=== PATIENT | female | born 1935 | race Caucasian/White ===

== ENCOUNTER 2017-05-03 14:30 | Inpatient (IN) | payer MEDICARE, OTHER, SELFPAY ==
[2017-05-03] VITALS (10 sets, daily range): BP systolic 122–160; BP diastolic 54–113; PULSE 70–99; RESP 16–22; TEMP 36.6–36.8; O2SAT 94–97; BMI 31.1; BMI 25.1
--- NOTE | 2017-05-03 14:38 | EKG12_ITS ---
Test Reason : CP Blood Pressure : / mmHG Vent. Rate : 081 BPM Atrial Rate : 068 BPM P-R Int : 000 ms QRS Dur : 080 ms QT Int : 360 ms P-R-T Axes : 000 048 033 degrees QTc Int : 418 ms Atrial fibrillation Nonspecific T wave abnormality Abnormal ECG Confirmed by LORENA TERESA ([id number]), makeup editor RUTH RHODES ([id number]) on 05/06/2017 1:19:22 PM Referred By: FRANCISCO Confirmed By:LORENA TERESA
--- NOTE | 2017-05-03 14:40 | RAD_ITS ---
STUDY: X-RAY CHEST REASON FOR EXAM: Female, 82 years old. Chest pain. TECHNIQUE: Single AP portable view of the chest. COMPARISON: 08/10/2013. FINDINGS: The lungs are clear and expanded. There is no demonstrated pleural abnormality. Normal size heart. Normal mediastinum and gertrudis. Normal visualized pulmonary arteries. Normal visualized aortic arch and descending thoracic aorta. The bony structures are unchanged. There again is a large hiatal hernia. RAD/Chest 1 View (Portable) IMPRESSION: No active pulmonary disease. Hiatal hernia. Electronically Signed: Jerry Kemp MD at 15:30 EST Tel , Service support ,
--- NOTE | 2017-05-03 14:45 | ED.VISSUMM ---
- ER Visit Summary Date of Service: 05/03/17 Chief Complaint: Irregular heartbeat, diaphoresis History of Present Illness: The patient is a 82 F presenting with palpitations. She states that she has had intermittent episodes of feeling sweaty. She denies any chest pain or shortness of breath. She went to urgent care today when this occurred again. They noted irregular heartbeat and sent her to the emergency department. She has no known history of A. fib. She states she has never had an EKG in the past. She is not on anticoagulants. Physical Examination: Vitals are stable. Patient is afebrile. Alert no acute distress. HEENT exam is unremarkable. Neck is supple. Lungs are clear and equal bilaterally. Heart is irregularly irregular Abdomen is soft nontender nondistended. Extremities are unremarkable. Skin is warm and dry. No focal neurologic deficit. Remainder of exam is unremarkable. Emergency Department Course and Treatment: EKG is A. fib rate of 81. She was given aspirin. CBC, chemistries unremarkable other than BUN 29, creatinine 1.14. Troponin is negative. Patient is resting comfortably in the emergency department. Discussed with Dr. Garcia for admission. Disposition: Admission Impression: New onset A. fib This note was generated with [employer] dictation software. It may contain incorrect words, spelling, and punctuation that were not noted in review of the chart prior to signing ED Disposition - Plan for ED Patient: Chief Complaint: Chest Pain Referrals: Arslan Toscano DO [Primary Care Provider] -
[2017-05-03 14:51] LABS: Absolute Lymphocyte Count 3.65 X10^3/ul (0.83-4.51); Absolute Neutrophil Count 5.1 X10^3/uL (2.0-7.7); Basophil# 0.05 X10^3/uL; Basophil% 0.5 % (0-1); Eosinophil# 0.05 X10^3/uL; Eosinophils% 0.5 % (0-5); Hematocrit 47.4 % (37-47); Hemoglobin 16.1 g/dl (12.0-15.0); Lymphocyte # 3.65 X10^3/ul (4.0); Lymphocyte % 37.3 % (19-41); Mean Corpuscular Hgb 29.9 pg (27.0-32.0); Mean Corpuscular Volume 88.1 fL (81-99); Monocyte% 9.2 % (0-10); Neutrophil # 5.12 X10^3/uL (2.7-7.7); Neutrophil % 52.3 % (47-70); Platelet Count 315 K/mm3 (150-450); RBC Distribution Width SD 45.1 fl (35.1-43.9); Red Blood Count 5.38 M/mm3 (4.2-5.4); White Blood Count 9.8 K/mm3 (4.4-11.0)
[2017-05-03 14:53] LABS: POSITIVE COUNT NO; POSITIVE DIFFERENTIAL NO; POSITIVE MORPHOLOGY NO
[2017-05-03 15:02] LABS: Anion Gap 9 (5-15); BUN 29 mg/dL (7-18); BUN/Creat Ratio 25.4 RATIO (10-20); Calcium,Total 9.4 mg/dL (8.5-10.1); Chloride 102 mmol/L (98-107); Creatinine, Serum 1.14 mg/dL (0.55-1.02); EST Glomerular Filtration Rate 49 mL/min (>60); Est Glom Filt Rate - Afr Amer 59 mL/min (>60); Estimated Creatinine Clearance 41.92 ml/min; Glucose 98 mg/dL (74-106); Potassium 3.4 mmol/L (3.5-5.1); Sodium Level 140 mmol/L (136-145)
[2017-05-03] MEDS: Aspirin 81 MG TAB.CHEW 324 MG PO (15:06)
--- NOTE | 2017-05-03 16:09 | PCM.HP.STD ---
Problem List (1) Afib Status: Acute (2) HTN (hypertension) Status: Chronic (3) Depression Status: Chronic (4) Anxiety Status: Chronic History of Present Illness Date of Admission: 05/03/17 Chief Complaint: diaphoresis The patient is a 82 year old F who presents with 2 episodes of diaphoresis and weakness. First episode happened about a week ago and then resolved but during the episode patient just felt very weak. She was also noted to be clammy but denied any chest pain. Again patient was not doing anything too strenuous but then had another episode. Patient was alarmed and presented to the emergency room. In the emergency room patient was noted to have atrial fibrillation but without rapid ventricular response. Patient has never had atrial fibrillation before. Patient states that otherwise patient is able to go up stairs without any chest pain or any difficulties. Patient is being admitted for H fibrillation and further workup in regards to the diaphoretic episode. [] Past Medical History Past Medical History (Chronic Problems): Chronic Problems (Last Updated 05/03/17 @ 14:13 by Juliette Box) HTN (hypertension) (Chronic) Depression (Chronic) Anxiety (Chronic) Allergies Sulfa (Sulfonamide Antibiotics) Allergy (Severe, Verified 05/03/17 14:13) unknown Home Medications: Ambulatory Orders Medication Instructions Recorded ascorbic acid (vitamin C) 500 mg 500 mg PO QDAY 05/03/17 tablet aspirin 81 mg tablet,delayed 81 mg PO DAILY 05/03/17 release calcium citrate 250 mg tablet 250 mg PO ONCE tab 05/03/17 escitalopram 5 mg tablet 5 mg PO QDAY 05/03/17 lisinopril 2.5 mg tablet 2.5 mg PO QDAY 05/03/17 omega 8-niy-ljw-fish oil 1,000 mg 1 cap PO DAILY 05/03/17 (120 mg-180 mg) capsule omeprazole 10 mg capsule,delayed 10 mg PO ONCE 05/03/17 release potassium chloride 20 mEq oral 20 meq PO QDAY 05/03/17 packet pravastatin 20 mg tablet 20 mg PO QHS 05/03/17 triamterene 37.5 1 cap PO QAM 05/03/17 mg-hydrochlorothiazide 25 mg capsule Psychiatric History: Anxiety, Depression Lives: Spouse/ Significant Other Smoking Status: Never smoker Tobacco Use: Non-smoker Alcohol: None Drugs: None - *Family History Maternal History Items: Heart Disease - from heart attack in her sleep Review of Systems Constitutional: Reports: Weakness. Denies: Chills, Fever Eyes: Denies: Blurred vision, Double vision HEENT: Denies: Head Aches, Sinus Congestion, Sinus Drainage Cardiovascular: Denies: Chest Pain, Palpitations Respiratory: Denies: Cough, Shortness of breath at rest, Sputum production Gastrointestinal: Denies: Abdominal Pain, Hematochezia, Nausea, Melena, Vomiting Genitourinary: Denies: Dysuria, Hematuria Musculoskeletal: Denies: Joint Pain, Joint Tenderness Skin: Denies: Rash, Wounds Neurological: Denies: Numbness, Tingling, Focal weakness Psychiatric: Reports: Anxiety, Depression Endocrine: Denies: Change in Body Habitus, Heat/ Cold Intolerance Hematologic/ Lymphatic: Denies: Easy Bruising, Easy Bleeding, Hx of blood clot VTE Information - Inpt Only VTE Present on Admission: No Patient Problems: Active and Suspected Problems (Last Updated 05/03/17 @ 14:13 by Juliette Box) Afib (Acute) - Physical Exam General: Alert, Cooperative, No apparent distress HEENT: Atraumatic, Normocephalic Oral: Moist Mucosa, No Gingival or Mucosal Lesions/ Ulcerations Neck: No Nodes, Thyroid Normal Size and Texture Lungs: Clear to auscultation, Normal air movement, No rhonchi, No wheeze Cardiovascular: Normal S1, Normal S2, - - irregular rhythm. Abdomen: Bowel Sounds Present, Soft, Non Tender, Non-Distended, No Hepato-splenomegaly Extremities: No clubbing, No cyanosis, No edema Skin: No rashes, No breakdown Neurological: Deep Tendon Reflexes 2+/4 and Symmetrical, Neuro grossly intact, - - No clonus Psych/Mental Status: Normal Affect, Appropriate Vital Signs Temp Pulse Resp BP Pulse Ox 36.6 C 97 20 H 159/91 H 97 05/03/17 14:31 05/03/17 15:55 05/03/17 15:55 05/03/17 15:55 05/03/17 15:55 Oxygen Flow Rate 2 Oxygen Delivery Method Nasal Cannula Weight: 69.8 kg Body Mass Index (BMI) 31.1 Laboratory Tests Past 24 Hrs 05/03/17 05/03/17 14:35 14:35 WBC 9.8 RBC 5.38 Hgb 16.1 H Hct 47.4 H MCV 88.1 MCH 29.9 MCHC 34.0 RDW 14.0 RDW Differential 45.1 H Plt Count 315 MPV 10.0 Immature Gran % (Auto) 0.200 Neut % (Auto) 52.3 Lymph % (Auto) 37.3 [place] % (Auto) 9.2 Eos % (Auto) 0.5 Baso % (Auto) 0.5 Absolute Neuts (auto) 5.1 Absolute Lymphs (auto) 3.65 Total Counted Not Reportable Sodium 140 Potassium 3.4 L Chloride 102 Carbon Dioxide 29.0 Anion Gap 9 BUN 29 H Creatinine 1.14 H Estim Creat Clear Calc 41.92 Est GFR (MDRD) Af Amer 59 L Est GFR (MDRD) Non-Af 49 L BUN/Creatinine Ratio 25.4 H Glucose 98 Calcium 9.4 Troponin I < 0.02 Assessment/Plan Active and Suspected Problems (Last Updated 05/03/17 @ 14:13 by Juliette Box) Afib (Acute) 1. Atrial fibrillation Unclear time of onset [id number] score is 4 Metoprolol 50 mg twice daily Start Lovenox for anticoagulation purposes until we get further echocardiogram to see the patient's valvular status. I have recommended to the patient and her for the novel anticoagulants over Coumadin for anticoagulation, presuming she has no significant valvular abnormality. They are in agreement to that. Given the patient's diaphoretic episode may have been related with rapid ventricular response but is unclear. Given that that is unclear him in order a stress test. Cycle troponins Patient will need to follow-up with cardiology as outpatient if she continues to still have symptoms and reevaluate to see if a cardioversion may be indicated at a later point. Not currently indicated as patient is otherwise asymptomatic other than these diaphoretic episodes. Not a candidate for cardioversion at this time given the thrombus risk without a defined time of onset. 2. DVT prophylaxis: Patient is currently being anticoagulated. 3. CODE STATUS: I dressed this with her patient and her . Discussed CPR, endotracheal intubation and feeding tubes. Patient is full CODE STATUS at this time and is okay to proceed with intubation if deemed to be short-term. Would likely she or her requests extubation if it look like she was a long-term vegetative state. Code Visit Inpatient E&M: 43076 Init Hosp L3
--- NOTE | 2017-05-03 16:16 | NURSING ---
104 PCU AFTAMANNA MATHEW
--- NOTE | 2017-05-03 16:18 | HP.PCM_ITS ---
Problem List (1) Afib Status: Acute (2) HTN (hypertension) Status: Chronic (3) Depression Status: Chronic (4) Anxiety Status: Chronic History of Present Illness Date of Admission: 05/03/17 Chief Complaint: diaphoresis The patient is a 82 year old F who presents with 2 episodes of diaphoresis and weakness. First episode happened about a week ago and then resolved but during the episode patient just felt very weak. She was also noted to be clammy but denied any chest pain. Again patient was not doing anything too strenuous but then had another episode. Patient was alarmed and presented to the emergency room. In the emergency room patient was noted to have atrial fibrillation but without rapid ventricular response. Patient has never had atrial fibrillation before. Patient states that otherwise patient is able to go up stairs without any chest pain or any difficulties. Patient is being admitted for H fibrillation and further workup in regards to the diaphoretic episode. [] Past Medical History Past Medical History (Chronic Problems): Chronic Problems (Last Updated 05/03/17 @ 14:13 by Juliette Box) HTN (hypertension) (Chronic) Depression (Chronic) Anxiety (Chronic) Allergies Sulfa (Sulfonamide Antibiotics) Allergy (Severe, Verified 05/03/17 14:13) unknown Home Medications: Ambulatory Orders Medication Instructions Recorded ascorbic acid (vitamin C) 500 mg 500 mg PO QDAY 05/03/17 tablet aspirin 81 mg tablet,delayed 81 mg PO DAILY 05/03/17 release calcium citrate 250 mg tablet 250 mg PO ONCE tab 05/03/17 escitalopram 5 mg tablet 5 mg PO QDAY 05/03/17 lisinopril 2.5 mg tablet 2.5 mg PO QDAY 05/03/17 omega 9-fog-sdl-fish oil 1,000 mg 1 cap PO DAILY 05/03/17 (120 mg-180 mg) capsule omeprazole 10 mg capsule,delayed 10 mg PO ONCE 05/03/17 release potassium chloride 20 mEq oral 20 meq PO QDAY 05/03/17 packet pravastatin 20 mg tablet 20 mg PO QHS 05/03/17 triamterene 37.5 1 cap PO QAM 05/03/17 mg-hydrochlorothiazide 25 mg capsule Psychiatric History: Anxiety, Depression Lives: Spouse/ Significant Other Smoking Status: Never smoker Tobacco Use: Non-smoker Alcohol: None Drugs: None - *Family History Maternal History Items: Heart Disease - from heart attack in her sleep Review of Systems Constitutional: Reports: Weakness. Denies: Chills, Fever Eyes: Denies: Blurred vision, Double vision HEENT: Denies: Head Aches, Sinus Congestion, Sinus Drainage Cardiovascular: Denies: Chest Pain, Palpitations Respiratory: Denies: Cough, Shortness of breath at rest, Sputum production Gastrointestinal: Denies: Abdominal Pain, Hematochezia, Nausea, Melena, Vomiting Genitourinary: Denies: Dysuria, Hematuria Musculoskeletal: Denies: Joint Pain, Joint Tenderness Skin: Denies: Rash, Wounds Neurological: Denies: Numbness, Tingling, Focal weakness Psychiatric: Reports: Anxiety, Depression Endocrine: Denies: Change in Body Habitus, Heat/ Cold Intolerance Hematologic/ Lymphatic: Denies: Easy Bruising, Easy Bleeding, Hx of blood clot VTE Information - Inpt Only VTE Present on Admission: No Patient Problems: Active and Suspected Problems (Last Updated 05/03/17 @ 14:13 by Juliette Box) Afib (Acute) - Physical Exam General: Alert, Cooperative, No apparent distress HEENT: Atraumatic, Normocephalic Oral: Moist Mucosa, No Gingival or Mucosal Lesions/ Ulcerations Neck: No Nodes, Thyroid Normal Size and Texture Lungs: Clear to auscultation, Normal air movement, No rhonchi, No wheeze Cardiovascular: Normal S1, Normal S2, - - irregular rhythm. Abdomen: Bowel Sounds Present, Soft, Non Tender, Non-Distended, No Hepato- splenomegaly Extremities: No clubbing, No cyanosis, No edema Skin: No rashes, No breakdown Neurological: Deep Tendon Reflexes 2+/4 and Symmetrical, Neuro grossly intact, - - No clonus Psych/Mental Status: Normal Affect, Appropriate Vital Signs Temp Pulse Resp BP Pulse Ox 36.6 C 97 20 H 159/91 H 97 05/03/17 14:31 05/03/17 15:55 05/03/17 15:55 05/03/17 15:55 05/03/17 15:55 Oxygen Flow Rate 2 Oxygen Delivery Method Nasal Cannula Weight: 69.8 kg Body Mass Index (BMI) 31.1 Laboratory Tests Past 24 Hrs 05/03/17 05/03/17 14:35 14:35 WBC 9.8 RBC 5.38 Hgb 16.1 H Hct 47.4 H MCV 88.1 MCH 29.9 MCHC 34.0 RDW 14.0 RDW Differential 45.1 H Plt Count 315 MPV 10.0 Immature Gran % (Auto) 0.200 Neut % (Auto) 52.3 Lymph % (Auto) 37.3 [place] % (Auto) 9.2 Eos % (Auto) 0.5 Baso % (Auto) 0.5 Absolute Neuts (auto) 5.1 Absolute Lymphs (auto) 3.65 Total Counted Not Reportable Sodium 140 Potassium 3.4 L Chloride 102 Carbon Dioxide 29.0 Anion Gap 9 BUN 29 H Creatinine 1.14 H Estim Creat Clear Calc 41.92 Est GFR (MDRD) Af Amer 59 L Est GFR (MDRD) Non-Af 49 L BUN/Creatinine Ratio 25.4 H Glucose 98 Calcium 9.4 Troponin I < 0.02 Assessment/Plan Active and Suspected Problems (Last Updated 05/03/17 @ 14:13 by Juliette Box) Afib (Acute) 1. Atrial fibrillation * Unclear time of onset * [id number] score is 4 * Metoprolol 50 mg twice daily * Start Lovenox for anticoagulation purposes until we get further echocardiogram to see the patient's valvular status. I have recommended to the patient and her for the novel anticoagulants over Coumadin for anticoagulation, presuming she has no significant valvular abnormality. They are in agreement to that. * Given the patient's diaphoretic episode may have been related with rapid ventricular response but is unclear. Given that that is unclear him in order a stress test. * Cycle troponins * Patient will need to follow-up with cardiology as outpatient if she continues to still have symptoms and reevaluate to see if a cardioversion may be indicated at a later point. Not currently indicated as patient is otherwise asymptomatic other than these diaphoretic episodes. Not a candidate for cardioversion at this time given the thrombus risk without a defined time of onset. 2. DVT prophylaxis: Patient is currently being anticoagulated. 3. CODE STATUS: I dressed this with her patient and her . Discussed CPR , endotracheal intubation and feeding tubes. Patient is full CODE STATUS at this time and is okay to proceed with intubation if deemed to be short-term. Would likely she or her requests extubation if it look like she was a long-term vegetative state. Code Visit Inpatient E&M: 40602 Init Hosp L3
--- NOTE | 2017-05-03 17:47 | ECHOD_ITS ---
Reason For Study: A. fib/flutter Procedure This was a 2D Doppler, Color Flow transthoracic echocardiogram. Exam performed in department. Left Ventricle Normal LV size. Left ventricular systolic function is normal. The estimated ejection fraction is 65 %. No evidence for diastolic dysfunction. No regional wall motion abnormalities noted. Right Ventricle Normal RV size. Normal systolic function. Atria The left atrium is mildly enlarged. Normal right atrium. Mitral Valve Normal mitral valve. Tricuspid Valve Normal tricuspid valve. Mild tricuspid valve insufficiency. Aortic Valve Normal aortic valve. Trisinus/trileaflet aortic valve. Pulmonic Valve Normal pulmonic valve. Great Vessels Normal aortic root. The pulmonary artery is normal size. Normal inferior vena cava. Pericardium/Pleural No pericardial effusion. MMode/2D Measurements & Calculations LVIDd: 3.3 cm IVSd: 1.3 cm Ao root diam: 2.4 cm LVIDs: 1.7 cm LVPWd: 1.3 cm LA dimension: 3.6 cm FS: 47.7 % LAV(MOD-bp): 55.0 ml LA A4 area: 23.7 cm2 RA A4 area: 11.2 cm2 LAV(MOD-bp) Indexed: 31.7 ml/m2 LAV(MOD-sp2): 29.9 ml LAV(MOD-sp4): 81.1 ml Doppler Measurements & Calculations MV E max isaiah: 70.0 cm/sec Ao V2 max: 116.5 cm/sec LV V1 max: 64.5 cm/sec Ao max P.4 mmHg LV V1 max P.7 mmHg PA V2 max: 75.7 cm/sec TR max isaiah: 202.1 cm/sec TR max P.4 mmHg Interpretation Summary Normal LV size. Left ventricular systolic function is normal. The estimated ejection fraction is 65 %. No evidence for diastolic dysfunction. Ordering Physician: Wayne Garcia Referring Physician: Arslan Toscano Performed By: Kaitlin Gallego RDCS
[2017-05-03] MEDS: Enoxaparin 80 MG/0.8 ML Syringe 70 MG SC (19:04)
[2017-05-03] MEDS: Metoprolol Tartrate 50 MG Tablet PO (21:29)
[2017-05-03] MEDS: Escitalopram Oxalate 10 MG Tablet 5 MG PO (21:29)
[2017-05-03] MEDS: Pravastatin 20 MG Tablet PO (21:30)
[2017-05-04] VITALS (12 sets, daily range): BP systolic 94–112; BP diastolic 56–62; PULSE 62–86; RESP 14–16; TEMP 36.1–36.8; O2SAT 94–97
[2017-05-04] MEDS: Enoxaparin 80 MG/0.8 ML Syringe 70 MG SC ×2 (05:44→17:48)
[2017-05-04 06:36] LABS: AST(SGOT) 30 U/L (15-37); Alanine Aminotransfer ALT/SGPT 25 U/L (13-56); Albumin, Serum 2.9 g/dL (3.2-5.0); Alkaline Phosphatase 56 U/L (45-117); Globulin 3.7 g/dL (2.2-4.2); Protein, Total 6.6 g/dL (6.4-8.2); Thyroid Stim Hormone (TSH) 3.65 uIU/mL (0.358-3.74)
[2017-05-04 07:07] LABS: Anion Gap 12 (5-15); BUN 24 mg/dL (7-18); BUN/Creat Ratio 24.4 RATIO (10-20); Calcium,Total 8.8 mg/dL (8.5-10.1); Chloride 107 mmol/L (98-107); Creatinine, Serum 0.98 mg/dL (0.55-1.02); EST Glomerular Filtration Rate 58 mL/min (>60); Est Glom Filt Rate - Afr Amer 70 mL/min (>60); Estimated Creatinine Clearance 38.22 ml/min; Glucose 90 mg/dL (74-106); Sodium Level 139 mmol/L (136-145)
[2017-05-04] MEDS: Ascorbic Acid 500 MG Tablet PO (10:12)
[2017-05-04] MEDS: Metoprolol Tartrate 50 MG Tablet PO ×2 (10:12→21:30)
[2017-05-04] MEDS: Aspirin E.C. 81 MG Tablet PO (10:12)
[2017-05-04] MEDS: Lisinopril 2.5 MG Tablet PO (10:12)
[2017-05-04] MEDS: Triamterene 37.5MG/Hctz 25MG Capsule 1 CAP PO (10:12)
--- NOTE | 2017-05-04 11:31 | PCM.PN.HOSP ---
Patient Problems: Active and Suspected Problems (Last Updated 05/03/17 @ 14:13 by Juliette Box) Afib (Acute) Subjective: feeling good. no chest pain, palpitations, diaphoresis. Vitals/I&O's: Vital Signs Temp Pulse Resp BP Pulse Ox 36.7 C 70 14 100/56 L 97 05/04/17 09:15 05/04/17 11:10 05/04/17 09:15 05/04/17 09:15 05/04/17 09:15 Oxygen Delivery Method Room Air Weight: 68.2 kg Body Mass Index (BMI) 25.1 Intake and Output for Last 24 Hours 05/02/17 05/03/17 05/04/17 23:59 23:59 23:59 Intake Total 500 / 500 200 / 200 Balance 500 / 500 200 / 200 General: Alert, Cooperative, No apparent distress, - - appears younger than stated age. HEENT: Atraumatic, Normocephalic Neck: No Nodes, Thyroid Normal Size and Texture Lungs: Clear to auscultation, Normal air movement, No rhonchi, No wheeze Cardiovascular: Normal S1, Normal S2, No murmurs, - - irregular rhythm Abdomen: Bowel Sounds Present, Soft, Non Tender, Non-Distended, No Hepato-splenomegaly Extremities: No clubbing, No cyanosis, No edema, No Calf Tenderness Skin: No rashes, No breakdown Musculoskeletal: No Tenderness to Palpation of Joints or Extremities, No Muscle Wasting Lymphatic: No Cervical, Supraclavicular, or Inguinal Adenopathy, Cervical Adenopathy Psych/Mental Status: Normal Affect, Appropriate Laboratory Results 05/03/17 19:00: Troponin I < 0.02 05/03/17 20:30: Troponin I < 0.02 05/04/17 05:28: Total Bilirubin 0.70, Direct Bilirubin 0.10, AST 30, ALT 25, Alkaline Phosphatase 56, Total Protein 6.6, Albumin 2.9 L, Globulin 3.7, TSH 3.65 05/04/17 05:28: Sodium 139, Potassium 4.0, Chloride 107, Carbon Dioxide 20.0 L, Anion Gap 12, BUN 24 H, Creatinine 0.98, Estim Creat Clear Calc 38.22, Est GFR (MDRD) Af Amer 70, Est GFR (MDRD) Non-Af 58 L, BUN/Creatinine Ratio 24.4 H, Glucose 90, Calcium 8.8 Current Medications Acetaminophen (Tylenol) 650 mg PO Q6H PRN PRN PRN Reason: Mild Pain (1-3)/Temp > 100.7 F Ascorbic Acid (Vitamin C) 500 mg PO DAILY REPLACED BY [facility] Last Admin: 05/04/17 10:12 Dose: 500 mg Aspirin (Ecotrin) 81 mg PO DAILYCM REPLACED BY [facility] Last Admin: 05/04/17 10:12 Dose: 81 mg Enoxaparin Sodium (Lovenox) 70 mg SC Q12@0600,1800 REPLACED BY [facility] Last Admin: 05/04/17 05:44 Dose: 70 mg Escitalopram Oxalate (Lexapro) 5 mg PO DAILY@2200 REPLACED BY [facility] Last Admin: 05/03/17 21:29 Dose: 5 mg Lisinopril (Zestril) 2.5 mg PO DAILY REPLACED BY [facility] Last Admin: 05/04/17 10:12 Dose: 2.5 mg Magnesium Hydroxide (Milk Of Magnesia) 30 ml PO DAILY PRN PRN Reason: Constipation Metoprolol Tartrate (Lopressor (Beta Gena)) 50 mg PO BID REPLACED BY [facility] Last Admin: 05/04/17 10:12 Dose: 50 mg Non-Formulary Medication (Omeprazole [Omeprazole]) 10 mg PO ONCE REPLACED BY [facility] Ondansetron HCl (Zofran) 4 mg IV Q8H PRN PRN PRN Reason: NAUSEA Potassium Chloride (K-Dur) 20 meq PO DAILY REPLACED BY [facility] Last Admin: 05/04/17 10:17 Dose: 20 meq Pravastatin Sodium (Pravachol) 20 mg PO QHS REPLACED BY [facility] Last Admin: 05/03/17 21:30 Dose: 20 mg Triamterene/HCTZ (Dyazide (G)) 1 cap PO QAM REPLACED BY [facility] Last Admin: 05/04/17 10:12 Dose: 1 cap Assessment/Plan Active and Suspected Problems (Last Updated 05/03/17 @ 14:13 by Juliette Box) Afib (Acute) 1. Atrial fibrillation Unclear time of onset [id number] score is 4 Metoprolol 50 mg twice daily Start Lovenox for anticoagulation purposes until we get further echocardiogram to see the patient's valvular status. I have recommended to the patient and her for the novel anticoagulants over Coumadin for anticoagulation, presuming she has no significant valvular abnormality. They are in agreement to that. Given the patient's diaphoretic episode may have been related with rapid ventricular response but is unclear. Given that that is unclear him in order a stress test. Cycle troponins Patient will need to follow-up with cardiology as outpatient if she continues to still have symptoms and reevaluate to see if a cardioversion may be indicated at a later point. Not currently indicated as patient is otherwise asymptomatic other than these diaphoretic episodes. Not a candidate for cardioversion at this time given the thrombus risk without a defined time of onset. 2. DVT prophylaxis: Patient is currently being anticoagulated. Greater than 35 minutes, of which greater than 50% was discussing the work up for her atrial fibrillation, testing and follow ups. Code Visit Inpatient E&M: 27748 Subs Hosp L3
--- NOTE | 2017-05-04 11:34 | PN_ITS ---
Patient Problems: Active and Suspected Problems (Last Updated 05/03/17 @ 14:13 by Juliette Box) Afib (Acute) Subjective: feeling good. no chest pain, palpitations, diaphoresis. Vitals/I&O's: Vital Signs Temp Pulse Resp BP Pulse Ox 36.7 C 70 14 100/56 L 97 05/04/17 09:15 05/04/17 11:10 05/04/17 09:15 05/04/17 09:15 05/04/17 09:15 Oxygen Delivery Method Room Air Weight: 68.2 kg Body Mass Index (BMI) 25.1 Intake and Output for Last 24 Hours 05/02/17 05/03/17 05/04/17 23:59 23:59 23:59 Intake Total 500 / 500 200 / 200 Balance 500 / 500 200 / 200 General: Alert, Cooperative, No apparent distress, - - appears younger than stated age. HEENT: Atraumatic, Normocephalic Neck: No Nodes, Thyroid Normal Size and Texture Lungs: Clear to auscultation, Normal air movement, No rhonchi, No wheeze Cardiovascular: Normal S1, Normal S2, No murmurs, - - irregular rhythm Abdomen: Bowel Sounds Present, Soft, Non Tender, Non-Distended, No Hepato- splenomegaly Extremities: No clubbing, No cyanosis, No edema, No Calf Tenderness Skin: No rashes, No breakdown Musculoskeletal: No Tenderness to Palpation of Joints or Extremities, No Muscle Wasting Lymphatic: No Cervical, Supraclavicular, or Inguinal Adenopathy, Cervical Adenopathy Psych/Mental Status: Normal Affect, Appropriate Laboratory Results 05/03/17 19:00: Troponin I < 0.02 05/03/17 20:30: Troponin I < 0.02 05/04/17 05:28: Total Bilirubin 0.70, Direct Bilirubin 0.10, AST 30, ALT 25, Alkaline Phosphatase 56, Total Protein 6.6, Albumin 2.9 L, Globulin 3.7, TSH 3.65 05/04/17 05:28: Sodium 139, Potassium 4.0, Chloride 107, Carbon Dioxide 20.0 L, Anion Gap 12, BUN 24 H, Creatinine 0.98, Estim Creat Clear Calc 38.22, Est GFR ( MDRD) Af Amer 70, Est GFR (MDRD) Non-Af 58 L, BUN/Creatinine Ratio 24.4 H, Glucose 90, Calcium 8.8 Current Medications Acetaminophen (Tylenol) 650 mg PO Q6H PRN PRN PRN Reason: Mild Pain (1-3)/Temp > 100.7 F Ascorbic Acid (Vitamin C) 500 mg PO DAILY [facility] Last Admin: 05/04/17 10:12 Dose: 500 mg Aspirin (Ecotrin) 81 mg PO DAILYCM [facility] Last Admin: 05/04/17 10:12 Dose: 81 mg Enoxaparin Sodium (Lovenox) 70 mg SC Q12@0600,1800 [facility] Last Admin: 05/04/17 05:44 Dose: 70 mg Escitalopram Oxalate (Lexapro) 5 mg PO DAILY@2200 [facility] Last Admin: 05/03/17 21:29 Dose: 5 mg Lisinopril (Zestril) 2.5 mg PO DAILY [facility] Last Admin: 05/04/17 10:12 Dose: 2.5 mg Magnesium Hydroxide (Milk Of Magnesia) 30 ml PO DAILY PRN PRN Reason: Constipation Metoprolol Tartrate (Lopressor (Beta Gena)) 50 mg PO BID [facility] Last Admin: 05/04/17 10:12 Dose: 50 mg Non-Formulary Medication (Omeprazole [Omeprazole]) 10 mg PO ONCE [facility] Ondansetron HCl (Zofran) 4 mg IV Q8H PRN PRN PRN Reason: NAUSEA Potassium Chloride (K-Dur) 20 meq PO DAILY [facility] Last Admin: 05/04/17 10:17 Dose: 20 meq Pravastatin Sodium (Pravachol) 20 mg PO QHS [facility] Last Admin: 05/03/17 21:30 Dose: 20 mg Triamterene/HCTZ (Dyazide (G)) 1 cap PO QAM [facility] Last Admin: 05/04/17 10:12 Dose: 1 cap Assessment/Plan Active and Suspected Problems (Last Updated 05/03/17 @ 14:13 by Juliette Box) Afib (Acute) 1. Atrial fibrillation * Unclear time of onset * [id number] score is 4 * Metoprolol 50 mg twice daily * Start Lovenox for anticoagulation purposes until we get further echocardiogram to see the patient's valvular status. I have recommended to the patient and her for the novel anticoagulants over Coumadin for anticoagulation, presuming she has no significant valvular abnormality. They are in agreement to that. * Given the patient's diaphoretic episode may have been related with rapid ventricular response but is unclear. Given that that is unclear him in order a stress test. * Cycle troponins * Patient will need to follow-up with cardiology as outpatient if she continues to still have symptoms and reevaluate to see if a cardioversion may be indicated at a later point. Not currently indicated as patient is otherwise asymptomatic other than these diaphoretic episodes. Not a candidate for cardioversion at this time given the thrombus risk without a defined time of onset. 2. DVT prophylaxis: Patient is currently being anticoagulated. Greater than 35 minutes, of which greater than 50% was discussing the work up for her atrial fibrillation, testing and follow ups. Code Visit Inpatient E&M: 96309 [facility] L3
[2017-05-04] MEDS: Escitalopram Oxalate 10 MG Tablet 5 MG PO (21:29)
[2017-05-04] MEDS: Pravastatin 20 MG Tablet PO (21:30)
[2017-05-05] VITALS (15 sets, daily range): BP systolic 91–112; BP diastolic 43–66; PULSE 35–92; RESP 16–20; TEMP 36.4–36.8; O2SAT 94–97
--- NOTE | 2017-05-05 05:30 | EKG12_ITS ---
Test Reason : AM EKG Blood Pressure : / mmHG Vent. Rate : 054 BPM Atrial Rate : 416 BPM P-R Int : 000 ms QRS Dur : 074 ms QT Int : 418 ms P-R-T Axes : 000 068 078 degrees QTc Int : 396 ms Atrial fibrillation Nonspecific T wave abnormality Abnormal ECG When compared with ECG of 03-MAY-2017 14:35, MANUAL COMPARISON REQUIRED, DATA IS UNCONFIRMED Confirmed by BK RODGERS, CHAPIS ([id number]), photography editor RUTH RHODES ([id number]) on 05/07/2017 2:43:51 PM Referred By: PRIYANKA Confirmed By:CHAPIS BOURGEOIS MD
[2017-05-05] MEDS: Aspirin E.C. 81 MG Tablet PO (05:48)
[2017-05-05] MEDS: Lisinopril 2.5 MG Tablet PO (05:49)
[2017-05-05 06:12] LABS: Anion Gap 8 (5-15); BUN 28 mg/dL (7-18); BUN/Creat Ratio 26.9 RATIO (10-20); Calcium,Total 8.9 mg/dL (8.5-10.1); Chloride 105 mmol/L (98-107); Creatinine, Serum 1.04 mg/dL (0.55-1.02); EST Glomerular Filtration Rate 54 mL/min (>60); Est Glom Filt Rate - Afr Amer 65 mL/min (>60); Estimated Creatinine Clearance 36.01 ml/min; Glucose 92 mg/dL (74-106); Potassium 3.9 mmol/L (3.5-5.1); Sodium Level 140 mmol/L (136-145)
[2017-05-05 06:14] LABS: International Normalized Ratio 1.1; Prothrombin Time (Protime)PT. 13.7 SECONDS (11.7-14.9)
[2017-05-05 06:18] LABS: Hematocrit 44.3 % (37-47); Hemoglobin 14.7 g/dl (12.0-15.0); Mean Corp Hgb Conc 33.2 g/gl (32-36); Mean Corpuscular Hgb 29.3 pg (27.0-32.0); Mean Corpuscular Volume 88.4 fL (81-99); Mean Platelet Vol. 10.4 fl (6.2-12.0); Platelet Count 269 K/mm3 (150-450); RBC Distribution Width CV 14.1 % (11.6-14.6); RBC Distribution Width SD 45.4 fl (35.1-43.9); Red Blood Count 5.01 M/mm3 (4.2-5.4); White Blood Count 6.4 K/mm3 (4.4-11.0)
[2017-05-05 06:28] LABS: Scan Indicated on CBC? Y/N NO
[2017-05-05] MEDS: Ascorbic Acid 500 MG Tablet PO (10:25)
[2017-05-05] MEDS: Metoprolol Tartrate 50 MG Tablet PO (10:25)
[2017-05-05] MEDS: Triamterene 37.5MG/Hctz 25MG Capsule 1 CAP PO (10:25)
[2017-05-05] MEDS: Pantoprazole Sodium 20 MG Tablet PO (10:31)
--- NOTE | 2017-05-05 12:15 | PCM.PROGNOTE ---
Patient Problems: Active and Suspected Problems (Last Updated 05/03/17 @ 14:13 by Juliette Box) Afib (Acute) Subjective: Patient is an 82-year-old female with a past medical history of hypertension, depression and anxiety who presented to the emergency room at [facility] on 05/03/2017 complaining of sudden onset sweating and weakness. He had a similar episode 1 week prior to presenting to the emergency room. Denied chest pain. EKG in the emergency room showed atrial fibrillation with no RVR. She was not on a rate limiting agent as an outpatient. She denied any prior history of atrial fibrillation. Significant lab at admission included a potassium of 3.4 with BUN of 29 and creatinine of 1.14 ( she has been on dyazide as an OP). Hemoglobin was increased at 16.1, likely secondary to hemoconcentration. Troponin was less than 0.02. Chest x-ray showed evidence of a hiatal hernia but was otherwise unremarkable. She was admitted to a monitored bed in the hospital with a diagnosis of new onset AF. she was started on Metoprolol 50 mg BID. Serial cardiac enzymes were negative. Echo showed normal left ventricular systolic function with an estimated ejection fraction of 65% a mildly enlarged left atrium. BP's have ranged from 98/59 to 112/59 the past 24 hours. Currently on Lovenox 1 mg/kg subcu every 12 hours for anticoagulation. He denies chest pain, shortness of breath, palpitations, lightheadedness. - Physical Exam General: Alert, Oriented x3, Cooperative, No apparent distress HEENT: Atraumatic, Normocephalic Oral: Dry Mucosa Neck: Supple, No JVD, Negative Carotid Bruits Lungs: Clear to auscultation, Normal air movement Cardiovascular: Normal S1, Normal S2, No murmurs, Bradycardic, Irregular Rate, No Gallop Abdomen: Bowel Sounds Present, Soft, Non Tender, Non-Distended, Obese Extremities: No clubbing, No cyanosis, No edema, No Calf Tenderness Skin: No rashes, No breakdown Neurological: Cranial nerves II-XII grossly intact, Neuro grossly intact Psych/Mental Status: Normal Affect, Appropriate Vital Signs Temp Pulse Resp BP Pulse Ox 97.8 F 92 16 98/59 L 96 05/05/17 05:58 05/05/17 10:59 05/05/17 05:58 05/05/17 05:58 05/05/17 05:58 Oxygen Delivery Method Room Air Weight: 150 lb 5.684 oz Body Mass Index (BMI) 25.1 Intake and Output for Last 24 Hours 05/03/17 05/04/17 05/05/17 23:59 23:59 23:59 Intake Total 500 / 500 950 / 950 50 / 50 Balance 500 / 500 950 / 950 50 / 50 Laboratory Tests Past 24 Hrs 05/05/17 05/05/17 05/05/17 05:20 05:20 05:20 WBC 6.4 RBC 5.01 Hgb 14.7 Hct 44.3 MCV 88.4 MCH 29.3 MCHC 33.2 RDW 14.1 RDW Differential 45.4 H Plt Count 269 MPV 10.4 PT 13.7 INR 1.1 APTT 36.0 Sodium 140 Potassium 3.9 Chloride 105 Carbon Dioxide 27.0 Anion Gap 8 BUN 28 H Creatinine 1.04 H Estim Creat Clear Calc 36.01 Est GFR (MDRD) Af Amer 65 Est GFR (MDRD) Non-Af 54 L BUN/Creatinine Ratio 26.9 H Glucose 92 Calcium 8.9 Assessment/Plan Active and Suspected Problems (Last Updated 05/03/17 @ 14:13 by Juliette Box) Afib (Acute) Impressions 1. New onset atrial fibrillation with no rapid ventricular response, on no rate limiting agents-suspect possible coexisting sick sinus syndrome. Now with bradycardia on metoprolol 50 mg p.o. twice daily with the longest pause being 2.64 seconds. Will decrease metoprolol to 25 mg twice daily. 2. Hypertension 3. History of depression/anxiety Check Mag and lipid panel Stress test is negative so will consult cardiology for possible ARNEL with cardioversion Discontinue Dyazide Await the stress report to see what the rate does with exercise.......may need to consider decreasing the Metoprolol dose....she is bradycardic....the longest pause is 2.64 sec. she may have SSS because she was not tachycardic at presentation to the ER and she was not on a rate limiting agent Supplement the potassium as needed to maintain the K at 4 and the magnesium at 2.0 prevent further episodes of atrial fibrillation. Likely does not need a diuretic for blood pressure control and her ejection fraction is within normal limits so will discontinue Dyazide. Decrease metoprolol to 25 mg twice daily in light of bradycardia low blood pressure Gentle hydration ?2 L Consult cardiology to consider ARNEL and DC cardioversion prior to discharge Code Visit Inpatient E&M: 95166 Subs Hosp L2
--- NOTE | 2017-05-05 12:29 | PN_ITS ---
Patient Problems: Active and Suspected Problems (Last Updated 05/03/17 @ 14:13 by Juliette Box) Afib (Acute) Subjective: Patient is an 82-year-old female with a past medical history of hypertension, depression and anxiety who presented to the emergency room at [facility] on 05/03/2017 complaining of sudden onset sweating and weakness. He had a similar episode 1 week prior to presenting to the emergency room. Denied chest pain. EKG in the emergency room showed atrial fibrillation with no RVR. She was not on a rate limiting agent as an outpatient. She denied any prior history of atrial fibrillation. Significant lab at admission included a potassium of 3.4 with BUN of 29 and creatinine of 1.14 ( she has been on dyazide as an OP). Hemoglobin was increased at 16.1, likely secondary to hemoconcentration. Troponin was less than 0.02. Chest x-ray showed evidence of a hiatal hernia but was otherwise unremarkable. She was admitted to a monitored bed in the hospital with a diagnosis of new onset AF. she was started on Metoprolol 50 mg BID. Serial cardiac enzymes were negative. Echo showed normal left ventricular systolic function with an estimated ejection fraction of 65% a mildly enlarged left atrium. BP's have ranged from 98/59 to 112/59 the past 24 hours. Currently on Lovenox 1 mg/kg subcu every 12 hours for anticoagulation. He denies chest pain, shortness of breath, palpitations, lightheadedness. - Physical Exam General: Alert, Oriented x3, Cooperative, No apparent distress HEENT: Atraumatic, Normocephalic Oral: Dry Mucosa Neck: Supple, No JVD, Negative Carotid Bruits Lungs: Clear to auscultation, Normal air movement Cardiovascular: Normal S1, Normal S2, No murmurs, Bradycardic, Irregular Rate, No Gallop Abdomen: Bowel Sounds Present, Soft, Non Tender, Non-Distended, Obese Extremities: No clubbing, No cyanosis, No edema, No Calf Tenderness Skin: No rashes, No breakdown Neurological: Cranial nerves II-XII grossly intact, Neuro grossly intact Psych/Mental Status: Normal Affect, Appropriate Vital Signs Temp Pulse Resp BP Pulse Ox 97.8 F 92 16 98/59 L 96 05/05/17 05:58 05/05/17 10:59 05/05/17 05:58 05/05/17 05:58 05/05/17 05:58 Oxygen Delivery Method Room Air Weight: 150 lb 5.684 oz Body Mass Index (BMI) 25.1 Intake and Output for Last 24 Hours 05/03/17 05/04/17 05/05/17 23:59 23:59 23:59 Intake Total 500 / 500 950 / 950 50 / 50 Balance 500 / 500 950 / 950 50 / 50 Laboratory Tests Past 24 Hrs 05/05/17 05/05/17 05/05/17 05:20 05:20 05:20 WBC 6.4 RBC 5.01 Hgb 14.7 Hct 44.3 MCV 88.4 MCH 29.3 MCHC 33.2 RDW 14.1 RDW Differential 45.4 H Plt Count 269 MPV 10.4 PT 13.7 INR 1.1 APTT 36.0 Sodium 140 Potassium 3.9 Chloride 105 Carbon Dioxide 27.0 Anion Gap 8 BUN 28 H Creatinine 1.04 H Estim Creat Clear Calc 36.01 Est GFR (MDRD) Af Amer 65 Est GFR (MDRD) Non-Af 54 L BUN/Creatinine Ratio 26.9 H Glucose 92 Calcium 8.9 Assessment/Plan Active and Suspected Problems (Last Updated 05/03/17 @ 14:13 by Juliette Box) Afib (Acute) Impressions 1. New onset atrial fibrillation with no rapid ventricular response, on no rate limiting agents-suspect possible coexisting sick sinus syndrome. Now with bradycardia on metoprolol 50 mg p.o. twice daily with the longest pause being 2.64 seconds. Will decrease metoprolol to 25 mg twice daily. 2. Hypertension 3. History of depression/anxiety * Check Mag and lipid panel * Stress test is negative so will consult cardiology for possible ARNEL with cardioversion * Discontinue Dyazide * Await the stress report to see what the rate does with exercise.......may need to consider decreasing the Metoprolol dose....she is bradycardic....the longest pause is 2.64 sec. she may have SSS because she was not tachycardic at presentation to the ER and she was not on a rate limiting agent * Supplement the potassium as needed to maintain the K at 4 and the magnesium at 2.0 prevent further episodes of atrial fibrillation. Likely does not need a diuretic for blood pressure control and her ejection fraction is within normal limits so will discontinue Dyazide. * Decrease metoprolol to 25 mg twice daily in light of bradycardia low blood pressure * Gentle hydration ?2 L * Consult cardiology to consider ARNEL and DC cardioversion prior to discharge Code Visit Inpatient E&M: 18151 Subs Hosp L2
[2017-05-05 13:10] LABS: Cholesterol 127 mg/dL (200); High Density Lipoprotein 40 mg/dL; Triglycerides 193 mg/dL; Very Low Density Lipoprotein 39 mg/dL (5-40)
--- NOTE | 2017-05-05 13:55 | STRESSREP_ITS ---
Stress Test Report Exercise myocardial perfusion stress test 82-year-old lady with a history of atrial fibrillation. Stress protocol EKG demonstrates atrial fibrillation with a rate of 77 bpm. Resting blood pressure is 140/68 mmHg. She did exercised according to the regular Cristhian protocol for total duration of 4 minutes and 15 seconds completing 1 minute and 15 seconds into stage II of the Cristhian protocol. The maximum heart rate attained was 157 bpm which was 113% of the maximum predicted heart rate. The maximum workload was 6.1 metabolic equivalents. At rest there were no ST or T- wave changes noted to suggest ischemia the patient maintained atrial fibrillation throughout the recording. The resting blood pressure is 140/68 with a maximum blood pressure 152/58. Myocardial perfusion protocol. 11.8 mCi of technetium 99m sestamibi was injected at rest. The patient then exercised according to regular Cristhian protocol for 4 minutes and 15 seconds attaining 113% of the maximum predicted heart rate. The maximum workload was 6.1 metabolic equivalents at peak exercise 33.1 mCi of technetium 99m sestamibi was injected. Stress and resting images were reconstructed and compared in the short axis vertical long and horizontal long axis. Gated images were also obtained. Perfusion SPECT analysis: Review of the stress images demonstrate normal uptake of tracer noted in all areas of the myocardium. The resting images similarly demonstrated normal uptake of tracer noted in all areas of the myocardium. No areas of reversibility are noted suggest ischemia no previous infarct is noted. Gated SPECT analysis: The gated ejection fraction is noted to be 83%. Conclusion: Normal exercise myocardial perfusion stress test at a moderate workload. Persistent atrial fibrillation. Preserved ejection fraction.
--- NOTE | 2017-05-05 14:26 | CASEMGMT ---
Face to Face with patient for initial transition planning/care coordination assessment. RN SITA introduced self and role at [facility], pt voices understanding and consents to assessment at this time. Pt is sitting up in bed in no distress at this time. Pt A/O x4 at this time and answers all questions appropriately at this time. Care providers, pharmacy, and demographics verified. See attached link. Pt voices no further concerns/needs at this time. Advised pt/family to ask for CM if any further questions/concerns/needs arise, voices understanding. PLAN: [facility] [employer]
--- NOTE | 2017-05-05 15:04 | CON.PCM_ITS ---
Reason for Consult Date of Consultation: 05/05/17 Reason for Consultation: Irregular heart rate History of Present Illness: The patient is a 82 year old F no previous medical history who presented yesterday after having an episode of diaphoresis. She denied any chest pain or shortness breath or paroxysmal nocturnal dyspnea or pedal edema she tells me that she had 2 of these episodes the same day. Due to her not feeling well her suggested that she go to the emergency room and she proceeded to go to the [facility] and her blood pressure checked and an EKG and was noted to be in atrial fibrillation with rapid ventricular response rate. She was therefore sent to the emergency room and subsequently admitted. She was started on Lovenox and a beta-beverly and developed some pauses of 2.6 seconds. She underwent an echocardiographic evaluation today which demonstrated preserved ejection fraction and also an exercise myocardial perfusion stress test which did not demonstrate any evidence of ischemia. She is currently asymptomatic and says that she does not feel the palpitations. Cardiology was called to render an opinion on the current condition. Particular time she does not feel her irregular heartbeat. She has not had any dizziness or near syncope. Past Medical History Allergies/Adverse Reactions: Allergies Sulfa (Sulfonamide Antibiotics) Allergy (Severe, Verified 05/03/17 14:13) unknown Home Medications: Ambulatory Orders Medication Instructions Recorded ascorbic acid (vitamin C) 500 mg 500 mg PO QDAY 05/03/17 tablet aspirin 81 mg tablet,delayed 81 mg PO DAILY 05/03/17 release calcium citrate 250 mg tablet 250 mg PO ONCE tab 05/03/17 escitalopram 5 mg tablet 5 mg PO QDAY 05/03/17 lisinopril 2.5 mg tablet 2.5 mg PO QDAY 05/03/17 omega 0-wqz-del-fish oil 1,000 mg 1 cap PO DAILY 05/03/17 (120 mg-180 mg) capsule omeprazole 10 mg capsule,delayed 10 mg PO DAILY 05/03/17 release potassium chloride 20 mEq oral 20 meq PO QDAY 05/03/17 packet pravastatin 20 mg tablet 20 mg PO QHS 05/03/17 triamterene 37.5 1 cap PO QAM 05/03/17 mg-hydrochlorothiazide 25 mg capsule Past Medical History (Chronic Problems): Chronic Problems (Last Updated 05/03/17 @ 14:13 by Juliette Box) HTN (hypertension) (Chronic) Depression (Chronic) Anxiety (Chronic) Surgical History: no surgical history Psychiatric History: Anxiety, Depression - *Family History Maternal History Items: Heart Disease - from heart attack in her sleep Lives: Spouse/ Significant Other Smoking Status: Never smoker Tobacco Use: Non-smoker Alcohol: None Drugs: None Review of Systems - Review of Systems General: Denies: Fever, Night Sweats, Fatigue Cardiovascular: Denies: Chest Discomfort, Shortness of Breath, Orthopnea, PND, Peripheral Edema, Palpitations, Lightheadedness, Dizziness, Near Syncope, Syncope Respiratory: Denies: Cough, Sputum Production, Hemoptysis Gastrointestinal: Denies: Hematemesis, Hematochezia, Melena Genitourinary: Denies: Dysuria, Hematuria Skin: Denies: Rash Subjectve: Pleasant lady in no distress Objective: Vital Signs Temp Pulse Resp BP Pulse Ox 98.3 F 58 L 16 91/43 L 97 05/05/17 11:55 05/05/17 11:55 05/05/17 11:55 05/05/17 11:55 05/05/17 11:55 Oxygen Delivery Method Room Air Weight: 150 lb 5.684 oz Body Mass Index (BMI) 25.1 Intake and Output for Last 24 Hours 05/03/17 05/04/17 05/05/17 23:59 23:59 23:59 Intake Total 500 / 500 950 / 950 490 / 490 Balance 500 / 500 950 / 950 490 / 490 General: Awake, Alert, Oriented x 3 HEENT: PERRL, EOMI, Sclera Non Icteric Neck: Supple, Good ROM, No Lymph Node Enlargement Lungs: Clear to auscultation Cardiovascular: Irregular Rhythm, Normal S1, Normal S2, No Murmurs, No Rubs, No Gallops Vascular: No Carotid Bruits, Normal Femoral Pulses, Normal Radial Pulses, Normal Dorsalis Pedal Pulse, Normal Posterior Tibial Pulses Abdomen: Bowel Sounds Present, Soft, Non Tender, No HSM, No Organomegaly Extremities: No Cyanosis, No Clubbing, No edema Neurological: No Focal Motor or Sensory Deficit 05/05/17 05:20: WBC 6.4, RBC 5.01, Hgb 14.7, Hct 44.3, MCV 88.4, MCH 29.3, MCHC 33.2, RDW 14.1, RDW Differential 45.4 H, Plt Count 269, MPV 10.4 05/05/17 05:20: PT 13.7, INR 1.1, APTT 36.0 05/05/17 05:20: Sodium 140, Potassium 3.9, Chloride 105, Carbon Dioxide 27.0, Anion Gap 8, BUN 28 H, Creatinine 1.04 H, Est GFR (MDRD) Af Amer 65, Est GFR ( MDRD) Non-Af 54 L, BUN/Creatinine Ratio 26.9 H, Glucose 92, Calcium 8.9 05/05/17 05:20: Magnesium 2.0, Triglycerides 193, Cholesterol 127, LDL Cholesterol 48, VLDL Cholesterol 39, HDL Cholesterol 40 Rhythm: EKG: ECHO: Normal ejection fraction with no wall motion abnormalities an estimated ejection fraction over 55% Stress Test: No evidence of ischemia at a moderate workload 6 mets Assessment/Plan 1. Atrial fibrillation The duration of her atrial fibrillation is unclear. It appears that her only symptoms was the diaphoresis which may have been due to rapid ventricular response rate. At this time I would recommend that we anticoagulate her with Eliquis 2.5 mg twice a day and I agree with reducing the dose of her beta- beverly to 25 mg twice a day. I am hesitant to perform a DC cardioversion on her at this particular time even with ARNEL because of her tendency to bradycardia. She still has some bradycardia on board it may predispose her to more significant pauses. My recommendation would be to continue her on the 25 mg twice a day of the metoprolol anticoagulation and then I will see her as an outpatient in the office and then consider a cardioversion at that time. I have explained the above to the patient and her and they understand and agree to proceed.
[2017-05-05] MEDS: Pravastatin 20 MG Tablet PO (21:22)
[2017-05-05] MEDS: Escitalopram Oxalate 10 MG Tablet 5 MG PO (21:22)
[2017-05-05] MEDS: APIXABAN 2.5 MG TABLET PO (21:27)
[2017-05-05] MEDS: Metoprolol Tartrate 25 MG Tablet PO (22:21)
[2017-05-06] VITALS (7 sets, daily range): BP systolic 99–142; BP diastolic 57–76; PULSE 39–77; RESP 14–16; TEMP 36.7; O2SAT 92–96
--- NOTE | 2017-05-06 07:27 | PN.CARD_ITS ---
Subjectve: The patient was seen and evaluated. Objective: Vital Signs Temp Pulse Resp BP Pulse Ox 98.1 F 62 14 99/57 L 92 05/06/17 03:19 05/06/17 03:31 05/06/17 03:19 05/06/17 03:19 05/06/17 03:19 Oxygen Delivery Method Room Air Weight: 150 lb 5.684 oz Body Mass Index (BMI) 25.1 Intake and Output for Last 24 Hours 05/04/17 05/05/17 05/06/17 23:59 23:59 23:59 Intake Total 950 / 950 1481 / 1481 420 / 420 Balance 950 / 950 1481 / 1481 420 / 420 General: Awake, Alert, Oriented x 3 HEENT: PERRL, EOMI, Sclera Non Icteric Neck: Supple, Good ROM, No Lymph Node Enlargement Lungs: Clear to auscultation Cardiovascular: Irregular Rhythm, Normal S1, Normal S2, No Murmurs, No Rubs, No Gallops Vascular: No Carotid Bruits, Normal Femoral Pulses, Normal Radial Pulses, Normal Dorsalis Pedal Pulse, Normal Posterior Tibial Pulses Abdomen: Bowel Sounds Present, Soft, Non Tender, No HSM, No Organomegaly Extremities: No Cyanosis, No Clubbing, No edema Neurological: No Focal Motor or Sensory Deficit Psych/Mental Status: Appropriate 05/05/17 05:20: Magnesium 2.0, Triglycerides 193, Cholesterol 127, LDL Cholesterol 48, VLDL Cholesterol 39, HDL Cholesterol 40 Rhythm: Fibrillation with a controlled ventricular response rate. Some bradycardic spells during sleep but no significant pauses noted. EKG: ECHO: Normal ejection fraction Stress Test: No Evidence of ischemia Assessment/Plan 1. Atrial fibrillation The duration of her atrial fibrillation is unclear. It appears that her only symptoms was the diaphoresis which may have been due to rapid ventricular response rate. At this time I would recommend that we anticoagulate her with Eliquis 2.5 mg twice a day and I agree with reducing the dose of her beta- beverly to 25 mg twice a day. I am hesitant to perform a DC cardioversion on her at this particular time even with ARNEL because of her tendency to bradycardia. She still has some bradycardia on board it may predispose her to more significant pauses. My recommendation would be to continue her on the 25 mg twice a day of the metoprolol anticoagulation and then I will see her as an outpatient in the office and then consider a cardioversion at that time. Appears to be stable at this time for outpatient discharge and follow-up. Appointment has been made for me to see her in my office. I have explained the above to the patient and her and they understand and agree to proceed.
[2017-05-06] MEDS: Lisinopril 2.5 MG Tablet PO (10:29)
[2017-05-06] MEDS: Metoprolol Tartrate 25 MG Tablet PO (10:30)
[2017-05-06] MEDS: APIXABAN 2.5 MG TABLET PO (10:30)
[2017-05-06] MEDS: Pantoprazole Sodium 20 MG Tablet PO (10:31)
[2017-05-06] MEDS: Ascorbic Acid 500 MG Tablet PO (10:31)
--- NOTE | 2017-05-06 12:36 | PCM.DC ---
- Discharge Diagnoses Current Active Problems: Current Active and Chronic Problems (Last Updated 05/03/17 @ 14:13 by Juliette Box) Afib (Acute) HTN (hypertension) (Chronic) Depression (Chronic) Anxiety (Chronic) You will use the following diet at home:: Other - low salt Your food should be the consistency of: Regular Your liquids should be the consistency of: Regular/Thin Discharge Activity: Return to Normal Activity Call your doctor if you observe: Fever of 101 or Higher, Inability to urinate, Shortness of breath, Dizziness, Fainting spells, Chest pain Instructions: What Is Atrial Flutter/Atrial Fibrillation?, Cardioversion Additional Instructions: You are going home on a blood thinner called apixaban (see also called Eliquis).If you get a cut it will bleed longer than normal so make sure to hold pressure for 10 minutes with no peaking. If you start having black tarry stool, large bruises, bleeding from the rectume, gums or nose call your PCP for advice. You have atrial fibrillation. This increases the risk of a stroke and that is why you need to be on a blood thinner. You will need to follow up with Dr. Soto in the office in a few weeks. His office will call you with an appt. If you are still in atrial fibrillation at the time of the office visit he may want to schedule you to come in and have a cardioversion....which is electrical shock that helps to get the heart back into a regular rhythm. Pending Tests on Discharge: none Allergies/Adverse Reactions: Allergies Sulfa (Sulfonamide Antibiotics) Allergy (Severe, Verified 05/03/17 14:13) unknown Medications to take at Discharge ascorbic acid (vitamin C) 500 mg tablet 500 mg PO QDAY 05/03/17 aspirin 81 mg tablet,delayed release 81 mg PO DAILY 05/03/17 calcium citrate 250 mg tablet 250 mg PO ONCE tab 05/03/17 escitalopram 5 mg tablet 5 mg PO QDAY 05/03/17 lisinopril 2.5 mg tablet 2.5 mg PO QDAY 05/03/17 omega 1-hdr-xrl-fish oil 1,000 mg (120 mg-180 mg) capsule 1 cap PO DAILY 05/03/17 omeprazole 10 mg capsule,delayed release 10 mg PO DAILY 05/03/17 potassium chloride 20 mEq oral packet 20 meq PO QDAY 05/03/17 pravastatin 20 mg tablet 20 mg PO QHS 05/03/17 Apixaban [Eliquis] 2.5 mg PO BID #60 tab 05/06/17 Metoprolol Tartrate [Lopressor (beta beverly)] 25 mg PO BID #60 tab 05/06/17 The following prescriptions were given: Apixaban [Eliquis] 2.5 mg PO BID #60 tab Metoprolol Tartrate [Lopressor (beta beverly)] 25 mg PO BID #60 tab Primary Care Physician: Arslan Toscano DO [Primary Care Provider] - Please follow up with your Primary Care Physician in: 5-7 days Please Follow Up With: Valdez Soto MD When: the office will call with an appt
--- NOTE | 2017-05-06 12:45 | DCINST_ITS ---
- Discharge Diagnoses Current Active Problems: Current Active and Chronic Problems (Last Updated 05/03/17 @ 14:13 by Juliette Box) Afib (Acute) HTN (hypertension) (Chronic) Depression (Chronic) Anxiety (Chronic) You will use the following diet at home:: Other - low salt Your food should be the consistency of: Regular Your liquids should be the consistency of: Regular/Thin Discharge Activity: Return to Normal Activity Call your doctor if you observe: Fever of 101 or Higher, Inability to urinate, Shortness of breath, Dizziness, Fainting spells, Chest pain Instructions: What Is Atrial Flutter/Atrial Fibrillation?, Cardioversion Additional Instructions: You are going home on a blood thinner called apixaban ( see also called Eliquis).If you get a cut it will bleed longer than normal so make sure to hold pressure for 10 minutes with no peaking. If you start having black tarry stool, large bruises, bleeding from the rectume, gums or nose call your PCP for advice. You have atrial fibrillation. This increases the risk of a stroke and that is why you need to be on a blood thinner. You will need to follow up with Dr. Soto in the office in a few weeks. His office will call you with an appt. If you are still in atrial fibrillation at the time of the office visit he may want to schedule you to come in and have a cardioversion....which is electrical shock that helps to get the heart back into a regular rhythm. Pending Tests on Discharge: none Allergies/Adverse Reactions: Allergies Sulfa (Sulfonamide Antibiotics) Allergy (Severe, Verified 05/03/17 14:13) unknown Medications to take at Discharge ascorbic acid (vitamin C) 500 mg tablet 500 mg PO QDAY 05/03/17 aspirin 81 mg tablet,delayed release 81 mg PO DAILY 05/03/17 calcium citrate 250 mg tablet 250 mg PO ONCE tab 05/03/17 escitalopram 5 mg tablet 5 mg PO QDAY 05/03/17 lisinopril 2.5 mg tablet 2.5 mg PO QDAY 05/03/17 omega 6-deh-yno-fish oil 1,000 mg (120 mg-180 mg) capsule 1 cap PO DAILY omeprazole 10 mg capsule,delayed release 10 mg PO DAILY 05/03/17 potassium chloride 20 mEq oral packet 20 meq PO QDAY 05/03/17 pravastatin 20 mg tablet 20 mg PO QHS 05/03/17 Apixaban [Eliquis] 2.5 mg PO BID #60 tab 05/06/17 Metoprolol Tartrate [Lopressor (beta beverly)] 25 mg PO BID #60 tab 05/06/17 The following prescriptions were given: Apixaban [Eliquis] 2.5 mg PO BID #60 tab Metoprolol Tartrate [Lopressor (beta beverly)] 25 mg PO BID #60 tab Primary Care Physician: Arslan Toscano DO [Primary Care Provider] - Please follow up with your Primary Care Physician in: 5-7 days Please Follow Up With: Valdez Soto MD When: the office will call with an appt
--- NOTE | 2017-05-06 12:45 | PCM.DC.SUM ---
Discharge Date and Diagnosis Date of Admission: 05/03/17 Date of Discharge: 05/06/17 - Primary Discharge Diagnosis Active and Suspected Problems (Last Updated 05/03/17 @ 14:13 by Juliette Box) Hypokalemia (Acute) Afib - new onset - Secondary Discharge Diagnosis Chronic Problems (Last Updated 05/03/17 @ 14:13 by Juliette Box) Mild atrial enlargement, left (Chronic) HTN (hypertension) (Chronic) Depression (Chronic) Anxiety (Chronic) Hospital Course and Treatment Imaging Results: Clinical Impression(s) from Imaging Studies Chest X-Ray 05/03/17 14:40 IMPRESSION: No active pulmonary disease. Hiatal hernia. Electronically Signed: Jerry Kemp MD at 15:30 EST Tel , Service support , Laboratory Tests 05/03/17 05/03/17 05/03/17 14:35 14:35 19:00 WBC 9.8 RBC 5.38 Hgb 16.1 H Hct 47.4 H MCV 88.1 MCH 29.9 MCHC 34.0 RDW 14.0 RDW Differential 45.1 H Plt Count 315 MPV 10.0 Immature Gran % (Auto) 0.200 Neut % (Auto) 52.3 Lymph % (Auto) 37.3 Towns % (Auto) 9.2 Eos % (Auto) 0.5 Baso % (Auto) 0.5 Absolute Neuts (auto) 5.1 Absolute Lymphs (auto) 3.65 Total Counted Not Reportable PT INR APTT Sodium 140 Potassium 3.4 L Chloride 102 Carbon Dioxide 29.0 Anion Gap 9 BUN 29 H Creatinine 1.14 H Estim Creat Clear Calc 41.92 Est GFR (MDRD) Af Amer 59 L Est GFR (MDRD) Non-Af 49 L BUN/Creatinine Ratio 25.4 H Glucose 98 Calcium 9.4 Magnesium Total Bilirubin Direct Bilirubin AST ALT Alkaline Phosphatase Troponin I < 0.02 < 0.02 Total Protein Albumin Globulin Triglycerides Cholesterol LDL Cholesterol VLDL Cholesterol HDL Cholesterol TSH 05/03/17 05/04/17 05/04/17 20:30 05:28 05:28 WBC RBC Hgb Hct MCV MCH MCHC RDW RDW Differential Plt Count MPV Immature Gran % (Auto) Neut % (Auto) Lymph % (Auto) [place] % (Auto) Eos % (Auto) Baso % (Auto) Absolute Neuts (auto) Absolute Lymphs (auto) Total Counted PT INR APTT Sodium 139 Potassium 4.0 Chloride 107 Carbon Dioxide 20.0 L Anion Gap 12 BUN 24 H Creatinine 0.98 Estim Creat Clear Calc 38.22 Est GFR (MDRD) Af Amer 70 Est GFR (MDRD) Non-Af 58 L BUN/Creatinine Ratio 24.4 H Glucose 90 Calcium 8.8 Magnesium Total Bilirubin 0.70 Direct Bilirubin 0.10 AST 30 ALT 25 Alkaline Phosphatase 56 Troponin I < 0.02 Total Protein 6.6 Albumin 2.9 L Globulin 3.7 Triglycerides Cholesterol LDL Cholesterol VLDL Cholesterol HDL Cholesterol TSH 3.65 05/05/17 05/05/17 05/05/17 05:20 05:20 05:20 WBC 6.4 RBC 5.01 Hgb 14.7 Hct 44.3 MCV 88.4 MCH 29.3 MCHC 33.2 RDW 14.1 RDW Differential 45.4 H Plt Count 269 MPV 10.4 Immature Gran % (Auto) Neut % (Auto) Lymph % (Auto) [place] % (Auto) Eos % (Auto) Baso % (Auto) Absolute Neuts (auto) Absolute Lymphs (auto) Total Counted PT 13.7 INR 1.1 APTT 36.0 Sodium 140 Potassium 3.9 Chloride 105 Carbon Dioxide 27.0 Anion Gap 8 BUN 28 H Creatinine 1.04 H Estim Creat Clear Calc 36.01 Est GFR (MDRD) Af Amer 65 Est GFR (MDRD) Non-Af 54 L BUN/Creatinine Ratio 26.9 H Glucose 92 Calcium 8.9 Magnesium Total Bilirubin Direct Bilirubin AST ALT Alkaline Phosphatase Troponin I Total Protein Albumin Globulin Triglycerides Cholesterol LDL Cholesterol VLDL Cholesterol HDL Cholesterol TSH 05/05/17 05:20 WBC RBC Hgb Hct MCV MCH MCHC RDW RDW Differential Plt Count MPV Immature Gran % (Auto) Neut % (Auto) Lymph % (Auto) [place] % (Auto) Eos % (Auto) Baso % (Auto) Absolute Neuts (auto) Absolute Lymphs (auto) Total Counted PT INR APTT Sodium Potassium Chloride Carbon Dioxide Anion Gap BUN Creatinine Estim Creat Clear Calc Est GFR (MDRD) Af Amer Est GFR (MDRD) Non-Af BUN/Creatinine Ratio Glucose Calcium Magnesium 2.0 Total Bilirubin Direct Bilirubin AST ALT Alkaline Phosphatase Troponin I Total Protein Albumin Globulin Triglycerides 193 Cholesterol 127 LDL Cholesterol 48 VLDL Cholesterol 39 HDL Cholesterol [address] Valdez Soto - [facility] Operations: None Procedures: 2-D Echocardiogram Summary of Care Provided: Patient is an 82-year-old female with a past medical history of hypertension, depression and anxiety who presented to the emergency room at [facility] on 05/03/2017 complaining of sudden onset sweating and weakness. He had a similar episode 1 week prior to presenting to the emergency room. Denied chest pain. EKG in the emergency room showed atrial fibrillation with no RVR. She was not on a rate limiting agent as an outpatient. She denied any prior history of atrial fibrillation. Significant lab at admission included a potassium of 3.4 with BUN of 29 and creatinine of 1.14 ( she had been on dyazide as an OP). Hemoglobin was increased at 16.1, likely secondary to hemoconcentration. Troponin was less than 0.02. TSH was within normal limits. Chest x-ray showed evidence of a hiatal hernia but was otherwise unremarkable. She was admitted to a monitored bed in the hospital with a diagnosis of new onset AF. She was started on Metoprolol 50 mg BID. Potassium was replaced. Serial cardiac enzymes were negative. Echo showed normal left ventricular systolic function with an estimated ejection fraction of 65% a mildly enlarged left atrium. A nuclear stress test was negative for evidence of significant ischemia. Dr. Soto was consulted for possible ARNEL/cardioversion but since the duration of the atrial fibrillation was unknown he thought it prudent to discharge her on Eliquis and have her follow-up in the office in 1 month. She remains in atrial fibrillation at that time she will most likely have cardioversion. Metoprolol was decreased to 25 mg twice a day due to significant bradycardia. On the date of discharge her blood pressure ranged from 99/57-140 2/76 with activity. Heart rate ranged from 53-77. He denied shortness of breath and her lungs had excellent air exchange and were clear to auscultation. She had no peripheral edema. Dyazide was discontinued and the patient was given a prescription for metoprolol 25 mg p.o. twice daily and Eliquis 2.5 mg twice daily. She will follow-up with Dr. Arslan Toscano in 5-[address] Soto in 1 month. This note was generated with [employer] dictation software. It may contain incorrect words, spelling, and punctuation that were not noted in checking the note before signing. Discharge Activity: Return to Normal Activity Call your doctor if you observe: Fever of 101 or Higher, Inability to urinate, Shortness of breath, Dizziness, Fainting spells, Chest pain Home Medications: Medications to take at Discharge ascorbic acid (vitamin C) 500 mg tablet 500 mg PO QDAY 05/03/17 aspirin 81 mg tablet,delayed release 81 mg PO DAILY 05/03/17 calcium citrate 250 mg tablet 250 mg PO ONCE tab 05/03/17 escitalopram 5 mg tablet 5 mg PO QDAY 05/03/17 lisinopril 2.5 mg tablet 2.5 mg PO QDAY 05/03/17 omega 6-gsa-rsk-fish oil 1,000 mg (120 mg-180 mg) capsule 1 cap PO DAILY 05/03/17 omeprazole 10 mg capsule,delayed release 10 mg PO DAILY 05/03/17 potassium chloride 20 mEq oral packet 20 meq PO QDAY 05/03/17 pravastatin 20 mg tablet 20 mg PO QHS 05/03/17 Apixaban [Eliquis] 2.5 mg PO BID #60 tab 05/06/17 Metoprolol Tartrate [Lopressor (beta beverly)] 25 mg PO BID #60 tab 05/06/17 Following Prescrptions Were Given to Patient: Apixaban [Eliquis] 2.5 mg PO BID #60 tab Metoprolol Tartrate [Lopressor (beta beverly)] 25 mg PO BID #60 tab Primary Care Physician: Arslan Toscano DO [Primary Care Provider] - Please follow up with your Primary Care Physician in: 5-7 days Please Follow Up With: Valdez Soto MD When: the office will call with an appt Patient Instructions: What Is Atrial Flutter/Atrial Fibrillation?, Cardioversion Disposition: Home Minutes spent on discharge:: 30 Patient Condition:: Stable Meaningful Use Info Meaningful Use Diagnoses (Choose all that apply): None applicable Code Visit Inpatient E&M: [address] [facility]
--- NOTE | 2017-05-06 13:31 | CASEMGMT ---
Physician asked SW to check on the cost of Eliquis for patient. SW called [facility] and patient's co-pay is $365. SW spoke with patient and gave her the free 30 day card. SW also gave her the application and information on [employer] [facility]. DOTTIE told her the income limit is $50,000 for 2 people. She did not think they make that much. DOTTIE told her to take the application with her to her next doctor's appt. Chelsey [employer]ANI[employer]S [employer]
== END 2017-05-06 14:06 | disposition home or self-care (01) | DRG 310 ==
LOC: ED 15:17 → PCU 16:18
PROVIDERS: Internal Medicine; Emergency Provider Emergency Medicine; Family Provider Family Medicine; PCP Family Medicine; Visit Provider Internal Medicine
DX: I48.91 Unspecified atrial fibrillation (principal); E87.6 Hypokalemia; R00.1 Bradycardia, unspecified; F41.9 Anxiety disorder, unspecified; F32.9 Major depressive disorder, single episode, unspecified; I10 Essential (primary) hypertension; I51.7 Cardiomegaly
CPT/HCPCS: 36415; 71045; 78452; 80048; 80061; 80076; 83735; 84443; 84484; 85025; 85027; 85610; 85730; 93005; 93017; 93306; 99285; A9500; J7030; A4216

== ENCOUNTER 2017-05-10 09:10 | Inpatient (IN) | payer MEDICARE, OTHER, SELFPAY ==
[2017-05-10] VITALS (14 sets, daily range): BP systolic 119–171; BP diastolic 62–93; PULSE 68–99; RESP 14–20; TEMP 36.1–36.8; O2SAT 92–97; BMI 30.3; BMI 30.2
--- NOTE | 2017-05-10 09:25 | RAD_ITS ---
STUDY: X-RAY CHEST REASON FOR EXAM: Female, 82 years old. Chest pain. Shortness of breath TECHNIQUE: PA and lateral views of the chest. COMPARISON: May 03, 2017 FINDINGS: There are monitoring devices. There is hyperinflation of the lungs consistent with chronic obstructive lung disease (COPD). There is no demonstrated pleural abnormality. Normal size heart. There is retrocardiac hiatal hernia. Normal visualized pulmonary arteries. Normal visualized aortic arch and descending thoracic aorta. There is demineralization of the osseous structures. Normal visualized ribs, clavicles, and shoulders. There is no demonstrated abnormality of the visualized soft tissue structures of the upper abdomen. RAD/Chest PA and Lateral IMPRESSION: Degenerative changes, as described above. No demonstrated acute cardiopulmonary process. Hiatal hernia. Electronically Signed: Jacob Jain MD at 10:28 EST , Service support ,
--- NOTE | 2017-05-10 09:25 | EKG12_ITS ---
Test Reason : SOB Blood Pressure : / mmHG Vent. Rate : 078 BPM Atrial Rate : 117 BPM P-R Int : 000 ms QRS Dur : 070 ms QT Int : 370 ms P-R-T Axes : 000 051 058 degrees QTc Int : 421 ms Atrial fibrillation Abnormal ECG Confirmed by CHAPIS BOURGEOIS MD ([id number]), editor dictionary RUTH RHODES ([id number]) on 05/13/2017 3:55:07 PM Referred By: AMRITA Confirmed By:CHAPIS BOURGEOIS MD
--- NOTE | 2017-05-10 09:28 | ED.DCSUM_ITS ---
- ER Visit Summary Date of Service: 05/10/17 Chief Complaint: Shortness of breath History of Present Illness: The patient is a 82 F with recent diagnosis of atrial fibrillation, discharged 4 days ago on Eliquis, presents for shortness of breath since discharge. Patient states since she went home, she has had dyspnea on mild exertion, such as going up and down her stairs which normally cause no issues. Last night she and her both state they could hear her breathe all night. She also was very sweaty during the night. This morning patient was in the bathtub and got short of breath just getting up from the tub. She denies chest pain, palpitations, or the symptoms that brought her in to the emergency department leading to her recent admission. She denies fever, cough. Denies history of COPD or CHF. She has an appointment for follow-up with Dr. Soto on June 04. Physical Examination: Vital signs: afebrile, hemodynamically stable, no hypoxia on room air General: well nourished, well developed, in no distress Skin: warm, dry, no rash, no pallor HEENT: normocephalic and atraumatic; PERRL, EOMI, moist mucous membranes Cardiovascular: irregular rate and rhythm, with elevation of heart rate with mild movement, without murmurs, no peripheral edema, 2+ pulses all distal extremities Respiratory: No increased work of breathing, lungs are clear to auscultation bilaterally, no rales, rhonchi or wheezing Abdominal: Abdomen is soft, nontender with normoactive bowel sounds, no guarding or rebound, no masses MSK: Moves all extremities, no deformities, normal strength Neuro: Awake and alert, oriented ?4. No facial droop, sensation and motor function intact and symmetric Test Results: Abnormal Lab Results 05/10/17 05/10/17 05/10/17 09:20 09:20 09:20 WBC 9.2 RBC 4.36 Hgb 13.1 Hct 38.8 MCV 89.0 MCH 30.0 MCHC 33.8 RDW 14.3 RDW Differential 46.0 H Plt Count 245 MPV 10.6 Immature Gran % (Auto) 0.200 Neut % (Auto) 64.1 Lymph % (Auto) 24.8 [place] % (Auto) 9.7 Eos % (Auto) 0.9 Baso % (Auto) 0.3 Absolute Neuts (auto) 5.9 Absolute Lymphs (auto) 2.28 Total Counted Not Reportable PT 14.6 INR 1.1 APTT 32.8 Sodium 145 Potassium 3.7 Chloride 110 H Carbon Dioxide 28.0 Anion Gap 7 BUN 17 Creatinine 0.88 Estim Creat Clear Calc 35.40 Est GFR (MDRD) Af Amer 79 Est GFR (MDRD) Non-Af 65 BUN/Creatinine Ratio 19.3 Glucose 88 Calcium 8.6 Magnesium Troponin I < 0.02 B-Natriuretic Peptide 05/10/17 05/10/17 05/10/17 09:20 09:20 13:20 WBC RBC Hgb Hct MCV MCH MCHC RDW RDW Differential Plt Count MPV Immature Gran % (Auto) Neut % (Auto) Lymph % (Auto) [place] % (Auto) Eos % (Auto) Baso % (Auto) Absolute Neuts (auto) Absolute Lymphs (auto) Total Counted PT INR APTT Sodium Potassium Chloride Carbon Dioxide Anion Gap BUN Creatinine Estim Creat Clear Calc Est GFR (MDRD) Af Amer Est GFR (MDRD) Non-Af BUN/Creatinine Ratio Glucose Calcium Magnesium 1.9 Troponin I < 0.02 B-Natriuretic Peptide 776.8 H Emergency Department Course and Treatment: EKG showed atrial flutter at a rate of 78. No ST changes. Chest x-ray was consistent with COPD. No overt pulmonary edema or other signs of congestive heart failure. Labs showed no leukocytosis and chemistry panel was unremarkable. Troponin negative. Given patient's dyspnea on exertion, a BNP was checked and was elevated at 778. Chart review shows the patient had an normal echo and stress test that showed no signs of low ejection fraction or heart failure at her last admission. Because patient is having the worsening shortness of breath, she was discussed with Dr. Anders, who reviewed patient's prior cardiac workup and recommended that patient be admitted overnight for treatment with Cardizem 30 mg every 6 hours and observation to make sure this did not cause bradycardia. If she does not have bradycardia of her shortness of breath improves, she can be discharged tomorrow. This plan was discussed with Dr. Vargas, will admit the patient for further observation and treatment. He requested patient be given Lasix in the emergency department given the shortness of breath, dyspnea on exertion, and the elevated BNP. Patient was given the Lasix. Cardizem deferred until patient admitted. Patient agreed with this plan. Treatment Plan: [] Disposition: [] Impression: Shortness of breath, dyspnea on exertion, atrial fibrillation/ flutter This note was generated with [employer]i dictation software. It may contain incorrect words, spelling, and punctuation that were not noted in review of the chart prior to signing ED Disposition - Plan for ED Patient: Disposition: Acute Care Hospital [facility] Chief Complaint: Shortness of Breath
[2017-05-10] MEDS: Aspirin 81 MG TAB.CHEW 324 MG PO (09:31)
[2017-05-10 09:37] LABS: Absolute Lymphocyte Count 2.28 X10^3/ul (0.83-4.51); Absolute Neutrophil Count 5.9 X10^3/uL (2.0-7.7); Basophil# 0.03 X10^3/uL; Basophil% 0.3 % (0-1); Eosinophil# 0.08 X10^3/uL; Eosinophils% 0.9 % (0-5); Hematocrit 38.8 % (37-47); Hemoglobin 13.1 g/dl (12.0-15.0); Lymphocyte # 2.28 X10^3/ul (4.0); Lymphocyte % 24.8 % (19-41); Mean Corp Hgb Conc 33.8 g/gl (32-36); Mean Platelet Vol. 10.6 fl (6.2-12.0); Monocyte# 0.89 X10^3/uL; Monocyte% 9.7 % (0-10); Neutrophil # 5.89 X10^3/uL (2.7-7.7); Neutrophil % 64.1 % (47-70); POSITIVE COUNT NO; POSITIVE DIFFERENTIAL NO; POSITIVE MORPHOLOGY NO; Platelet Count 245 K/mm3 (150-450); RBC Distribution Width CV 14.3 % (11.6-14.6); Red Blood Count 4.36 M/mm3 (4.2-5.4); White Blood Count 9.2 K/mm3 (4.4-11.0)
[2017-05-10 09:42] LABS: International Normalized Ratio 1.1; Prothrombin Time (Protime)PT. 14.6 SECONDS (11.7-14.9)
[2017-05-10 09:43] LABS: Partial Thromboplast Time 32.8 Seconds (24.1-36.2)
[2017-05-10 09:57] LABS: Anion Gap 7 (5-15); BUN 17 mg/dL (7-18); BUN/Creat Ratio 19.3 RATIO (10-20); Calcium,Total 8.6 mg/dL (8.5-10.1); Chloride 110 mmol/L (98-107); Creatinine, Serum 0.88 mg/dL (0.55-1.02); EST Glomerular Filtration Rate 65 mL/min (>60); Est Glom Filt Rate - Afr Amer 79 mL/min (>60); Glucose 88 mg/dL (74-106); Potassium 3.7 mmol/L (3.5-5.1); Sodium Level 145 mmol/L (136-145)
[2017-05-10 10:49] LABS: BNP,B-Type NATRIURETIC PEPTIDE 776.8 pg/mL (0-100)
--- NOTE | 2017-05-10 11:51 | PCM.HP.STD ---
Problem List (1) Bronchitis Status: Acute (2) Cough variant asthma Status: Acute (3) Afib Status: Chronic Qualifiers: Atrial fibrillation type: persistent Qualified Code(s): I48.1 - Persistent atrial fibrillation (4) Hypokalemia Status: Chronic (5) Anxiety Status: Chronic (6) Depression Status: Chronic (7) HTN (hypertension) Status: Chronic (8) Mild atrial enlargement, left Status: Chronic History of Present Illness Date of Admission: 05/10/17 Chief Complaint: Shortness of breath The patient is a 82 year old F past medical history cigar for hypertension, recently diagnosed A. fib with for which patient was discharged home on beta-blockers as well as systemic anticoagulation with Eliquis presented with shortness of breath. Patient had apparently done well since going home however on the morning of her presentation woke up with sudden onset of shortness of breath she also had herself wheezing. She subsequently developed a persistent cough. Patient apparently to a cold sweat during the time she experienced the shortness of breath. Denied any subjective fever no chills. Patient presented to the emergency department workup in the ED only demonstrated elevated BNP otherwise unremarkable she was still found to be in A. fib. Decision was made to admit patient to a monitored bed after case was discussed with her power lineman technician commissioner of conciliation Dr. Anders. Of note patient was previously on diuretics which was discontinued during her previous admission. Her BNP on admission was 776. Past Medical History Past Medical History (Chronic Problems): Chronic Problems (Last Updated 05/03/17 @ 14:13 by Juliette Box) Mild atrial enlargement, left (Chronic) Hypokalemia (Chronic) Afib (Chronic) HTN (hypertension) (Chronic) Depression (Chronic) Anxiety (Chronic) Allergies Sulfa (Sulfonamide Antibiotics) Allergy (Severe, Verified 05/10/17 09:13) unknown Home Medications: Ambulatory Orders Medication Instructions Recorded ascorbic acid (vitamin C) 500 mg 500 mg PO QDAY 05/03/17 tablet aspirin 81 mg tablet,delayed 81 mg PO DAILY 05/03/17 release calcium citrate 250 mg tablet 250 mg PO ONCE tab 05/03/17 escitalopram 5 mg tablet 5 mg PO QDAY 05/03/17 lisinopril 2.5 mg tablet 2.5 mg PO QDAY 05/03/17 omega 8-qla-wke-fish oil 1,000 mg 1 cap PO DAILY 05/03/17 (120 mg-180 mg) capsule omeprazole 10 mg capsule,delayed 10 mg PO DAILY 05/03/17 release potassium chloride 20 mEq oral 20 meq PO QDAY 05/03/17 packet pravastatin 20 mg tablet 20 mg PO QHS 05/03/17 Apixaban [Eliquis] 2.5 mg PO BID #60 tab 05/06/17 Metoprolol Tartrate [Lopressor 25 mg PO BID #60 tab 05/06/17 (beta beverly)] Surgical History: no surgical history Psychiatric History: Anxiety, Depression Smoking Status: Never smoker - *Family History Maternal History Items: Heart Disease - from heart attack in her sleep Review of Systems Constitutional: Reports: Night Sweats Cardiovascular: Reports: Palpitations. Denies: Edema, Orthopnea, Paroxysmal Noc. Dyspnea Respiratory: Reports: Cough, Shortness of Breath, Shortness of breath at rest, Wheezing VTE Information - Inpt Only VTE Present on Admission: No VTE Mechan Device Prophylaxis: None VTE Pharm Prophylaxis ordered?: Yes Patient Problems: Active and Suspected Problems (Last Updated 05/03/17 @ 14:13 by Juliette Box) Bronchitis (Acute) Cough variant asthma (Acute) Objective: GENERAL: cooperative HEENT: Clear conjunctiva, NECK; supple, normal thyroid, CHEST: Diminished to auscultation bilaterally, HEART: Irregular S1 S2, no audible murmurs ABDOMEN: soft, non-tender, normoactive bowel sounds, RECTAL: deferred EXTREMITIES: No edema, no clubbing, no cyanosis. 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 SKIN: No lesions no erythema, - Physical Exam Vital Signs Temp Pulse Resp BP Pulse Ox 96.9 F L 77 18 119/77 96 05/10/17 09:11 05/10/17 11:05 05/10/17 11:05 05/10/17 11:05 05/10/17 11:05 Oxygen Delivery Method Room Air Weight: 70.5 kg Body Mass Index (BMI) 30.3 Laboratory Tests Past 24 Hrs 05/10/17 05/10/17 05/10/17 09:20 09:20 09:20 WBC 9.2 RBC 4.36 Hgb 13.1 Hct 38.8 MCV 89.0 MCH 30.0 MCHC 33.8 RDW 14.3 RDW Differential 46.0 H Plt Count 245 MPV 10.6 Immature Gran % (Auto) 0.200 Neut % (Auto) 64.1 Lymph % (Auto) 24.8 [place] % (Auto) 9.7 Eos % (Auto) 0.9 Baso % (Auto) 0.3 Absolute Neuts (auto) 5.9 Absolute Lymphs (auto) 2.28 Total Counted Not Reportable PT 14.6 INR 1.1 APTT 32.8 Sodium 145 Potassium 3.7 Chloride 110 H Carbon Dioxide 28.0 Anion Gap 7 BUN 17 Creatinine 0.88 Estim Creat Clear Calc 35.40 Est GFR (MDRD) Af Amer 79 Est GFR (MDRD) Non-Af 65 BUN/Creatinine Ratio 19.3 Glucose 88 Calcium 8.6 Troponin I < 0.02 B-Natriuretic Peptide 05/10/17 09:20 WBC RBC Hgb Hct MCV MCH MCHC RDW RDW Differential Plt Count MPV Immature Gran % (Auto) Neut % (Auto) Lymph % (Auto) [place] % (Auto) Eos % (Auto) Baso % (Auto) Absolute Neuts (auto) Absolute Lymphs (auto) Total Counted PT INR APTT Sodium Potassium Chloride Carbon Dioxide Anion Gap BUN Creatinine Estim Creat Clear Calc Est GFR (MDRD) Af Amer Est GFR (MDRD) Non-Af BUN/Creatinine Ratio Glucose Calcium Troponin I B-Natriuretic Peptide 776.8 H Assessment/Plan Active and Suspected Problems (Last Updated 05/03/17 @ 14:13 by Juliette Box) Bronchitis (Acute) Cough variant asthma (Acute) Patient is an 82-year-old lady recently diagnosed with paroxysmal A. fib presented with sudden onset of shortness of breath 1. Acute dyspnea do suspect combination of CHF and possibly bronchitis admitted to a monitored bed for further management 2. Acute diastolic congestive heart failure possibly preceded by patient underlying CHF patient placed on low-dose Lasix, fluid restriction daily with strict input and output. Total obtained on 05/03/2017 demonstrated EF of 65% 2. Acute bronchitis/suspected cough variant asthma patient is on aerosol treatment in addition to low-dose prednisone 4. Hypertension-blood pressure controlled, home medications continued with dose adjustment as needed 5. Recently diagnosed persistent A. fib patient rate controlled on beta blockers also on systemic anticoagulation with Xarelto 6. GERD without esophagitis patient is on PPI did continue 7. Dyslipidemia-patient is on statin therapy, continued at home dose 8. DVT prophylaxis on Lovenox Code Visit Inpatient E&M: 99195 Subs Hosp L3
--- NOTE | 2017-05-10 12:06 | HP.PCM_ITS ---
Problem List (1) Bronchitis Status: Acute (2) Cough variant asthma Status: Acute (3) Afib Status: Chronic Qualifiers: Atrial fibrillation type: persistent Qualified Code(s): I48.1 - Persistent atrial fibrillation (4) Hypokalemia Status: Chronic (5) Anxiety Status: Chronic (6) Depression Status: Chronic (7) HTN (hypertension) Status: Chronic (8) Mild atrial enlargement, left Status: Chronic History of Present Illness Date of Admission: 05/10/17 Chief Complaint: Shortness of breath The patient is a 82 year old F past medical history cigar for hypertension, recently diagnosed A. fib with for which patient was discharged home on beta- blockers as well as systemic anticoagulation with Eliquis presented with shortness of breath. Patient had apparently done well since going home however on the morning of her presentation woke up with sudden onset of shortness of breath she also had herself wheezing. She subsequently developed a persistent cough. Patient apparently to a cold sweat during the time she experienced the shortness of breath. Denied any subjective fever no chills. Patient presented to the emergency department workup in the ED only demonstrated elevated BNP otherwise unremarkable she was still found to be in A. fib. Decision was made to admit patient to a monitored bed after case was discussed with her autoglazier numerical control drill press operator Dr. Anders. Of note patient was previously on diuretics which was discontinued during her previous admission. Her BNP on admission was 776. Past Medical History Past Medical History (Chronic Problems): Chronic Problems (Last Updated 05/03/17 @ 14:13 by Juliette Box) Mild atrial enlargement, left (Chronic) Hypokalemia (Chronic) Afib (Chronic) HTN (hypertension) (Chronic) Depression (Chronic) Anxiety (Chronic) Allergies Sulfa (Sulfonamide Antibiotics) Allergy (Severe, Verified 05/10/17 09:13) unknown Home Medications: Ambulatory Orders Medication Instructions Recorded ascorbic acid (vitamin C) 500 mg 500 mg PO QDAY 05/03/17 tablet aspirin 81 mg tablet,delayed 81 mg PO DAILY 05/03/17 release calcium citrate 250 mg tablet 250 mg PO ONCE tab 05/03/17 escitalopram 5 mg tablet 5 mg PO QDAY 05/03/17 lisinopril 2.5 mg tablet 2.5 mg PO QDAY 05/03/17 omega 8-dsq-dac-fish oil 1,000 mg 1 cap PO DAILY 05/03/17 (120 mg-180 mg) capsule omeprazole 10 mg capsule,delayed 10 mg PO DAILY 05/03/17 release potassium chloride 20 mEq oral 20 meq PO QDAY 05/03/17 packet pravastatin 20 mg tablet 20 mg PO QHS 05/03/17 Apixaban [Eliquis] 2.5 mg PO BID #60 tab 05/06/17 Metoprolol Tartrate [Lopressor 25 mg PO BID #60 tab 05/06/17 (beta beverly)] Surgical History: no surgical history Psychiatric History: Anxiety, Depression Smoking Status: Never smoker - *Family History Maternal History Items: Heart Disease - from heart attack in her sleep Review of Systems Constitutional: Reports: Night Sweats Cardiovascular: Reports: Palpitations. Denies: Edema, Orthopnea, Paroxysmal Noc. Dyspnea Respiratory: Reports: Cough, Shortness of Breath, Shortness of breath at rest, Wheezing VTE Information - Inpt Only VTE Present on Admission: No VTE Mechan Device Prophylaxis: None VTE Pharm Prophylaxis ordered?: Yes Patient Problems: Active and Suspected Problems (Last Updated 05/03/17 @ 14:13 by Juliette Box) Bronchitis (Acute) Cough variant asthma (Acute) Objective: GENERAL: cooperative HEENT: Clear conjunctiva, NECK; supple, normal thyroid, CHEST: Diminished to auscultation bilaterally, HEART: Irregular S1 S2, no audible murmurs ABDOMEN: soft, non-tender, normoactive bowel sounds, RECTAL: deferred EXTREMITIES: No edema, no clubbing, no cyanosis. 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 SKIN: No lesions no erythema, - Physical Exam Vital Signs Temp Pulse Resp BP Pulse Ox 96.9 F L 77 18 119/77 96 05/10/17 09:11 05/10/17 11:05 05/10/17 11:05 05/10/17 11:05 05/10/17 11:05 Oxygen Delivery Method Room Air Weight: 70.5 kg Body Mass Index (BMI) 30.3 Laboratory Tests Past 24 Hrs 05/10/17 05/10/17 05/10/17 09:20 09:20 09:20 WBC 9.2 RBC 4.36 Hgb 13.1 Hct 38.8 MCV 89.0 MCH 30.0 MCHC 33.8 RDW 14.3 RDW Differential 46.0 H Plt Count 245 MPV 10.6 Immature Gran % (Auto) 0.200 Neut % (Auto) 64.1 Lymph % (Auto) 24.8 [place] % (Auto) 9.7 Eos % (Auto) 0.9 Baso % (Auto) 0.3 Absolute Neuts (auto) 5.9 Absolute Lymphs (auto) 2.28 Total Counted Not Reportable PT 14.6 INR 1.1 APTT 32.8 Sodium 145 Potassium 3.7 Chloride 110 H Carbon Dioxide 28.0 Anion Gap 7 BUN 17 Creatinine 0.88 Estim Creat Clear Calc 35.40 Est GFR (MDRD) Af Amer 79 Est GFR (MDRD) Non-Af 65 BUN/Creatinine Ratio 19.3 Glucose 88 Calcium 8.6 Troponin I < 0.02 B-Natriuretic Peptide 05/10/17 09:20 WBC RBC Hgb Hct MCV MCH MCHC RDW RDW Differential Plt Count MPV Immature Gran % (Auto) Neut % (Auto) Lymph % (Auto) [place] % (Auto) Eos % (Auto) Baso % (Auto) Absolute Neuts (auto) Absolute Lymphs (auto) Total Counted PT INR APTT Sodium Potassium Chloride Carbon Dioxide Anion Gap BUN Creatinine Estim Creat Clear Calc Est GFR (MDRD) Af Amer Est GFR (MDRD) Non-Af BUN/Creatinine Ratio Glucose Calcium Troponin I B-Natriuretic Peptide 776.8 H Assessment/Plan Active and Suspected Problems (Last Updated 05/03/17 @ 14:13 by Juliette Box) Bronchitis (Acute) Cough variant asthma (Acute) Patient is an 82-year-old lady recently diagnosed with paroxysmal A. fib presented with sudden onset of shortness of breath 1. Acute dyspnea do suspect combination of CHF and possibly bronchitis admitted to a monitored bed for further management 2. Acute diastolic congestive heart failure possibly preceded by patient underlying CHF patient placed on low-dose Lasix, fluid restriction daily with strict input and output. Total obtained on 05/03/2017 demonstrated EF of 65% 2. Acute bronchitis/suspected cough variant asthma patient is on aerosol treatment in addition to low-dose prednisone 4. Hypertension-blood pressure controlled, home medications continued with dose adjustment as needed 5. Recently diagnosed persistent A. fib patient rate controlled on beta blockers also on systemic anticoagulation with Xarelto 6. GERD without esophagitis patient is on PPI did continue 7. Dyslipidemia-patient is on statin therapy, continued at home dose 8. DVT prophylaxis on Lovenox Code Visit Inpatient E&M: [id number] Subs Hosp L3
[2017-05-10] MEDS: Furosemide 40 MG Tablet PO (12:09)
[2017-05-10 13:40] LABS: Magnesium 1.9 mg/dL (1.6-2.6)
[2017-05-10] MEDS: Furosemide 40 MG/4 ML Vial IV ×2 (15:28→22:12)
[2017-05-10] MEDS: Ascorbic Acid 500 MG Tablet PO (15:29)
[2017-05-10] MEDS: Lisinopril 2.5 MG Tablet PO (15:29)
[2017-05-10] MEDS: APIXABAN 2.5 MG TABLET PO (22:12)
[2017-05-10] MEDS: Pravastatin 20 MG Tablet PO (22:12)
[2017-05-10] MEDS: Metoprolol Tartrate 25 MG Tablet PO (22:12)
[2017-05-10] MEDS: 0.9% NaCl Peripheral Flush Adult/Peds IV (22:12)
--- NOTE | 2017-05-10 23:26 | EKG12_ITS ---
Test Reason : RYTHYM CHANGE Blood Pressure : / mmHG Vent. Rate : 049 BPM Atrial Rate : 049 BPM P-R Int : 150 ms QRS Dur : 076 ms QT Int : 484 ms P-R-T Axes : 029 056 085 degrees QTc Int : 437 ms Sinus bradycardia Nonspecific T wave abnormality Abnormal ECG When compared with ECG of 10-MAY-2017 09:33, MANUAL COMPARISON REQUIRED, DATA IS UNCONFIRMED Confirmed by BK RODGERS, CHAPIS ([id number]), society editor RUTH RHODES ([id number]) on 05/14/2017 1:46:36 PM Referred By: ISELA Confirmed By:CHAPIS BOURGEOIS MD
[2017-05-11] VITALS (13 sets, daily range): BP systolic 113–125; BP diastolic 54–78; PULSE 49–98; RESP 16–18; TEMP 36.4–36.7; O2SAT 94–97
[2017-05-11 07:05] LABS: Hematocrit 38.5 % (37-47); Mean Corp Hgb Conc 33.8 g/gl (32-36); Mean Corpuscular Hgb 29.9 pg (27.0-32.0); Mean Corpuscular Volume 88.5 fL (81-99); Mean Platelet Vol. 10.5 fl (6.2-12.0); Platelet Count 250 K/mm3 (150-450); RBC Distribution Width SD 45.6 fl (35.1-43.9); Red Blood Count 4.35 M/mm3 (4.2-5.4); White Blood Count 9.5 K/mm3 (4.4-11.0)
[2017-05-11 07:27] LABS: Scan Indicated on CBC? Y/N NO
[2017-05-11 08:22] LABS: Anion Gap 10 (5-15); BUN 25 mg/dL (7-18); BUN/Creat Ratio 26.8 RATIO (10-20); Calcium,Total 8.6 mg/dL (8.5-10.1); Chloride 104 mmol/L (98-107); Creatinine, Serum 0.93 mg/dL (0.55-1.02); EST Glomerular Filtration Rate 61 mL/min (>60); Est Glom Filt Rate - Afr Amer 74 mL/min (>60); Glucose 112 mg/dL (74-106); Potassium 3.7 mmol/L (3.5-5.1); Sodium Level 143 mmol/L (136-145)
[2017-05-11] MEDS: Metoprolol Tartrate 25 MG Tablet PO (09:37)
[2017-05-11] MEDS: Lisinopril 2.5 MG Tablet PO (09:38)
[2017-05-11] MEDS: Escitalopram Oxalate 10 MG Tablet 5 MG PO (09:38)
[2017-05-11] MEDS: Aspirin E.C. 81 MG Tablet PO (09:39)
[2017-05-11] MEDS: Ascorbic Acid 500 MG Tablet PO (09:39)
[2017-05-11] MEDS: Magnesium Citrate 300 ML 150 ML PO (09:40)
[2017-05-11] MEDS: APIXABAN 2.5 MG TABLET PO ×2 (09:40→22:02)
[2017-05-11] MEDS: Pantoprazole Sodium 20 MG Tablet PO (09:40)
[2017-05-11] MEDS: Senna/Docusate Sodium 1 Tablet PO (09:49)
[2017-05-11] MEDS: Furosemide 40 MG Tablet PO ×2 (09:49→17:13)
--- NOTE | 2017-05-11 11:13 | PCM.PN.HOSP ---
Patient Problems: Active and Suspected Problems (Last Updated 05/03/17 @ 14:13 by Juliette Box) Bronchitis (Acute) Cough variant asthma (Acute) Subjective: Seen admit to significant urine output with Lasix breathing status improving did adjust dose of Lasix. Patient also did complain of constipation subsequently started on senna and a dose of 150 mL of mag citrate given Objective: GENERAL: cooperative HEENT: Clear conjunctiva, NECK; supple, normal thyroid, CHEST: Diminished to auscultation bilaterally, HEART: Irregular S1 S2, no audible murmurs ABDOMEN: soft, non-tender, normoactive bowel sounds, RECTAL: deferred EXTREMITIES: No edema, no clubbing, no cyanosis. 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 SKIN: No lesions no erythema, Vitals/I&O's: Vital Signs Temp Pulse Resp BP Pulse Ox 97.8 F 69 18 119/63 97 05/11/17 09:25 05/11/17 09:37 05/11/17 09:25 05/11/17 09:37 05/11/17 09:25 Oxygen Delivery Method Room Air Weight: 68 kg Body Mass Index (BMI) 30.2 Intake and Output for Last 24 Hours 05/09/17 05/10/17 05/11/17 23:59 23:59 23:59 Intake Total 620 / 620 240 / 240 Output Total 1000 / 1000 Balance 620 / 620 -760 / -760 Laboratory Results 05/10/17 13:20: Troponin I < 0.02 05/10/17 17:43: Troponin I < 0.02 05/10/17 23:50: Troponin I < 0.02 05/11/17 06:35: WBC 9.5, RBC 4.35, Hgb 13.0, Hct 38.5, MCV 88.5, MCH 29.9, MCHC 33.8, RDW 14.0, RDW Differential 45.6 H, Plt Count 250, MPV 10.5 05/11/17 06:35: Sodium 143, Potassium 3.7, Chloride 104, Carbon Dioxide 29.0, Anion Gap 10, BUN 25 H, Creatinine 0.93, Estim Creat Clear Calc 33.50, Est GFR (MDRD) Af Amer 74, Est GFR (MDRD) Non-Af 61, BUN/Creatinine Ratio 26.8 H, Glucose 112 H, Calcium 8.6 Current Medications Acetaminophen (Tylenol) 650 mg PO Q6H PRN PRN PRN Reason: Mild Pain (scale 0-3)/T>100.7 Al Hydroxide/Mg Hydroxide (Mylanta Ii) 30 ml PO Q6H PRN PRN PRN Reason: Gastric burning Apixaban (Eliquis) 2.5 mg PO BID [facility] Last Admin: 05/11/17 09:40 Dose: 2.5 mg [facility] ([facility] Admin: 05/11/17 09:39 Dose: 500 mg Aspirin (Ecotrin) 81 mg PO DAILY@0800 [facility] Last Admin: 05/11/17 09:39 Dose: 81 mg Escitalopram Oxalate (Lexapro) 5 mg PO DAILY [facility] Last Admin: 05/11/17 09:38 Dose: 5 mg Furosemide (Lasix) 40 mg PO BID@1000,1800 [facility] Last Admin: 05/11/17 09:49 Dose: 40 mg Lisinopril (Zestril) 2.5 mg PO DAILY [facility] Last Admin: 05/11/17 09:38 Dose: 2.5 mg Magnesium Hydroxide (Milk Of Magnesia) 30 ml PO DAILY PRN PRN Reason: Constipation Metoprolol Tartrate (Lopressor (Beta Gena)) 25 mg PO BID [facility] Last Admin: 05/11/17 09:37 Dose: 25 mg Oxycodone HCl (Oxyir) 5 mg PO Q4H PRN PRN PRN Reason: Moderate Pain (pain scale 4-5) Pantoprazole Sodium (Protonix) 20 mg PO DAILY [facility] Last Admin: 05/11/17 09:40 Dose: 20 mg Potassium [facility] ([facility] Admin: 05/11/17 09:39 Dose: 20 meq Pravastatin Sodium (Pravachol) 20 mg PO QHS [facility] Last Admin: 05/10/17 22:12 Dose: 20 mg Prednisone (Prednisone) 40 mg PO DAILY@0800 [facility] Last Admin: 05/11/17 09:49 Dose: 40 mg Promethazine HCl (Phenergan (Ll)) 12.5 mg IV Q6H PRN PRN PRN Reason: NAUSEA/VOMITING Senna/Docusate Sodium (Senokot-S, Jimena-Colace) 1 tablet PO DAILY [facility] Last Admin: 05/11/17 09:49 Dose: 1 tablet Sodium Chloride () 5 - 30 ml IV UD PRN PRN Reason: SALINE FLUSH Last Admin: 05/10/17 22:12 Dose: 10 ml Zolpidem Tartrate (Ambien (Generic)) 5 mg PO QHS PRN PRN PRN Reason: INSOMNIA Assessment/Plan Active and Suspected Problems (Last Updated 05/03/17 @ 14:13 by Juliette Box) Bronchitis (Acute) Cough variant asthma (Acute) Patient is an 82-year-old lady recently diagnosed with paroxysmal A. fib presented with sudden onset of shortness of breath 1. Acute dyspnea do suspect combination of CHF and possibly bronchitis admitted to a monitored bed for further management 2. Acute diastolic congestive heart failure possibly preceded by patient underlying CHF patient placed on low-dose Lasix, fluid restriction daily with strict input and output. 2D echo l obtained on 05/03/2017 demonstrated EF of 65% 2. Acute bronchitis/suspected cough variant asthma patient is on aerosol treatment in addition to low-dose prednisone 4. Hypertension-blood pressure controlled, home medications continued with dose adjustment as needed 5. Recently diagnosed persistent A. fib patient rate controlled on beta blockers also on systemic anticoagulation with Xarelto 6. GERD without esophagitis patient is on PPI did continue 7. Dyslipidemia-patient is on statin therapy, continued at home dose 8. DVT prophylaxis on Lovenox 9. Constipation treated symptomatically Code Visit Inpatient E&M: [id number] [facility] Hosp L3
--- NOTE | 2017-05-11 11:16 | PN_ITS ---
Patient Problems: Active and Suspected Problems (Last Updated 05/03/17 @ 14:13 by Juliette Box) Bronchitis (Acute) Cough variant asthma (Acute) Subjective: Seen admit to significant urine output with Lasix breathing status improving did adjust dose of Lasix. Patient also did complain of constipation subsequently started on senna and a dose of 150 mL of mag citrate given Objective: GENERAL: cooperative HEENT: Clear conjunctiva, NECK; supple, normal thyroid, CHEST: Diminished to auscultation bilaterally, HEART: Irregular S1 S2, no audible murmurs ABDOMEN: soft, non-tender, normoactive bowel sounds, RECTAL: deferred EXTREMITIES: No edema, no clubbing, no cyanosis. 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 SKIN: No lesions no erythema, Vitals/I&O's: Vital Signs Temp Pulse Resp BP Pulse Ox 97.8 F 69 18 119/63 97 05/11/17 09:25 05/11/17 09:37 05/11/17 09:25 05/11/17 09:37 05/11/17 09:25 Oxygen Delivery Method Room Air Weight: 68 kg Body Mass Index (BMI) 30.2 Intake and Output for Last 24 Hours 05/09/17 05/10/17 05/11/17 23:59 23:59 23:59 Intake Total 620 / 620 240 / 240 Output Total 1000 / 1000 Balance 620 / 620 -760 / -760 Laboratory Results 05/10/17 13:20: Troponin I < 0.02 05/10/17 17:43: Troponin I < 0.02 05/10/17 23:50: Troponin I < 0.02 05/11/17 06:35: WBC 9.5, RBC 4.35, Hgb 13.0, Hct 38.5, MCV 88.5, MCH 29.9, MCHC 33.8, RDW 14.0, RDW Differential 45.6 H, Plt Count 250, MPV 10.5 05/11/17 06:35: Sodium 143, Potassium 3.7, Chloride 104, Carbon Dioxide 29.0, Anion Gap 10, BUN 25 H, Creatinine 0.93, Estim Creat Clear Calc 33.50, Est GFR ( MDRD) Af Amer 74, Est GFR (MDRD) Non-Af 61, BUN/Creatinine Ratio 26.8 H, Glucose 112 H, Calcium 8.6 Current Medications Acetaminophen (Tylenol) 650 mg PO Q6H PRN PRN PRN Reason: Mild Pain (scale 0-3)/T>100.7 Al Hydroxide/Mg Hydroxide (Mylanta Ii) 30 ml PO Q6H PRN PRN PRN Reason: Gastric burning Apixaban (Eliquis) 2.5 mg PO BID [facility] Last Admin: 05/11/17 09:40 Dose: 2.5 mg [facility]orbic Acid (Vitamin C) [facility] Last Admin: 05/11/17 09:39 Dose: 500 mg Aspirin (Ecotrin) 81 mg PO DAILY@0800 [facility] Last Admin: 05/11/17 09:39 Dose: 81 mg Escitalopram Oxalate (Lexapro) 5 mg PO DAILY [facility] Last Admin: 05/11/17 09:38 Dose: 5 mg Furosemide (Lasix) 40 mg PO BID@1000,1800 [facility] Last Admin: 05/11/17 09:49 Dose: 40 mg Lisinopril (Zestril) 2.5 mg PO DAILY [facility] Last Admin: 05/11/17 09:38 Dose: 2.5 mg Magnesium Hydroxide (Milk Of Magnesia) 30 ml PO DAILY PRN PRN Reason: Constipation Metoprolol Tartrate (Lopressor (Beta Gena)) 25 mg PO BID [facility] Last Admin: 05/11/17 09:37 Dose: 25 mg Oxycodone HCl (Oxyir) 5 mg PO Q4H PRN PRN PRN Reason: Moderate Pain (pain scale 4-5) Pantoprazole Sodium (Protonix) 20 mg PO DAILY [facility] Last Admin: 05/11/17 09:40 Dose: 20 mg Potassium Chloride (K-Dur) 20 meq [facility] Last Admin: 05/11/17 09:39 Dose: 20 meq Pravastatin Sodium (Pravachol) 20 mg PO QHS [facility] Last Admin: 05/10/17 22:12 Dose: 20 mg Prednisone (Prednisone) 40 mg PO DAILY@0800 [facility] Last Admin: 05/11/17 09:49 Dose: 40 mg Promethazine HCl (Phenergan (Ll)) 12.5 mg IV Q6H PRN PRN PRN Reason: NAUSEA/VOMITING Senna/Docusate Sodium (Senokot-S, Jimena-Colace) 1 tablet PO DAILY [facility] Last Admin: 05/11/17 09:49 Dose: 1 tablet Sodium Chloride () 5 - 30 ml IV UD PRN PRN Reason: SALINE FLUSH Last Admin: 05/10/17 22:12 Dose: 10 ml Zolpidem Tartrate (Ambien (Generic)) 5 mg PO QHS PRN PRN PRN Reason: INSOMNIA Assessment/Plan Active and Suspected Problems (Last Updated 05/03/17 @ 14:13 by Juliette Box) Bronchitis (Acute) Cough variant asthma (Acute) Patient is an 82-year-old lady recently diagnosed with paroxysmal A. fib presented with sudden onset of shortness of breath 1. Acute dyspnea do suspect combination of CHF and possibly bronchitis admitted to a monitored bed for further management 2. Acute diastolic congestive heart failure possibly preceded by patient underlying CHF patient placed on low-dose Lasix, fluid restriction daily with strict input and output. 2D echo l obtained on 05/03/2017 demonstrated EF of 65% 2. Acute bronchitis/suspected cough variant asthma patient is on aerosol treatment in addition to low-dose prednisone 4. Hypertension-blood pressure controlled, home medications continued with dose adjustment as needed 5. Recently diagnosed persistent A. fib patient rate controlled on beta blockers also on systemic anticoagulation with Xarelto 6. GERD without esophagitis patient is on PPI did continue 7. Dyslipidemia-patient is on statin therapy, continued at home dose 8. DVT prophylaxis on Lovenox 9. Constipation treated symptomatically Code Visit Inpatient E&M: [id number] [facility] Hosp L3
--- NOTE | 2017-05-11 11:39 | CON.PCM_ITS ---
Problem List (1) Afib Status: Chronic Qualifiers: Atrial fibrillation type: persistent Qualified Code(s): I48.1 - Persistent atrial fibrillation Reason for Consult Date of Consultation: 05/11/17 History of Present Illness: The patient is a 82 year old F with recently diagnosed atrial fibrillation. She presented to the hospital with complaints of episodes of sweating. No chest pain. She did have some shortness of breath associated with that. Positive palpitations. She was noted to be in atrial fibrillation with rapid ventricular response in the emergency room. She converted spontaneously to normal sinus rhythm last night and has been asymptomatic since. [] Past Medical History Allergies/Adverse Reactions: Allergies Sulfa (Sulfonamide Antibiotics) Allergy (Severe, Verified 05/10/17 09:13) unknown Home Medications: Ambulatory Orders Medication Instructions Recorded ascorbic acid (vitamin C) 500 mg 500 mg PO QDAY 05/03/17 tablet aspirin 81 mg tablet,delayed 81 mg PO DAILY 05/03/17 release calcium citrate 250 mg tablet 250 mg PO ONCE tab 05/03/17 escitalopram 5 mg tablet 5 mg PO QDAY 05/03/17 lisinopril 2.5 mg tablet 2.5 mg PO QDAY 05/03/17 omega 5-lol-yno-fish oil 1,000 mg 1 cap PO DAILY 05/03/17 (120 mg-180 mg) capsule omeprazole 10 mg capsule,delayed 10 mg PO DAILY 05/03/17 release potassium chloride 20 mEq oral 20 meq PO QDAY 05/03/17 packet pravastatin 20 mg tablet 20 mg PO QHS 05/03/17 Apixaban [Eliquis] 2.5 mg PO BID #60 tab 05/06/17 Metoprolol Tartrate [Lopressor 25 mg PO BID #60 tab 05/06/17 (beta beverly)] Past Medical History (Chronic Problems): Chronic Problems (Last Updated 05/03/17 @ 14:13 by Juliette Box) Mild atrial enlargement, left (Chronic) Hypokalemia (Chronic) Afib (Chronic) HTN (hypertension) (Chronic) Depression (Chronic) Anxiety (Chronic) Surgical History: no surgical history Psychiatric History: Anxiety, Depression - *Family History Maternal History Items: Heart Disease - from heart attack in her sleep Smoking Status: Never smoker Review of Systems - Review of Systems General: Denies: Fever, Chills, Anorexia Cardiovascular: Reports: Shortness of Breath at Rest. Denies: Chest Discomfort , Chest Discomfort at Rest, Chest Discomfort with Exertion Respiratory: Denies: Cough, Hemoptysis Gastrointestinal: Denies: Abdominal Discomfort, Jaundice, Hematemesis, Melena Neurological: Denies: History of TIA, History of CVA Endocrine: Reports: Excessive Sweating. Denies: Heat Intolerance, Cold Intolerance Hematologic/ Lymphatic: Denies: Easy Brusing, Easy Bleeding Subjectve: Comfortable. No apparent distress Objective: Vital Signs Temp Pulse Resp BP Pulse Ox 97.8 F 69 18 119/63 97 05/11/17 09:25 05/11/17 09:37 05/11/17 09:25 05/11/17 09:37 05/11/17 09:25 Oxygen Delivery Method Room Air Weight: 68 kg Body Mass Index (BMI) 30.2 Intake and Output for Last 24 Hours 05/09/17 05/10/17 05/11/17 23:59 23:59 23:59 Intake Total 620 / 620 240 / 240 Output Total 1000 / 1000 Balance 620 / 620 -760 / -760 General: Healthy Appearing, Awake, Alert, Oriented x 3 HEENT: Atraumatic Oral: Moist Mucosa Neck: No JVD Lungs: Clear to auscultation Cardiovascular: Normal S1, Normal S2 Abdomen: Bowel Sounds Present, Soft Neurological: No Focal Motor or Sensory Deficit, CN II-XII Intact Psych/Mental Status: Appropriate 05/10/17 13:20: Troponin I < 0.02 05/10/17 17:43: Troponin I < 0.02 05/10/17 23:50: Troponin I < 0.02 05/11/17 06:35: WBC 9.5, RBC 4.35, Hgb 13.0, Hct 38.5, MCV 88.5, MCH 29.9, MCHC 33.8, RDW 14.0, RDW Differential 45.6 H, Plt Count 250, MPV 10.5 05/11/17 06:35: Sodium 143, Potassium 3.7, Chloride 104, Carbon Dioxide 29.0, Anion Gap 10, BUN 25 H, Creatinine 0.93, Est GFR (MDRD) Af Amer 74, Est GFR ( MDRD) Non-Af 61, BUN/Creatinine Ratio 26.8 H, Glucose 112 H, Calcium 8.6 Rhythm: Presently normal sinus rhythm EKG: Normal sinus rhythm ECHO: Echocardiogram last month showed ejection fraction 65%. Normal LV size and thickness Stress Test: Stress test done last month was negative for ischemia. Normal ejection fraction Cardiac Cath: PCI: CT Surgery: Holter monitor: EPS: PPM: CXR: Chest CT Scan: Assessment/Plan 1. Paroxysmal atrial fibrillation. Patient spontaneously converted to normal sinus rhythm. Presently she is sinus bradycardia. I will stop her metoprolol and start her on propafenone. Looking at the previous notes, she has diaphoresis and shortness of breath whenever she goes into atrial fibrillation with rapid ventricular response 2. Hypertension 3. History of anxiety
[2017-05-11] MEDS: Propafenone 150 MG Tablet PO (14:10)
[2017-05-11] MEDS: Pravastatin 20 MG Tablet PO (22:02)
[2017-05-12] VITALS (7 sets, daily range): BP systolic 117–145; BP diastolic 63–75; PULSE 53–76; RESP 16–18; TEMP 36.4–36.6; O2SAT 91–96
[2017-05-12 07:19] LABS: Anion Gap 9 (5-15); BUN 33 mg/dL (7-18); BUN/Creat Ratio 33.5 RATIO (10-20); Calcium,Total 8.1 mg/dL (8.5-10.1); Chloride 102 mmol/L (98-107); Creatinine, Serum 0.98 mg/dL (0.55-1.02); EST Glomerular Filtration Rate 58 mL/min (>60); Est Glom Filt Rate - Afr Amer 70 mL/min (>60); Estimated Creatinine Clearance 31.79 ml/min; Glucose 80 mg/dL (74-106); Potassium 3.6 mmol/L (3.5-5.1); Sodium Level 143 mmol/L (136-145)
--- NOTE | 2017-05-12 07:20 | PN.CARD_ITS ---
Subjectve: Patient seen and evaluated and well known to me from previous admission. Objective: Vital Signs Temp Pulse Resp BP Pulse Ox 97.6 F L 55 L 16 117/63 96 05/12/17 02:40 05/12/17 03:38 05/12/17 02:40 05/12/17 02:40 05/12/17 02:40 Oxygen Delivery Method Room Air Weight: 152 lb 5.431 oz Body Mass Index (BMI) 30.2 Intake and Output for Last 24 Hours 05/10/17 05/11/17 05/12/17 23:59 23:59 23:59 Intake Total 620 / 620 1955 / 1955 240 / 240 Output Total 1000 / 1000 Balance 620 / 620 955 / 955 240 / 240 General: Awake, Alert, Oriented x 3 HEENT: PERRL, EOMI, Sclera Non Icteric Neck: Supple, Good ROM, No Lymph Node Enlargement Lungs: Clear to auscultation Cardiovascular: Regular Rhythm, Normal S1, Normal S2, No Murmurs, No Rubs, No Gallops Vascular: No Carotid Bruits, Normal Femoral Pulses, Normal Radial Pulses, Normal Dorsalis Pedal Pulse, Normal Posterior Tibial Pulses Abdomen: Bowel Sounds Present, Soft, Non Tender, No HSM, No Organomegaly Extremities: No Cyanosis, No Clubbing, No edema Neurological: No Focal Motor or Sensory Deficit 05/11/17 06:35: WBC 9.5, RBC 4.35, Hgb 13.0, Hct 38.5, MCV 88.5, MCH 29.9, MCHC 33.8, RDW 14.0, RDW Differential 45.6 H, Plt Count 250, MPV 10.5 05/11/17 06:35: Sodium 143, Potassium 3.7, Chloride 104, Carbon Dioxide 29.0, Anion Gap 10, BUN 25 H, Creatinine 0.93, Est GFR (MDRD) Af Amer 74, Est GFR ( MDRD) Non-Af 61, BUN/Creatinine Ratio 26.8 H, Glucose 112 H, Calcium 8.6 Rhythm: Normal sinus rhythm Assessment/Plan 1. Paroxysmal atrial fibrillation The patient presents with paroxysmal atrial fibrillation and has spontaneously converted back to sinus rhythm. The plan is to keep her on the amiodarone as well as the anticoagulation and see how she does. Does have preserved left ventricular systolic function as well as a normal stress test. At this time I would hold off on a beta-beverly. If she is maintaining sinus rhythm by this afternoon she can be discharged for outpatient follow-up. 2. Diastolic heart failure She likely has mild diastolic heart failure. And the plan at this time would be to keep her on the TURNER inhibitor as well as the diuretic. The etiology of this is likely secondary to hypertensive heart disease as well as the paroxysmal atrial fibrillation with a rapid ventricular response rate. Thank you for allowing me to participate in the care of your patient. Please don't hesitate to call if any issues arise
[2017-05-12] MEDS: Ascorbic Acid 500 MG Tablet PO (08:19)
[2017-05-12] MEDS: Lisinopril 2.5 MG Tablet PO (09:07)
[2017-05-12] MEDS: APIXABAN 2.5 MG TABLET PO (09:07)
[2017-05-12] MEDS: Escitalopram Oxalate 10 MG Tablet 5 MG PO (09:07)
[2017-05-12] MEDS: Pantoprazole Sodium 20 MG Tablet PO (09:08)
[2017-05-12] MEDS: Furosemide 40 MG Tablet PO (09:08)
[2017-05-12] MEDS: Amiodarone 200 MG Tablet PO (09:09)
--- NOTE | 2017-05-12 12:53 | PCM.DC ---
- Discharge Diagnoses Current Active Problems: Current Active and Chronic Problems (Last Updated 05/03/17 @ 14:13 by Juliette Box) Bronchitis (Acute) Cough variant asthma (Acute) Reason(s) for Visit for Discharge Instructions: Shortness of breath You will use the following diet at home:: Cardiac Your food should be the consistency of: Regular Your liquids should be the consistency of: Regular/Thin Discharge Activity: Return to Normal Activity Additional Instructions: Continue on a low salt diet, daily weights. Call your PCP or manager icu if you weigh more than 4 pounds at a time. Allergies/Adverse Reactions: Allergies Sulfa (Sulfonamide Antibiotics) Allergy (Severe, Verified 05/10/17 09:13) unknown Medications to take at Discharge ascorbic acid (vitamin C) 500 mg tablet 500 mg PO QDAY 05/03/17 aspirin 81 mg tablet,delayed release 81 mg PO DAILY 05/03/17 calcium citrate 250 mg tablet 250 mg PO ONCE tab 05/03/17 escitalopram 5 mg tablet 5 mg PO QDAY 05/03/17 lisinopril 2.5 mg tablet 2.5 mg PO QDAY 05/03/17 omega 6-ssn-wub-fish oil 1,000 mg (120 mg-180 mg) capsule 1 cap PO DAILY 05/03/17 omeprazole 10 mg capsule,delayed release 10 mg PO DAILY 05/03/17 potassium chloride 20 mEq oral packet 20 meq PO QDAY 05/03/17 pravastatin 20 mg tablet 20 mg PO QHS 05/03/17 Apixaban [Eliquis] 2.5 mg PO BID #60 tab 05/06/17 Amiodarone HCl [Cordarone] 200 mg PO DAILY #30 tab 05/12/17 Furosemide [Lasix] 40 mg PO BID@1000,1800 #60 tab 05/12/17 The following prescriptions were given: Amiodarone HCl [Cordarone] 200 mg PO DAILY #30 tab Furosemide [Lasix] 40 mg PO BID@1000,1800 #60 tab Primary Care Physician: Arslan Toscano DO [Primary Care Provider] - Please follow up with your Primary Care Physician in: within 2 weeks of discharge Please Follow Up With: Valdez Soto MD When: as scheduled or in 2 weeks Proposed Discharge Date: 05/12/17
--- NOTE | 2017-05-12 12:58 | DCINST_ITS ---
- Discharge Diagnoses Current Active Problems: Current Active and Chronic Problems (Last Updated 05/03/17 @ 14:13 by Juliette Box) Bronchitis (Acute) Cough variant asthma (Acute) Reason(s) for Visit for Discharge Instructions: Shortness of breath You will use the following diet at home:: Cardiac Your food should be the consistency of: Regular Your liquids should be the consistency of: Regular/Thin Discharge Activity: Return to Normal Activity Additional Instructions: Continue on a low salt diet, daily weights. Call your PCP or outgoing inspector if you weigh more than 4 pounds at a time. Allergies/Adverse Reactions: Allergies Sulfa (Sulfonamide Antibiotics) Allergy (Severe, Verified 05/10/17 09:13) unknown Medications to take at Discharge ascorbic acid (vitamin C) 500 mg tablet 500 mg PO QDAY 05/03/17 aspirin 81 mg tablet,delayed release 81 mg PO DAILY 05/03/17 calcium citrate 250 mg tablet 250 mg PO ONCE tab 05/03/17 escitalopram 5 mg tablet 5 mg PO QDAY 05/03/17 lisinopril 2.5 mg tablet 2.5 mg PO QDAY 05/03/17 omega 1-rvh-sjl-fish oil 1,000 mg (120 mg-180 mg) capsule 1 cap PO DAILY omeprazole 10 mg capsule,delayed release 10 mg PO DAILY 05/03/17 potassium chloride 20 mEq oral packet 20 meq PO QDAY 05/03/17 pravastatin 20 mg tablet 20 mg PO QHS 05/03/17 Apixaban [Eliquis] 2.5 mg PO BID #60 tab 05/06/17 Amiodarone HCl [Cordarone] 200 mg PO DAILY #30 tab 05/12/17 Furosemide [Lasix] 40 mg PO BID@1000,1800 #60 tab 05/12/17 The following prescriptions were given: Amiodarone HCl [Cordarone] 200 mg PO DAILY #30 tab Furosemide [Lasix] 40 mg PO BID@1000,1800 #60 tab Primary Care Physician: Arslan Toscano DO [Primary Care Provider] - Please follow up with your Primary Care Physician in: within 2 weeks of discharge Please Follow Up With: Valdez Soto MD When: as scheduled or in 2 weeks Proposed Discharge Date: 05/12/17
--- NOTE | 2017-05-12 12:58 | PCM.DC.SUM ---
Discharge Date and Diagnosis Date of Admission: 05/10/17 Date of Discharge: 05/12/17 - Primary Discharge Diagnosis Active and Suspected Problems (Last Updated 05/03/17 @ 14:13 by Juliette Box) Bronchitis (Acute) Cough variant asthma (Acute) Paroxysmal atrial fibrillation Diastolic heart failure, mild - Secondary Discharge Diagnosis Chronic Problems (Last Updated 05/03/17 @ 14:13 by Juliette Box) Mild atrial enlargement, left (Chronic) Hypokalemia (Chronic) Afib (Chronic) HTN (hypertension) (Chronic) Depression (Chronic) Anxiety (Chronic) Hospital Course and Treatment Imaging Results: Clinical Impression(s) from Imaging Studies Chest X-Ray 05/10/17 09:25 IMPRESSION: Degenerative changes, as described above. No demonstrated acute cardiopulmonary process. Hiatal hernia. Electronically Signed: Jacob Jain MD at 10:28 EST , Service support , Cardiology Operations: None Procedures: 2-D Echocardiogram Summary of Care Provided: The patient is a 82 year old F with past medical history of paroxysmal atrial fibrillation admitted to the hospital with complaints of shortness of breath with palpitations. She was found to have A. fib with RVR. Patient was managed as acute dyspnea secondary to acute diastolic CHF exacerbation and acute bronchitis. She was started on low-dose prednisone for 3 days with improvement in her cough. This was subsequently stopped. Patient's blood pressure remained stable. Cardiology was consulted and placed patient on amiodarone with a beta-beverly was stopped. Patient continued to improve. Cardioverted to normal sinus rhythm, remained in sinus rhythm and was subsequently discharged. Discharge Diet: Low fat/ Low Cholesterol, 2000 mg Sodium Diet Discharge Activity: Return to Normal Activity Home Medications: Medications to take at Discharge ascorbic acid (vitamin C) 500 mg tablet 500 mg PO QDAY 05/03/17 aspirin 81 mg tablet,delayed release 81 mg PO DAILY 05/03/17 calcium citrate 250 mg tablet 250 mg PO ONCE tab 05/03/17 escitalopram 5 mg tablet 5 mg PO QDAY 05/03/17 lisinopril 2.5 mg tablet 2.5 mg PO QDAY 05/03/17 omega 1-jcw-xps-fish oil 1,000 mg (120 mg-180 mg) capsule 1 cap PO DAILY 05/03/17 omeprazole 10 mg capsule,delayed release 10 mg PO DAILY 05/03/17 potassium chloride 20 mEq oral packet 20 meq PO QDAY 05/03/17 pravastatin 20 mg tablet 20 mg PO QHS 05/03/17 Apixaban [Eliquis] 2.5 mg PO BID #60 tab 05/06/17 Amiodarone HCl [Cordarone] 200 mg PO DAILY #30 tab 05/12/17 Furosemide [Lasix] 40 mg PO BID@1000,1800 #60 tab 05/12/17 Following Prescrptions Were Given to Patient: Amiodarone HCl [Cordarone] 200 mg PO DAILY #30 tab Furosemide [Lasix] 40 mg PO BID@1000,1800 #60 tab Primary Care Physician: Arslan Toscano DO [Primary Care Provider] - Please follow up with your Primary Care Physician in: within 2 weeks of discharge Please Follow Up With: Valdez Soto MD When: as scheduled or in 2 weeks Patient Instructions: Amiodarone Hydrochloride Oral tablet, Furosemide Oral tablet Disposition: Home Minutes spent on discharge:: 25 Patient Condition:: Stable Meaningful Use Info Meaningful Use Diagnoses (Choose all that apply): CHF - CHF TURNER/ARB ordered at discharge?: Yes Documented LVEF (%): 65 Code Visit Inpatient E&M: 20746 Disch Hosp
--- NOTE | 2017-05-12 14:01 | CASEMGMT ---
Chart review completed at this time. Pt is a readmission, see CM assessment completed by this RN CM on 05/05/17. Pt states no changes at this time and no concerns with going home at this time. Pt/ voices no further questions/concerns/needs at this time. SStaten RN CM
== END 2017-05-12 14:03 | disposition home or self-care (01) | DRG 308 ==
LOC: ED 12:13 → PCU 12:32
PROVIDERS: Admitting Provider Internal Medicine; Emergency Provider Emergency Medicine; Family Provider Family Medicine; PCP Family Medicine; Visit Provider Internal Medicine
DX: I48.0 Paroxysmal atrial fibrillation (principal); I11.0 Hypertensive heart disease with heart failure; I50.31 Acute diastolic (congestive) heart failure; J20.9 Acute bronchitis, unspecified; E87.6 Hypokalemia; J45.991 Cough variant asthma; E78.5 Hyperlipidemia, unspecified; K59.00 Constipation, unspecified; K21.9 Gastro-esophageal reflux disease without esophagitis; F32.9 Major depressive disorder, single episode, unspecified; F41.9 Anxiety disorder, unspecified; Z79.82 Long term (current) use of aspirin; Z79.01 Long term (current) use of anticoagulants; Z79.899 Other long term (current) drug therapy
CPT/HCPCS: 36415; 71046; 80048; 83735; 83880; 84484; 85025; 85027; 85610; 85730; 93005; 99251; 99285; A4216; G0463; J1940

== ENCOUNTER 2017-05-19 17:17 | Emergency (ER) | payer MEDICARE, OTHER, SELFPAY ==
[2017-05-19 17:19] VITALS: BP 156/82; PULSE 87; RESP 18; TEMP 36.1; O2SAT 100; BMI 31.8
--- NOTE | 2017-05-19 17:20 | ED.RN ---
PT STATES MEDS HAVE NOT CHANGED SINCE D/C FROM [facility] LAST WEEK.
--- NOTE | 2017-05-19 18:53 | EKG12_ITS ---
Test Reason : WEAKNESS Blood Pressure : / mmHG Vent. Rate : 082 BPM Atrial Rate : 100 BPM P-R Int : 000 ms QRS Dur : 074 ms QT Int : 390 ms P-R-T Axes : 000 043 025 degrees QTc Int : 455 ms Atrial fibrillation Nonspecific ST and T wave abnormality Abnormal ECG Confirmed by BK RODGERS, CHAPIS ([id number]), news copy editor RUTH RHODES ([id number]) on 05/21/2017 3:46:20 PM Referred By: DONAL Confirmed By:CHAPIS BOURGEOIS MD
--- NOTE | 2017-05-19 18:53 | RAD_ITS ---
STUDY: X-RAY CHEST REASON FOR EXAM: Female, 82 years old. Weakness, chest pain TECHNIQUE: Single AP portable view of the chest. COMPARISON: 05/10/2017. FINDINGS: The lungs are clear and expanded. There is no demonstrated pleural abnormality. Normal size heart. Normal mediastinum and gertrudis. Normal visualized pulmonary arteries. Normal visualized aortic arch and descending thoracic aorta. Normal visualized thoracic spine. Normal visualized ribs, clavicles, and shoulders. Moderate to large hiatal hernia. RAD/Chest 1 View (Portable) IMPRESSION: No acute cardiopulmonary disease.. Moderate to large hiatal hernia. Electronically Signed: Ismael Patel DO at 19:44 EDT , Service support ,
--- NOTE | 2017-05-19 18:54 | CT_ITS ---
STUDY: CT ABDOMEN AND PELVIS WITH CONTRAST REASON FOR EXAM: Female, 82 years old. Left lower quadrant pain. RADIATION DOSAGE (If Supplied By Facility): CTDIvol = ( 14.93 ) mGy, DLP = ( 779.98 ) mGycm TECHNIQUE: Transaxial images were obtained from the dome of the diaphragm to the symphysis pubis without oral contrast. 100ML ml of Isovue 300 contrast was administered. Sagittal and coronal images were reconstructed. Individualized dose optimization techniques were used for this CT. COMPARISON: None. FINDINGS: The visualized lung bases are unremarkable. The visualized portions of the heart are within normal limits. Punctate calcification within the left hepatic lobe is present consistent with granulomatous change. 11 mm hypodensity within the right hepatic lobe consistent with simple cyst is present. There is non-visualization of the gallbladder, which may be secondary to either contraction or a prior cholecystectomy. Normal spleen. Normal pancreas. Normal bilateral adrenal glands. Small exophytic cyst of the right renal cortex measuring 12 mm is present. Cortical cysts of the left inferior kidney is present measuring 10 mm. There is a large hiatal hernia composed mostly of the fundus of the stomach. Normal small intestine. There are multiple colonic diverticula consistent with diverticulosis. The appendix is visualized and appears normal. Normal abdominal aorta. Normal inferior vena cava. Normal retroperitoneum. Normal urinary bladder. There is a small umbilical hernia containing fat. Degenerative changes at L5/S1 are present. CT/Abdomen/Pelvis W IV Cont ONLY IMPRESSION: 1. Large demonstrated hiatal hernia no evidence of obstruction. 2. Chronic diverticulosis with no evidence of focal diverticulitis. No evidence of acute intra-abdominal process or focal inflammation, dilatation or air-fluid levels. Normal appendix. Electronically Signed: Jose Ambrose DO at 20:26 EDT , Service support ,
--- NOTE | 2017-05-19 18:55 | ED.VISSUMM ---
- ER Visit Summary Date of Service: 05/19/17 Chief Complaint: Abdominal pain History of Present Illness: The patient is a 82 F presenting with left lower quadrant abdominal pain. She states this started last night. She was unsure if she is constipated. She had a normal bowel movement today. Denies nausea or vomiting. Denies chest pain or shortness of breath. Denies fever. She was recently in the hospital for CHF exacerbation. She states she was started on Eliquis and furosemide during that visit. She has been feeling better from that standpoint. She states today she felt generally weak. She denies dizziness or near syncope. Her family states that her blood pressure was elevated. It was 115/95 at home. Physical Examination: Vitals are stable. Patient is afebrile. Alert no acute distress. HEENT exam is unremarkable. Neck is supple. Lungs are clear and equal bilaterally. Heart is irregularly irregular Abdomen is soft mild left lower quadrant tenderness with no rebound or guarding. Extremities are unremarkable. Skin is warm and dry. No focal neurologic deficit. Remainder of exam is unremarkable. Emergency Department Course and Treatment: EKG shows A. fib rate of 82, unchanged from previous. CBC is normal. Chemistries show potassium 3.3, BUN 25. Urinalysis shows 5-10 white cells. Patient has no urinary complaints. Urine culture was sent. Troponin is negative. Chest x-ray shows no acute process. CT abdomen pelvis shows hiatal hernia, no acute process. In the emergency department patient now states that she feels much improved. She is requesting to go home. Discussed with Dr. Soto. During her previous hospitalization she had converted from A. fib to sinus rhythm. She is now back in A. fib. She is rate controlled, takes amiodarone and Eliquis. She has a scheduled appointment for follow-up. She is advised to return to ED if she has any worsening complaints. Disposition: Discharge home Impression: Abdominal pain, paroxysmal A. fib This note was generated with [employer] dictation software. It may contain incorrect words, spelling, and punctuation that were not noted in review of the chart prior to signing ED Disposition - Plan for ED Patient: Chief Complaint: Weakness Referrals: Arslan Toscano DO [Primary Care Provider] -
[2017-05-19 19:13] VITALS: O2SAT 97
[2017-05-19 19:17] LABS: Bacteria 0 SEEN /hpf (None Seen); Mucous, Urine 0 SEEN /hpf (<or=2+); Red Blood Cells-Urine 0 SEEN /hpf (0-5); Squamous Epithelial Cells - UA 0 SEEN /hpf (5-10)
[2017-05-19 19:19] LABS: Color, Urine Yellow (Yellow); Glucose, Dipstick Normal (Normal); Ketone-Dipstick Negative (Negative); Leukocyte Esterase-Dipstick 100 /ul (Negative); Nitrite-Dipstick Negative (Negative); Occult Blood-Urine Negative /ul (Negative); Protein-Dipstick 15 mg/dl (Negative); Specific Gravity, Urine 1.015 (1.002-1.030); Urine Bilirubin Dipstick Negative (Negative); Urine Clarity Clear (Clear); Urine Urobilinogen Normal (Normal)
[2017-05-19 19:20] LABS: Absolute Lymphocyte Count 1.85 X10^3/ul (0.83-4.51); Absolute Neutrophil Count 4.9 X10^3/uL (2.0-7.7); Basophil# 0.04 X10^3/uL; Basophil% 0.5 % (0-1); Eosinophils% 1.3 % (0-5); Hematocrit 43.6 % (37-47); Hemoglobin 14.6 g/dl (12.0-15.0); Lymphocyte # 1.85 X10^3/ul (4.0); Lymphocyte % 23.8 % (19-41); Mean Corp Hgb Conc 33.5 g/gl (32-36); Mean Corpuscular Hgb 29.4 pg (27.0-32.0); Mean Corpuscular Volume 87.9 fL (81-99); Mean Platelet Vol. 9.9 fl (6.2-12.0); Monocyte% 10.3 % (0-10); Neutrophil # 4.94 X10^3/uL (2.7-7.7); Neutrophil % 63.7 % (47-70); POSITIVE COUNT NO; POSITIVE DIFFERENTIAL NO; POSITIVE MORPHOLOGY NO; Platelet Count 291 K/mm3 (150-450); RBC Distribution Width CV 14.1 % (11.6-14.6); RBC Distribution Width SD 45.1 fl (35.1-43.9); Red Blood Count 4.96 M/mm3 (4.2-5.4); White Blood Count 7.8 K/mm3 (4.4-11.0)
[2017-05-19 19:37] LABS: White Blood Cells 5-10 SEEN /hpf (0-5)
[2017-05-19 19:52] LABS: Anion Gap 10 (5-15); BUN 25 mg/dL (7-18); BUN/Creat Ratio 24.5 RATIO (10-20); Calcium,Total 8.7 mg/dL (8.5-10.1); Chloride 106 mmol/L (98-107); Creatinine, Serum 1.02 mg/dL (0.55-1.02); EST Glomerular Filtration Rate 55 mL/min (>60); Est Glom Filt Rate - Afr Amer 67 mL/min (>60); Estimated Creatinine Clearance 48.11 ml/min; Glucose 112 mg/dL (74-106); Potassium 3.3 mmol/L (3.5-5.1); Sodium Level 144 mmol/L (136-145)
[2017-05-19 20:39] VITALS: BP 154/72; PULSE 91; RESP 15; O2SAT 96
--- NOTE | 2017-05-19 21:50 | ED.DEP ---
ED Disposition - Plan for ED Patient: Chief Complaint: Weakness Instructions: ED Afib Referrals: Arslan Toscano DO [Primary Care Provider] - Valdez Soto MD [STAFF PHYSICIAN] -
[2017-05-19 22:10] VITALS: BP 139/74; PULSE 108; RESP 16; O2SAT 97
== END 2017-05-19 22:10 | disposition home or self-care (01) ==
LOC: ED 20:22
PROVIDERS: Emergency Provider Emergency Medicine; Family Provider Family Medicine; PCP Family Medicine
DX: R10.32 Left lower quadrant pain (principal); I48.0 Paroxysmal atrial fibrillation; K44.9 Diaphragmatic hernia without obstruction or gangrene; I50.9 Heart failure, unspecified; R03.0 Elevated blood-pressure reading, without diagnosis of hypertension; Z79.01 Long term (current) use of anticoagulants; Z79.82 Long term (current) use of aspirin; Z79.899 Other long term (current) drug therapy; Z90.49 Acquired absence of other specified parts of digestive tract
CPT/HCPCS: 71045; 74177; 80048; 81001; 84484; 85025; 87086; 87088; 93005; 99284; Q9967; A4216

== ENCOUNTER → 2017-05-21 13:58 | Outpatient (CLI) | payer MEDICARE, OTHER, SELFPAY ==
[2017-05-21 16:13] LABS: Anion Gap 10 (5-15); BUN 24 mg/dL (7-18); BUN/Creat Ratio 21.8 RATIO (10-20); Calcium,Total 8.9 mg/dL (8.5-10.1); Chloride 102 mmol/L (98-107); EST Glomerular Filtration Rate 51 mL/min (>60); Est Glom Filt Rate - Afr Amer 61 mL/min (>60); Glucose 72 mg/dL (74-106); Potassium 3.2 mmol/L (3.5-5.1); Sodium Level 141 mmol/L (136-145)
== END ==
PROVIDERS: Family Provider Family Medicine; PCP Family Medicine; Visit Provider Internal Medicine Cardiovascular Disease
DX: E87.6 Hypokalemia (principal); R53.1 Weakness
CPT/HCPCS: 36415; 80048

== ENCOUNTER → 2017-06-23 08:50 | Outpatient (CLI) | payer MEDICARE, OTHER, SELFPAY ==
[2017-06-23 10:11] LABS: BUN 16 mg/dL (7-18); BUN/Creat Ratio 18.5 RATIO (10-20); Calcium,Total 8.5 mg/dL (8.5-10.1); Chloride 108 mmol/L (98-107); Creatinine, Serum 0.86 mg/dL (0.55-1.02); EST Glomerular Filtration Rate 67 mL/min (>60); Est Glom Filt Rate - Afr Amer 81 mL/min (>60); Glucose 73 mg/dL (74-106); Potassium 3.6 mmol/L (3.5-5.1); Sodium Level 144 mmol/L (136-145)
[2017-06-23 10:12] LABS: Anion Gap 7 (5-15)
== END ==
PROVIDERS: Nurse Practitioner Family; Family Provider Family Medicine; PCP Family Medicine; Visit Provider Internal Medicine Cardiovascular Disease
DX: E87.6 Hypokalemia (principal); I48.1 Persistent atrial fibrillation; I11.0 Hypertensive heart disease with heart failure; I50.33 Acute on chronic diastolic (congestive) heart failure
CPT/HCPCS: 36415; 80048

== ENCOUNTER 2018-01-21 07:21 | Emergency (ER) | payer MEDICARE, OTHER, SELFPAY ==
[2018-01-21] VITALS (11 sets, daily range): BP systolic 147–228; BP diastolic 66–118; PULSE 55–68; RESP 11–19; TEMP 36.6; O2SAT 94–98; BMI 27.5
--- NOTE | 2018-01-21 07:29 | ED.RN ---
ekg called for from triage
--- NOTE | 2018-01-21 07:36 | EKG12_ITS ---
Test Reason : RT ARM PAIN Blood Pressure : / mmHG Vent. Rate : 061 BPM Atrial Rate : 061 BPM P-R Int : 158 ms QRS Dur : 080 ms QT Int : 456 ms P-R-T Axes : 042 053 061 degrees QTc Int : 459 ms Normal sinus rhythm Nonspecific T wave abnormality Abnormal ECG Confirmed by BK RODGERS, CHAPIS ([id number]), editor map RUTH RHODES ([id number]) on 01/23/2018 4:04:05 PM Referred By: GUME Confirmed By:CHAPIS BOURGEOIS MD
--- NOTE | 2018-01-21 07:38 | RAD_ITS ---
STUDY: X-RAY CHEST REASON FOR EXAM: Female, 82 years old. Chest pain. Shortness of breath. TECHNIQUE: Single AP portable view of the chest. COMPARISON: Comparison is made with prior study dated May 19, 2017. FINDINGS: EKG electrodes are seen. Hyperinflation. The lungs are clear. There is no demonstrated pleural abnormality. There is borderline cardiomegaly. Normal mediastinum and gertrudis. Normal visualized pulmonary arteries. Normal visualized aortic arch and descending thoracic aorta. Normal visualized thoracic spine. Normal visualized ribs, clavicles, and shoulders. Moderate sized hiatal hernia. RAD/Chest 1 View (Portable) IMPRESSION: The lungs are clear. Moderate-sized hiatal hernia. Electronically Signed: Omreo Pool MD at 8:43 EST Tel [phone], Service support ,
[2018-01-21 08:13] LABS: Absolute Lymphocyte Count 1.35 X10^3/ul (0.83-4.51); Absolute Neutrophil Count 4.3 X10^3/uL (2.0-7.7); Basophil# 0.02 X10^3/uL; Basophil% 0.3 % (0-1); Eosinophil# 0.06 X10^3/uL; Hematocrit 44.8 % (37-47); Hemoglobin 14.5 g/dl (12.0-15.0); Lymphocyte # 1.35 X10^3/ul (4.0); Lymphocyte % 22.3 % (19-41); Mean Corp Hgb Conc 32.4 g/gl (32-36); Mean Corpuscular Hgb 28.8 pg (27.0-32.0); Mean Corpuscular Volume 88.9 fL (81-99); Mean Platelet Vol. 10.2 fl (6.2-12.0); Monocyte# 0.35 X10^3/uL; Monocyte% 5.8 % (0-10); Neutrophil # 4.26 X10^3/uL (2.7-7.7); Neutrophil % 70.4 % (47-70); POSITIVE COUNT NO; POSITIVE DIFFERENTIAL NO; POSITIVE MORPHOLOGY NO; Platelet Count 238 K/mm3 (150-450); RBC Distribution Width CV 14.8 % (11.6-14.6); RBC Distribution Width SD 48.3 fl (35.1-43.9); Red Blood Count 5.04 M/mm3 (4.2-5.4); White Blood Count 6.1 K/mm3 (4.4-11.0)
--- NOTE | 2018-01-21 08:14 | ED.VISSUMM ---
- ER Visit Summary Date of Service: 01/21/18 Chief Complaint: High blood pressure, left arm pain History of Present Illness: The patient is a 82 F with history of atrial fibrillation and hypertension who presents for high blood pressure and left arm pain. Patient began having left arm pain yesterday that worsened this morning. Patient was laying in bed and could feel my heart pumping in her back while laying in bed. Her took her blood pressure, which was elevated in the systolic 216-220. Patient's arm pain waxes and wanes in intensity and is diffuse, mainly in the antecubital fossa region. No weakness or numbness. No history of injury. Patient states she does walk 3 large dogs and uses her left arm to hold the leash. Patient denies any chest pain, shortness of breath, abdominal pain, nausea or vomiting, neck pain. No fever. No acute URI symptoms. Chronic cough with postnasal drainage. Patient is on Eliquis. Physical Examination: Vital signs: afebrile, hypertensive at 228/85, no hypoxia on room air General: well nourished, well developed, in no distress Skin: warm, dry, no rash, no pallor HEENT: normocephalic and atraumatic; PERRL, EOMI, moist mucous membranes, no tenderness in the neck Cardiovascular: regular rate and rhythm without murmurs, no peripheral edema, 2+ pulses all distal extremities Respiratory: No increased work of breathing, lungs are clear to auscultation bilaterally, no rales, rhonchi or wheezing Abdominal: Abdomen is soft, nontender with normoactive bowel sounds, no guarding or rebound, no masses MSK: Moves all extremities, no deformities, normal strength, no tenderness to palpation of the left arm musculature, no tenderness in the trapezius musculature or the shoulder, full active range of motion Neuro: Awake and alert, oriented ?4. No facial droop, sensation and motor function intact and symmetric Test Results: Abnormal Lab Results 01/21/18 01/21/18 08:04 08:04 WBC 6.1 RBC 5.04 Hgb 14.5 Hct 44.8 MCV 88.9 MCH 28.8 MCHC 32.4 RDW 14.8 H RDW Differential 48.3 H Plt Count 238 MPV 10.2 Immature Gran % (Auto) 0.200 Neut % (Auto) 70.4 H Lymph % (Auto) 22.3 Toombs % (Auto) 5.8 Eos % (Auto) 1.0 Baso % (Auto) 0.3 Absolute Neuts (auto) 4.3 Absolute Lymphs (auto) 1.35 Total Counted Not Reportable Sodium 143 Potassium 3.4 L Chloride 107 Carbon Dioxide 29.0 Anion Gap 7 BUN 15 Creatinine 0.99 Estim Creat Clear Calc 31.47 Est GFR (MDRD) Af Amer 69 Est GFR (MDRD) Non-Af 57 L BUN/Creatinine Ratio 15.1 Glucose 98 Calcium 8.6 Troponin I < 0.015 Clinical Impression(s) from Imaging Studies Chest X-Ray 01/21/18 07:38 IMPRESSION: The lungs are clear. Moderate-sized hiatal hernia. Electronically Signed: Omero Pool MD at 8:43 EST Tel [phone], Service support , Medications Given Discontinued Medications Acetaminophen (Tylenol) 650 mg PO X1 ONE Stop: 01/21/18 08:45 Last Admin: 01/21/18 08:47 Dose: 650 mg Aspirin (Aspirin, Baby) 324 mg PO X1 ONE Stop: 01/21/18 08:13 Last Admin: 01/21/18 08:29 Dose: 324 mg Nitroglycerin (Nitrostat) 0.4 mg SUBLINGUAL X1 ONE Stop: 01/21/18 08:21 Last Admin: 01/21/18 08:29 Dose: 0.4 mg Nitroglycerin (Nitrostat) 0.4 mg SUBLINGUAL X1 ONE Stop: 01/21/18 08:45 Last Admin: 01/21/18 08:47 Dose: 0.4 mg Emergency Department Course and Treatment: Patient presents with hypertension and left arm pain that began yesterday. Patient's examination does not reveal any obvious musculoskeletal reason for the arm pain. It is concerning for possible anginal equivalent. Patient was given sublingual nitro x1. Patient also given aspirin. After the nitroglycerin, patient blood pressure improved, and her pain decreased modestly. Patient began complaining of a headache and was given Tylenol. She was given a second nitro with almost complete resolution of her left arm pain, stating she can still feel it but it was barely there. Of note, this improvement was very shortly after administration of Tylenol, without any time for Tylenol to contribute to any pain. At 09:08, patient BP 196/87 with left arm pain less than 1 out of 10. EKG shows a sinus rhythm, rate 61, no QTC prolongation, normal IL and QRS durations. No ischemic changes noted. Troponin negative. No leukocytosis, significant anemia, electrolyte derangements or renal dysfunction. Patient's blood pressure log was reviewed, and her readings today are atypical for her. She is normally 160/80-donovan. Because patient is having significant hypertension and left arm pain responsive to nitro, patient was discussed with Dr. Ornelas. He recommended giving the patient 30 mg of Imdur orally and performing a delta troponin and EKG. Patient has no change in her troponin or EKG, patient can be discharged home. Patient tolerated the Imdur well. After 3 hours the second troponin was negative and the EKG remained unchanged. Patient was prescribed Imdur 30 mg daily and is to follow-up with Dr. Soto. Patient was discharged home with hypertension improved and left arm discomfort resolved. Treatment Plan: [] Disposition: [] Impression: 1. Hypertensive urgency 2. Arm discomfort This note was generated with [employer] dictation software. It may contain incorrect words, spelling, and punctuation that were not noted in review of the chart prior to signing ED Disposition - Plan for ED Patient: Disposition: Home or Assisted Living Chief Complaint: Hypertension Instructions: ED Hypertension Conf Out Of Control Prescriptions: Isosorbide Mononitrate [Imdur] 30 mg PO DAILY #30 tab Referrals: Valdez Soto MD [STAFF PHYSICIAN] - 5-7 Days Arslan Toscano DO [Primary Care Provider] - 3-5 Days Additional Instructions: Please continue all your medications as prescribed, including blood pressure medicines. Take the new medication Imdur once daily. Follow-up with your doctors within 1 week for another evaluation and for blood pressure recheck. If you have any worsening of your condition or any new concerning symptoms, please return immediately to the emergency department for another evaluation.
[2018-01-21 08:28] LABS: Anion Gap 7 (5-15); BUN 15 mg/dL (7-18); BUN/Creat Ratio 15.1 RATIO (10-20); Calcium,Total 8.6 mg/dL (8.5-10.1); Chloride 107 mmol/L (98-107); Creatinine, Serum 0.99 mg/dL (0.55-1.02); EST Glomerular Filtration Rate 57 mL/min (>60); Est Glom Filt Rate - Afr Amer 69 mL/min (>60); Estimated Creatinine Clearance 31.47 ml/min; Glucose 98 mg/dL (74-106); Potassium 3.4 mmol/L (3.5-5.1); Sodium Level 143 mmol/L (136-145)
[2018-01-21] MEDS: Aspirin 81 MG TAB.CHEW 324 MG PO (08:29)
[2018-01-21] MEDS: Acetaminophen 325 MG Tablet 650 MG PO (08:47)
[2018-01-21] MEDS: Isosorbide Mononitrate 30 MG Tablet PO (10:45)
--- NOTE | 2018-01-21 11:00 | EKG12_ITS ---
Test Reason : REPEAT Blood Pressure : / mmHG Vent. Rate : 060 BPM Atrial Rate : 170 BPM P-R Int : 000 ms QRS Dur : 076 ms QT Int : 482 ms P-R-T Axes : 000 037 058 degrees QTc Int : 482 ms Normal sinus rhythm Nonspecific T wave abnormality Abnormal ECG Confirmed by BK RODGERS, CHAPIS ([id number]), editor school photograph RUTH RHODES ([id number]) on 01/23/2018 4:04:28 PM Referred By: HORTENCIA Confirmed By:CHAPIS BOURGEOIS MD
--- NOTE | 2018-01-21 12:15 | ED.DEP ---
ED Disposition - Plan for ED Patient: Disposition: Home or Assisted Living Chief Complaint: Hypertension Instructions: ED Hypertension Conf Out Of Control Prescriptions: Isosorbide Mononitrate [Imdur] 30 mg PO DAILY #30 tab Referrals: Arslan Toscano DO [Primary Care Provider] - 3-5 Days Valdez Soto MD [STAFF PHYSICIAN] - 5-7 Days Additional Instructions: Please continue all your medications as prescribed, including blood pressure medicines. Take the new medication Imdur once daily. Follow-up with your doctors within 1 week for another evaluation and for blood pressure recheck. If you have any worsening of your condition or any new concerning symptoms, please return immediately to the emergency department for another evaluation.
== END 2018-01-21 12:35 | disposition home or self-care (01) ==
PROVIDERS: Emergency Medicine; Emergency Provider Emergency Medicine; Family Provider Family Medicine; PCP Family Medicine
DX: I16.0 Hypertensive urgency (principal); M79.602 Pain in left arm; I48.91 Unspecified atrial fibrillation; Z79.01 Long term (current) use of anticoagulants; Z79.899 Other long term (current) drug therapy
CPT/HCPCS: 36415; 71045; 80048; 84484; 85025; 93005; 99285; A4216

== ENCOUNTER → 2018-04-13 12:49 | Outpatient (CLI) | payer MEDICARE, OTHER, SELFPAY ==
[2018-02-02 08:26] VITALS: BMI 27.7
== END ==
PROVIDERS: Family Provider Family Medicine; PCP Family Medicine; Referring Provider Nurse Practitioner Family; Visit Provider Nurse Practitioner Family
DX: I48.0 Paroxysmal atrial fibrillation (principal)
CPT/HCPCS: 93225; 93226

== ENCOUNTER → 2018-05-20 11:44 | Outpatient (CLI) | payer MEDICARE, OTHER, SELFPAY ==
[2018-05-20 11:44] VITALS: BMI 27.7
--- NOTE | 2018-05-20 11:47 | RAD_ITS ---
STUDY: X-RAY CHEST REASON FOR EXAM: Female, 83 years old. Acute chest pain TECHNIQUE: PA and lateral views of the chest. COMPARISON: 01/21/2018 FINDINGS: Lungs are expanded with diffuse interstitial edema not seen on the previous study. No organized infiltrate or effusion. There is no demonstrated pleural abnormality. Normal size heart. Normal mediastinum and gertrudis. Normal visualized pulmonary arteries. Normal visualized aortic arch and descending thoracic aorta. There are diffuse degenerative changes of the visualized thoracic spine. There is degenerative osteoarthritis of the bilateral shoulders. There is no demonstrated abnormality of the visualized soft tissue structures of the upper abdomen. RAD/Chest PA and Lateral IMPRESSION: Diffuse interstitial edema, follow-up recommended to assure resolution Electronically Signed: Yves Babcock MD at 11:57 EDT , Service support ,
== END ==
PROVIDERS: Family Provider Family Medicine; PCP Family Medicine; Referring Provider Physician Assistant; Visit Provider Physician Assistant
DX: R05 Cough (principal)
CPT/HCPCS: 71046

== ENCOUNTER 2018-07-21 21:59 | Emergency (ER) | payer MEDICARE, OTHER, SELFPAY ==
[2018-07-15 09:23] VITALS: BMI 27.1
[2018-07-21 22:00] VITALS: BP 231/113; PULSE 87; RESP 16; TEMP 37.1; O2SAT 97; BMI 28.5
--- NOTE | 2018-07-21 22:31 | EKG12_ITS ---
Test Reason : PAIN/OTHER Blood Pressure : / mmHG Vent. Rate : 074 BPM Atrial Rate : 074 BPM P-R Int : 154 ms QRS Dur : 076 ms QT Int : 432 ms P-R-T Axes : 099 036 040 degrees QTc Int : 479 ms Normal sinus rhythm Nonspecific T wave abnormality Prolonged QT Abnormal ECG Confirmed by LORENA TERESA ([id number]), film editor RUTH RHODES ([id number]) on 07/27/2018 3:28:41 PM Referred By: GUME Confirmed By:LORENA TERESA
--- NOTE | 2018-07-21 22:31 | RAD_ITS ---
STUDY: X-RAY CHEST REASON FOR EXAM: Female, 83 years old. Pain neck and shoulder pain TECHNIQUE: PA and lateral views of the chest. COMPARISON: May 20, 2018 FINDINGS: There is focal patchy opacity in the lingula. There is focal patchy opacity in the right middle lobe. There is borderline cardiomegaly. There is a large hiatal hernia measuring 7.1 x 10.8 cm. Normal visualized pulmonary arteries. Normal visualized aortic arch and descending thoracic aorta. There are diffuse degenerative changes of the visualized thoracic spine. Normal visualized ribs, clavicles, and shoulders. There is no demonstrated abnormality of the visualized soft tissue structures of the upper abdomen. RAD/Chest PA and Lateral IMPRESSION: There is a focal opacity within the right middle lobe. There is patchy density within the left lingula. Findings suspicious for middle lobe and lingular pneumonia. Large hiatal hernia. Electronically Signed: Hetal Deras MD at 23:17 EDT Tel , Service support ,
--- NOTE | 2018-07-21 22:41 | ED.DCSUM_ITS ---
- ER Visit Summary Date of Service: 07/21/18 Chief Complaint: Neck pain History of Present Illness: The patient is a 83 F who presents with back pain. This is been present for about 3 days. She complains of pain on both sides of the back of her neck from the base of her skull down to the tops of her shoul ders. This is worse with palpation and turning her head certain movements. However she also states that on arrival here she had some vague discomfort at the front of her neck to the base of her jaw on both sides. No chest pain. No shortness of breath. She denies recent illness. No fevers nausea or vomiting. Physical Examination: Blood pressure 231/113 vitals otherwise normal No distress Skin warm and dry Heart regular rate and rhythm Lungs are clear Abdomen soft Extremities nontender without edema, 2+ symmetric radial pulses Patient has easily reproducible paraspinal tenderness of the neck to the tops of the shoulders in the distribution of the trapezius Test Results: EKG shows sinus rhythm at a rate of 74 with nonspecific T wave changes, inferior and lateral T wave flattening, unchanged from prior. Labs notable for potassium 3.1. Troponin negative. BNP 155. Chest x-ray read as focal opacity right middle lobe and patchy density left lingula. CT of the chest shows findings consistent with pneumonia and right middle lobe and left lingula. There is a hiatal hernia which could contains most of the stomach and either fold of the stomach or potentially a mass. Emergency Department Course and Treatment: Patient's paraspinal neck pain seems to clearly be musculoskeletal. However she also has some vague discomfort in the front of her neck. This together with her severely elevated blood pressure prompted further work-up including EKG and laboratory studies. Laboratory studies are unremarkable however chest x-ray showed possible pneumonia. Patient does not have fever tachycardia leukocytosis. She has a chronic cough which is unchanged from baseline therefore did obtain a CT of the chest to further evaluate this as her history is not suggestive of pneumonia. CT of the chest does help to support diagnosis of pneumonia. Patient's curb 65 score is only 1. We we will treat as an outpatient. She was advised on supportive care for neck pain. Her blood pressure has significantly improved just with a period of observation here without any other specific intervention. Patient advised to follow-up with her primary care physician and was discharged. Treatment Plan: [] Disposition: Discharge Impression: Community-acquired pneumonia Neck pain This note was generated with [employer] dictation software. It may contain incorrect words, spelling, and punctuation that were not noted in review of the chart prior to signing ED Disposition - Plan for ED Patient: Referrals: Arslan Toscano DO [Primary Care Provider] -
[2018-07-21] MEDS: Aspirin 81 MG TAB.CHEW 324 MG PO (22:53)
[2018-07-21 22:54] VITALS: O2SAT 93
[2018-07-21 22:56] VITALS: BP 214/96; PULSE 77; RESP 14; O2SAT 95
[2018-07-21 23:08] LABS: Absolute Lymphocyte Count 1.56 X10^3/ul (0.83-4.51); Absolute Neutrophil Count 7.5 X10^3/uL (2.0-7.7); Basophil# 0.02 X10^3/uL; Basophil% 0.2 % (0-1); Eosinophil# 0.03 X10^3/uL; Eosinophils% 0.3 % (0-5); Hematocrit 37.4 % (37-47); Hemoglobin 12.5 g/dl (12.0-15.0); Lymphocyte # 1.56 X10^3/ul (4.0); Lymphocyte % 15.5 % (19-41); Mean Corp Hgb Conc 33.4 g/gl (32-36); Mean Corpuscular Hgb 28.7 pg (27.0-32.0); Mean Corpuscular Volume 85.8 fL (81-99); Mean Platelet Vol. 10.1 fl (6.2-12.0); Monocyte# 0.97 X10^3/uL; Monocyte% 9.6 % (0-10); Neutrophil # 7.45 X10^3/uL (2.7-7.7); Neutrophil % 74.1 % (47-70); POSITIVE COUNT NO; POSITIVE DIFFERENTIAL NO; POSITIVE MORPHOLOGY NO; Platelet Count 243 K/mm3 (150-450); RBC Distribution Width CV 15.2 % (11.6-14.6); RBC Distribution Width SD 46.8 fl (35.1-43.9); Red Blood Count 4.36 M/mm3 (4.2-5.4); White Blood Count 10.1 K/mm3 (4.4-11.0)
[2018-07-21 23:28] LABS: Anion Gap 6 (5-15); BUN 13 mg/dL (7-18); BUN/Creat Ratio 13.8 RATIO (10-20); Calcium,Total 8.4 mg/dL (8.5-10.1); Chloride 107 mmol/L (98-107); Creatinine, Serum 0.94 mg/dL (0.55-1.02); EST Glomerular Filtration Rate 60 mL/min (>60); Est Glom Filt Rate - Afr Amer 73 mL/min (>60); Estimated Creatinine Clearance 45.78 ml/min; Glucose 103 mg/dL (74-106); Potassium 3.1 mmol/L (3.5-5.1); Sodium Level 141 mmol/L (136-145)
[2018-07-21 23:47] VITALS: BP 184/86; PULSE 70; RESP 21; O2SAT 95
[2018-07-22 00:14] LABS: BNP,B-Type NATRIURETIC PEPTIDE 155.1 pg/mL (0-100)
--- NOTE | 2018-07-22 00:20 | CT_ITS ---
STUDY: CT CHEST WITHOUT CONTRAST REASON FOR EXAM: Female, 83 years old. Abnormal chest x-ray RADIATION DOSAGE (If Supplied By Facility): CTDIvol = ( 8.10 ) mGy, DLP = ( 309.01 ) mGycm TECHNIQUE: Transaxial imaging was performed without the administration of intravenous contrast material. Multiplanar coronal and sagittal images were reformatted. Individualized dose optimization techniques were used for this CT. COMPARISON: Chest x-ray July 21, 2018 FINDINGS: There are patchy smudgy densities within the right middle lobe lingula and in the left lung base. There is no demonstrated pleural abnormality. There is mild to moderate cardiac enlargement. There are a few nonspecific subcentimeter mediastinal lymph nodes. Normal hilar regions. Normal unenhanced pulmonary arteries. There tortuosity of the aortic arch and descending thoracic aorta. The bones are osteopenic. There is spondylosis disc space narrowing. There is a large hiatal hernia. There is a solid appearance of the central aspect of the hydroureter hernia which raises concern for the possibility of a focus of wall thickening or fold versus mass. Most of the stomach is in the chest. There is a cyst in the periphery of the liver measuring 8.9 mm. Is atherosclerotic disease of the aorta. CT/Chest without Contrast IMPRESSION: Findings are consistent with middle lobe lingular left lower lobe pneumonia. There is a large hiatal hernia containing most of the stomach. There is a thick-walled fold or potentially a mass within the fundus of the stomach. Recommend appropriate follow-up suggested endoscopy or esophagram. Electronically Signed: Hetal Deras MD at 1:11 EDT Tel , Service support ,
[2018-07-22 01:10] VITALS: BP 179/79; PULSE 63; RESP 25; O2SAT 93
--- NOTE | 2018-07-22 01:32 | ED.DEP ---
ED Disposition - Plan for ED Patient: Instructions: ED Pneumonia Adult, ED Neck Pain No Trauma Prescriptions: levoFLOXacin tablet [Levaquin] 500 mg PO DAILY #7 tab Referrals: Arslan Toscano DO [Primary Care Provider] -
[2018-07-22 01:48] VITALS: BP 154/78; PULSE 63; RESP 18; O2SAT 93
== END 2018-07-22 01:49 | disposition home or self-care (01) ==
LOC: ED 22:44
PROVIDERS: Emergency Provider Emergency Medicine; Family Provider Family Medicine; PCP Family Medicine
DX: J18.9 Pneumonia, unspecified organism (principal); M54.2 Cervicalgia; M54.9 Dorsalgia, unspecified; I10 Essential (primary) hypertension; I48.91 Unspecified atrial fibrillation; K44.9 Diaphragmatic hernia without obstruction or gangrene; Z79.01 Long term (current) use of anticoagulants; Z79.899 Other long term (current) drug therapy
CPT/HCPCS: 71046; 71250; 80048; 83880; 84484; 85025; 93005; 99285; A4216

== ENCOUNTER → 2018-09-08 12:26 | Outpatient (CLI) | payer MEDICARE, OTHER, SELFPAY ==
[2018-09-08 12:15] VITALS: BMI 28.5
--- NOTE | 2018-09-08 12:31 | RAD_ITS ---
STUDY: X-RAY - RIGHT SHOULDER REASON FOR EXAM: Female, 83 years old. Shoulder pain TECHNIQUE: 4 view(s) of the shoulder. COMPARISON: None. FINDINGS: Mild chronic acromioclavicular joint arthrosis. There are very minimal calcifications in the supraspinatus distribution consistent with calcific tendinosis. Minimal undersurface osteophytic lipping of the glenohumeral articulation, mild DJD. No acute fracture. Osteopenia. Periarticular soft tissues otherwise unremarkable. RAD/Shoulder min 2 Views IMPRESSION: Degenerative features as described above. Electronically Signed: Akira Lai MD at 13:03 EDT Tel , Service support ,
== END ==
PROVIDERS: Family Provider Family Medicine; PCP Family Medicine; Referring Provider Physician Assistant Surgical; Visit Provider Physician Assistant Surgical
DX: S46.911A Strain of unspecified muscle, fascia and tendon at shoulder and upper arm level, right arm, initial encounter (principal)
CPT/HCPCS: 73030

== ENCOUNTER → 2019-12-15 | Outpatient (CLI) | payer MEDICARE, OTHER, SELFPAY ==
[2019-12-15 08:25] VITALS: BMI 29.2
[2019-12-15 10:03] LABS: Hematocrit 43.2 % (37-47); Hemoglobin 13.7 g/dL (12.0-15.0)
[2019-12-15 10:37] LABS: AST(SGOT) 16 U/L (15-37); Alanine Aminotransfer ALT/SGPT 23 U/L (13-56); Albumin, Serum 3.4 g/dL (3.2-5.0); Alkaline Phosphatase 81 U/L (45-117); Bilirubin, Direct 0.14 mg/dL (0.00-0.30); Cholesterol 152 mg/dL (200); High Density Lipoprotein 73 mg/dL; Protein, Total 8.4 g/dL (6.4-8.2); Triglycerides 70 mg/dL; Very Low Density Lipoprotein 14 mg/dL (5-40)
== END | disposition home or self-care (01) ==
PROVIDERS: Referring Provider Physician Assistant Medical; Visit Provider Physician Assistant Medical
DX: I48.0 Paroxysmal atrial fibrillation (principal); E78.5 Hyperlipidemia, unspecified; I11.0 Hypertensive heart disease with heart failure; I50.32 Chronic diastolic (congestive) heart failure
CPT/HCPCS: 36415; 80061; 80076; 84443; 85014; 85018

== ENCOUNTER → 2020-04-05 06:27 | Outpatient (CLI) | payer MEDICARE, OTHER, SELFPAY ==
[2020-03-24 08:38] VITALS: BMI 29.0
--- NOTE | 2020-04-05 17:42 | STRESSREP_ITS ---
Stress Test Report Pharmacologic myocardial perfusion stress test. 85-year-old lady with a history of atrial fibrillation. Medications vitamin C, vitamin D, lisinopril. Stress protocol: Resting EKG demonstrates sinus rhythm with a rate of 55 bpm. Resting blood pressure is 1 and 32/70 4 mmHg. 0.4 mg of regadenoson was infused per usual protocol followed by rapid intravenous and flush injection continuous threat monitoring analyst was performed. The maximum heart rate attained was 76 bpm which was 56% of maximum predicted heart rate the maximum workload was 1 metabolic equivalent. At rest there were no ST or T wave changes noted to suggest abnormal flow reserve at peak infusion nonspecific ST-T wave changes were noted. No meet the criteria for ischemia. The final blood pressure 142/72 mmHg. Myocardial perfusion protocol. 11.5 mCi of technetium 99m sestamibi was injected at rest. 0.4 mg of regadenoson was infused per usual protocol peak infusion 33.7 mCi of technetium 99m sestamibi was injected stress images were obtained stress and rest images were reconstructed and compared in the short axis vertical long horizontal long axis. Gated images were also obtained for Perfusion SPECT analysis: Review of the stress images demonstrate normal uptake of tracer noted in all areas of the myocardium the resting images similar demonstrate normal uptake of tracer noted in all areas of the myocardium. No areas of reversibility are noted suggest ischemia no previous infarct is noted. Gated SPECT analysis The gated ejection fraction is noted to be 83%. Conclusion: Normal pharmacologic myocardial perfusion stress test with no evidence of ischemia. Preserved ejection fraction.
== END ==
PROVIDERS: PCP Family Medicine; Referring Provider Physician Assistant Medical; Visit Provider Physician Assistant Medical
DX: R94.31 Abnormal electrocardiogram [ECG] [EKG] (principal); I48.0 Paroxysmal atrial fibrillation; I10 Essential (primary) hypertension; E78.5 Hyperlipidemia, unspecified
CPT/HCPCS: 78452; 93017; A9500; A4216; J2785

== ENCOUNTER → 2020-06-13 15:36 | Outpatient (CLI) | payer MEDICARE, OTHER, SELFPAY ==
[2020-03-24 08:38] VITALS: BMI 29.0
[2020-06-13 16:38] LABS: T4 Free Direct 1.22 ng/dL (0.76-1.46); Thyroid Stim Hormone (TSH) 3.19 uIU/mL (0.358-3.74)
== END ==
PROVIDERS: PCP Family Medicine; Visit Provider Family Medicine
DX: E03.9 Hypothyroidism, unspecified (principal)
CPT/HCPCS: 36415; 84439; 84443

== ENCOUNTER 2020-10-25 08:59 | Emergency (ER) | payer MEDICARE, OTHER, SELFPAY ==
[2020-03-24 08:38] VITALS: BMI 29.0
[2020-10-25 09:00] VITALS: BP 154/72; PULSE 64; RESP 14; TEMP 36.3; O2SAT 97; BMI 28.5
--- NOTE | 2020-10-25 09:30 | RAD_ITS ---
STUDY: X-RAY - RIGHT KNEE REASON FOR EXAM: Right knee pain, right knee injury. TECHNIQUE: 4 view(s) of the knee. COMPARISON: None. FINDINGS: Normal visualized distal femur. Normal visualized proximal tibia and fibula. Normal proximal tibiofibular articulation. Normal medial femorotibial compartment. Normal lateral femorotibial compartment. Normal patellofemoral articulation. There is a joint effusion. There is an enthesophyte at the superior pole of the patella. RAD/Knee 4 or More Views IMPRESSION: Joint effusion. No demonstrated fracture. Electronically Signed: Giuliano Elias MD at 10:10 EDT Tel , Service support ,
--- NOTE | 2020-10-25 09:36 | ED.VIS.LOWEX ---
HPI History of Present Illness Chief Complaint: Lower Extremity Injury Informant: patient and spouse/S.O. Narrative Narrative: 85-year-old female presenting to the emergency department for the evaluation of right knee pain. The patient states that the end of last week she twisted and felt a pop in the right knee. Since then she has had swelling that goes down but then will return when she is on her feet. She notes a catching sensation when she goes up and down stairs. She went [facility] the [facility] was felt that she may have a meniscal injury. She has not seen orthopedics. Patient is on Eliquis for atrial fibrillation. [facility] Medical History Acute on chronic diastolic (congestive) heart failure Anxiety and depression Chronic diastolic (congestive) heart failure Diarrhea Essential (primary) hypertension GERD (gastroesophageal reflux disease) Hiatal hernia Hyperlipidemia Incontinence Internal derangement of right knee Obesity Paroxysmal atrial fibrillation Home Medications ascorbic acid (vitamin C) 500 mg tablet 500 mg PO BID 02/02/18 [History Last Taken Unknown] calcium citrate 315 mg-vitamin D3 5 mcg (200 unit) tablet 1 tab PO BID tab 02/02/18 [History Last Taken Unknown] escitalopram oxalate 10 mg tablet 10 mg PO DAILY 02/02/18 [History Last Taken Unknown] lisinopril 40 mg tablet 40 mg PO DAILY 02/02/18 [History Last Taken Unknown] omeprazole 20 mg capsule,delayed release 20 mg PO DAILY 02/02/18 [History Last Taken Unknown] potassium chloride 20 mEq tablet,extended release 20 meq PO DAILY 02/02/18 [History Last Taken Unknown] amiodarone 200 mg tablet 200 mg PO DAILY #90 tab 06/10/18 [Rx Last Taken Unknown] apixaban 2.5 mg tablet 2.5 mg PO BID #180 tab 06/10/18 [Rx Last Taken Unknown] vitamin B complex ea PO 12/08/18 [History Last Taken Unknown] furosemide 40 mg tablet 40 mg PO DAILY #90 tab 11/12/19 [Rx Last Taken Unknown] amlodipine 10 mg tablet 10 mg PO DAILY #30 tab 03/01/20 [Rx Last Taken Unknown] levothyroxine 25 mcg capsule 50 mcg PO DAILY cap 03/24/20 [History Last Taken Unknown] pravastatin 20 mg tablet See Rx Instructions .ROUTE .COMPLEX #90 tablet 06/09/20 [Rx Last Taken Unknown] isosorbide mononitrate 60 mg tablet,extended release 24 hr 60 mg PO BID #180 tab 08/04/20 [Rx Last Taken Unknown] Allergy/AdvReac Type Severity Reaction Status Date / Time Sulfa (Sulfonamide Allergy Severe unknown Verified 10/25/20 09:02 Antibiotics) Family History Mother Myocardial infarction from [place] Diabetes Surgical History History of cholecystectomy Social History Smoking Status: Never smoker alcohol intake: never caffeine: No ROS ROS ED Constitutional Constitutional ED: Denies chills or weight loss Eyes Eyes: Denies change in vision or diplopia ENT ENT ED: Denies ear pain, rhinorrhea or sore throat Cardiovascular Cardiovascular: Denies chest pain, orthopnea, palpitations or racing heartbeat Respiratory/Chest Respiratory/Chest: Denies cough, dyspnea or orthopnea Gastrointestinal Gastrointestinal: Denies abdominal pain, diarrhea, nausea or vomiting Genitourinary Genitourinary ED: Denies dysuria, hematuria or urinary frequency Musculoskeletal Musculoskeletal: Reports other Details: Right knee pain and swelling ; Denies arthralgias or myalgias Integumentary Denies abscess or rash Neurologic Neurologic: Denies headache(s) or weakness Psychiatric Psychiatric: Denies anxiety, depression, suicidal ideation or suicidal thoughts Endocrine Endocrinology: Denies polydipsia, polyphagia or polyuria Allergic/Immunologic Allergic/Immunologic ED: Denies mouth swelling, tongue swelling or urticaria EXAM Physical Exam Const Vital Signs: 10/25/20 09:00 Temperature 97.4 F L Temperature Source Temporal Pulse Rate 64 Respiratory Rate 14 Blood Pressure 154/72 H Blood Pressure Mean 99 Pulse Ox 97 Oxygen Delivery Method Room Air Positive well nourished and well developed General Appearance ED: well developed HEENT Reports normocephalic, head/scalp atraumatic and moist mucous membranes Eyes PERRL and EOMs intact bilaterally Neck no lymphadenopathy, supple and no JVD Resp normal respiratory effort and clear to auscultation bilaterally Cardio regular rate, regular rhythm and no murmurs GI normal to inspection, nondistended, normoactive bowel sounds and non-tender Palpation: soft Back/Spine no CVA tenderness and normal ROM Extremity Extremity Narrative: Patient has a patellar tracking disorder. This creates a palpable pop with flexion extension. This resolves with lateral pressure of the patella. With grind test there is a medial pop. There is mild swelling of the knee with patellar contour maintained. General Extremety ED: Negative for edema General Extremity: Negative for edema Neuro oriented x3 and CN's II-XII intact bilaterally Sensorium / Orientation: alert Motor Exam: strength 5/5 throughout Psych mental status grossly normal Mood & Affect: Negative for depressed or tearful Skin no rashes or lesions noted and no wounds MDM MDM MDM Narrative Medical decision making narrative: My interpretation of the plain films of the knee is no acute fracture. Small effusion noted. Patient has a patellar tracking disorder. I recommend that she use a neoprene sleeve with the patellar hole cut out. She was advised she may need physical therapy for stretching or improvement of the medial quadriceps. Given her effusion and grind test and her catching sensation I think there is a good possibility she may have a meniscal injury. Would refer the patient to orthopedics for further evaluation. Radiography Diagnostic Testing: Radiology Impression Knee X-Ray 10/25/20 09:30 IMPRESSION: Joint effusion. No demonstrated fracture. Electronically Signed: Giuliano Elias MD at 10:10 EDT Tel , Service support , Discharge Plan Triage Chief Complaint: Lower Extremity Injury ED Provider: Yevgeniy Burrows Dx/Rx/DC Orders Clinical Impression: Patella-femoral syndrome, Effusion of knee joint right Instructions: Patellofemoral Syndrome, Hip Abduction, Quadruped (Strength), ED Meniscal Injury Knee Poss Prescriptions: No Action vitamin B complex oral elixir elixir PO RF: 0 potassium chloride 20 mEq tablet extended release 20 meq PO DAILY RF: 0 omeprazole 20 mg capsule,delayed release(DR/EC) 20 mg PO DAILY RF: 0 lisinopril 40 mg tablet 40 mg PO DAILY RF: 0 escitalopram oxalate 10 mg tablet 10 mg PO DAILY RF: 0 calcium citrate-vitamin D3 [Calcium Citrate + D] 315-200 mg-unit tablet 1 tab PO BID RF: 0 ascorbic acid (vitamin C) [Ascorbic Acid with Yelena Hips] 500 mg tablet 500 mg PO BID RF: 0 levothyroxine 25 mcg capsule 50 mcg PO DAILY RF: 0 amiodarone 200 mg tablet 200 mg PO DAILY Qty: 90 RF: 3 Eliquis 2.5 mg tablet 2.5 mg PO BID Qty: 180 RF: 3 furosemide 40 mg tablet 40 mg PO DAILY Qty: 90 RF: 3 amlodipine 10 mg tablet 10 mg PO DAILY Qty: 30 RF: 11 pravastatin 20 mg tablet See Rx Instructions .ROUTE .COMPLEX Qty: 90 RF: 3 isosorbide mononitrate 60 mg tablet extended release 24 hr 60 mg PO BID Qty: 180 RF: 3 Primary Care Provider: Arslan Toscano Referrals: Gama Benjamin DO [STAFF PHYSICIAN] - William Man DO [STAFF PHYSICIAN] - As soon as possible ([facility]) Arslan Toscano DO [Primary Care Provider] - Activity Restrictions/Additional Instructions: I would suggest purchasing a neoprene knee sleeve. Disposition Disposition: Home, Self Care
[2020-10-25 10:49] VITALS: BP 170/74; PULSE 55; RESP 18; O2SAT 97
== END 2020-10-25 10:50 | disposition home or self-care (01) ==
PROVIDERS: Emergency Provider Emergency Medicine; PCP Family Medicine
DX: M22.2X1 Patellofemoral disorders, right knee (principal); M25.461 Effusion, right knee; I11.0 Hypertensive heart disease with heart failure; I50.33 Acute on chronic diastolic (congestive) heart failure; I48.0 Paroxysmal atrial fibrillation; K21.9 Gastro-esophageal reflux disease without esophagitis; E78.5 Hyperlipidemia, unspecified; E66.9 Obesity, unspecified; Z68.28 Body mass index [BMI] 28.0-28.9, adult; Z79.01 Long term (current) use of anticoagulants; Z79.899 Other long term (current) drug therapy
CPT/HCPCS: 73564; 99282

== ENCOUNTER → 2020-11-21 06:31 | Outpatient (CLI) | payer MEDICARE, OTHER, SELFPAY ==
--- NOTE | 2020-11-21 06:33 | MRI_ITS ---
STUDY: MRI RIGHT KNEE REASON FOR EXAM: Right medial knee pain for approximately 2 months. TECHNIQUE: Standardized fat and water weighted pulse sequences were obtained in all 3 orthogonal planes. COMPARISON: Radiographs 10/25/2020. FINDINGS: There is a horizontal tear of the inferior articular surface of the posterior horn of the medial meniscus (proton-density sagittal images 30-32). Normal hyaline cartilage of the medial femorotibial compartment. There are small foci of subchondral bone edema of the medial femoral condyle and tibial plateau (T2 coronal images 15-21), a stress phenomenon. There is mild subchondral cystic change with adjacent bone edema in the posterior nonweightbearing medial femoral condyle. Normal medial collateral ligamentous complex (MCL). Normal distal semimembranosus, gracilis and semitendinosus tendons. Normal lateral meniscus. Normal hyaline cartilage of the lateral femorotibial compartment. Normal lateral femoral condyle and tibial plateau. Normal proximal tibiofibular articulation. Normal lateral collateral (fibular) ligament. Normal popliteus tendon. Normal biceps femoris tendon. Normal anterior cruciate ligament (ACL). Normal posterior cruciate ligament (PCL). Normal congruent patellofemoral articulation. Normal hyaline cartilage of the patellofemoral compartment. Normal medial and lateral patellar retinaculum. Normal quadriceps tendon. Normal patellar tendon. Normal Hoffa''s fat pad. There is a small joint effusion. There is a thin medial patellar plica. There is a popliteal cyst measuring approximately 4.5 cm in length with mild extravasation of fluid (T2 sagittal images 13-15). There is edema in the anterior subcutis adipose space. The otherwise visualized osseous structures are unremarkable. MRI/Lower Ext Joint Only (Routine) IMPRESSION: Medial meniscal tear. Small foci of subchondral bone edema of the medial femoral condyle and medial tibial plateau, a stress phenomenon. Small joint effusion. Popliteal cyst with mild extravasation of fluid. Electronically Signed: Giuliano Elias MD at 10:33 EDT Tel , Service support ,
== END ==
PROVIDERS: PCP Family Medicine; Referring Provider Orthopaedic Surgery; Visit Provider Orthopaedic Surgery
DX: S83.241A Other tear of medial meniscus, current injury, right knee, initial encounter (principal); X58.XXXA Exposure to other specified factors, initial encounter; M23.91 Unspecified internal derangement of right knee; M71.21 Synovial cyst of popliteal space [Baker], right knee
CPT/HCPCS: 73721

== ENCOUNTER 2020-12-26 09:30 | Day surgery (SDC) | payer MEDICARE, OTHER, SELFPAY ==
[2020-12-26 10:00] VITALS: BP 115/69; PULSE 56; RESP 16; TEMP 36.9; O2SAT 98; BMI 28.9
[2020-12-26] MEDS: Lactated Ringers 1,000 ML 100 ML IV (10:11)
--- NOTE | 2020-12-26 12:22 | PCM.HP.BLA ---
History and Physical Date of Admission: 12/26/20 Date of Service: 11/23/20 MR#:[id number]: BETHANY BURRELL [facility] #:[id number]:[id number] Provider:Dr. Gama Benjamin, DOAge/Sex: 85/F [facility] [place]Signed Intake Intake Visit Reasons: RIGHT KNEE Is patient in pain?: Yes Allergies Sulfa (Sulfonamide Antibiotics) Allergy (Severe, Verified 11/23/20 10:35) unknown Medications ascorbic acid (vitamin C) 500 mg tablet 500 mg PO BID 02/02/18 [History Confirmed 11/23/20] calcium citrate 315 mg-vitamin D3 5 mcg (200 unit) tablet 1 tab PO BID tab 02/02/18 [History Confirmed 11/23/20] escitalopram oxalate 10 mg tablet 10 mg PO DAILY 02/02/18 [History Confirmed 11/23/20] lisinopril 40 mg tablet 40 mg PO DAILY 02/02/18 [History Confirmed 11/23/20] omeprazole 20 mg capsule,delayed release 20 mg PO DAILY 02/02/18 [History Confirmed 11/23/20] potassium chloride 20 mEq tablet,extended release 20 meq PO DAILY 02/02/18 [History Confirmed 11/23/20] amiodarone 200 mg tablet 200 mg PO DAILY #90 tab 06/10/18 [Rx Confirmed 11/23/20] apixaban 2.5 mg tablet 2.5 mg PO BID #180 tab 06/10/18 [Rx Confirmed 11/23/20] vitamin B complex ea PO 12/08/18 [History Confirmed 11/23/20] amlodipine 10 mg tablet 10 mg PO DAILY #30 tab 03/01/20 [Rx Confirmed 11/23/20] levothyroxine 25 mcg capsule 50 mcg PO DAILY cap 03/24/20 [History Confirmed 11/23/20] pravastatin 20 mg tablet See Rx Instructions .ROUTE .COMPLEX #90 tablet 06/09/20 [Rx Confirmed 11/23/20] isosorbide mononitrate 60 mg tablet,extended release 24 hr 60 mg PO BID #180 tab 08/04/20 [Rx Confirmed 11/23/20] furosemide 40 mg tablet 40 mg PO DAILY #90 tab 10/27/20 [Rx Confirmed 11/23/20] [facility] Medical History Acute on chronic diastolic (congestive) heart failure Anxiety and depression Chronic diastolic (congestive) heart failure Diarrhea Essential (primary) hypertension GERD (gastroesophageal reflux disease) Hiatal hernia Hyperlipidemia Incontinence Internal derangement of right knee Obesity Paroxysmal atrial fibrillation Surgical History History of cholecystectomy Family History Mother Myocardial infarction from [place] Diabetes Social History (Updated 11/06/20 @ 08:10 by Courtney Harden) household members: spouse and other details: nephew housing: house Smoking Status: Never smoker alcohol intake: never caffeine: No what type of physical activity do you participate in: none do you feel safe at home: Yes HPI RIGHT KNEE Details: Parts of this documentation were recorded by a scribe, this documentation accurately reflects the service provided and the decisions made by me, Dr. Gama Benjamin, DO 11/23/20 0738. BETHANY BURRELL is a 85 year old F here today for follow-up right knee injury 10/25/2020 twisting injury with ensuing mechanical symptoms medially. She is here to review her right knee MRI. Patient states that she doesnt have constant pain but it has improved slightly. She has increased pain with knee flexion or changing directions. Patient notes that her pain is over her anterior or medial knee. She has instability every once in awhile. She has popping and shifting which is painful. Patient denies any pain medications. She twisted while kneeling. She had an MRI which is here for review. [facility] Reports arthralgias Ortho Exam General General: Yes no acute distress Neurologic: Yes alert Psychologic: Yes reasonable and appropriate Right Knee Skin/Wound: Yes CDI, No erythema, No ecchymosis and No swelling Knee ROM: Yes ROM-Extension -20 to 0 and Yes ROM-Flexion 0-140 Examination: Yes Med jt line tenderness and Yes Zoe's Test Stability: NML: Anterior Drawer, NML: Posterior Drawer, NML: Valgus 0, NML: Valgus 30, NML: Varus 0 and NML: Varus 30 Apprehension with Lateral Translation: No Patella Grind: Yes Supplemental Info 11/21/2020 MRI right knee horizontal tear posterior horn medial meniscus with bone marrow edema small amount of the medial femoral condyle medial tibial plateau, small medial plica Coding Level of Care Code Off vis,est,level 3 Diagnoses Tear of medial meniscus of right knee S83.241A Osteoarthritis of right knee M17.11 Assessment and Plan Assessment and Plan (1) Tear of medial meniscus of right knee: Status: Acute (2) Osteoarthritis of right knee: Plan - Dr. Gama Benjamin DO: Spoke with the patient about the anatomy of the knee. Explained the results of her MRI and her options- arthroscopy for a meniscectomy, steroid injection vs viscosupplementation for her osteoarthritis pain. Patient will need to stop her eliquis 3 days prior to any surgery procedure. She will be able to return to her blood thinners following her surgery. Recommended she wear a thigh high compression stocking. Spoke with them about the arthroscopy procedure and recovery. She will be able to return to her activities as she feels comfortable. If she has pain at 6 weeks, she may have a steroid injection. cardiac clearance needed. Follow up in 2 weeks post op or sooner if pain, swelling, numbness or associated symptoms, or concerns develop. All questions answered. Patient in agreement of plan. 11/23/20 1110<Electronically signed by Gama Benjamin DO>Date Gama Benjamin DO Cosigner Signature:Date (if applicable) CC: Dr. Arslan Toscano DO ~I have re-examined the patient. There are no clinical changes since date of exam
[2020-12-26] MEDS: Cefazolin 2 GM in 0.9% Normal Saline 100 ML IV (12:23)
[2020-12-26] MEDS: Epinephrine (1 mg/ml) 1 MG/ML VIAL (12:47)
[2020-12-26] MEDS: Lidocaine 1% /Epi 1:100 (20ml) 20 ML Vial (12:47)
--- NOTE | 2020-12-26 13:06 | OP.PCM_ITS ---
Report of Operation Date of Procedure: 12/26/20 Surgery/Procedure Performed:: Preoperative diagnosis right knee horizontal tear medial meniscus Postoperative diagnosis: Complex tear posterior horn and body medial meniscus Procedure: Right knee arthroscopic partial medial meniscectomy Anesthesia: General Estimated blood loss: 5 mL Tourniquet time: 25 minutes 300 mmHg Complications: none Indication for procedure: 85-year-old female patient with ongoing mechanical knee symptoms and MRI of medial meniscus tear the patient did wish to proceed with an elective arthroscopic surgery to attempt to alleviate the symptoms. Risk benefits and alternatives of the procedure were reviewed including risk of blee ding infection nerve artery tissue damage need for further surgery continued pain and expected postoperative course. Procedure: The patient was met in the preoperative holding area. The operative extremity was identified by both patient and physician and family and marked. Patient was brought back to the operating room on a wheeled cart and transferred to the operating table in the supine position. Anesthesia was started. A well- padded tourniquet was placed on the operative extremity. A lower extremity leg owens was secured to the operative extremity. The contralateral extremity was well-padded and the end of the bed was flexed to 90 degrees. The patient was prepped and draped in the usual sterile fashion. A timeout was called to ensure the proper patient, procedure, and extremity were being contemplated. 0.5% Marcaine with epinephrine was injected into the planned incisional areas under the skin only. An Esmarch was used to exsanguinate the extremity and the tourniquet was inflated. An 11 blade scalpel was used to make a stab incision in the anterior lateral portal. The arthroscope was inserted into the intercondylar notch and inflow and outflow tubes were attached. Arthroscopic visualization began. The medial compartment was entered. An 18-gauge spinal needle was used to establish the placement for anterior medial portal. An 11 blade scalpel was used to make a stab incision. Blunt probe was inserted followed by a meniscal probe. There was noted be complex tearing of the posterior horn of the medial meniscus there was grade I-II chondromalacia noted in the medial lateral compartments. With the use of arthroscopic biting instruments and shaver and a werewolf wand partial medial meniscectomy was performed, the ACL was found to be intact. The lateral compartment was entered with was free of meniscal pathology The arthroscope was switched to the medial portal to complete the procedure. The medial and lateral gutters were inspected and were free of loose bodies. The patellofemoral joint was inspected and was free of cartilage pathology. There was good patellar tracking. The knee was thoroughly irrigated and drained. An intra-articular injection with 5 cc 0.5% Marcaine plain and 40 mg of Depo-Medrol was injected intra-articularly. The arthroscope was removed the portals were closed with 3-0 nylon arthroscopic stitches. Followed by Xeroform 4 x 4's ABDs web roll and an Everardo wrap. The tourniquet was let down and the drapes were removed. All counts were correct. The patient was brought back to the PACU in stable condition.
[2020-12-26] MEDS: MethylPREDNISolone Acetate 40 MG/ML Vial IM (13:07)
[2020-12-26] MEDS: Bupivacaine 0.5% PF 10 ML VIAL (13:07)
--- NOTE | 2020-12-26 13:10 | PCM.DC ---
Discharge Instructions Activity Weight Bearing Status: Weight bearing as tolerated Keep extremity elevated above heart level: Operative Extremity Dressing / Incision Call your doctor if you observe: Shortness of breath and Chest pain Remove Dressing in: 2 days Additional Dressing/Incision Instructions:: Ice and elevate next 72 hours .keep dressing on clean and dry for 48 hours then may remove begin showering daily but do not submerge in tub or pool. After shower may apply Band-Aids . Encourage knee range of motion weightbearing as tolerated, use crutches until confident in knee then may discontinue. No strenuous activity. When not ambulating keep iced and elevated next 72 hours. Do not mix pain medication with recreational drugs or alcohol only take as prescribed can be addictive and abusive, call with any questions or concerns. Follow Up Care Please Follow Up With: Gama Benjamin DO When: 2 weeks Test Results: Test results from this visit will be discussed in further detail at your follow-up appointment, if applicable. Discharge Plan Admission Attending Provider: Gama Benjamin Primary Care Provider: Arslan Toscano Discharge Orders/Prescriptions Prescriptions: New oxycodone 5 mg tablet 2.5 - 10 mg PO Q4H PRN (Reason: pain) 5 Days Qty: 20 RF: 0 Continued potassium chloride 20 mEq tablet extended release 20 meq PO DAILY RF: 0 omeprazole 20 mg capsule,delayed release(DR/EC) 20 mg PO DAILY RF: 0 lisinopril 40 mg tablet 40 mg PO DAILY RF: 0 escitalopram oxalate 10 mg tablet 10 mg PO DAILY RF: 0 calcium citrate-vitamin D3 [Calcium Citrate + D] 315-200 mg-unit tablet 1 tab PO BID RF: 0 ascorbic acid (vitamin C) [Ascorbic Acid with Yelena Hips] 500 mg tablet 500 mg PO BID RF: 0 lorazepam 0.5 mg tablet 0.5 mg PO DAILY PRN (Reason: Anxiety) RF: 0 levothyroxine 75 mcg tablet 75 mcg PO DAILY RF: 0 vitamin B complex Elixir 1 ea PO QODAY RF: 0 pravastatin 20 mg tablet 20 mg PO QHS RF: 0 acetaminophen [Tylenol] 325 mg Tablet 325 mg PO Q6H PRN (Reason: Pain) RF: 0 amiodarone 200 mg tablet 200 mg PO DAILY Qty: 90 RF: 3 Eliquis 2.5 mg tablet 2.5 mg PO BID Qty: 180 RF: 3 amlodipine 10 mg tablet 10 mg PO DAILY Qty: 30 RF: 11 isosorbide mononitrate 60 mg tablet extended release 24 hr 60 mg PO BID Qty: 180 RF: 3 furosemide 40 mg tablet 40 mg PO DAILY Qty: 90 RF: 3 Referrals / Follow Up: Arslan Toscano DO [Primary Care Provider] - Disposition Disposition (needs filled in before D/C Order can be placed): Home, Self Care
[2020-12-26 13:20] VITALS: BP 111/62; BP 115/69; PULSE 56; RESP 14; TEMP 35.9; O2SAT 94
[2020-12-26 13:30] VITALS: BP 115/69; BP 124/63; PULSE 56; RESP 16; O2SAT 97
[2020-12-26 13:45] VITALS: BP 115/69; BP 123/65; PULSE 54; RESP 16; O2SAT 97
[2020-12-26 14:03] VITALS: BP 103/47; BP 115/69; PULSE 54; RESP 16; O2SAT 95
[2020-12-26 14:07] VITALS: BP 115/69; BP 118/61; PULSE 54; RESP 16; TEMP 37; O2SAT 92
== END 2020-12-26 16:14 | disposition home or self-care (01) ==
LOC: SDC 09:31 → AC 09:33
PROVIDERS: PCP Family Medicine; Referring Provider Orthopaedic Surgery; Visit Provider Orthopaedic Surgery
PROC: (CPT 29870; principal; 2020-12-26 12:20)
DX: S83.231A Complex tear of medial meniscus, current injury, right knee, initial encounter (principal); X50.1XXA Overexertion from prolonged static or awkward postures, initial encounter; M17.11 Unilateral primary osteoarthritis, right knee; I11.0 Hypertensive heart disease with heart failure; I50.33 Acute on chronic diastolic (congestive) heart failure; I48.0 Paroxysmal atrial fibrillation; E78.5 Hyperlipidemia, unspecified; K21.9 Gastro-esophageal reflux disease without esophagitis; F41.9 Anxiety disorder, unspecified; E66.9 Obesity, unspecified; Z68.28 Body mass index [BMI] 28.0-28.9, adult; Z79.01 Long term (current) use of anticoagulants; Z79.899 Other long term (current) drug therapy
CPT/HCPCS: 01400; 29881; 97162; J7120; J2405

== ENCOUNTER → 2021-10-15 | Outpatient (CLI) | payer MEDICARE, OTHER, SELFPAY ==
[2021-10-15 12:46] LABS: AST(SGOT) 17 U/L (15-37); Alanine Aminotransfer ALT/SGPT 35 U/L (13-56); Albumin, Serum 3.4 g/dL (3.2-5.0); Alkaline Phosphatase 74 U/L (45-117); Bilirubin, Direct 0.11 mg/dL (0.00-0.30); Free T3 1.7 pg/mL (2.18-3.98); Globulin 4.6 g/dL (2.2-4.2); T4 Free Direct 1.43 ng/dL (0.76-1.46); Thyroid Stim Hormone (TSH) 1.68 uIU/mL (0.358-3.74)
== END | disposition home or self-care (01) ==
LOC: LAB 11:50
PROVIDERS: PCP Family Medicine; Referring Provider Physician Assistant Medical; Visit Provider Physician Assistant Medical
DX: I48.0 Paroxysmal atrial fibrillation (principal); I10 Essential (primary) hypertension; E78.5 Hyperlipidemia, unspecified
CPT/HCPCS: 36415; 80076; 84439; 84443; 84481

== ENCOUNTER → 2021-10-19 | Outpatient (CLI) | payer MEDICARE, OTHER, SELFPAY ==
--- NOTE | 2021-10-21 08:58 | PFT ---
INTRODUCTION: The patient is an 86-year-old female that presents for pulmonary function studies secondary to a diagnosis of atrial fibrillation. Respiratory therapy reported good patient effort. Bronchodilators were used during testing. INTERPRETATION: Forced expiration spirometry demonstrates no evidence of a large airways obstructive ventilatory defect. There was no significant response to aerosolized bronchodilators. Spirograms are of good quality and plateau normally. Body plethysmography was performed and reveals lung volumes to be within normal limits. Diffusing capacity by single breath CO is also within normal limits. IMPRESSION: Grossly normal pulmonary function studies.
== END | disposition home or self-care (01) ==
LOC: PSN 07:55
PROVIDERS: PCP Family Medicine; Referring Provider Physician Assistant Medical; Visit Provider Physician Assistant Medical
DX: I48.0 Paroxysmal atrial fibrillation (principal); I10 Essential (primary) hypertension; E78.5 Hyperlipidemia, unspecified
CPT/HCPCS: 94060; 94726; 94729

== ENCOUNTER → 2022-09-04 | Outpatient (CLI) | payer MEDICARE, OTHER, SELFPAY ==
--- NOTE | 2022-09-05 10:04 | PFT ---
INTRODUCTION: The patient is an 87-year-old female who presents for pulmonary function studies secondary to a diagnosis of drug level monitoring. Respiratory therapy reported good patient effort. Bronchodilators were used during testing. INTERPRETATION: Forced expiration spirometry demonstrates no evidence of a large airways obstructive ventilatory defect. There was no significant response to aerosolized bronchodilators. Spirograms are of good quality and plateau normally. Body plethysmography was performed and reveals lung volumes to be within normal limits. Diffusing capacity by single breath CO was also within normal limits. IMPRESSION: Grossly normal pulmonary function studies.
== END | disposition home or self-care (01) ==
LOC: PSN 10:35
PROVIDERS: PCP Family Medicine; Referring Provider Internal Medicine Cardiovascular Disease; Visit Provider Internal Medicine Cardiovascular Disease
DX: Z51.81 Encounter for therapeutic drug level monitoring (principal); I50.32 Chronic diastolic (congestive) heart failure; Z79.899 Other long term (current) drug therapy; R09.89 Other specified symptoms and signs involving the circulatory and respiratory systems
CPT/HCPCS: 94060; 94726; 94729

== ENCOUNTER 2022-09-14 01:28 | Emergency (ER) | payer MEDICARE, OTHER, SELFPAY ==
[2022-09-14 01:29] VITALS: BP 134/72; PULSE 57; RESP 15; TEMP 36.4; O2SAT 97; BMI 28.6
[2022-09-14] MEDS: Amox/Clavulanate 875 MG Tablet PO (01:42)
[2022-09-14] MEDS: Diphth,Pertuss(Acell),Tet Vac 0.5 ML Vial IM (01:43)
--- NOTE | 2022-09-14 01:43 | EX.ED.UPPERE ---
HPI History of Present Illness Chief Complaint: Bite Informant: patient and spouse/S.O. Narrative Narrative: [id number] female presents here sick other right hand half hour prior to arrival. She had multiple cats breaking up a fight when she got bit on her right hand. She is on Eliquis there was bleeding initially that is controlled. Tetanus unknown. She reports her cats at home cats and do not go outside, they do not receive the yearly vaccinations. Denies history of similar. Tetanus Immunization: Unknown Prior similar symptoms: No PFSH PFSH Medical History Acute on chronic diastolic (congestive) heart failure Anxiety and depression Arthritis Bladder disease Cardiology follow-up encounter Chronic diastolic (congestive) heart failure Diarrhea Dietary restriction Essential (primary) hypertension Gastric reflux GERD (gastroesophageal reflux disease) Hepatitis Hiatal hernia High cholesterol History of atrial fibrillation History of CHF (congestive heart failure) History of echocardiogram History of edema History of hiatal hernia History of Holter monitoring History of pain when walking History of stress test Hyperlipidemia Incontinence Internal derangement of right knee Loss of hearing Non-smoker Obesity Paroxysmal atrial fibrillation Thyroid disease Wears glasses Home Medications ascorbic acid (vitamin C) 500 mg tablet (Ascorbic Acid with Yelena Hips) 500 mg PO BID 02/02/18 [History Last Taken Unknown] escitalopram oxalate 10 mg tablet 10 mg PO DAILY 02/02/18 [History Last Taken Unknown] lisinopril 40 mg tablet 40 mg PO DAILY 02/02/18 [History Last Taken 12/26/20] omeprazole 20 mg capsule,delayed release 20 mg PO DAILY 02/02/18 [History Last Taken 12/26/20] potassium chloride 20 mEq tablet,extended release 20 meq PO DAILY 02/02/18 [History Last Taken Unknown] amiodarone 200 mg tablet 200 mg PO DAILY #90 tabs 06/10/18 [Rx Last Taken 12/26/20] apixaban 2.5 mg tablet (Eliquis) 2.5 mg PO BID #180 tabs 06/10/18 [Rx Last Taken 12/23/20] levothyroxine 75 mcg tablet 75 mcg PO DAILY 11/29/20 [History Last Taken 12/26/20] lorazepam 0.5 mg tablet 0.5 mg PO DAILY PRN Anxiety 11/29/20 [History Last Taken Unknown] acetaminophen 325 mg tablet (Tylenol) 325 mg PO Q6H PRN Pain 12/19/20 [History Last Taken Unknown] calcium citrate 315 mg-vitamin D3 5 mcg (200 unit) tablet (Calcium Citrate + D) 1 tab PO DAILY 10/15/21 [History Last Taken Unknown] vitamin B complex 1 ea PO DAILY 10/15/21 [History Last Taken Unknown] furosemide 40 mg tablet 40 mg PO DAILY #90 tabs 11/26/21 [Rx Last Taken Unknown] amlodipine 10 mg tablet 10 mg PO DAILY #90 tabs 03/18/22 [Rx Last Taken Unknown] isosorbide mononitrate 60 mg tablet,extended release 24 hr 60 mg PO BID #180 tabs 07/31/22 [Rx Last Taken Unknown] pravastatin 20 mg tablet 20 mg PO QHS #90 tabs 09/02/22 [Rx Last Taken Unknown] amoxicillin 875 mg-potassium clavulanate 125 mg tablet 875 mg (0.875 x 875-125 mg) PO Q12H #14 TABLETS 09/14/22 [Rx Last Taken Unknown] Allergy/AdvReac Type Severity Reaction Status Date / Time Sulfa (Sulfonamide Allergy Severe BRAIN Verified 08/27/22 09:32 Antibiotics) SWELLING Family History Mother Myocardial infarction from [place] Diabetes Surgical History History of cholecystectomy S/P arthroscopic partial medial meniscectomy (12/2020) Social History household members: spouse and other details: nephew housing: house Smoking Status: Never smoker alcohol intake: never caffeine: No what type of physical activity do you participate in: none do you feel safe at home: Yes ROS ROS ED Constitutional Constitutional ED: Denies chills, fever(s) or sweats Eyes Eyes: Denies change in vision ENT ENT ED: Denies dysphagia or sore throat Cardiovascular Cardiovascular: Denies chest pain, leg edema, palpitations or racing heartbeat Respiratory/Chest Respiratory/Chest: Denies cough, dyspnea or dyspnea on exertion Gastrointestinal Gastrointestinal: Denies abdominal pain, diarrhea, nausea or vomiting Genitourinary Genitourinary ED: Denies dysuria, hematuria or urinary frequency Musculoskeletal Musculoskeletal: Denies back pain, extremity pain or neck pain Integumentary Reports wounds; Denies rash Neurologic Neurologic: Denies headache(s), paresthesias or weakness EXAM Physical Exam Const Vital Signs: 09/14/22 01:29 Temperature 97.5 F L Temperature Source Oral Pulse Rate 57 L Respiratory Rate 15 Blood Pressure 134/72 H Blood Pressure Mean 92 Pulse Ox 97 Oxygen Delivery Method Room Air Positive well nourished and well developed General Appearance ED: well developed and NAD HEENT Reports moist mucous membranes normocephalic and atraumatic Eyes PERRL, EOMs intact bilaterally and conjunctivae normal General Eye ED: Yes normal appearance of both eyes Neck no lymphadenopathy and supple General: Negative for tenderness Chest Wall Chest: Negative for tenderness Resp normal respiratory effort and normal air movement Effort and Inspection: symmetric chest movement; Negative for respiratory distress Cardio regular rate, regular rhythm and no murmurs Peripheral Pulses: pulses 2+ throughout GI normal to inspection, nondistended, normoactive bowel sounds and non-tender Palpation: Negative for guarding or rebound tenderness present Back/Spine no CVA tenderness and no thoracic nor lumbar tenderness Extremity Extremity Narrative: Right upper extremity: Hand examination 2 punctures noted at the thenar eminence since, dorsally less than 0.5 cm superficial laceration along with a puncture distal to that. slight bleeding controlled with pressure. No significant swelling, no streaking. General Extremety ED: Negative for edema or tenderness General Extremity: Negative for edema Neuro oriented x3 and no sensory deficits noted Sensorium / Orientation: awake and alert Skin no rashes or lesions noted and no wounds MDM MDM MDM Narrative Medical decision making narrative: Interventions / MDM: Differential diagnosis: Cat bite right hand Diagnosis considered but do not suspect: No current cellulitis My EKG interpretation: N/A Imaging independently reviewed and interpreted by myself: N/A External documents reviewed: N/A Test considered but not ordered:N/A ED course: Patient to bite with home cats. Bleeding controlled. Tetanus updated. Hand was soaked in mixture Betadine water to help with bacteriocidal treatment. Augmentin started. Dressing placed by nursing. Strict signs of infection discussed reevaluation and immediate return for treatment. Patient understands. All questions were answered. Re-evaluation: stable Disposition discussed with patient/family/significant other: Patient and significant other. Case discussed with consulting clinician: N/A This note was generated with [employer] Mario dictation software. It may contain incorrect words, spelling, and punctuation that were not noted in checking the note before signing. Discharge Plan Triage Chief Complaint: Bite ED Provider: Jareth Purvis Dx/Rx/DC Orders Clinical Impression: Chronic anticoagulation, Cat bite of right hand, Tetanus toxoid vaccination administered at current visit Instructions: ED Cat Bite Prescriptions: New amoxicillin-pot clavulanate [amoxicillin-pot clavulanate] 875-125 mg tablet 875 mg PO Q12H Qty: 14 0RF No Action potassium chloride 20 mEq tablet extended release 20 meq PO DAILY omeprazole 20 mg capsule,delayed release(DR/EC) 20 mg PO DAILY lisinopril 40 mg tablet 40 mg PO DAILY escitalopram oxalate 10 mg tablet 10 mg PO DAILY ascorbic acid (vitamin C) [Ascorbic Acid with Yelena Hips] 500 mg tablet 500 mg PO BID calcium citrate-vitamin D3 [Calcium Citrate + D] 315 mg-5 mcg (200 unit) tablet 1 tab PO DAILY lorazepam 0.5 mg tablet 0.5 mg PO DAILY PRN (Reason: Anxiety) levothyroxine 75 mcg tablet 75 mcg PO DAILY acetaminophen [Tylenol] 325 mg Tablet 325 mg PO Q6H PRN (Reason: Pain) vitamin B complex Elixir 1 ea PO DAILY amiodarone 200 mg tablet 200 mg PO DAILY Qty: 90 3RF Eliquis 2.5 mg tablet 2.5 mg PO BID Qty: 180 3RF furosemide 40 mg tablet 40 mg PO DAILY Qty: 90 3RF amlodipine 10 mg tablet 10 mg PO DAILY Qty: 90 3RF isosorbide mononitrate 60 mg tablet extended release 24 hr 60 mg PO BID Qty: 180 3RF pravastatin 20 mg tablet 20 mg PO QHS Qty: 90 3RF Primary Care Provider: Arslan Toscano Referrals: Arslan Toscano DO [Primary Care Provider] - 3-5 Days Activity Restrictions/Additional Instructions: Status post tetanus. Augmentin started. Take and finish antibiotic. May use Tylenol as needed as you are on Eliquis. Monitor for infection discussed for immediate return, otherwise follow-up with your doctor for wound check. Disposition Disposition: Home, Self Care Discharge Date/Time: 09/14/22 02:27
[2022-09-14 01:52] VITALS: BP 134/72; PULSE 57; RESP 15; O2SAT 97
== END 2022-09-14 02:27 | disposition home or self-care (01) ==
LOC: ED 01:57
PROVIDERS: Emergency Provider Emergency Medicine; PCP Family Medicine; Visit Provider Emergency Medicine
DX: S60.571A Other superficial bite of hand of right hand, initial encounter (principal); I11.0 Hypertensive heart disease with heart failure; I50.32 Chronic diastolic (congestive) heart failure; I48.0 Paroxysmal atrial fibrillation; W55.01XA Bitten by cat, initial encounter; Y92.009 Unspecified place in unspecified non-institutional (private) residence as the place of occurrence of the external cause; Y93.89 Activity, other specified; E78.00 Pure hypercholesterolemia, unspecified; Z79.01 Long term (current) use of anticoagulants; Z79.899 Other long term (current) drug therapy; Z23 Encounter for immunization
CPT/HCPCS: 90471; 90715; 99283

== ENCOUNTER 2023-03-23 07:53 | Emergency (ER) | payer MEDICARE, OTHER, SELFPAY ==
[2023-03-23 07:56] VITALS: BP 172/68; PULSE 63; RESP 18; TEMP 36.6; O2SAT 96; BMI 27.0
--- NOTE | 2023-03-23 09:01 | RAD_ITS ---
INDICATION: pain EXAMINATION/TECHNIQUE: X-RAY - LEFT XR Humerus Min 2 Views 2 VIEWS COMPARISON: No relevant prior comparison study available FINDINGS: SOFT TISSUES: No soft tissue swelling or gas. No radiopaque foreign body. BONES/JOINTS: No acute fracture or subluxation.. Normal alignment. Preservation of the joint space.. No sclerotic or destructive changes observed. RAD/Humerus min 2 Views IMPRESSION: No evidence of acute fracture. Electronically Signed: Jerry Kemp MD at 10:04 [facility] ,
--- NOTE | 2023-03-23 09:01 | EKG12_ITS ---
Test Reason : CP Blood Pressure : / mmHG Vent. Rate : 054 BPM Atrial Rate : 054 BPM P-R Int : 190 ms QRS Dur : 082 ms QT Int : 650 ms P-R-T Axes : 029 056 008 degrees QTc Int : 616 ms Critical Test Result: Long QTc Sinus bradycardia Nonspecific T wave abnormality Abnormal ECG When compared with ECG of 21-JUL-2018 22:38, QT has lengthened Confirmed by BK RODGERS, CHAPIS ([id number]), material expeditor FINESSE PEREZ ([id number]) on 03/25/2023 7:50:56 AM Referred By: Confirmed By:CHAPIS BOURGEOIS MD
--- NOTE | 2023-03-23 09:01 | RAD_ITS ---
INDICATION: chest pain EXAMINATION/TECHNIQUE: X-RAY - XR Chest 2 Views COMPARISON: Prior study dated: 07/21/2018. FINDINGS: LINES/DEVICES: None. LUNGS: Right lower lung opacity likely due to scarring. No new infiltrate seen. No evidence of pleural effusions. MEDIASTINUM AND CARDIOVASCULAR STRUCTURES: Borderline enlargement of the cardiac silhouette. Large hiatal hernia. BONES AND SOFT TISSUES: No demonstrated acute osseous changes. RAD/Chest PA and Lateral IMPRESSION: 1. No radiographic evidence of acute cardiopulmonary disease. 2. Large hiatal hernia. Electronically Signed: Jerry Kemp MD at 10:06 EST ,
[2023-03-23] MEDS: Aspirin E.C. 325 MG Tablet PO (09:23)
--- NOTE | 2023-03-23 09:23 | EX.ED.UPPERE ---
HPI History of Present Illness Chief Complaint: Upper Extremity Injury Informant: patient Narrative Narrative: Patient is an 88-year-old female with history of hypertension, proximal atrial fibrillation (on Eliquis), chronic diastolic heart failure, hypertension and hyperlipidemia presenting with intermittent left arm pain. She states she noticed it yesterday when she woke up but did not really notice it throughout the day. states it was there but not as severe. Seems to be intermittent. It was again present when she woke up this morning. She describes it as like a throbbing pain intermittently and feels almost like a sore muscle. She denies any difficulty breathing or chest pain but notes that she maybe had a sensation of chest tightness where her shirt felt tighter than normal. She did have an intermittent episode of ear pain and neck pain associated with this but that is also resolved. Denies any nausea, vomiting or sweating. Denies any trauma or injury. Denies any associated numbness or tingling. Does not take anything for her symptoms prior to arrival. No other complaints at this time. [facility] Medical History Acute on chronic diastolic (congestive) heart failure Anxiety and depression Arthritis Bladder disease Cardiology follow-up encounter Chronic diastolic (congestive) heart failure Diarrhea Dietary restriction Essential (primary) hypertension Gastric reflux GERD (gastroesophageal reflux disease) Hepatitis Hiatal hernia High cholesterol History of atrial fibrillation History of CHF (congestive heart failure) History of echocardiogram History of edema History of hiatal hernia History of Holter monitoring History of pain when walking History of stress test Hyperlipidemia Incontinence Internal derangement of right knee Loss of hearing Non-smoker Obesity Paroxysmal atrial fibrillation Thyroid disease Wears glasses Home Medications ascorbic acid (vitamin C) 500 mg tablet (Ascorbic Acid with Yelena Hips) 500 mg PO BID 02/02/18 [History Last Taken Unknown] escitalopram oxalate 10 mg tablet 10 mg PO DAILY 02/02/18 [History Last Taken Unknown] lisinopril 40 mg tablet 40 mg PO DAILY 02/02/18 [History Last Taken 12/26/20] omeprazole 20 mg capsule,delayed release 20 mg PO DAILY 02/02/18 [History Last Taken 12/26/20] potassium chloride 20 mEq tablet,extended release 20 meq PO DAILY 02/02/18 [History Last Taken Unknown] amiodarone 200 mg tablet 200 mg PO DAILY #90 tabs 06/10/18 [Rx Last Taken 12/26/20] apixaban 2.5 mg tablet (Eliquis) 2.5 mg PO BID #180 tabs 06/10/18 [Rx Last Taken 12/23/20] levothyroxine 75 mcg tablet 75 mcg PO DAILY 11/29/20 [History Last Taken 12/26/20] lorazepam 0.5 mg tablet 0.5 mg PO DAILY PRN Anxiety 11/29/20 [History Last Taken Unknown] acetaminophen 325 mg tablet (Tylenol) 325 mg PO Q6H PRN Pain 12/19/20 [History Last Taken Unknown] calcium citrate 315 mg-vitamin D3 5 mcg (200 unit) tablet (Calcium Citrate + D) 1 tab PO DAILY 10/15/21 [History Last Taken Unknown] vitamin B complex 1 ea PO DAILY 10/15/21 [History Last Taken Unknown] isosorbide mononitrate 60 mg tablet,extended release 24 hr 60 mg PO BID #180 tabs 07/31/22 [Rx Last Taken Unknown] pravastatin 20 mg tablet 20 mg PO QHS #90 tabs 09/02/22 [Rx Last Taken Unknown] amoxicillin 875 mg-potassium clavulanate 125 mg tablet 875 mg (0.875 x 875-125 mg) PO Q12H #14 TABLETS 09/14/22 [Rx Last Taken Unknown] furosemide 40 mg tablet 40 mg PO DAILY #90 tabs 11/18/22 [Rx Last Taken Unknown] amlodipine 10 mg tablet 10 mg PO DAILY #90 tabs 03/21/23 [Rx Last Taken Unknown] Allergy/AdvReac Type Severity Reaction Status Date / Time Sulfa (Sulfonamide Allergy Severe BRAIN Verified 03/23/23 07:56 Antibiotics) SWELLING Family History Mother Myocardial infarction from [place] Diabetes Surgical History History of cholecystectomy S/P arthroscopic partial medial meniscectomy (12/2020) Social History household members: spouse and other details: nephew housing: house Smoking Status: Never smoker alcohol intake: never caffeine: No what type of physical activity do you participate in: none do you feel safe at home: Yes ROS ROS ED Constitutional Constitutional ED: Denies chills, fever(s) or sweats ENT ENT ED: Reports ear pain Cardiovascular Cardiovascular: Reports chest pain; Denies palpitations Respiratory/Chest Respiratory/Chest: Denies cough or dyspnea Gastrointestinal Gastrointestinal: Denies abdominal pain, diarrhea, nausea or vomiting Musculoskeletal Musculoskeletal: Reports other Details: left arm pain ; Denies back pain Integumentary Denies rash Neurologic Neurologic: Denies headache(s), paresthesias or weakness Psychiatric Psychiatric: Denies anxiety Hematologic/Lymphatic Hematologic/Lymphatic: Reports easy bleeding EXAM Physical Exam Const Vital Signs: 03/23/23 07:56 Temperature 97.8 F Temperature Source Temporal Pulse Rate 63 Respiratory Rate 18 Blood Pressure 172/68 H Blood Pressure Mean 102 Pulse Ox 96 Oxygen Delivery Method Room Air Positive well nourished and well developed General Appearance ED: well developed and NAD HEENT Reports moist mucous membranes Eyes PERRL Neck full ROM Neck Narrative: No JVD Chest Wall inspection of chest normal and palpation of chest normal Resp normal respiratory effort and clear to auscultation bilaterally Auscultation: Negative for rhonchi or wheezes Cardio regular rate, regular rhythm and no murmurs Cardio Narrative: 2+ Radial pulses GI non-tender and non-distended Palpation: soft Extremity normal to inspection and full ROM Extremity Narrative: No deformity or pinpoint area of tenderness of the arm. Points to her mid humerus is where it hurts on the left but not reproducible with palpation. General Extremety ED: Negative for edema General Extremity: Negative for edema Neuro oriented x3 and moves all extremities Sensorium / Orientation: alert Motor Exam: muscle tone normal throughout; Negative for general weakness Psych mental status grossly normal Skin Lesions: no lesions Rashes: no rashes MDM MDM MDM Narrative Medical decision making narrative: Is evaluated for 2 days of intermittent throbbing left arm pain. Some reproduction with range of motion of her she has significant cardiac risk factors so we will also perform a cardiac workup to rule out referred cardiac pain as the pain is vague and there is no trauma. She is neurovascular intact distally. Differential includes muscle skeletal pain, ACS, pneumonia and pneumothorax. Overall patient is quite well-appearing. EKG shows sinus bradycardia with low amplitude which is not significantly compared to prior EKG. Patient given aspirin in the emergency room. Chest x-ray as well as x-ray of the left humerus does not show any acute process. This is reviewed by myself as well as radiology. Cardiac workup including delta high-sensitivity troponin is normal. I do not think she requires further cardiac monitoring. She is mildly hypertensive in the ER. Patient is anticoagulant Eliquis so low suspicion for pulmonary emboli. Will be discharged home with outpatient follow-up. She is agreeable with outpatient follow-up with her primary care doctor. Given return precautions. Patient and significant other with plan of care. Patient sent home in stable condition. History & Record Review Discussion w/independent historian: Patient Lab Data Attestation: I reviewed the patient's lab results. Labs: Laboratory Results - last 24 hr 03/23/23 03/23/23 09:14 11:25 WBC 6.9 RBC 4.16 L Hgb 12.5 Hct 37.2 MCV 89.4 MCH 30.0 MCHC 33.6 RDW Std Deviation 49.5 H RDW Coeff of Yeison 15.0 H Plt Count 254 MPV 10.2 Immature Gran % (Auto) 0.300 Neut % (Auto) 63.0 Lymph % (Auto) 27.0 [place] % (Auto) 8.3 Eos % (Auto) 0.7 Baso % (Auto) 0.7 Absolute Neuts (auto) 4.3 Absolute Lymphs (auto) 1.86 Nucleated RBC % 0 Sodium 143 Potassium 3.3 L Chloride 109 H Carbon Dioxide 27.0 Anion Gap 7 BUN 18 Creatinine 1.23 H Estim Creat Clear Calc 25.74 Est GFR (MDRD) Af Amer 53 L Est GFR (MDRD) Non-Af 44 L BUN/Creatinine Ratio 14.6 Glucose 98 Calcium 8.6 Magnesium 2.3 Troponin I High Sens 11 12 Radiography Diagnostic Testing: Diagnostic Data Chest X-Ray 03/23/23 09:01 IMPRESSION: 1. No radiographic evidence of acute cardiopulmonary disease. 2. Large hiatal hernia. Electronically Signed: Jerry Kemp MD at 10:06 EST , Humerus X-Ray 03/23/23 09:01 IMPRESSION: No evidence of acute fracture. Electronically Signed: Jerry Kemp MD at 10:04 EST , Rhythm Strip Rhythm Strip: Sinus Rhythm Rate: 54 Ectopy: None EKG Initial EKG: Attestation: I personally reviewed and interpreted this EKG as follows: Interpretation: Sinus Bradycardia Comments: ? Bradycardia rate of 54 bpm Normal axis Normal DC and QRS Questionable prolonged QTc of 616 versus decreased amplitude Normal ST segments with nonsoap T wave changes Compared to prior EKG on 03/14/2024, no significant changes Discharge Plan Triage Chief Complaint: Upper Extremity Injury ED Provider: Germaine Conrad Dx/Rx/DC Orders Clinical Impression: Arm pain, left Instructions: ED Pain, Acute, Uncertain Cause Prescriptions: No Action potassium chloride 20 mEq tablet extended release 20 meq PO DAILY omeprazole 20 mg capsule,delayed release(DR/EC) 20 mg PO DAILY lisinopril 40 mg tablet 40 mg PO DAILY escitalopram oxalate 10 mg tablet 10 mg PO DAILY ascorbic acid (vitamin C) [Ascorbic Acid with Yelena Hips] 500 mg tablet 500 mg PO BID calcium citrate-vitamin D3 [Calcium Citrate + D] 315 mg-5 mcg (200 unit) tablet 1 tab PO DAILY lorazepam 0.5 mg tablet 0.5 mg PO DAILY PRN (Reason: Anxiety) levothyroxine 75 mcg tablet 75 mcg PO DAILY acetaminophen [Tylenol] 325 mg Tablet 325 mg PO Q6H PRN (Reason: Pain) vitamin B complex Elixir 1 ea PO DAILY amoxicillin-pot clavulanate [amoxicillin-pot clavulanate] 875-125 mg tablet 875 mg PO Q12H Qty: 14 0RF amiodarone 200 mg tablet 200 mg PO DAILY Qty: 90 3RF Eliquis 2.5 mg tablet 2.5 mg PO BID Qty: 180 3RF isosorbide mononitrate 60 mg tablet extended release 24 hr 60 mg PO BID Qty: 180 3RF pravastatin 20 mg tablet 20 mg PO QHS Qty: 90 3RF furosemide 40 mg tablet 40 mg PO DAILY Qty: 90 3RF amlodipine 10 mg tablet 10 mg PO DAILY Qty: 90 3RF Primary Care Provider: Arslan Toscano Referrals: Arslan Toscano DO [Primary Care Provider] - Activity Restrictions/Additional Instructions: Your arm pain is not clear however your workup is largely normal from a heart and lung standpoint. Suspect is some type of muscle skeletal pain. Please follow-up with your primary care doctor. You may take Tylenol as needed for pain at home. Disposition Disposition: Home, Self Care Discharge Date/Time: 03/23/23 12:35
[2023-03-23 09:24] LABS: Absolute Lymphocyte Count 1.86 X10^3/uL (0.83-4.51); Absolute Neutrophil Count 4.3 X10^3/uL (2.0-7.7); Basophil# 0.05 X10^3/uL; Basophil% 0.7 % (0-1); Eosinophil# 0.05 X10^3/uL; Eosinophils% 0.7 % (0-5); Hematocrit 37.2 % (37-47); Hemoglobin 12.5 g/dL (12.0-15.0); Lymphocyte # 1.86 X10^3/ul (0.83-4.51); Mean Corp Hgb Conc 33.6 g/dL (32-36); Mean Corpuscular Volume 89.4 fL (81-99); Mean Platelet Vol. 10.2 fl (6.2-12.0); Monocyte# 0.57 X10^3/uL; Monocyte% 8.3 % (0-10); NRBC Flagged by Analyzer 0 % (0-5); Neutrophil # 4.33 X10^3/uL (2.7-7.7); Platelet Count 254 K/mm3 (150-450); RBC Distribution Width SD 49.5 fl (35.1-43.9); Red Blood Count 4.16 M/mm3 (4.2-5.4); White Blood Count 6.9 K/mm3 (4.4-11.0)
--- OUTSIDE RECORDS SUMMARY | 2023-03-23 09:59 | XMS RPT_ITS | CCD ---
Author Name Unknown Address [address] [place] [address] [address] [place] [address] Organization [facility] Care Team Providers Care Auto Adjudication Specialist Name Role Phone Giovanny Pitt Primary Care Provider [phone] Lamar Rivero Primary Care Provider UnavailTEDDY Montenegro Referring Unavailable GIOVANNY PITT Primary Care Unavailable TEDDY HERCULES Attending Unavailable GIOVANNY PITT Primary Care Unavailable LAMAR RIVERO DO Primary Care Unavailable LAMAR RIVERO DO Attending Unavailable LAMAR RIVERO DO Attending Unavailable LAMAR RIVERO DO Primary Care Unavailable Allergies Allergy Classification Reported Allergen(s) Allergy Type Date of Onset Reaction(s) Facility (2 sources) Sulfonamides (Antibiotic) Drug Allergy Other: See Comments [facility] Work Phone: Medications Completed/Discontinued Medications Medication Drug Class(es) Dates Sig (Normalized) Sig (Original) apixaban 2.5 mg oral tablet (1 source) Factor Xa Inhibitor Start: 03-14-2022 take 1 tablet by mouth twice daily ELIQUIS 2.5 mg tab(s) Take 2.5 mg by mouth twice daily. 0 03/14/2022 Active Problems Active Problems Problem Classification Problem Date Documented Da te Episodic/Chronic Acquired foot deformities (1 source) Hallux valgus; Translations: [Hallux valgus (acquired), left foot] Chronic Essential hypertension (2 sources) Essential (primary) hypertension; Translations: [Essential (primary) hypertension] Onset: 08-26-2022 Chronic Osteoarthritis (1 source) Inflammation of joint of foot; Translations: [Primary osteoarthritis, unspecified ankle and foot] Chronic Other and unspecified benign neoplasm (1 source) Neuroma; Translations: [Benign neoplasm of peripheral nerves and autonomic nervous system, unspecified] Episodic Other connective tissue disease (2 sources) Pain in left foot; Translations: [Pain in left foot] Episodic Other connective tissue disease (1 source) Pain in left foot; Translations: [Pain in left foot] Onset: 05-15-2022 Episodic Thyroid disorders (2 sources) Hypothyroidism, unspecified; Translations: [Hypothyroidism, unspecified] Onset: 08-26-2022 Chronic Past or Other Problems Problem Classification Problem Date Documented Da te Episodic/Chronic Other screening for suspected conditions (not mental disorders or infectious disease) (2 sources) Encounter for screening for lipoid disorders; Translations: [Encounter for screening for lipoid disorders] Onset: 08-26-2022 Episodic Results Test Name Value Interpretation Reference Range Facil ity Encounters Encounter Date Encounter Type Care Provider Facility Start: 02-25-2023 End: 03-02-2023 ambulatory LAMAR RIVERO DO Facility:A Start: 08-26-2022 End: 08-31-2022 ambulatory ALMAR RIVERO DO Facility:A Start: 05-15-2022 End: 05-15-2022 ambulatory TEDDY HERCULES Facility:[facility] Start: 05-15-2022 End: 05-15-2022 Subsequent hospital visit by physician Xr [facility] Jesus Bhat Work Phone: Radiology Procedures Date Procedure Procedure Detail Performing Clinician Start: 05-15-2022 Radex foot complete minimum 3 views Teddy Hercules Work Phone: Plan of Treatment Date Care Activity Detail Author Start: 11-08-2022 Influenza vaccination Influenza Vaccine (#1) [facility] Start: 03-10-2022 ADVANCE DIRECTIVE DISCUSSION ADVANCE DIRECTIVE DISCUSSION [facility] Start: 03-10-2022 DEPRESSION ASSESSMENT DEPRESSION ASSESSMENT [facility] Start: 11-08-2021 Influenza vaccination INFLUENZA (#1) [facility] Start: 2000 BONE DENSITY BONE DENSITY [facility] Start: 2000 Bone Density Screening Bone Density Screening [facility] Start: 2000 Pneumococcal Vaccine: 65+ (1 - PCV) Pneumococcal Vaccine: 65+ (1 - PCV) [facility] Start: 2000 PNEUMOCOCCAL: 65+ (1 - PCV) PNEUMOCOCCAL: 65+ (1 - PCV) [facility] Start: 1995 RSV Vaccine (1 - 1-dose 60+ series) RSV Vaccine (1 - 1-dose 60+ series) [facility] Start: 1985 SHINGRIX VACCINE (1 of 2) SHINGRIX VACCINE (1 of 2) [facility] Start: 1980 DIABETES SCREEN DIABETES SCREEN [facility] Start: 1980 Diabetes Screening Diabetes Screening [facility] Start: 1954 Urine microalbumin profile [facility] Start: 1935 COVID-19 VACCINE (#1) COVID-19 VACCINE (#1) [facility] End: 06-13-2023 XR FOOT GENERAL 3V AP/LAT/OBL LEFT XR FOOT GENERAL 3V AP/LAT/OBL LEFT Radiology Routine Pain in left foot 1 Occurrences starting 05/14/2022 until 06/13/[address] [facility] Work Phone: Payers Date Payer Category Payer Medicare [id number] 2015 Medicare [id number] 2015 Private Health Insurance HU[employer]NA HU[employer]NA MEDICARE SUPPLEMENT [id number] 2015-Present [phone] [address] [address] [place] [address] Indemnity [id number] 1935 Unknown [id number] 1935 Unknown [id number] Social History Date Type Detail Facility [facility] History of tobacco use Current smoker [facility] Start: 04-01-2007 End: 05-15-2022 Alcohol intake Current drinker of alcohol (finding) [facility] Start: 1935 Sex Assigned At Not on file [facility] Start: 05-15-2022 History of Social function [facility] Start: 05-15-2022 Tobacco use panel [facility] National Score (1-10 0), lower number is lower risk 49 [facility] Clinical Notes 05-14-2022 to 05-15-2022 Lianne Alcantara LPN - 05/15/2022 3:57 PM ESTMattmarco Hercules - 05/15/2022 3:39 PM ESTPeñablas Alcantara LPN - 05/15/2022 3:25 PM ESTPatient InstructionsDaIsha dey, RT(R) - 05/15/2022 3:20 PM EST Note Date & Type Note Facility 05-15-2022 Note HNO ID: [id number] Author: Lianne Alcantara LPN Service: ? Author Type: LICENSED NURSE Type: Progress Notes Filed: 05/15/2022 10:21 PM Note Text: Per Dr. Hercules, Bethany was provided with powerstep original inserts, size 6, and instructed/educated in its application, wear, and care. All questions were answered, and patient was able to demonstrate competence with the necessary skills to utilize the above equipment. Lianne Alcantara LPN [facility] 05-15-2022 Note HNO ID: [id number] Author: Teddy Hercules Service: ? Author Type: Physician Type: Progress Notes Filed: 05/15/2022 10:21 PM Note Text: Initial Podiatric Office Visit: Chief Complaint: This 87 year old female who presents with chief complaint:left foot pain HPI Patient presents to clinic for evaluation of left foot. She complains of pain across the top and bottom of left midfoot and radiates to her toes. She states this pain has been going on for the past several years but it was intermittent. She states since January, the pain has been more constant. She states the pain is a dull ache and has affected her ability to walk long distance. She states that the longer she is on her foot, the more pain she has. She also finds that movement of the foot up and down causes her pain. Patient is not currently taking anything for the pain. PAIN EVALUATION 05/15/2022 1531 Pain Level: 5 Pain Location: Foot-Left Description: Aching;Sore Duration Amount of Time: 5 Duration Units: Months Frequency: Intermittent Intervention/Comfort measure: Reposition;Relaxation;Medicati on No results found for: HBA1C PCP: Giovanny Pitt MD PAST MEDICAL HISTORY Diagnosis Date ACUTE PANCREATITIS CHOLELITH W CHOLECYS NEC Current Outpatient Medications Medication Sig lisinopril(ZESTRIL 20 MG TAB) Take 40 mg by mouth. CALCIUM 500 MG TAB 2 caplets daily TRIAMTERENE-HYDROCHLOROTHIAZID E 37.5 MG-25 MG CAP Take one(1) capsule daily. esomeprazole mag trihydrate(NEXIUM 40 MG CAP) Take one(1) capsule daily. COMPOUNDED PRESCRIPTION digestive advantage -IBS one daily No current facility-administered medications for this visit. ALLERGIES Allergen Reactions Sulfa (Sulfonamide * Other: See Comments BRAIN SWELLING No past surgical history on file. No family history on file. Social History Tobacco Use Smoking status: Former Substance Use Topics Alcohol use: Yes Comment: rarely Drug use: No REVIEW OF SYSTEMS GENERAL: Negative for Malaise, significant weight loss, fever RESPIRATORY: Negative for cough, wheezing and shortness of breath CARDIOVASCULAR: Negative for chest pain, leg swelling and palpitations GI: Negative for abdominal discomfort, blood in stools or black stools and change in bowel habits : Negative for dysuria, frequency and incontinence MUSCULOSKELETAL: Negative for joint pain or swelling, back pain, and muscle pain. SKIN: Negative for lesions, rash, and itching. HEMATOLOGY/LYMPHOLOGY Negative for prolonged bleeding, bruising easily, and swollen nodes. ENDOCRINE: Negative for cold or heat intolerance, polyuria, polydipsia and goiter. NEURO: negative Physical Exam: Constitutional: Pt is a well developed 87 year old female who is alert, oriented and cooperative Eyes: Following during examination. No redness or drainage. Respiratory: RR normal and nonlabored. Even breathing. No evidence of distress or shortness of breath. Psychology: Patient is engaged during conversation. Normal affect and mood. Does not appear depressed or anxious during encounter. Vascular: Dorsalis pedis and posterior tibial pulses palpable as b/l Capillary Fill time < 5 seconds to digits 1-5 b/l Skin temperature warm to warm proximal to distal b/l Hair growth present to digits Neurological: intact light touch/epicritic sensation b/l intact protective sensation no significant neurological deficits Dermatological: Nails 1-5 b/l appear normal. Webspaces clean and dry 1-4 b/l. Skin appears well hydrated and supple. good color, texture, turgor. No open lesions present. No callosities present. Musculoskeletal/Orthopaedic: Patient has pain to palpation of left 2nd interspace and left midfoot AJ ROM is full with knee extended and flexed 1st MPJ is decreased when loaded and no pain or crepitus are noted with ROM. Large bunion deformity is noted b/l MTJ, STJ are full and free of pain and crepitus. +5/5 muscle strength dorsiflexion, plantarflexion, inversion, eversion b/l Radiographs: 3 views left oot ordered May 15, 2022: I have personally reviewed and interpreted these XR myself: large bunion is noted to left foot. 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 History and physical examination performed. 2. XR reviewed with patient and interpreted today 3. Discussed pain in left midfoot. She has arthritis of left midfoot. Will try powerstep gel inserts. If pain persist, could consider steroid injection under xray guide 4. Discussed pain in left forefoot. Suspect possible neuroma. Recommend gel inserts. If pain persists, could consider steroid injection 5. Discussed bunion of left foot. Recommend wider shoes and padding. 6. F/u prn Teddy Hercules DPM Podiatry [address] [facility] [address] Dept: [phone] (more content not included)... [facility] 05-15-2022 Note HNO ID: [id number] Author: Lianne Alcantara LPN Service: ? Author Type: LICENSED NURSE Type: Progress Notes Filed: 05/15/2022 10:21 PM Note Text: AMB ROOMING INTAKE FLOWSHEET DATA Risk Screening Do you have concerns about personal safety or safety in the home?: No Pain Pain Level: 5 Pain Location: Foot-Left Description: Aching, Sore Duration Amount of Time: 5 Duration Units: Months Frequency: Intermittent Intervention/Comfort measure: Reposition, Relaxation, Medication Patient presents with: Left Foot - New, Pain Lianne Alcantara LPN [facility] 05-15-2022 Note HNO ID: [id number] Author: Isha Burr RT(R) Service: Nuclear Medicine Author Type: Technologist Type: Progress Notes Filed: 05/15/2022 3:23 PM Note Text: Radiology Service Progress Note PATIENT NAME: Bethany Webster DATE OF SERVICE: May 15, 2022 TIME: 3:11 PM PATIENT IDENTITY VERIFICATION COMPLETED USING TWO (2) IDENTIFIERS: Name and Date of confirmed by patient verbally. FALL SCREENING: Has the patient had 2 falls in the last year or 1 fall with injury or currently using an Ambulatory Assistive Device (Walker, Cane, Wheelchair, Crutches, etc.)? No PATIENT GENDER DATA: Female. status: : No status: NO. PATIENT RELEVANT IMPLANT DATA REVIEWED: Not Applicable RADIOLOGY DEPARTMENT: General X-ray: Exam(s) Completed: Lower Extremity X-Ray(s): Foot, Left and Wt. Bearing PERIPHERAL IV DATA: Not applicable SIGNED BY: RT Boogie(R) May 15, 2022 3:11 PM [facility] 05-15-2022 History of Presen t illness Narrative Per Dr. Hercules, Bethany was provided with powerstep original inserts, size 6, and instructed/educated in its application, wear, and care. All questions were answered, and patient was able to demonstrate competence with the necessary skills to utilize the above equipment. Lianne Alcantara LPN Initial Podiatric Office Visit: Chief Complaint: This 87 year old female who presents with chief complaint:left foot pain HPI Patient presents to clinic for evaluation of left foot. She complains of pain across the top and bottom of left midfoot and radiates to her toes. She states this pain has been going on for the past several years but it was intermittent. She states since January, the pain has been more constant. She states the pain is a dull ache and has affected her ability to walk long distance. She states that the longer she is on her foot, the more pain she has. She also finds that movement of the foot up and down causes her pain. Patient is not currently taking anything for the pain. PAIN EVALUATION 05/15/2022 1531 Pain Level: 5 Pain Location: Foot-Left Description: Aching;Sore Duration Amount of Time: 5 Duration Units: Months Frequency: Intermittent Intervention/Comfort measure: Reposition;Relaxation;Medicati on No results found for: HBA1C PCP: Giovanny Pitt MD PAST MEDICAL HISTORY Diagnosis Date ACUTE PANCREATITIS CHOLELITH W CHOLECYS NEC Current Outpatient Medications Medication Sig lisinopril(ZESTRIL 20 MG TAB) Take 40 mg by mouth. CALCIUM 500 MG TAB 2 caplets daily TRIAMTERENE-HYDROCHLOROTHIAZID E 37.5 MG-25 MG CAP Take one(1) capsule daily. esomeprazole mag trihydrate(NEXIUM 40 MG CAP) Take one(1) capsule daily. COMPOUNDED PRESCRIPTION digestive advantage -IBS one daily No current facility-administered medications for this visit. ALLERGIES Allergen Reactions Sulfa (Sulfonamide * Other: See Comments BRAIN SWELLING No past surgical history on file. No family history on file. Social History Tobacco Use Smoking status: Former Substance Use Topics Alcohol use: Yes Comment: rarely Drug use: No REVIEW OF SYSTEMS GENERAL: Negative for Malaise, significant weight loss, fever RESPIRATORY: Negative for cough, wheezing and shortness of breath CARDIOVASCULAR: Negative for chest pain, leg swelling and palpitations GI: Negative for abdominal discomfort, blood in stools or black stools and change in bowel habits : Negative for dysuria, frequency and incontinence MUSCULOSKELETAL: Negative for joint pain or swelling, back pain, and muscle pain. SKIN: Negative for lesions, rash, and itching. HEMATOLOGY/LYMPHOLOGY Negative for prolonged bleeding, bruising easily, and swollen nodes. ENDOCRINE: Negative for cold or heat intolerance, polyuria, polydipsia and goiter. NEURO: negative Physical Exam: Constitutional: Pt is a well developed 87 year old female who is alert, oriented and cooperative Eyes: Following during examination. No redness or drainage. Respiratory: RR normal and nonlabored. Even breathing. No evidence of distress or shortness of breath. Psychology: Patient is engaged during conversation. Normal affect and mood. Does not appear depressed or anxious during encounter. Vascular: Dorsalis pedis and posterior tibial pulses palpable as b/l Capillary Fill time < 5 seconds to digits 1-5 b/l Skin temperature warm to warm proximal to distal b/l Hair growth present to digits Neurological: intact light touch/epicritic sensation b/l intact protective sensation no significant neurological deficits Dermatological: Nails 1-5 b/l appear normal. Webspaces clean and dry 1-4 b/l. Skin appears well hydrated and supple. good color, texture, turgor. No open lesions present. No callosities present. Musculoskeletal/Orthopaedic: Patient has pain to palpation of left 2nd interspace and left midfoot AJ ROM is full with knee extended and flexed 1st MPJ is decreased when loaded and no pain or crepitus are noted with ROM. Large bunion deformity is noted b/l MTJ, STJ are full and free of pain and crepitus. +5/5 muscle strength dorsiflexion, plantarflexion, inversion, eversion b/l Radiographs: 3 views left oot ordered May 15, 2022: I have personally reviewed and interpreted these XR myself: large bunion is noted to left foot. 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 History and physical examination performed. 2. XR reviewed with patient and interpreted today 3. Discussed pain in left midfoot. She has arthritis of left midfoot. Will try powerstep gel inserts. If pain persist, could consider steroid injection under xray guide 4. Discussed pain in left forefoot. Suspect possible neuroma. Recommend gel inserts. If pain persists, could consider steroid injection 5. Discussed bunion of left foot. Recommend wider shoes and padding. 6. F/u prn Teddy Hercules DPM Podiatry [address] [facility] [address] Dept: [phone] Dept AMB ROOMING INTAKE FLOWSHEET DATA Risk Screening Do you have concerns about personal safety or safety in the home?: No Pain Pain Level: 5 Pain Location: Foot-Left Description: Aching, Sore Duration Amount of Time: 5 Duration Units: Months Frequency: Intermittent Intervention/Comfort measure: Reposition, Relaxation, Medication Patient presents with: Left Foot - New, Pain Lianne Alcantara LPN documented in this encounter [facility] 05-15-2022 Instructions Teddy Hercules - 05/15/2022 3:48 PM EST Recommend good supportive shoes such as hoka, new balance or pratt Powerstep Original Full length. Can purchase at [employer] here in [place], [employer] in [place] or [place]. Also can find in [place] in [facility]. Powersteps can also be purchased online, starting around $25.00 If you have a metatarsal or dancer pad for your feet apply the pad directly to the insole so you can interchange between your shoes. Find a shoe with a removable insole and take this out and replace with your powerstep insole. Always bring powersteps with you when shopping for shoes so that you can make sure that everything fits well together If pain fails to improve, consider steroid injection documented in this encounter [facility] 05-15-2022 History of Presen t illness Narrative Radiology Service Progress Note PATIENT NAME: Bethany Webster DATE OF SERVICE: May 15, 2022 TIME: 3:11 PM PATIENT IDENTITY VERIFICATION COMPLETED USING TWO (2) IDENTIFIERS: Name and Date of confirmed by patient verbally. FALL SCREENING: Has the patient had 2 falls in the last year or 1 fall with injury or currently using an Ambulatory Assistive Device (Walker, Cane, Wheelchair, Crutches, etc.)? No PATIENT GENDER DATA: Female. status: : No status: NO. PATIENT RELEVANT IMPLANT DATA REVIEWED: Not Applicable RADIOLOGY DEPARTMENT: General X-ray: Exam(s) Completed: Lower Extremity X-Ray(s): Foot, Left and Wt. Bearing PERIPHERAL IV DATA: Not applicable SIGNED BY: RT Boogie(R) May 15, 2022 3:11 PM documented in this encounter [facility] 05-14-2022 Note HNO ID: [id number] Author: Micheline Brunson RN Service: ? Author Type: ? Type: Progress Notes Filed: 05/14/2022 11:52 AM Note Text: R DOMINIQUE [facility] 05-14-2022 History of Presen t illness Narrative Bonifacio FOX documented in this encounter [facility] documented [facility] Diagnosis Arthritis of midfoot- Primary Unspecified arthropathy, ankle and foot Hallux valgus of left foot Neuroma Other benign neoplasm of connective and other soft tissue of unspecified site [facility]* Diagnosis Pain in left foot Pain in limb documented in this encounter [facility] for referral (narrative)* Diagnostic Procedure Only (Routine) - Pending Review Specialty Diagnoses / Procedures Referred By Contac t Referred To Contact XR IMAGING Diagnoses Pain in left foot Procedures XR FOOT GENERAL 3V AP/LAT/OBL LEFT RADEX FOOT COMPLETE MINIMUM 3 VIEWS Teddy Hercules [address] [place] [address] Xr Imaging Referral ID Status Reason Start Date Expiration Date Visits Requested Visits Authorized [id number] Pending Review Auto-Generat ed Referral 05/14/2022 06/13/2023 1 1 [facility] for referral (narrative)* Diagnostic Procedure Only (Routine) - Closed Specialty Diagnoses / Procedures Referred By Contac t Referred To Contact XR IMAGING Diagnoses Pain in left foot Procedures XR FOOT GENERAL 3V AP/LAT/OBL LEFT RADEX FOOT COMPLETE MINIMUM 3 VIEWS Teddy Hercules [address] [place] [address] [place] [address] Referral ID Status Reason Start Date Expiration Date V isits Requested Visits Authorized [id number] Closed Auto-Generate d Referral 05/14/2022 06/13/2023 1 1 [facility] for visit Narrative* Diagnostic Procedure Only (Routine) - Closed Specialty Diagnoses / Procedures Referred By Contac t Referred To Contact XR IMAGING Diagnoses Pain in left foot Procedures XR FOOT GENERAL 3V AP/LAT/OBL LEFT RADEX FOOT COMPLETE MINIMUM 3 VIEWS DaniiTeddy ashby [address] [place] [address] [place] [id number] Referral ID Status Reason Start Date Expiration Date V isits Requested Visits Authorized [id number] Closed Auto-Generate d Referral 05/14/2022 06/13/2023 1 1 [facility] Summary Purpose Family History No Family History Records FoundNo Family History Records Found Advance Directives No Advanced Directives Records FoundNo Advanced Directives Records Found Additional Source Comments Source Comments (unrecognize d section and content) In the event this informatio n is protected by the Federal Confidentiality of Alcohol and Drug Abuse Patient Records regulations: The Federal rules restrict any use of the information to criminally investigate or prosecute any alcohol or drug abuse patient.[facility] the event this information is protected by the Federal Confidentiality of Alcohol and Drug Abuse Patient Records regulations: The Federal rules restrict any use of the information to criminally investigate or prosecute any alcohol or drug abuse patient.[facility] Center[facility] the event this information is protected by the Federal Confidentiality of Alcohol and Drug Abuse Patient Records regulations: The Federal rules restrict any use of the information to criminally investigate or prosecute any alcohol or drug abuse patient.[facility] Care Teams (unrecognized sec tion and content) Auto Adjudication Specialist Relationship Specialty Start Date End Date Lamar Rivero PCP - General 05/15/22 Auto Adjudication Specialist Relationship Specialty Start Date End Date Lamar Rivero PCP - General 05/15/22 Reason for Visit (unrecogniz ed section and content) INFORMATION SOURCE (unrecogn ized section and content) DATE CREATED AUTHOR AUTHOR'S ORGANIZ ATION 03/02/2023 [facility] ([place]) FOR RECORDS PERTAINING TO PATIENTS WHO ARE OR HAVE BEEN ENROLLED IN A CHEMICAL DEPENDENCY/SUBSTANCEABUSE PROGRAM, SOME INFORMATION MAY BE OMITTED. This clinical summary was aggregated from multiple sources. Caution should be exercised in using it in the provision of clinical care. This summary normalizes information from multiple sources, and as a consequence, information in this document may materially change the coding, format and clinical context of patient data. In addition, data may be omitted in some cases. CLINICAL DECISIONS SHOULD BE BASED ON THE PRIMARY CLINICAL RECORDS. [facility] [employer] [facility]. provides no warranty or guarantee of the accuracy or completeness of information in this document.
[2023-03-23 10:05] LABS: Anion Gap 7 (5-15); BUN 18 mg/dL (7-18); BUN/Creat Ratio 14.6 RATIO (10-20); Calcium,Total 8.6 mg/dL (8.5-10.1); Chloride 109 mmol/L (98-107); Creatinine, Serum 1.23 mg/dL (0.55-1.02); EST Glomerular Filtration Rate 44 mL/min (>60); Est Glom Filt Rate - Afr Amer 53 mL/min (>60); Estimated Creatinine Clearance 25.74 ml/min; Glucose 98 mg/dL (74-106); Magnesium 2.3 mg/dL (1.6-2.6); Potassium 3.3 mmol/L (3.5-5.1); Sodium Level 143 mmol/L (136-145); Troponin-I HS (w/2H Reflex) 11 pg/mL (3.0-54.0)
[2023-03-23 11:18] LABS: Reflex Troponin-HS? (from REC) Y
[2023-03-23 11:50] LABS: Troponin-I HS 12 pg/mL (3.0-54.0)
[2023-03-23 12:34] VITALS: PULSE 62; RESP 16
== END 2023-03-23 12:35 | disposition home or self-care (01) ==
PROVIDERS: Emergency Provider Emergency Medicine; PCP Family Medicine; Visit Provider Emergency Medicine
DX: M79.602 Pain in left arm (principal); I50.32 Chronic diastolic (congestive) heart failure; I48.0 Paroxysmal atrial fibrillation; Z79.01 Long term (current) use of anticoagulants
CPT/HCPCS: 71046; 73060; 80048; 83735; 84484; 85025; 93005; 99283; A4216

== ENCOUNTER 2023-04-19 14:13 | Emergency (ER) | payer MEDICARE, OTHER, SELFPAY ==
[2023-04-19 14:13] VITALS: BP 139/64; PULSE 58; RESP 14; TEMP 36.6; O2SAT 96; BMI 28.8
--- NOTE | 2023-04-19 14:33 | EX.ED.VIS.UR ---
HPI HPI - URI History of Present Illness Chief Complaint: Cough Detail of Chief Complaint: Cough for 3 days. Informant: patient and spouse/S.O. Onset/Context/Timing Onset: Days Context: Gradual Onset Timing: Continuous Current Severity: Mild Maximum Severity: Mild Associated Symptoms Associated Symptoms: Positive for Diarrhea (Mild and loose.); Negative for Nausea, Vomiting or Productive Cough Narrative Narrative: 88-year-old female history of A-fib on Eliquis says that she has had a cough for the last 3 days. Intermittent loose stools. No fever. No vomiting. She is able to keep fluids down. had URI symptoms about a week ago but has resolved. She denies any fever. She denies any shortness of breath. States that it is a nonproductive cough. Prior similar symptoms: Yes Recent Illness/Hospitalization: No ROS ROS ED ROS Narrative Cough. Review of Systems ROS Unobtainable: Denies due to encephalopathy Constitutional Constitutional ED: Denies chills or fever(s) Eyes Eyes: Denies blurry vision ENT ENT ED: Denies ear pain Cardiovascular Cardiovascular: Denies chest pain, orthopnea or paroxysmal nocturnal dyspnea Respiratory/Chest Respiratory/Chest: Reports cough; Denies dyspnea, dyspnea on exertion, orthopnea, paroxysmal nocturnal dyspnea or sputum Gastrointestinal Gastrointestinal: Denies abdominal pain, constipation, diarrhea, melena, nausea or vomiting Genitourinary Genitourinary ED: Denies dysuria or hematuria Musculoskeletal Musculoskeletal: Denies arthralgias, back pain, myalgias or neck pain Integumentary Denies abscess or Abrasions Neurologic Neurologic: Denies headache(s), paresthesias or weakness Psychiatric Psychiatric: Denies anxiety, depression, suicidal ideation or suicidal thoughts Endocrine Endocrinology: Denies cold intolerance Hematologic/Lymphatic Hematologic/Lymphatic: Reports easy bleeding; Denies easy bruising Allergic/Immunologic Allergic/Immunologic ED: Denies mouth swelling, tongue swelling or urticaria [facility] Medical History Acute on chronic diastolic (congestive) heart failure Anxiety and depression Arthritis Bladder disease Cardiology follow-up encounter Chronic diastolic (congestive) heart failure Diarrhea Dietary restriction Essential (primary) hypertension Gastric reflux GERD (gastroesophageal reflux disease) Hepatitis Hiatal hernia High cholesterol History of atrial fibrillation History of CHF (congestive heart failure) History of echocardiogram History of edema History of hiatal hernia History of Holter monitoring History of pain when walking History of stress test Hyperlipidemia Incontinence Internal derangement of right knee Loss of hearing Non-smoker Obesity Paroxysmal atrial fibrillation Thyroid disease Wears glasses Home Medications ascorbic acid (vitamin C) 500 mg tablet (Ascorbic Acid with Yelena Hips) 500 mg PO BID 02/02/18 [History Last Taken Unknown] escitalopram oxalate 10 mg tablet 10 mg PO DAILY 02/02/18 [History Last Taken Unknown] lisinopril 40 mg tablet 40 mg PO DAILY 02/02/18 [History Last Taken 12/26/20] omeprazole 20 mg capsule,delayed release 20 mg PO DAILY 02/02/18 [History Last Taken 12/26/20] potassium chloride 20 mEq tablet,extended release 20 meq PO DAILY 02/02/18 [History Last Taken Unknown] amiodarone 200 mg tablet 200 mg PO DAILY #90 tabs 06/10/18 [Rx Last Taken 12/26/20] apixaban 2.5 mg tablet (Eliquis) 2.5 mg PO BID #180 tabs 06/10/18 [Rx Last Taken 12/23/20] levothyroxine 75 mcg tablet 75 mcg PO DAILY 11/29/20 [History Last Taken 12/26/20] lorazepam 0.5 mg tablet 0.5 mg PO DAILY PRN Anxiety 11/29/20 [History Last Taken Unknown] acetaminophen 325 mg tablet (Tylenol) 325 mg PO Q6H PRN Pain 12/19/20 [History Last Taken Unknown] calcium citrate 315 mg-vitamin D3 5 mcg (200 unit) tablet (Calcium Citrate + D) 1 tab PO DAILY 10/15/21 [History Last Taken Unknown] vitamin B complex 1 ea PO DAILY 10/15/21 [History Last Taken Unknown] isosorbide mononitrate 60 mg tablet,extended release 24 hr 60 mg PO BID #180 tabs 07/31/22 [Rx Last Taken Unknown] pravastatin 20 mg tablet 20 mg PO QHS #90 tabs 09/02/22 [Rx Last Taken Unknown] amoxicillin 875 mg-potassium clavulanate 125 mg tablet 875 mg (0.875 x 875-125 mg) PO Q12H #14 TABLETS 09/14/22 [Rx Last Taken Unknown] furosemide 40 mg tablet 40 mg PO DAILY #90 tabs 11/18/22 [Rx Last Taken Unknown] amlodipine 10 mg tablet 10 mg PO DAILY #90 tabs 03/21/23 [Rx Last Taken Unknown] Allergy/AdvReac Type Severity Reaction Status Date / Time Sulfa (Sulfonamide Allergy Severe BRAIN Verified 04/19/23 14:15 Antibiotics) SWELLING Family History Mother Myocardial infarction from [place] Diabetes Surgical History History of cholecystectomy S/P arthroscopic partial medial meniscectomy (12/2020) Social History household members: spouse and other details: nephew housing: house Smoking Status: Never smoker alcohol intake: never caffeine: No what type of physical activity do you participate in: none do you feel safe at home: Yes EXAM Physical Exam Narrative Exam Narrative: 88-year-old female no acute distress. Vital signs stable afebrile. Pulse ox 96% on room air no hypoxia. H EENT exam unremarkable. Moist membranes.Pupils round reactive light. Neck nontender no JVD. No lymphadenopathy. Lungs clear to auscultation bilaterally. No rales, rhonchi or wheezing. Equal symmetrical. No respiratory distress. Heart rate about 60 no murmur. Chest wall nontender. Abdomen soft nontender.Moving all 4 extremities. Calves are nontender without edema or cords. Neurologically she is awake and alert with no focal motor deficits. at bedside. Const Vital Signs: 04/19/23 14:13 04/19/23 15:09 Temperature 97.9 F Temperature Source Temporal Pulse Rate 58 L Respiratory Rate 14 Respiratory Effort Normal Non-Labored Respiratory Depth Normal Respiratory Pattern Normal Blood Pressure 139/64 H Blood Pressure Mean 89 Pulse Ox 96 Oxygen Delivery Method Room Air Positive well nourished and well developed; Negative for obese, cachectic or contractures General Appearance ED: well developed; Negative for cachectic, contractures, cyanotic, diaphoretic or pallor Nutritional Appearance: Negative for cachectic or obese HEENT Reports moist mucous membranes; Denies dry mucous membranes or other normocephalic and atraumatic; Negative for scalp tenderness or other Face and Sinus: Negative for sinus tenderness or maxillary instability Mouth ED: No dry mucous membranes Mouth: No dry mucous membranes Teeth and Gingiva: Negative for caries Throat: posterior oropharynx normal; Negative for tonsils abnormal or posterior oropharynx abnormal Eyes PERRL and EOMs intact bilaterally General Eye ED: Negative for pale conjunctiva or scleral icterus Neck no lymphadenopathy, supple, no meningeal signs and no JVD General: Negative for anterior neck swelling, lymphadenopathy or other Resp normal respiratory effort and clear to auscultation bilaterally Effort and Inspection: Negative for retractions Auscultation: Negative for rales, rhonchi or wheezes Cardio S1 normal heart sound, S2 normal heart sound and no murmurs Rate: regular rate GI non-tender, non-distended and no masses Inspection: Negative for abdominal distention Auscultation: normoactive bowel sounds Palpation: soft; Negative for tender or guarding Back/Spine no CVA tenderness and normal ROM General Back: Negative for CVA tenderness Cervical Spine: Negative for cervical spine tenderness Thoracic Spine / Upper Back: Negative for thoracic spinal tenderness Lumbar Spine / Lower Back: Negative for lumbar spinal tenderness Sacrum: Negative for tenderness Extremity normal to inspection and full ROM General Extremety ED: Negative for cyanosis or tenderness General Extremity: Negative for cyanosis Neuro oriented x3 and CN's II-XII intact bilaterally Sensorium / Orientation: alert, oriented to person, oriented to place and oriented to time; Negative for orientation impaired, lethargic or stuporous Motor Exam: strength 5/5 throughout Psych mental status grossly normal Appearance: Negative for other Attitude: No agitated Mood & Affect: Negative for depressed, anxious or tearful Skin General Skin Exam: Negative for jaundice or pallor Lesions: no lesions Rashes: no rashes Trauma: Negative for abrasion, laceration or puncture MDM MDM MDM Narrative Medical decision making narrative: 88-year-old female with a cough clinically looks well. Clinically I doubt this is pneumonia. Viral studies are being obtained a chest x-ray. Otherwise her exam is benign. had similar symptoms about a week ago. Repeat exam patient doing well at 3:45 PM. I discussed her positive COVID test and negative chest x-ray both her and her . Her vital signs are stable. Her oxygen is good. Clinically she looks well. Both are comfortable with her being discharged home without any antibiotic or antiviral medications. They know to return if worse. History & Record Review Discussion w/independent historian: Patient Additional record(s) reviewed:: Prior inpatient record, Prior outpatient record, Prior ED visit and Prior labs Lab Data Attestation: I reviewed the patient's lab results. Lab results narrative: COVID Positive. RSV and flu negative. Radiography Chest X-Ray - ED: 1 View, Read by ED Physician, Heart, Lungs, Mediastinum, Bony Structures, No Acute Disease and Chronic Changes Diagnostic Testing: Clinical Impression(s) from Imaging Studies Chest X-Ray 04/19/23 14:55 IMPRESSION: Hiatal hernia. No acute cardiopulmonary process. Electronically Signed: Chey Breen MD at 15:27 EST , Chest x-ray, portable, single view, interpreted by myself showsNo acute abnormality. Normal cardiac silhouette. No infiltrate. No effusions.Radiologist read the film also and agrees. Discharge Plan Triage Chief Complaint: Cough ED Provider: Mars Tierney Dx/Rx/DC Orders Clinical Impression: COVID, Chronic anticoagulation, Viral URI, History of atrial fibrillation Instructions: Human Coronaviruses Prescriptions: No Action potassium chloride 20 mEq tablet extended release 20 meq PO DAILY omeprazole 20 mg capsule,delayed release(DR/EC) 20 mg PO DAILY lisinopril 40 mg tablet 40 mg PO DAILY escitalopram oxalate 10 mg tablet 10 mg PO DAILY ascorbic acid (vitamin C) [Ascorbic Acid with Yelena Hips] 500 mg tablet 500 mg PO BID calcium citrate-vitamin D3 [Calcium Citrate + D] 315 mg-5 mcg (200 unit) tablet 1 tab PO DAILY lorazepam 0.5 mg tablet 0.5 mg PO DAILY PRN (Reason: Anxiety) levothyroxine 75 mcg tablet 75 mcg PO DAILY acetaminophen [Tylenol] 325 mg Tablet 325 mg PO Q6H PRN (Reason: Pain) vitamin B complex Elixir 1 ea PO DAILY amoxicillin-pot clavulanate [amoxicillin-pot clavulanate] 875-125 mg tablet 875 mg PO Q12H Qty: 14 0RF amiodarone 200 mg tablet 200 mg PO DAILY Qty: 90 3RF Eliquis 2.5 mg tablet 2.5 mg PO BID Qty: 180 3RF isosorbide mononitrate 60 mg tablet extended release 24 hr 60 mg PO BID Qty: 180 3RF pravastatin 20 mg tablet 20 mg PO QHS Qty: 90 3RF furosemide 40 mg tablet 40 mg PO DAILY Qty: 90 3RF amlodipine 10 mg tablet 10 mg PO DAILY Qty: 90 3RF Primary Care Provider: Arslan Toscano Referrals: Arslan Toscano DO [Primary Care Provider] - 1 Week if not improving Activity Restrictions/Additional Instructions: You have COVID. Plenty of fluids and rest. Tylenol for any fever. Follow-up with your doctor if not improving or feeling worse or return if you are feeling a lot worse. I suspect in the next 3 to 7 days you can be feeling a lot better. Disposition Disposition: Home, Self Care
--- NOTE | 2023-04-19 14:55 | RAD_ITS ---
INDICATION: cough EXAMINATION/TECHNIQUE: X-RAY - XR Chest 1 View COMPARISON: Prior study dated: March 23, 2023 FINDINGS: LINES/DEVICES: None. LUNGS: No new consolidation, edema or effusion. No pneumothorax. MEDIASTINUM AND CARDIOVASCULAR STRUCTURES: Cardiac silhouette not enlarged. There is a hiatal hernia. BONES AND SOFT TISSUES: Unremarkable. RAD/Chest 1 View (Portable) IMPRESSION: Hiatal hernia. No acute cardiopulmonary process. Electronically Signed: Chey Breen MD at 15:27 EST ,
--- OUTSIDE RECORDS SUMMARY | 2023-04-19 15:00 | XMS RPT_ITS | CCD ---
Author Name Unknown Address [address] [place] [address] [address] [place] [address] Organization [facility] Care Team Providers Care Coverage Specialist Rn Name Role Phone Giovanny Pitt Primary Care Provider Lamar Rivero Primary Care Provider UnavailTEDDY Montenegro [...] Sulfonamides (Antibiotic) Drug Allergy Other: See Comments [facility] Work Phone: Medications Completed/Discontinued Medications Medication Drug [...] DO Facility:A Start: 08-26-2022 End: 08-31-2022 ambulatory LAMAR RIVERO DO Facility:A Start: 05-15-2022 End: 05-15-2022 ambulatory TEDDY HERCULES Facility:[facility] Start: 05-15-2022 End: 05-15-2022 Subsequent hospital visit by physician Xr [facility] Jesus Bhat Work Phone: Radiology Procedures Date Procedure Procedure Detail Performing Clinician Start: 05-15-2022 Radex foot complete minimum 3 views Teddy Hercules Work Phone: Plan of Treatment Date Care Activity Detail Author Start: 11-08-2022 Influenza vaccination Influenza Vaccine (#1) [facility] Start: 03-10-2022 ADVANCE DIRECTIVE DISCUSSION ADVANCE DIRECTIVE DISCUSSION [facility] Start: 03-10-2022 DEPRESSION ASSESSMENT DEPRESSION ASSESSMENT [facility] Start: 11-08-2021 Influenza vaccination INFLUENZA (#1) [facility] Start: 2000 BONE DENSITY BONE DENSITY [facility] Start: 2000 Bone Density Screening Bone Density Screening [facility] Start: 2000 Pneumococcal Vaccine: 65+ (1 - PCV) Pneumococcal Vaccine: 65+ (1 - PCV) [facility] Start: 2000 PNEUMOCOCCAL: 65+ (1 - PCV) PNEUMOCOCCAL: 65+ (1 - PCV) [facility] Start: 1995 RSV Vaccine (1 - 1-dose 60+ series) RSV Vaccine (1 - 1-dose 60+ series) [facility] Start: 1985 SHINGRIX VACCINE (1 of 2) SHINGRIX VACCINE (1 of 2) [facility] Start: 1980 DIABETES SCREEN DIABETES SCREEN [facility] Start: 1980 Diabetes Screening Diabetes Screening [facility] Start: 1954 Urine microalbumin profile [facility] Start: 1935 COVID-19 VACCINE (#1) COVID-19 VACCINE (#1) [facility] End: 06-13-2023 XR FOOT GENERAL 3V AP/LAT/OBL LEFT XR FOOT GENERAL 3V AP/LAT/OBL LEFT Radiology Routine Pain in left foot 1 Occurrences starting 05/14/2022 until 06/13/2023 [facility] Work Phone: Payers Date Payer Category Payer Medicare [id number] 2015 Medicare [id number] 2015 Private Health Insurance HU[employer]NA HU[employer]NA MEDICARE SUPPLEMENT [id number] 2015-Present [phone] [address] [address] [place] [address] Indemnity [id number] 1935 Unknown [id number] 1935 Unknown [id number] Social History Date Type Detail [facility] History of tobacco use Current smoker [facility] Start: 04-01-2007 End: 05-15-2022 Alcohol intake Current drinker of alcohol (finding) [facility] Start: 1935 Sex Assigned At Not on file [facility] Start: 05-15-2022 History of Social function [facility] Start: 05-15-2022 Tobacco use panel [facility] National Score (1-10 0), lower number is lower risk 49 [facility] Clinical Notes 05-14-2022 to 05-15-2022 Lianne Alcantara LPN - 05/15/2022 3:57 PM ESTMattmarco Hercules - 05/15/2022 3:39 PM ESTPeñablas Alcantara LPN - 05/15/2022 3:25 PM ESTPatient InstructionsDaIsha dey, RT(R) - 05/15/2022 3:20 PM EST Note Date & Type Note Facility 05-15-2022 Note HNO ID: [id number] Author: Lianne Alcantara LPN Service: ? Author Type: LICENSED NURSE Type: Progress Notes Filed: 05/15/2022 10:21 PM Note Text: Per Dr. Hercules, Bethany was provided with powerstep original inserts, size 6, and instructed/educated in its application, wear, and care. All questions were answered, and patient was able to demonstrate competence with the necessary skills to utilize the above equipment. Lianne Alcantara LPN [facility] 05-15-2022 Note HNO ID: [id number] Author: Teddy Hercules Service: ? Author Type: [...] Hercules DPM Podiatry [address] [facility] [address] Dept: [phone]- (more content not included)... [facility] 05-15-2022 Note HNO ID: [id number] Author: Lianne Alcantara LPN Service: ? Author [...] Foot - New, Pain Lianne Alcantara LPN [facility] 05-15-2022 Note HNO ID: [id number] Author: Isha Burr RT(R) Service: Nuclear Medicine [...] IV DATA: Not applicable SIGNED BY: RT Bogoie(R) May 15, 2022 3:11 PM [facility] 05-15-2022 History of Presen t [...] prn Teddy Hercules DPM Podiatry [address] [facility] [address] Dept: [phone] Dept AMB ROOMING INTAKE FLOWSHEET DATA Risk Screening Do you have concerns about personal safety or safety in the home?: No Pain Pain Level: 5 Pain Location: Foot-Left Description: Aching, Sore Duration Amount of Time: 5 Duration Units: Months Frequency: Intermittent Intervention/Comfort measure: Reposition, Relaxation, Medication Patient presents with: Left Foot - New, Pain Lianne Alcantara LPN documented in this encounter [facility] 05-15-2022 Instructions Teddy Hercules - 05/15/2022 3:48 PM EST Recommend good supportive shoes such as hoka, new balance or pratt Powerstep Original Full length. Can purchase at [employer] here in [place], [employer] in [place] or [place]. Also can find in [place] in [facility]. Powersteps can also be purchased online, [...] consider steroid injection documented in this encounter [facility] 05-15-2022 History of Presen t illness Narrative [...] 2022 3:11 PM documented in this encounter [facility] 05-14-2022 Note HNO ID: [id number] Author: Micheline Brunson RN Service: ? Author Type: ? 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 of unspecified site [facility] Diagnosis Pain in left foot Pain in limb documented in this encounter [facility] for referral (narrative)* Diagnostic Procedure Only (Routine) - Pending Review Specialty Diagnoses / Procedures Referred By Contac t Referred To Contact XR IMAGING Diagnoses Pain in left foot Procedures XR FOOT GENERAL 3V AP/LAT/OBL LEFT RADEX FOOT COMPLETE MINIMUM 3 VIEWS Teddy Hercules [address] [place] [address] Xr Imaging Referral ID Status Reason Start Date Expiration Date Visits Requested Visits Authorized [id number] Pending Review Auto-Generat ed Referral 05/14/2022 06/13/2023 1 1 [facility] for referral (narrative)* Diagnostic Procedure Only (Routine) - Closed Specialty Diagnoses / Procedures Referred By Contac t Referred To Contact XR IMAGING Diagnoses Pain in left foot Procedures XR FOOT GENERAL 3V AP/LAT/OBL LEFT RADEX FOOT COMPLETE MINIMUM 3 VIEWS Teddy Hercules [address] [place] [address] [place] [address] Referral ID Status Reason Start Date Expiration Date V isits Requested Visits Authorized [id number] Closed Auto-Generate d Referral 05/14/2022 06/13/2023 1 1 [facility] for visit Narrative* Diagnostic Procedure Only (Routine) - Closed Specialty Diagnoses / Procedures Referred By Contac t Referred To Contact XR IMAGING Diagnoses Pain in left foot Procedures XR FOOT GENERAL 3V AP/LAT/OBL LEFT RADEX FOOT COMPLETE MINIMUM 3 VIEWS DaniiTeddy ashby [address] [place] [address] [place] [id number] Referral ID Status Reason Start Date Expiration Date V isits Requested Visits Authorized [id number] Closed Auto-Generate d Referral 05/14/2022 06/13/2023 1 1 [facility] Summary Purpose Family History No Family History [...] or prosecute any alcohol or drug abuse patient.[facility] the event this information is protected by the Federal Confidentiality of Alcohol and Drug Abuse Patient Records regulations: The Federal rules restrict any use of the information to criminally investigate or prosecute any alcohol or drug abuse patient.[facility] the event this information is protected by the Federal Confidentiality of Alcohol and Drug Abuse Patient Records regulations: The Federal rules restrict any use of the information to criminally investigate or prosecute any alcohol or drug abuse patient.[facility] Care Teams (unrecognized sec tion and content) Coverage Specialist Rn Relationship Specialty Start Date End Date Lamar Rivero PCP - General 05/15/22 Coverage Specialist Rn Relationship Specialty Start Date End Date Lamar Rivero PCP - General 05/15/22 Reason for Visit (unrecogniz ed section and content) INFORMATION SOURCE (unrecogn ized section and content) DATE CREATED AUTHOR AUTHOR'S ORGANIZ ATION 03/02/2023 [facility] ([place]) FOR RECORDS PERTAINING TO PATIENTS WHO ARE [...] BE BASED ON THE PRIMARY CLINICAL RECORDS. [facility] [employer] [facility]. provides no warranty or guarantee of the accuracy or completeness of information in this document.
== END 2023-04-19 15:55 | disposition home or self-care (01) ==
PROVIDERS: Emergency Provider Emergency Medicine; PCP Family Medicine; Visit Provider Emergency Medicine
DX: U07.1 COVID-19 (principal); I11.0 Hypertensive heart disease with heart failure; I50.33 Acute on chronic diastolic (congestive) heart failure; I48.0 Paroxysmal atrial fibrillation; J98.8 Other specified respiratory disorders; Z20.828 Contact with and (suspected) exposure to other viral communicable diseases; Z79.01 Long term (current) use of anticoagulants; Z79.899 Other long term (current) drug therapy
CPT/HCPCS: 71045; 87631; 99282

== ENCOUNTER → 2023-08-28 | Outpatient (CLI) | payer MEDICARE, OTHER, SELFPAY ==
[2023-08-28 11:48] LABS: ALB/GLOB Ratio 0.7 RATIO (0.9-2.4); AST(SGOT) 18 U/L (15-37); Alanine Aminotransfer ALT/SGPT 25 U/L (13-56); Albumin, Serum 3.5 g/dL (3.2-5.0); Alkaline Phosphatase 88 U/L (45-117); Anion Gap 10 (5-15); BUN 17 mg/dL (7-18); BUN/Creat Ratio 13.1 RATIO (10-20); Calcium,Total 9.2 mg/dL (8.5-10.1); Chloride 108 mmol/L (98-107); EST Glomerular Filtration Rate 41 mL/min (>60); Est Glom Filt Rate - Afr Amer 50 mL/min (>60); Globulin 4.8 g/dL (2.2-4.2); Glucose 98 mg/dL (74-106); Potassium 3.5 mmol/L (3.5-5.1); Protein, Total 8.3 g/dL (6.4-8.2); Sodium Level 144 mmol/L (136-145)
== END | disposition home or self-care (01) ==
LOC: LAB 10:35
PROVIDERS: PCP Family Medicine; Referring Provider Physician Assistant Medical; Visit Provider Physician Assistant Medical
DX: I48.0 Paroxysmal atrial fibrillation (principal); I10 Essential (primary) hypertension; E78.5 Hyperlipidemia, unspecified; Z79.899 Other long term (current) drug therapy
CPT/HCPCS: 36415; 80053; 84443

== ENCOUNTER → 2023-09-08 | Outpatient (CLI) | payer MEDICARE, OTHER, SELFPAY | END | disposition home or self-care (01) | LOC: PSN 08:39 | PROVIDERS: PCP Family Medicine; Referring Provider Physician Assistant Medical; Visit Provider Physician Assistant Medical | DX: I48.0 Paroxysmal atrial fibrillation (principal); I10 Essential (primary) hypertension; E78.5 Hyperlipidemia, unspecified; Z79.899 Other long term (current) drug therapy | CPT/HCPCS: 94060; 94726; 94729 ==

== ENCOUNTER 2023-11-20 13:24 | Emergency (ER) | payer MEDICARE, OTHER, SELFPAY ==
[2023-11-20 13:25] VITALS: BP 153/72; PULSE 71; RESP 16; TEMP 36.3; O2SAT 97; BMI 27.8
--- NOTE | 2023-11-20 13:45 | EKG12_ITS ---
Test Reason : PALP Blood Pressure : / mmHG Vent. Rate : 062 BPM Atrial Rate : 062 BPM P-R Int : 166 ms QRS Dur : 074 ms QT Int : 442 ms P-R-T Axes : 000 032 044 degrees QTc Int : 448 ms Normal sinus rhythm Normal ECG Confirmed by CHAPIS BOURGEOIS MD ([id number]), editorial director BRYAN COTE ([id number]) on 11/22/2023 8:11:20 AM Referred By: TL Confirmed By:CHAPIS BOURGEOIS MD
[2023-11-20] MEDS: Aspirin 81 MG TAB.CHEW 324 MG PO (13:48)
--- NOTE | 2023-11-20 13:49 | EDS_ITS ---
HPI History of Present Illness Chief Complaint: Palpitations Informant: patient and spouse/S.O. Narrative Narrative: Presents here spouse this morning feeling racing heart and slight chest discomfort lasted briefly. Had multiple episodes since then per spouse. H istory of paroxysmal A-fib on amiodarone and Eliquis. Slight recent cough. No fevers. No current symptoms. They had home machine to evaluate rhythms called Brittany. He printed out the rhythm at 910 this was reviewed appears to be 4-1 atrial flutter heart rate of 58. Patient reports she was stressed and thinking about things last night. Currently asymptomatic. She has no cardiac stents or bypass history. 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 Loss of hearing Wears glasses Thyroid disease Arthritis Bladder disease Hepatitis High cholesterol Dietary restriction History of hiatal hernia Gastric reflux Non-smoker History of pain when walking History of edema History of Holter monitoring History of echocardiogram History of stress test Cardiology follow-up encounter History of CHF (congestive heart failure) History of atrial fibrillation Internal derangement of right knee Hiatal hernia Chronic diastolic (congestive) heart failure Essential (primary) hypertension Paroxysmal atrial fibrillation Obesity Hyperlipidemia GERD (gastroesophageal reflux disease) Anxiety and depression Acute on chronic diastolic (congestive) heart failure Incontinence Diarrhea Home Medications ?Medication ?Instructions ?Recorded ?Last Taken ?Type ascorbic acid (vitamin C) 500 mg 500 mg PO BID 02/02/18 Unknown History tablet (Ascorbic Acid with Yelena Hips) escitalopram oxalate 10 mg tablet 10 mg PO DAILY 02/02/18 Unknown History omeprazole 20 mg capsule,delayed 20 mg PO DAILY 02/02/18 12/26/20 History release potassium chloride 20 mEq 20 meq PO DAILY 02/02/18 Unknown History tablet,extended release apixaban 2.5 mg tablet (Eliquis) 2.5 mg PO BID #180 tabs 06/10/18 12/23/20 Rx levothyroxine 75 mcg tablet 75 mcg PO DAILY 11/29/20 12/26/20 History lorazepam 0.5 mg tablet 0.5 mg PO DAILY PRN Anxiety 11/29/20 Unknown History acetaminophen 325 mg tablet 325 mg PO Q6H PRN Pain 12/19/20 Unknown History (Tylenol) calcium citrate 315 mg-vitamin D3 1 tab PO DAILY 10/15/21 Unknown History 5 mcg (200 unit) tablet (Calcium Citrate + D) vitamin B complex 1 ea PO DAILY 10/15/21 Unknown History furosemide 40 mg tablet 40 mg PO DAILY #90 tabs 11/18/22 Unknown Rx amlodipine 10 mg tablet 10 mg PO DAILY #90 tabs 03/21/23 Unknown Rx lisinopril 40 mg tablet 20 mg PO DAILY 08/28/23 Unknown History amiodarone 200 mg tablet 100 mg (1/2 x 200 mg) PO DAILY #90 09/09/23 Unknown Rx tabs isosorbide mononitrate 60 mg 60 mg PO BID #180 TABLETS 11/04/23 Unknown Rx tablet,extended release 24 hr pravastatin 20 mg tablet 20 mg PO QHS #90 tabs 11/17/23 Unknown Rx Allergy/AdvReac Type Severity Reaction Status Date / Time Sulfa (Sulfonamide Allergy Severe BRAIN Verified 11/20/23 13:25 Antibiotics) SWELLING Family History Mother Myocardial infarction from [place] Diabetes Surgical History S/P arthroscopic partial medial meniscectomy (12/2020) History of cholecystectomy Social History household members: spouse and other details: nephew housing: house Smoking Status: Never smoker alcohol intake: never caffeine: No what type of physical activity do you participate in: none do you feel safe at home: Yes ROS ROS ED Constitutional Constitutional ED: Denies chills, fever(s) or sweats Eyes Eyes: Denies change in vision ENT ENT ED: Denies dysphagia or sore throat Cardiovascular Cardiovascular: Reports chest pain, palpitations and racing heartbeat; Denies leg edema Respiratory/Chest Respiratory/Chest: Reports cough; Denies dyspnea or dyspnea on exertion Gastrointestinal Gastrointestinal: Denies abdominal pain, diarrhea, nausea or vomiting Genitourinary Genitourinary ED: Denies dysuria, hematuria or urinary frequency Musculoskeletal Musculoskeletal: Denies back pain, extremity pain or neck pain Integumentary Denies rash or wounds Neurologic Neurologic: Denies headache(s), paresthesias or weakness EXAM Physical Exam Const Vital Signs: 11/20/23 13:25 11/20/23 14:19 11/20/23 14:19 Temperature 97.3 F L Temperature Source Temporal Pulse Rate 71 Respiratory Rate 16 Respiratory Effort Normal Blood Pressure 153/72 H Blood Pressure Mean 99 Pulse Ox 97 Oxygen Delivery Method Room Air Room Air 11/20/23 14:24 11/20/23 15:00 11/20/23 16:00 Temperature Temperature Source Pulse Rate 55 L 54 L 57 L Respiratory Rate 14 18 18 Respiratory Effort Blood Pressure 131/57 H 133/57 H 139/59 H Blood Pressure Mean 81 82 85 Pulse Ox 97 95 98 Oxygen Delivery Method Room Air Room Air Room Air Positive well nourished and well developed General Appearance ED: well developed and NAD HEENT Reports moist mucous membranes normocephalic and atraumatic Eyes EOMs intact bilaterally and conjunctivae normal General Eye ED: Yes normal appearance of both eyes Neck no lymphadenopathy and supple General: Negative for tenderness Chest Wall Chest: Negative for tenderness Resp normal respiratory effort and normal air movement Effort and Inspection: symmetric chest movement; Negative for respiratory distress Cardio regular rate, regular rhythm and no murmurs Peripheral Pulses: pulses 2+ throughout GI normal to inspection, nondistended, normoactive bowel sounds and non-tender Palpation: Negative for guarding or rebound tenderness present Back/Spine no CVA tenderness and no thoracic nor lumbar tenderness Extremity normal to inspection General Extremety ED: Negative for edema or tenderness General Extremity: Negative for edema Neuro oriented x3 and no sensory deficits noted Sensorium / Orientation: awake and alert Skin no rashes or lesions noted and no wounds MDM MDM MDM Narrative Medical decision making narrative: Interventions / MDM: Differential diagnosis: Paroxysmal atrial fibrillation, palpitations, chest pain Diagnosis considered but do not suspect: ACS however EKG cardiac enzymes negative. Pulmonary embolism however chronic anticoagulation with compliance of medications. My EKG interpretation: Sinus rate of 62, no ST or T wave changes QTc 448. Imaging independently reviewed and interpreted by myself: N/A External documents reviewed: N/A Test considered but not ordered:N/A ED course: Currently asymptomatic EKG sinus rhythm. With her noted rhythm from home with a flutter likely paroxysmal atrial flutter versus fibrillation at home which has resolved. She had transient chest pains. Will check cardiac labs chest x-ray. 1610: Multiple reevaluations remains symptom-free sinus rhythm on the monitor. Initial troponin was negative. Awaiting results of second troponin. If negative plan for discharge with outpatient follow-up. Return precaution discussed. All questions were answered. Re-evaluation: stable Disposition discussed with patient/family/significant other: Patient significant other Case discussed with consulting clinician: N/A This note was generated with [employer] dictation software. It may contain incorrect words, spelling, and punctuation that were not noted in checking the note before signing. Lab Data Labs: Laboratory Results - last 24 hr 11/20/23 13:40 WBC 9.1 RBC 4.41 Hgb 12.6 Hct 39.0 MCV 88.4 MCH 28.6 MCHC 32.3 RDW Std Deviation 47.8 H RDW Coeff of Yeison 14.7 H Plt Count TNP MPV 11.1 Immature Gran % (Auto) 0.300 Neut % (Auto) 63.1 Lymph % (Auto) 27.6 [place] % (Auto) 7.9 Eos % (Auto) 0.4 Baso % (Auto) 0.7 Absolute Neuts (auto) 5.8 Absolute Lymphs (auto) 2.52 Nucleated RBC % 0 Platelet Estimate ADEQUATE Sodium 139 Potassium 3.3 L Chloride 109 H Carbon Dioxide 24.0 Anion Gap 6 BUN 14 Creatinine 1.06 H Estim Creat Clear Calc 29.78 Est GFR (MDRD) Af Amer 63 Est GFR (MDRD) Non-Af 52 L BUN/Creatinine Ratio 13.2 Glucose 94 Calcium 8.9 Troponin I High Sens 12 Radiography Diagnostic Testing: Clinical Impression(s) from Imaging Studies Chest X-Ray 11/20/23 14:12 IMPRESSION: No acute abnormality is seen. Electronically Signed: Omero Pool MD at 14:28 EDT , Discharge Plan Triage Chief Complaint: Palpitations ED Provider: Jareth Purvis Dx/Rx/DC Orders Clinical Impression: Paroxysmal atrial fibrillation, Chest pain, Chronic anticoagulation Instructions: ED Chest Pain, Uncertain Cause Prescriptions: No Action potassium chloride 20 mEq tablet extended release 20 meq PO DAILY omeprazole 20 mg capsule,delayed release(DR/EC) 20 mg PO DAILY escitalopram oxalate 10 mg tablet 10 mg PO DAILY ascorbic acid (vitamin C) [Ascorbic Acid with Yelena Hips] 500 mg tablet 500 mg PO BID calcium citrate-vitamin D3 [Calcium Citrate + D] 315 mg-5 mcg (200 unit) tablet 1 tab PO DAILY lisinopril 40 mg tablet 20 mg PO DAILY lorazepam 0.5 mg tablet 0.5 mg PO DAILY PRN (Reason: Anxiety) levothyroxine 75 mcg tablet 75 mcg PO DAILY acetaminophen [Tylenol] 325 mg Tablet 325 mg PO Q6H PRN (Reason: Pain) vitamin B complex Elixir 1 ea PO DAILY Eliquis 2.5 mg tablet 2.5 mg PO BID Qty: 180 3RF furosemide 40 mg tablet 40 mg PO DAILY Qty: 90 3RF amlodipine 10 mg tablet 10 mg PO DAILY Qty: 90 3RF amiodarone 200 mg tablet 100 mg PO DAILY Qty: 90 3RF isosorbide mononitrate 60 mg tablet extended release 24 hr 60 mg PO BID Qty: 180 3RF pravastatin 20 mg tablet 20 mg PO QHS Qty: 90 3RF Primary Care Provider: Arslan Toscano Referrals: Arslan Toscano DO [Primary Care Provider] - Carol Long PA [Med Staff - Adv Practice Prof] - 1 Week Activity Restrictions/Additional Instructions: You are reviewed likely paroxysmal atrial flutter from home. Normal sinus rhythm here. Your cardiac workup negative. Follow-up with your doctors. If you develop recurrent symptoms as worsening, return to ED for reevaluation. Print Language: Maltese Disposition Disposition: Home, Self Care
[2023-11-20 13:56] LABS: Absolute Lymphocyte Count 2.52 X10^3/uL (0.83-4.51); Absolute Neutrophil Count 5.8 X10^3/uL (2.0-7.7); Basophil# 0.06 X10^3/uL; Basophil% 0.7 % (0-1); Eosinophil# 0.04 X10^3/uL; Eosinophils% 0.4 % (0-5); Hemoglobin 12.6 g/dL (12.0-15.0); Lymphocyte # 2.52 X10^3/ul (0.83-4.51); Lymphocyte % 27.6 % (19-41); Mean Corp Hgb Conc 32.3 g/dL (32-36); Mean Corpuscular Hgb 28.6 pg (27.0-32.0); Mean Corpuscular Volume 88.4 fL (81-99); Mean Platelet Vol. 11.1 fl (6.2-12.0); Monocyte# 0.72 X10^3/uL; Monocyte% 7.9 % (0-10); NRBC Flagged by Analyzer 0 % (0-5); Neutrophil # 5.76 X10^3/uL (2.7-7.7); Neutrophil % 63.1 % (47-70); POSITIVE COUNT YES; RBC Distribution Width CV 14.7 % (11.6-14.6); RBC Distribution Width SD 47.8 fl (35.1-43.9); Red Blood Count 4.41 M/mm3 (4.2-5.4); White Blood Count 9.1 K/mm3 (4.4-11.0)
--- NOTE | 2023-11-20 14:12 | RAD_ITS ---
STUDY: X-RAY CHEST REASON FOR EXAM: Female, 88 years old. Chest pain TECHNIQUE: PA and lateral views of the chest. COMPARISON: Comparison is made with prior study dated April 21, 2023. FINDINGS: EKG electrodes are seen. Hyperinflation. Stable mild linear scarring at the lung bases slightly more prominent on the left side. There is no demonstrated pleural abnormality. Normal size heart. Normal mediastinum and gertrudis. Normal visualized pulmonary arteries. There is atherosclerotic calcification of the aortic arch with tortuosity. Normal visualized thoracic spine. Normal visualized ribs, clavicles, and shoulders. Large hiatal hernia. RAD/Chest PA and Lateral IMPRESSION: No acute abnormality is seen. Electronically Signed: Omero Pool MD at 14:28 EDT ,
[2023-11-20 14:17] LABS: Anion Gap 6 (5-15); BUN 14 mg/dL (7-18); BUN/Creat Ratio 13.2 RATIO (10-20); Calcium,Total 8.9 mg/dL (8.5-10.1); Chloride 109 mmol/L (98-107); Creatinine, Serum 1.06 mg/dL (0.55-1.02); EST Glomerular Filtration Rate 52 mL/min (>60); Est Glom Filt Rate - Afr Amer 63 mL/min (>60); Estimated Creatinine Clearance 29.78 ml/min; Glucose 94 mg/dL (74-106); Potassium 3.3 mmol/L (3.5-5.1); Sodium Level 139 mmol/L (136-145); Troponin-I HS (w/2H Reflex) 12 pg/mL (3.0-54.0)
[2023-11-20 14:24] VITALS: BP 131/57; PULSE 55; RESP 14; O2SAT 97
[2023-11-20 14:24] LABS: Differential Indicated SCAN CRITERIA MET; Platelet Estimate ADEQUATE (ADEQ)
[2023-11-20] MEDS: Potassium Chloride Oral Tablet 20 MEQ 40 MEQ PO (14:51)
[2023-11-20 15:00] VITALS: BP 133/57; PULSE 54; RESP 18; O2SAT 95
[2023-11-20 15:46] LABS: Reflex Troponin-HS? (from REC) Y
[2023-11-20 16:00] VITALS: BP 139/59; PULSE 57; RESP 18; O2SAT 98
[2023-11-20 16:32] LABS: Troponin-I HS 11 pg/mL (3.0-54.0)
[2023-11-20 16:49] VITALS: BP 139/59; PULSE 59; RESP 18; TEMP 36.2; O2SAT 97
== END 2023-11-20 16:50 | disposition home or self-care (01) ==
PROVIDERS: Emergency Provider Emergency Medicine; PCP Family Medicine; Referring Provider Emergency Medicine; Visit Provider Emergency Medicine
DX: I48.0 Paroxysmal atrial fibrillation (principal); I11.0 Hypertensive heart disease with heart failure; I50.32 Chronic diastolic (congestive) heart failure; R07.89 Other chest pain; E78.00 Pure hypercholesterolemia, unspecified; Z79.01 Long term (current) use of anticoagulants; Z79.899 Other long term (current) drug therapy
CPT/HCPCS: 71046; 80048; 84484; 85025; 93005; 99283; A4216

== ENCOUNTER → 2023-12-01 | Outpatient (CLI) | payer MEDICARE, OTHER, SELFPAY ==
[2023-12-01 11:47] LABS: Anion Gap 6 (5-15); BUN 18 mg/dL (7-18); BUN/Creat Ratio 14.5 RATIO (10-20); Calcium,Total 9.3 mg/dL (8.5-10.1); Chloride 109 mmol/L (98-107); Creatinine, Serum 1.24 mg/dL (0.55-1.02); EST Glomerular Filtration Rate 43 mL/min (>60); Est Glom Filt Rate - Afr Amer 52 mL/min (>60); Glucose 99 mg/dL (74-106); Potassium 3.9 mmol/L (3.5-5.1); Sodium Level 142 mmol/L (136-145); T4 Free Direct 2.14 ng/dL (0.76-1.46); Thyroid Stim Hormone (TSH) 0.021 uIU/mL (0.358-3.740)
== END | disposition home or self-care (01) ==
LOC: LAB 10:34
PROVIDERS: PCP Family Medicine; Referring Provider Nurse Practitioner Family; Visit Provider Nurse Practitioner Family
DX: E87.6 Hypokalemia (principal); Z79.899 Other long term (current) drug therapy
CPT/HCPCS: 36415; 80048; 84439; 84443

== ENCOUNTER 2024-04-22 14:51 | Emergency (ER) | payer MEDICARE, OTHER, SELFPAY ==
[2024-04-22 14:52] VITALS: BP 143/70; PULSE 95; RESP 20; TEMP 36.6; O2SAT 97
[2024-04-22 15:08] VITALS: BMI 27.3
--- NOTE | 2024-04-22 15:12 | EKG12_ITS ---
Test Reason : Blood Pressure : */* mmHG Vent. Rate : 69 BPM Atrial Rate : * BPM P-R Int : * ms QRS Dur : 78 ms QT Int : 420 ms P-R-T Axes : * 67 99 degrees QTcB Int : 450 ms Atrial fibrillation Nonspecific ST and T wave abnormality Abnormal ECG Confirmed by MARGARITA RODGERS, TYRONE ([id number]), editor news FINESSE PEREZ ([id number]) on 04/26/2024 8:07:50 AM Referred By: Yevgeniy Burrows Confirmed By: TYRONE AVILA MD
--- NOTE | 2024-04-22 15:26 | EX.ED.DYSGE1 ---
HPI History of Present Illness Chief Complaint: Other, Pain/Inj Informant: patient and spouse/S.O. Narrative Narrative: 89-year-old female presenting to the emergency room out of concerns for atrial fibrillation. Patient states that she woke this morning and felt fine. This afternoon she went to get a bowl of chicken noodle soup when she noticed that she was abruptly having a tremor. She states that the tremor has persisted. Her took her vital signs which told her that she was in atrial fibrillation. She does have a history of paroxysmal A-fib and is maintained on amiodarone apixaban and follows locally with Dr. Soto. She denies any chest pain or shortness of breath. No fever. She denies any pain/discomfort. She states that she has had tremors in the past intermittently but this morning was not experiencing any of them. She does not feel anxious. states what tipped him over and coming up. Today is that he took her vital signs and showed a heart rate around 200. She was having tremor at this time. 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 Loss of hearing Wears glasses Thyroid disease Arthritis Bladder disease Hepatitis High cholesterol Dietary restriction History of hiatal hernia Gastric reflux Non-smoker History of pain when walking History of edema History of Holter monitoring History of echocardiogram History of stress test Cardiology follow-up encounter History of CHF (congestive heart failure) History of atrial fibrillation Internal derangement of right knee Hiatal hernia Chronic diastolic (congestive) heart failure Essential (primary) hypertension Paroxysmal atrial fibrillation Obesity Hyperlipidemia GERD (gastroesophageal reflux disease) Anxiety and depression Acute on chronic diastolic (congestive) heart failure Incontinence Diarrhea Home Medications ?Medication ?Instructions ?Recorded ?Last Taken ?Type escitalopram oxalate 10 mg tablet 10 mg PO DAILY 02/02/18 Unknown History omeprazole 20 mg capsule,delayed 20 mg PO DAILY 02/02/18 12/26/20 History release apixaban 2.5 mg tablet (Eliquis) 2.5 mg PO BID #180 tabs 06/10/18 12/23/20 Rx calcium 315 mg (as 1 tab PO DAILY 10/15/21 Unknown History citrate)-vitamin D3 5 mcg (200 unit) tablet (Calcium Citrate + D) vitamin B complex 1 ea PO DAILY 10/15/21 Unknown History amiodarone 200 mg tablet 100 mg (1/2 x 200 mg) PO DAILY #90 09/09/23 Unknown Rx tabs isosorbide mononitrate 60 mg 60 mg PO BID #180 TABLETS 11/04/23 Unknown Rx tablet,extended release 24 hr acetaminophen 500 mg tablet 500 mg PO Q6H PRN fever or pain 12/01/23 Unknown History ascorbic acid (vitamin C) 500 mg 500 mg PO QDAY 12/01/23 Unknown History tablet furosemide 40 mg tablet 40 mg PO DAILY #90 tabs 12/01/23 Unknown Rx levothyroxine 25 mcg tablet 25 mcg PO QDAY 12/01/23 Unknown History lisinopril 40 mg tablet 40 mg PO DAILY 12/01/23 Unknown History lorazepam 0.5 mg tablet 0.5 mg PO DAILY Anxiety 12/01/23 Unknown History pravastatin 20 mg tablet 20 mg PO QHS #90 tabs 02/25/24 Unknown Rx doxycycline monohydrate 100 mg 100 mg PO BID #20 caps 03/22/24 Unknown Rx capsule amlodipine 10 mg tablet 10 mg PO DAILY #90 TABLETS 04/06/24 Unknown Rx triamcinolone acetonide 0.1 % applic topical 04/22/24 Unknown History topical cream Allergy/AdvReac Type Severity Reaction Status Date / Time Sulfa (Sulfonamide Allergy Severe BRAIN Verified 04/22/24 14:52 Antibiotics) SWELLING Family History Mother Myocardial infarction from [place] Diabetes Surgical History S/P arthroscopic partial medial meniscectomy (12/2020) History of cholecystectomy Social History household members: spouse and other details: nephew housing: house Smoking Status: Never smoker alcohol intake: never caffeine: No what type of physical activity do you participate in: none do you feel safe at home: Yes ROS ROS ED Constitutional Constitutional ED: Denies chills or weight loss Eyes Eyes: Denies change in vision or diplopia ENT ENT ED: Denies ear pain, rhinorrhea or sore throat Cardiovascular Cardiovascular: Reports other Details: afib ; Denies chest pain, orthopnea, palpitations or racing heartbeat Respiratory/Chest Respiratory/Chest: Denies cough, dyspnea or orthopnea Gastrointestinal Gastrointestinal: Denies abdominal pain, diarrhea, nausea or vomiting Genitourinary Genitourinary ED: Denies dysuria, hematuria or urinary frequency Musculoskeletal Musculoskeletal: Denies arthralgias or myalgias Integumentary Denies abscess or rash Neurologic Neurologic: Reports other Details: tremors ; Denies headache(s), paresthesias or weakness Psychiatric Psychiatric: Denies anxiety, depression, suicidal ideation or suicidal thoughts Endocrine Endocrinology: Denies polydipsia, polyphagia or polyuria Allergic/Immunologic Allergic/Immunologic ED: Denies mouth swelling, tongue swelling or urticaria EXAM Physical Exam Const Vital Signs: 04/22/24 14:52 04/22/24 15:04 04/22/24 16:52 Temperature 97.8 F Temperature Source Temporal Pulse Rate 95 69 Respiratory Rate 20 H 28 H Respiratory Effort Normal Respiratory Pattern Normal Blood Pressure 143/70 H 131/73 H Blood Pressure Mean 94 92 Pulse Ox 97 91 Oxygen Delivery Method Room Air Room Air Positive well nourished and well developed General Appearance ED: well developed HEENT Reports normocephalic, head/scalp atraumatic and moist mucous membranes Eyes PERRL and EOMs intact bilaterally Neck no lymphadenopathy, supple and no JVD Resp normal respiratory effort and clear to auscultation bilaterally Cardio regular rate, regular rhythm and no murmurs GI normal to inspection, nondistended, normoactive bowel sounds and non-tender Palpation: soft Back/Spine no CVA tenderness and normal ROM Extremity normal to inspection General Extremety ED: Negative for edema General Extremity: Negative for edema Neuro oriented x3 and CN's II-XII intact bilaterally Neuro Narrative: Patient appears to have a variable/tremor of her face as well as extremities. At times when her hand is resting in the bed I do not appreciate the tremor but then it comes back. Sometimes she has a tremor while using her hands and sometimes she does not. Sensorium / Orientation: alert Motor Exam: strength 5/5 throughout Psych mental status grossly normal Mood & Affect: Negative for depressed or tearful Skin no rashes or lesions noted and no wounds MDM MDM MDM Narrative Medical decision making narrative: Differential diagnosis includes cardiac dysrhythmia electrolyte abnormalities dehydration anemia UTI febrile illness undiagnosed neurologic condition anxiety Basic blood work shows a potassium of 3.3. Magnesium is normal sodium 140. She is chronically around this level and takes supplemental potassium. Urinalysis is negative. EKG shows atrial flutter with controlled ventricular response. She ambulates without tachycardia or hypoxia. Patient's tremor has resolved. Clinically I think the patient can be discharged home. I think that the elevated heart rate that she was experiencing at home was probably due to her tremor. We talked about return instructions. Recommendation from cardiology is to follow-up in the office. History & Record Review Discussion w/independent historian: Patient and Significant other Lab Data Attestation: I reviewed the patient's lab results. Labs: Laboratory Results - last 24 hr 04/22/24 04/22/24 15:20 16:41 WBC 7.2 RBC 4.48 Hgb 13.0 Hct 39.5 MCV 88.2 MCH 29.0 MCHC 32.9 RDW Std Deviation 48.5 H RDW Coeff of Yeison 15.1 H Plt Count 272 MPV 10.0 Immature Gran % (Auto) 0.400 Neut % (Auto) 67.2 Lymph % (Auto) 22.4 [place] % (Auto) 8.6 Eos % (Auto) 0.7 Baso % (Auto) 0.7 Absolute Neuts (auto) 4.9 Absolute Lymphs (auto) 1.62 Nucleated RBC % 0 Sodium 140 Potassium 3.3 L Chloride 107 Carbon Dioxide 27.0 Anion Gap 6 BUN 17 Creatinine 1.30 H Estim Creat Clear Calc 24.04 Est GFR (MDRD) Af Amer 50 L Est GFR (MDRD) Non-Af 41 L BUN/Creatinine Ratio 13.1 Glucose 109 H Calcium 8.9 Magnesium 2.0 Urine Color Yellow Urine Clarity Clear Urine pH 6.5 Ur Specific [place] 1.010 Urine Protein 15 H Urine Glucose (UA) Normal Urine Ketones Negative Urine Occult Blood Negative Urine Nitrite Negative Urine Bilirubin Negative Urine Urobilinogen Normal Ur Leukocyte Esterase Negative Urine RBC 0 SEEN Urine WBC 0 SEEN Ur Squamous Epith Cells 0 SEEN Urine Bacteria 0 SEEN Urine Mucus 0 SEEN EKG Initial EKG: Attestation: I personally reviewed and interpreted this EKG as follows: Comments: Atrial flutter ventricular rate of 69 bpm Management Discussion w/another healthcare provider: [employer] Receiver (Dr Patrick) Discharge Plan Triage Chief Complaint: Other, Pain/Inj ED Provider: Yevgeniy Burrows Dx/Rx/DC Orders Clinical Impression: Atrial flutter, Anticoagulated, Hypokalemia, Tremor Instructions: ED Atrial Flutter Prescriptions: No Action omeprazole 20 mg capsule,delayed release(DR/EC) 20 mg PO DAILY escitalopram oxalate 10 mg tablet 10 mg PO DAILY calcium citrate-vitamin D3 [Calcium Citrate + D] 315 mg-5 mcg (200 unit) tablet 1 tab PO DAILY lisinopril 40 mg tablet 40 mg PO DAILY lorazepam 0.5 mg tablet 0.5 mg PO DAILY levothyroxine 25 mcg tablet 25 mcg PO QDAY ascorbic acid (vitamin C) 500 mg tablet 500 mg PO QDAY acetaminophen 500 mg tablet 500 mg PO Q6H PRN (Reason: fever or pain) furosemide 40 mg tablet 40 mg PO DAILY Qty: 90 3RF doxycycline monohydrate 100 mg capsule 100 mg PO BID Qty: 20 0RF vitamin B complex Elixir 1 ea PO DAILY triamcinolone acetonide 0.1 % cream topical Eliquis 2.5 mg tablet 2.5 mg PO BID Qty: 180 3RF amiodarone 200 mg tablet 100 mg PO DAILY Qty: 90 3RF isosorbide mononitrate 60 mg tablet extended release 24 hr 60 mg PO BID Qty: 180 3RF pravastatin 20 mg tablet 20 mg PO QHS Qty: 90 3RF amlodipine 10 mg tablet 10 mg PO DAILY Qty: 90 3RF Primary Care Provider: Arslan Toscano Referrals: Valdez Soto MD [Med Staff - Active Staff] - As soon as possible Arslan Toscano DO [Primary Care Provider] - Print Language: Romanian Disposition Disposition: Home, Self Care
[2024-04-22 15:29] LABS: Absolute Lymphocyte Count 1.62 X10^3/uL (0.83-4.51); Absolute Neutrophil Count 4.9 X10^3/uL (2.0-7.7); Basophil# 0.05 X10^3/uL; Basophil% 0.7 % (0-1); Eosinophil# 0.05 X10^3/uL; Eosinophils% 0.7 % (0-5); Hematocrit 39.5 % (37-47); Lymphocyte # 1.62 X10^3/ul (0.83-4.51); Lymphocyte % 22.4 % (19-41); Mean Corp Hgb Conc 32.9 g/dL (32-36); Mean Corpuscular Volume 88.2 fL (81-99); Monocyte# 0.62 X10^3/uL; Monocyte% 8.6 % (0-10); NRBC Flagged by Analyzer 0 % (0-5); Neutrophil # 4.87 X10^3/uL (2.7-7.7); Neutrophil % 67.2 % (47-70); Platelet Count 272 K/mm3 (150-450); RBC Distribution Width CV 15.1 % (11.6-14.6); RBC Distribution Width SD 48.5 fl (35.1-43.9); Red Blood Count 4.48 M/mm3 (4.2-5.4); White Blood Count 7.2 K/mm3 (4.4-11.0)
[2024-04-22 15:49] LABS: Anion Gap 6 (5-15); BUN 17 mg/dL (7-18); BUN/Creat Ratio 13.1 RATIO (10-20); Calcium,Total 8.9 mg/dL (8.5-10.1); Chloride 107 mmol/L (98-107); EST Glomerular Filtration Rate 41 mL/min (>60); Est Glom Filt Rate - Afr Amer 50 mL/min (>60); Estimated Creatinine Clearance 24.04 ml/min; Glucose 109 mg/dL (74-106); Potassium 3.3 mmol/L (3.5-5.1); Sodium Level 140 mmol/L (136-145)
[2024-04-22 16:44] LABS: Bacteria 0 SEEN /hpf (None Seen); Mucous, Urine 0 SEEN /hpf (<or=2+); Squamous Epithelial Cells - UA 0 SEEN /hpf (5-10); White Blood Cells 0 SEEN /hpf (0-5)
[2024-04-22 16:50] VITALS: O2SAT 92
[2024-04-22 16:52] VITALS: BP 131/73; PULSE 69; RESP 28; O2SAT 91
[2024-04-22 16:55] LABS: Color, Urine Yellow (Yellow); Glucose, Dipstick Normal (Normal); Ketone-Dipstick Negative (Negative); Leukocyte Esterase-Dipstick Negative /ul (Negative); Nitrite-Dipstick Negative (Negative); Occult Blood-Urine Negative /ul (Negative); Protein-Dipstick 15 mg/dl (Negative); Urine Bilirubin Dipstick Negative (Negative); Urine Clarity Clear (Clear); Urine Urobilinogen Normal (Normal); Urine pH 6.5 (5.0 - 8.0)
[2024-04-22 17:14] LABS: Red Blood Cells-Urine 0 SEEN /hpf (0-5)
[2024-04-22 17:41] VITALS: BP 138/69
== END 2024-04-22 17:45 | disposition home or self-care (01) ==
PROVIDERS: Emergency Provider Emergency Medicine; PCP Family Medicine; Referring Provider Emergency Medicine; Visit Provider Emergency Medicine
DX: I48.92 Unspecified atrial flutter (principal); I11.0 Hypertensive heart disease with heart failure; I50.32 Chronic diastolic (congestive) heart failure; E87.6 Hypokalemia; R25.1 Tremor, unspecified; Z79.01 Long term (current) use of anticoagulants; Z79.899 Other long term (current) drug therapy; Z86.16 Personal history of COVID-19
CPT/HCPCS: 80048; 81001; 83735; 85025; 93005; 99284; A4216

== ENCOUNTER 2024-04-30 19:52 | Emergency (ER) | payer MEDICARE, OTHER, SELFPAY ==
[2024-04-30 19:53] VITALS: BP 133/95; PULSE 82; RESP 16; TEMP 35.7; O2SAT 97; BMI 29.5
[2024-04-30 23:53] VITALS: PULSE 80; RESP 19; O2SAT 97
[2024-05-01] MEDS: Amox/Clavulanate 875 MG Tablet PO (02:22)
--- NOTE | 2024-05-01 02:22 | EDS_ITS ---
HPI History of Present Illness Chief Complaint: Laceration Informant: patient and spouse/S.O. Narrative Narrative: Patient is an 89-year-old female with past medical history of hypertension hyperlipidemia paroxysmal atrial fibrillation on Eliquis. Patient states that around 5 PM today she was trying to get her cat into a crate because he has been sick. She states while doing this she was scratched in the dorsal aspect of her right hand and this caused a laceration. 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 Loss of hearing Wears glasses Thyroid disease Arthritis Bladder disease Hepatitis High cholesterol Dietary restriction History of hiatal hernia Gastric reflux Non-smoker History of pain when walking History of edema History of Holter monitoring History of echocardiogram History of stress test Cardiology follow-up encounter History of CHF (congestive heart failure) History of atrial fibrillation Internal derangement of right knee Hiatal hernia Chronic diastolic (congestive) heart failure Essential (primary) hypertension Paroxysmal atrial fibrillation Obesity Hyperlipidemia GERD (gastroesophageal reflux disease) Anxiety and depression Acute on chronic diastolic (congestive) heart failure Incontinence Diarrhea Home Medications ?Medication ?Instructions ?Recorded ?Last Taken ?Type escitalopram oxalate 10 mg tablet 10 mg PO DAILY 02/02 Unknown History omeprazole 20 mg capsule,delayed 20 mg PO DAILY 12/26/20 History release apixaban 2.5 mg tablet (Eliquis) 2.5 mg PO BID #180 ta bs 06/10/18 12/23/20 Rx calcium 315 mg (as 1 tab PO DAILY 10/15/21 Unkn own History citrate)-vitamin D3 5 mcg (200 unit) tablet (Calcium Citrate + D) vitamin B complex 1 ea PO DAILY 10/15/21 Unkno wn History amiodarone 200 mg tablet 100 mg (1/2 x 200 mg) PO MAYRA LY #90 09/09/23 Unknown Rx tabs isosorbide mononitrate 60 mg 60 mg PO BID #180 TABLETS 11/04/23 Unknown Rx tablet,extended release 24 hr acetaminophen 500 mg tablet 500 mg PO Q6H PRN fever or pain 12/01/23 Unknown History ascorbic acid (vitamin C) 500 mg 500 mg PO QDAY Unknown History tablet furosemide 40 mg tablet 40 mg PO DAILY #90 tabs 11/09 05/31 Unknown Rx levothyroxine 25 mcg tablet 25 mcg PO QDAY 12/01/23 Un known History lisinopril 40 mg tablet 40 mg PO DAILY 12/01/23 Unkn own History lorazepam 0.5 mg tablet 0.5 mg PO DAILY Anxiety 11/09 05/31 Unknown History pravastatin 20 mg tablet 20 mg PO QHS #90 tabs Unknown Rx doxycycline monohydrate 100 mg 100 mg PO BID #20 caps 03/22/24 Unknown Rx capsule amlodipine 10 mg tablet 10 mg PO DAILY #90 TABLETS 0 04/06/24 Unknown Rx triamcinolone acetonide 0.1 % applic topical 04/22/24 Unknown History topical cream amoxicillin 875 mg-potassium 1 tab PO BID 10 days #20 tabs 05/01/24 Unknown Rx clavulanate 125 mg tablet Allergy/AdvReac Type Severity Reaction Status Date / Time Sulfa (Sulfonamide Allergy Severe BRAIN Verified 04/30/24 19:57 Antibiotics) SWELLING Family History Mother Myocardial infarction from [place] Diabetes Surgical History S/P arthroscopic partial medial meniscectomy (12/2020) History of cholecystectomy Social History household members: spouse and other details: nephew housing: house Smoking Status: Never smoker alcohol intake: never caffeine: No what type of physical activity do you participate in: none do you feel safe at home: Yes ROS ROS ED Constitutional Constitutional ED: Denies chills or fever(s) ENT ENT ED: Denies sore throat Cardiovascular Cardiovascular: Reports palpitations; Denies chest pain Respiratory/Chest Respiratory/Chest: Denies cough or dyspnea Gastrointestinal Gastrointestinal: Denies abdominal pain, diarrhea, nausea or vomiting Genitourinary Genitourinary ED: Denies dysuria Musculoskeletal Musculoskeletal: Reports other Details: Positive right hand pain Integumentary Reports other Details: Positive cat scratch/laceration right hand ; Denies rash Neurologic Neurologic: Denies headache(s), paresthesias or weakness Hematologic/Lymphatic Hematologic/Lymphatic: Reports easy bleeding and easy bruising EXAM Physical Exam Const Vital Signs: 04/30/24 19:53 04/30/24 23:53 Temperature 96.3 F L Temperature Source Temporal Pulse Rate 82 80 Respiratory Rate 16 19 H Blood Pressure 133/95 H Blood Pressure Mean 107 Pulse Ox 97 97 Oxygen Delivery Method Room Air Room Air Positive well nourished and well developed General Appearance ED: well developed HEENT HEENT Narrative: Normocephalic atraumatic Eyes PERRL and EOMs intact bilaterally General Eye ED: Negative for scleral icterus Neck supple Resp normal respiratory effort and clear to auscultation bilaterally Cardio regular rate Rate: other Other Details: Irregularly irregular rhythm with regular rate consistent with atrial fibrillation Extremity Extremity Narrative: Right upper extremity is neurovascularly intact; AIN/PIN are intact and normal. Patient has full active range of motion. There is a jagged irregular 1.5 cm dermal layer deep laceration to the dorsal aspect of the right hand over top the distal portion of the third and fourth metacarpal with minimal ooze of blood and no foreign body. There is a small punctate laceration that is half centimeter in size also dermal layer deep with minimal ooze of blood and no foreign body over top the distal aspect of the fifth metacarpal There is no surrounding erythema or warmth or discharge no lymphangitic streaking or crepitance noted No ligamentous or tendon injury noted Remainder of the exam is normal Neuro oriented x3, CN's II-XII intact bilaterally and no sensory deficits noted Sensorium / Orientation: alert Psych mental status grossly normal Skin Skin Narrative: Cat scratch/laceration to the right hand as documented above MDM MDM MDM Narrative Medical decision making narrative: Patient arrived to the ER with stable vitals and in no acute distress. The cat which scratched the patient is known and can be watched and therefore does not require rabies immunoglobulin or vaccination. There is no obvious signs of infection at this time but the patient presents shortly after the injury in order to prevent a secondary infection she will be placed on Augmentin. As she is unsure of her tetanus status this was updated too. At this time the patient does not have findings of ligamentous or tendon injury there is no obvious bony deformity or joint effusion going against a potential fracture and she does not have any signs of retained foreign body. As there is gaping of the larger irregular laceration I did feel that it would require closure and therefore a was performed with Steri-Strips as documented below. However at this time as the patient does not have physical exam findings for cellulitis abscess ligamentous or tendon injury or retained foreign body or bony injury I do not feel the need for further workup and she is otherwise safe for discharge The patient is in atrial fibrillation at this time but she is rate controlled and on anticoagulation and has a past medical history of this and therefore as this is not A-fib with RVR and she is already on proper medication I do not feel the need for testing or further intervention Patient had the lacerations cleaned with chlorhexidine. The larger laceration then had a total of 8 Steri-Strips placed across the wound edges to bring the edges together well with good approximation. Patient tolerated procedure well without complication History & Record Review Discussion w/independent historian: Patient and Significant other Discharge Plan Triage Chief Complaint: Laceration ED Provider: Refugio Iyer Dx/Rx/DC Orders Clinical Impression: Cat scratch of right hand, Paroxysmal atrial fibrillation, Essential (primary) hypertension, Current use of shelter anticoagulation Instructions: Animal Bites and Scratches, ED Laceration, Hand: All Closures Prescriptions: New amoxicillin-pot clavulanate 875-125 mg tablet 1 tab PO BID 10 Days Qty: 20 0RF No Action omeprazole 20 mg capsule,delayed release(DR/EC) 20 mg PO DAILY escitalopram oxalate 10 mg tablet 10 mg PO DAILY calcium citrate-vitamin D3 [Calcium Citrate + D] 315 mg-5 mcg (200 unit) tablet 1 tab PO DAILY lisinopril 40 mg tablet 40 mg PO DAILY lorazepam 0.5 mg tablet 0.5 mg PO DAILY levothyroxine 25 mcg tablet 25 mcg PO QDAY ascorbic acid (vitamin C) 500 mg tablet 500 mg PO QDAY acetaminophen 500 mg tablet 500 mg PO Q6H PRN (Reason: fever or pain) furosemide 40 mg tablet 40 mg PO DAILY Qty: 90 3RF doxycycline monohydrate 100 mg capsule 100 mg PO BID Qty: 20 0RF vitamin B complex Elixir 1 ea PO DAILY triamcinolone acetonide 0.1 % cream topical Eliquis 2.5 mg tablet 2.5 mg PO BID Qty: 180 3RF amiodarone 200 mg tablet 100 mg PO DAILY Qty: 90 3RF isosorbide mononitrate 60 mg tablet extended release 24 hr 60 mg PO BID Qty: 180 3RF pravastatin 20 mg tablet 20 mg PO QHS Qty: 90 3RF amlodipine 10 mg tablet 10 mg PO DAILY Qty: 90 3RF Primary Care Provider: Arslan Toscano Referrals: Arslan Toscano DO [Primary Care Provider] - Activity Restrictions/Additional Instructions: Please take the antibiotic as directed to prevent a secondary infection from your cat scratch. If you notice increasing redness swelling pain or fever or have any further concerns please return to the ER for repeat evaluation. Otherwise your wound should heal in the next 1 to 2 weeks and the Steri-Strips should fall off spontaneously around day 10-14. Print Language: Macedonian Disposition Disposition: Home, Self Care Discharge Date/Time: 05/01/24 02:48
[2024-05-01] MEDS: Diphth,Pertuss(Acell),Tet Vac 0.5 ML Vial IM (02:23)
== END 2024-05-01 02:48 | disposition home or self-care (01) ==
PROVIDERS: Emergency Provider Emergency Medicine; PCP Family Medicine; Visit Provider Emergency Medicine
DX: S61.411A Laceration without foreign body of right hand, initial encounter (principal); I11.0 Hypertensive heart disease with heart failure; I50.32 Chronic diastolic (congestive) heart failure; I48.0 Paroxysmal atrial fibrillation; W55.03XA Scratched by cat, initial encounter; E78.00 Pure hypercholesterolemia, unspecified; Z79.01 Long term (current) use of anticoagulants; Z79.899 Other long term (current) drug therapy; Z86.16 Personal history of COVID-19; Z23 Encounter for immunization
CPT/HCPCS: 12001; 90471; 90715; 99282

== ENCOUNTER → 2024-08-24 | Outpatient (CLI) | payer MEDICARE, OTHER, SELFPAY ==
[2024-08-24 14:53] LABS: Cholesterol 161 mg/dL (<=200); High Density Lipoprotein 61 mg/dL; Low Density Lipoprotein Calc. 73 mg/dL; Triglycerides 138 mg/dL; Very Low Density Lipoprotein 28 mg/dL (5-40); cholesterol:hdl ratio screen 2.65
[2024-08-24 14:55] LABS: AST(SGOT) 20 U/L (<=31); Alanine Aminotransfer ALT/SGPT 14 U/L (<=34); Albumin, Serum 4.1 g/dL (3.4-4.8); Alkaline Phosphatase 85 U/L (35-104); Bilirubin, Direct 0.16 mg/dL (0.00-0.30); Globulin 4.1 g/dL (2.2-4.2); Protein, Total 8.3 g/dL (5.9-8.4); Total Bilirubin 0.46 mg/dL (0.00-1.30)
== END | disposition home or self-care (01) ==
LOC: LAB 09:00
PROVIDERS: PCP Family Medicine; Referring Provider Student in an Organized Health Care Education/Training Program; Visit Provider Student in an Organized Health Care Education/Training Program
DX: E78.5 Hyperlipidemia, unspecified (principal); Z79.899 Other long term (current) drug therapy
CPT/HCPCS: 36415; 80061; 80076; 84443

== ENCOUNTER → 2024-08-30 | Outpatient (CLI) | payer MEDICARE, OTHER, SELFPAY | END | disposition home or self-care (01) | LOC: LABSPEC 07:43 | PROVIDERS: PCP Family Medicine; Visit Provider Physician Assistant | DX: J02.9 Acute pharyngitis, unspecified (principal) | CPT/HCPCS: 87070 ==

== ENCOUNTER 2024-09-12 10:22 | Emergency (ER) | payer MEDICARE, OTHER, SELFPAY ==
[2024-09-12 10:22] VITALS: BP 89/57; PULSE 88; RESP 16; TEMP 36.7; O2SAT 96; BMI 27.6
[2024-09-12] MEDS: 0.9% Normal Saline (1000mL) 1,000 ML 1000 ML IV (11:10)
[2024-09-12 11:16] LABS: Hematocrit 37.8 % (37-47); Hemoglobin 12.5 g/dL (12.0-15.0); Immature Granulocytes Count 0.050 X10^3/uL (0.0-0.0); Mean Corp Hgb Conc 33.1 g/dL (32-36); Mean Corpuscular Volume 84.0 fL (81-99); Mean Platelet Vol. 9.6 fl (6.2-12.0); NRBC Flagged by Analyzer 0 % (0-5); Platelet Count 344 K/mm3 (150-450); RBC Distribution Width CV 15.3 % (11.6-14.6); RBC Distribution Width SD 47.0 fl (35.1-43.9); Red Blood Count 4.50 M/mm3 (4.2-5.4); White Blood Count 13.2 K/mm3 (4.4-11.0)
[2024-09-12 11:26] VITALS: BP 116/71; PULSE 84; RESP 26; O2SAT 95
[2024-09-12 11:41] LABS: Anion Gap 13 (5-15); BUN 25 mg/dL (4-19); BUN/Creat Ratio 18.7 RATIO (10-20); Calcium,Total 8.8 mg/dL (7.6-11.0); Carbon Dioxide 22.5 mmol/L (21.0-32.0); Chloride 102 mmol/L (98-108); Estimated Creatinine Clearance 23.61 ml/min (50-250); Glucose 111 mg/dL (70-99); Potassium 3.2 mmol/L (3.3-5.1)
[2024-09-12 11:47] VITALS: BP 117/65; BP 117/68; BP 121/54; PULSE 73; PULSE 80; PULSE 88
[2024-09-12 12:00] VITALS: BP 124/64; PULSE 81; RESP 20; O2SAT 93
[2024-09-12 12:53] VITALS: BP 124/64; PULSE 81; RESP 20; TEMP 36.8; O2SAT 93
== END 2024-09-12 12:58 | disposition home or self-care (01) ==
PROVIDERS: Emergency Provider Emergency Medicine; PCP Family Medicine; Visit Provider Emergency Medicine
DX: R19.7 Diarrhea, unspecified (principal); I13.0 Hypertensive heart and chronic kidney disease with heart failure and stage 1 through stage 4 chronic kidney disease, or unspecified chronic kidney disease; I50.32 Chronic diastolic (congestive) heart failure; N18.9 Chronic kidney disease, unspecified; E86.0 Dehydration; D72.829 Elevated white blood cell count, unspecified; I95.9 Hypotension, unspecified; E78.5 Hyperlipidemia, unspecified; Z86.16 Personal history of COVID-19
CPT/HCPCS: 96360; 99285; 80048; 85025; A4216

== ENCOUNTER 2024-09-13 16:14 | Emergency (ER) | payer MEDICARE, OTHER, SELFPAY ==
[2024-09-13 16:40] VITALS: BP 113/63; PULSE 93; RESP 18; TEMP 36.6; O2SAT 95
[2024-09-13 17:41] LABS: Hematocrit 38.9 % (37-47); Hemoglobin 12.7 g/dL (12.0-15.0); Immature Granulocytes Count 0.040 X10^3/uL (0.0-0.0); Mean Corp Hgb Conc 32.6 g/dL (32-36); Mean Corpuscular Volume 84.4 fL (81-99); Mean Platelet Vol. 9.9 fl (6.2-12.0); NRBC Flagged by Analyzer 0 % (0-5); Platelet Count 319 K/mm3 (150-450); RBC Distribution Width CV 15.2 % (11.6-14.6); RBC Distribution Width SD 46.2 fl (35.1-43.9); Red Blood Count 4.61 M/mm3 (4.2-5.4); White Blood Count 12.7 K/mm3 (4.4-11.0)
[2024-09-13 18:38] LABS: AST(SGOT) 23 U/L (<=31); Alanine Aminotransfer ALT/SGPT 15 U/L (<=34); Albumin, Serum 4.2 g/dL (3.4-4.8); Alkaline Phosphatase 91 U/L (35-104); Anion Gap 14 (5-15); BUN 14 mg/dL (4-19); BUN/Creat Ratio 11.0 RATIO (10-20); Calcium,Total 8.8 mg/dL (7.6-11.0); Carbon Dioxide 22.8 mmol/L (21.0-32.0); Chloride 98 mmol/L (98-108); Globulin 4.4 g/dL (2.2-4.2); Glucose 117 mg/dL (70-99); Lipase 13 U/L (13-75); Potassium 2.9 mmol/L (3.3-5.1)
[2024-09-13 21:06] VITALS: BP 115/64; PULSE 100; RESP 18; O2SAT 96
[2024-09-13] MEDS: Potassium Chloride 10mEq/100mL 10 MEQ/100 ML IV.SOLN. 100 MEQ IV BOLUS ×2 (21:07→22:04)
[2024-09-13] MEDS: Potassium Chloride Oral Tablet 20 MEQ 60 MEQ PO (21:07)
[2024-09-13 22:21] LABS: Mucous, Urine 0 SEEN /hpf (<or=2+)
[2024-09-13 22:24] LABS: Color, Urine Yellow (Yellow); Glucose, Dipstick Normal (Normal); Ketone-Dipstick Negative (Negative); Leukocyte Esterase-Dipstick Negative /ul (Negative); Nitrite-Dipstick Negative (Negative); Occult Blood-Urine 25 /ul (Negative); Protein-Dipstick 100 mg/dl (Negative); Specific Gravity, Urine 1.020 (1.002-1.030); Urine Bilirubin Dipstick Negative (Negative)
[2024-09-13 22:39] LABS: Red Blood Cells-Urine 0-5 SEEN /hpf (0-5); Squamous Epithelial Cells - UA 0-5 SEEN /hpf (5-10)
[2024-09-13 22:40] LABS: Transitional Epithelial - Ur 0-5 SEEN /hpf (0-5)
[2024-09-13 22:44] VITALS: BP 114/65; PULSE 99; RESP 35; O2SAT 94
[2024-09-13 23:40] VITALS: BP 117/66; PULSE 102; RESP 29; TEMP 36.1; O2SAT 96
== END 2024-09-13 23:55 | disposition home or self-care (01) ==
PROVIDERS: Emergency Provider Emergency Medicine; PCP Family Medicine; Visit Provider Emergency Medicine
DX: R19.7 Diarrhea, unspecified (principal); I11.0 Hypertensive heart disease with heart failure; I50.33 Acute on chronic diastolic (congestive) heart failure; I48.92 Unspecified atrial flutter; I48.0 Paroxysmal atrial fibrillation; E87.6 Hypokalemia; E78.00 Pure hypercholesterolemia, unspecified; Z79.01 Long term (current) use of anticoagulants; Z79.899 Other long term (current) drug therapy; Z86.16 Personal history of COVID-19
CPT/HCPCS: 96365; 96366; 99285; 80053; 81001; 83690; 85025; 93005

== ENCOUNTER 2024-09-15 17:34 | Inpatient (IN) | payer MEDICARE, OTHER, SELFPAY ==
[2024-09-15] VITALS (29 sets, daily range): BP systolic 101–124; BP diastolic 60–91; PULSE 92–127; RESP 17–41; TEMP 37.3–37.7; O2SAT 87–97; BMI 28.0
--- NOTE | 2024-09-15 17:52 | ED.RN ---
patient states that patient was experiencing chest fullness or pressure at 0800 and it went away momentarily. Chest pressure started again at 1200 and didn't stop until 1600. also states patient's heart rate has not been under 100 since Friday.
[2024-09-15 18:15] LABS: Hematocrit 36.0 % (37-47); Hemoglobin 11.8 g/dL (12.0-15.0); Immature Granulocytes Count 0.070 X10^3/uL (0.0-0.0); Mean Corp Hgb Conc 32.8 g/dL (32-36); Mean Corpuscular Volume 83.7 fL (81-99); Mean Platelet Vol. 10.7 fl (6.2-12.0); NRBC Flagged by Analyzer 0 % (0-5); POSITIVE DIFFERENTIAL YES; Platelet Count 323 K/mm3 (150-450); RBC Distribution Width CV 15.5 % (11.6-14.6); RBC Distribution Width SD 46.8 fl (35.1-43.9); Red Blood Count 4.30 M/mm3 (4.2-5.4); White Blood Count 15.9 K/mm3 (4.4-11.0)
[2024-09-15 18:22] LABS: Differential Indicated SCAN CRITERIA MET
[2024-09-15 19:19] LABS: Anion Gap 13 (5-15); BUN 17 mg/dL (4-19); BUN/Creat Ratio 13.7 RATIO (10-20); Calcium,Total 9.0 mg/dL (7.6-11.0); Carbon Dioxide 19.9 mmol/L (21.0-32.0); Chloride 98 mmol/L (98-108); Estimated Creatinine Clearance 25.73 ml/min (50-250); Glucose 154 mg/dL (70-99); Potassium 3.8 mmol/L (3.3-5.1)
[2024-09-15 19:28] LABS: Differential Comment SCANNED
--- NOTE | 2024-09-15 21:01 | RAD_ITS ---
PROCEDURE: CHEST 1 VIEW (PORTABLE) 09/15/2024 REASON FOR EXAM: DYSPNEA TECHNIQUE: Frontal view of the chest. COMPARISON: 11/20/2023. FINDINGS: The heart is enlarged. The lungs are clear. Probable hiatal hernia. The lungs are clear. RAD/Chest 1 View (Portable) IMPRESSION: As above. Reading Location: [place] [id number]
[2024-09-15 21:32] LABS: Allen Test Positive; Base Excess 2 mmol/L (-2 to +2); FI02 1.0; PO2 68 mmHG (75-100); SITE R Radial; SO2 95 % (95-99)
--- NOTE | 2024-09-15 22:13 | CT_ITS ---
PROCEDURE: CTA CHEST W/WO CONTRAST 09/15/2024 REASON FOR EXAM: HYPOXIA, TACHYPNEA AND TACHYCARDIA TECHNIQUE: CTA CHEST W/WO CONTRAST Multiplanar Sagittal and Coronal images were obtained. CONTRAST: Isovue 370 VOLUME: 98 mL One or more dose reduction techniques were used (e.g., Automated exposure control, adjustment of the mA and/or kV according to patient size, use of iterative reconstruction technique). RADIATION DOSE SUMMARY: CTDlvol: 8.99+ 5.15 mGy DLP: 47.13 mGycm COMPARISON: 07/22/2018. FINDINGS: The peripheral soft tissues unremarkable. Degenerative changes of the spine. The thyroid is unremarkable. Normal caliber esophagus. Moderate to large hiatal hernia. The upper abdominal contents are otherwise unremarkable. No suspicious lymphadenopathy. The heart is enlarged. No pericardial effusion. Coronary artery calcifications are present. No pulmonary artery filling defects. Small left and trace right pleural effusions. Diffuse ground-glass opacities in a pattern which may represent edema. CT/CTA Chest W/WO Contrast IMPRESSION: No pulmonary embolism. No pulmonary edema. Small left and trace right pleural effusions. Moderate to large hiatal hernia. Reading Location: [place] [id number]
--- NOTE | 2024-09-15 22:53 | EX.ED.DYSGE1 ---
HPI History of Present Illness Chief Complaint: Weakness Detail of Chief Complaint: Generalized weakness, persistent diarrhea, thirst and abnormal breathing la Informant: patient and spouse/S.O. Onset/Context/Timing Onset: Days (Onset of diarrhea September 12, abnormal breathing early Friday morning, September 15.) Context: Sudden Onset Timing: Intermittent Quality: stated she was breathing abnormally and he watched her all night. Current Severity: Mild Maximum Severity: Moderate Worsened by: HPI narrative Relieved by: Nothing Associated Symptoms Associated Symptoms: Thirst, dry mouth, lightheadedness, abnormal breathing Narrative Narrative: Patient is a 9-year-old woman. She was seen on September 12 for diarrhea. She was discharged home. She had mild hypokalemia at that time. She is on potassium supplement. She returned on September 13 and was seen by Dr. Tierney. Her potassium was 2.7 and he treated her with IV potassium and oral potassium. She presents today because of generalized weakness, poor p.o. intake, thirst, persistent diarrhea and noted abnormal breathing last evening. She denies headache, visual, ocular auditory symptoms. She denies chest pain, pressure, tightness or heaviness. She denies pain with breathing. She does endorse intermittent shortness of breath. She denies any abdominal pain. She complains of nausea and diarrhea. She has not noted any blood in the diarrhea. Patient does endorse decreased urine output. She does not believe it is darker than normal. She denies any skin lesions. She denies leg swelling, discoloration or pain. 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 Dog bite COVID-19 Exposure to COVID-19 virus Other acute postprocedural pain Loss of hearing Wears glasses Thyroid disease Arthritis Bladder disease Hepatitis High cholesterol Dietary restriction History of hiatal hernia Gastric reflux Non-smoker History of pain when walking History of edema History of Holter monitoring History of echocardiogram History of stress test Cardiology follow-up encounter History of CHF (congestive heart failure) History of atrial fibrillation Encounter for pre-operative cardiovascular clearance Tear of medial meniscus of right knee Mechanical pain of right knee Effusion of knee joint right Patella-femoral syndrome Internal derangement of right knee Hiatal hernia Chronic diastolic (congestive) heart failure Essential (primary) hypertension Paroxysmal atrial fibrillation Obesity Hyperlipidemia GERD (gastroesophageal reflux disease) Anxiety and depression Acute on chronic diastolic (congestive) heart failure Incontinence Diarrhea Home Medications ?Medication ?Instructions ?Recorded ?Last Taken ?Type escitalopram oxalate 10 mg tablet 10 mg PO DAILY 02/02/18 Unknown History omeprazole 20 mg capsule,delayed 20 mg PO DAILY 02/02/18 12/26/20 History release apixaban 2.5 mg tablet (Eliquis) 2.5 mg PO BID #180 tabs 06/10/18 12/23/20 Rx calcium 315 mg (as 1 tab PO DAILY 10/15/21 Unknown History citrate)-vitamin D3 5 mcg (200 unit) tablet (Calcium Citrate + D) vitamin B complex 1 ea PO DAILY 10/15/21 Unknown History isosorbide mononitrate 60 mg 60 mg PO BID #180 TABLETS 11/04/23 Unknown Rx tablet,extended release 24 hr acetaminophen 500 mg tablet 500 mg PO Q6H PRN fever or pain 12/01/23 Unknown History ascorbic acid (vitamin C) 500 mg 500 mg PO QDAY 12/01/23 Unknown History tablet furosemide 40 mg tablet 40 mg PO DAILY #90 tabs 12/01/23 Unknown Rx levothyroxine 25 mcg tablet 88 mcg PO QDAY 12/01/23 Unknown History lisinopril 40 mg tablet 40 mg PO DAILY 12/01/23 Unknown History lorazepam 0.5 mg tablet 0.5 mg PO DAILY Anxiety 12/01/23 Unknown History amlodipine 10 mg tablet 10 mg PO DAILY #90 TABLETS 04/06/24 Unknown Rx potassium chloride 20 mEq 20 meq PO QDAY 08/24/24 Unknown History tablet,extended release (K-Tab) amiodarone 200 mg tablet 200 mg PO DAILY 09/15/24 Unknown History pravastatin 20 mg tablet 40 mg PO QHS 09/15/24 Unknown History Allergy/AdvReac Type Severity Reaction Status Date / Time Sulfa (Sulfonamide Allergy Severe BRAIN Verified 09/15/24 17:39 Antibiotics) SWELLING Family History Mother Myocardial infarction from [place] Diabetes Surgical History S/P arthroscopic partial medial meniscectomy (12/2020) History of cholecystectomy Social History household members: spouse and other details: nephew housing: house Smoking Status: Never smoker alcohol intake: never caffeine: No what type of physical activity do you participate in: none do you feel safe at home: Yes ROS ROS ED Constitutional Constitutional ED: Reports weight loss; Denies chills, fever(s), subjective or sweats Eyes Eyes: Denies blurry vision or change in vision ENT ENT ED: Denies ear pain or rhinorrhea Cardiovascular Cardiovascular: Reports palpitations; Denies chest pain, orthopnea, paroxysmal nocturnal dyspnea or racing heartbeat Respiratory/Chest Respiratory/Chest: Reports dyspnea; Denies cough, dyspnea on exertion, orthopnea or paroxysmal nocturnal dyspnea Gastrointestinal Gastrointestinal: Reports abdominal pain, diarrhea and nausea; Denies constipation, melena or vomiting Genitourinary Genitourinary ED: Denies dysuria, hematuria or urinary frequency Musculoskeletal Musculoskeletal: Denies arthralgias or myalgias Integumentary Denies rash Neurologic Neurologic: Reports weakness; Denies headache(s) or paresthesias Endocrine Endocrinology: Denies cold intolerance or heat intolerance Hematologic/Lymphatic Hematologic/Lymphatic: Reports systems reviewed and no addt'l complaints, except as documented EXAM Physical Exam Const Vital Signs: 09/15/24 17:35 09/15/24 17:46 09/15/24 17:52 Temperature 99.6 F H Temperature Source Oral Pulse Rate 127 H 111 H Respiratory Rate 17 37 H Respiratory Effort Normal Respiratory Pattern Normal Blood Pressure 118/70 Blood Pressure Mean 86 Pulse Ox 92 91 Oxygen Delivery Method Room Air Oxygen Flow Rate (L/min) 09/15/24 18:00 09/15/24 18:15 09/15/24 18:30 Temperature Temperature Source Pulse Rate 122 H 119 H 110 H Respiratory Rate 41 H 32 H 35 H Respiratory Effort Respiratory Pattern Blood Pressure 111/69 107/64 101/61 Blood Pressure Mean 82 74 73 Pulse Ox 91 88 91 Oxygen Delivery Method Oxygen Flow Rate (L/min) 09/15/24 18:31 09/15/24 18:34 09/15/24 18:39 Temperature 99.6 F H Temperature Source Oral Pulse Rate 106 H 92 Respiratory Rate 27 H 28 H Respiratory Effort Respiratory Pattern Blood Pressure 101/61 107/63 Blood Pressure Mean 74 77 Pulse Ox 88 94 92 Oxygen Delivery Method Room Air Nasal Cannula Nasal Cannula Oxygen Flow Rate (L/min) 2 2 09/15/24 18:45 09/15/24 19:00 09/15/24 19:15 Temperature Temperature Source Pulse Rate 100 112 H 103 H Respiratory Rate 29 H 33 H 28 H Respiratory Effort Respiratory Pattern Blood Pressure 107/63 119/60 111/69 Blood Pressure Mean 77 77 81 Pulse Ox 95 92 95 Oxygen Delivery Method Oxygen Flow Rate (L/min) 09/15/24 19:30 09/15/24 19:45 09/15/24 20:00 Temperature Temperature Source Pulse Rate 103 H 101 H 108 H Respiratory Rate 36 H 35 H 29 H Respiratory Effort Respiratory Pattern Blood Pressure 116/74 111/63 114/69 Blood Pressure Mean 85 78 84 Pulse Ox 92 94 92 Oxygen Delivery Method Room Air Oxygen Flow Rate (L/min) 09/15/24 20:00 09/15/24 20:32 09/15/24 20:45 Temperature 99.1 F Temperature Source Oral Pulse Rate 107 H 100 104 H Respiratory Rate 29 H 29 H 29 H Respiratory Effort Respiratory Pattern Blood Pressure 114/69 114/69 104/76 Blood Pressure Mean 84 82 81 Pulse Ox 92 92 90 Oxygen Delivery Method Room Air Oxygen Flow Rate (L/min) 09/15/24 21:00 09/15/24 21:00 09/15/24 21:00 Temperature 99.9 F H Temperature Source Oral Pulse Rate 112 H 102 H Respiratory Rate 38 H 25 H Respiratory Effort Respiratory Pattern Blood Pressure 108/78 108/78 108/78 Blood Pressure Mean 88 88 88 Pulse Ox 87 89 Oxygen Delivery Method Room Air Oxygen Flow Rate (L/min) 09/15/24 21:15 09/15/24 21:30 09/15/24 21:45 Temperature Temperature Source Pulse Rate 114 H 111 H 97 Respiratory Rate 31 H 24 H 27 H Respiratory Effort Respiratory Pattern Blood Pressure 124/78 H Blood Pressure Mean 91 Pulse Ox 92 92 92 Oxygen Delivery Method Oxygen Flow Rate (L/min) 09/15/24 22:00 09/15/24 22:00 09/15/24 22:00 Temperature 99.7 F H Temperature Source Oral Pulse Rate 107 H Respiratory Rate 29 H Respiratory Effort Respiratory Pattern Blood Pressure 116/91 H 116/91 H 123/65 H Blood Pressure Mean 99 99 78 Pulse Ox 97 Oxygen Delivery Method Room Air Oxygen Flow Rate (L/min) 09/15/24 22:00 09/15/24 22:00 09/15/24 22:15 Temperature Temperature Source Pulse Rate 99 106 H Respiratory Rate 19 H 20 H Respiratory Effort Respiratory Pattern Blood Pressure 123/65 H 123/65 H Blood Pressure Mean 78 78 Pulse Ox 91 Oxygen Delivery Method Oxygen Flow Rate (L/min) 09/15/24 22:30 09/15/24 22:45 09/15/24 23:00 Temperature Temperature Source Pulse Rate 115 H 100 100 Respiratory Rate 28 H 30 H 30 H Respiratory Effort Respiratory Pattern Blood Pressure 116/91 H 112/81 H Blood Pressure Mean 96 90 Pulse Ox 95 95 96 Oxygen Delivery Method Oxygen Flow Rate (L/min) Patient had borderline hypotension. She has been tachycardic on multiple reads. She is also been tachypneic. She initially was not tachypneic. I was informed that she was hypoxic. In light of this additional workup was undertaken. Positive well nourished and well developed Constitutional Narrative: She appears ill General Appearance ED: well developed and pallor HEENT Reports dry mucous membranes HEENT Narrative: Head is atraumatic normocephalic. Ears are normal. Nares are patent. Posterior pharynx is normal. Mouth ED: Yes dry mucous membranes Mouth: dry mucous membranes Eyes EOMs intact bilaterally General Eye ED: Negative for pale conjunctiva or scleral icterus Neck no lymphadenopathy, supple and no JVD Chest Wall inspection of chest normal and palpation of chest normal Resp normal respiratory effort and clear to auscultation bilaterally Cardio S1 normal heart sound, S2 normal heart sound and no murmurs Rate: tachycardic Rhythm: abnormal rhythm irregularly irregular (Patient has atrial flutter with variable block) GI normal to inspection, nondistended, normoactive bowel sounds, non-distended and no masses; Negative for non-tender or hepatosplenomegaly Auscultation: hyperactive bowel sounds Palpation: soft Back/Spine no CVA tenderness Thoracic Spine / Upper Back: Negative for thoracic spinal tenderness Lumbar Spine / Lower Back: Negative for lumbar spinal tenderness Extremity normal to inspection Neuro oriented x3, CN's II-XII intact bilaterally and no sensory deficits noted Sensorium / Orientation: alert Motor Exam: strength 5/5 throughout Psych mental status grossly normal Skin no rashes or lesions noted, no wounds and No skin turgor normal General Skin Exam: pallor; Negative for elasticity normal or jaundice MDM MDM MDM Narrative Medical decision making narrative: Patient with persistent diarrhea. Will obtain stool for occult blood, fecal leukocytes sights and enteric pathogen's. Because of her complaint of general weakness will obtain BMP to assess renal function and to evaluate for hypokalemia especially since she was recently seen and had hypokalemia. Because of the tachypnea and hypoxia chest x-ray was obtained. Chest x-ray reveals no acute pathology. ABG was obtained because of her metabolic acidosis with normal anion gap. Because the chest x-ray revealed no abnormality that would explain her hypoxia a CTA was obtained to evaluate for pulmonary embolus. History & Record Review Additional record(s) reviewed:: Prior ED visit and Prior labs Lab Data Attestation: I reviewed the patient's lab results. Lab results narrative: White count is elevated 15.9 thousand with shift. She is anemic with an H&H 11.8 and 36.0. This is essentially her baseline. Electrolyte panel Veals hyponatremia. CO2 is slightly low at 19.9 with a normal anion gap. Creatinine is elevated 1.23 which is her baseline. Glucose is elevated 154. Lactate was normal. TSH was normal. Labs: Laboratory Results - last 24 hr 09/15/24 09/15/24 17:50 21:15 WBC 15.9 H RBC 4.30 Hgb 11.8 L Hct 36.0 L MCV 83.7 MCH 27.4 MCHC 32.8 RDW Std Deviation 46.8 H RDW Coeff of Yeison 15.5 H Plt Count 323 MPV 10.7 Immature Gran % (Auto) 0.400 Neut % (Auto) 83.4 H Lymph % (Auto) 6.4 L [place] % (Auto) 9.7 Eos % (Auto) 0.0 Baso % (Auto) 0.1 Absolute Neuts (auto) 13.2 H Absolute Lymphs (auto) 1.01 Nucleated RBC % 0 Differential Comment SCANNED Platelet Estimate ADEQUATE Sodium 131 L Potassium 3.8 Chloride 98 Carbon Dioxide 19.9 L Anion Gap 13 BUN 17 Creatinine 1.23 H Estim Creat Clear Calc 25.73 L Est GFR (MDRD) Non-Af 42 L BUN/Creatinine Ratio 13.7 Glucose 154 H Lactic Acid 1.0 Calcium 9.0 TSH 2.780 ABG Data Attestation: I personally reviewed and interpreted this ABG as follows: Interpretation: ABG was obtained because of her tachycardia, tachypnea metabolic acidosis on basic metabolic panel and hypoxia with no explanation. ABG reveals alkalemia with a pH of 7.47. Bicarb is 25.2. Total CO2 is 26. O2 sats 95%. She is on 1 L by nasal cannula. pCO2 is 34.5 which is low and PO2 is 68 which is low. This would represent mild respiratory alkalosis with increased a gradient. ABG results: ABG 09/15/24 21:29 Specimen Type ART Sample Site R Radial pH 7.47 H Bicarbonate Actual 25.2 Total CO2 26 Base Excess 2 O2 Saturation 95 O2 % 1.0 ABG pCO2 34.5 L ABG pO2 68 L Paul Test Positive O2 Delivery Device Cannula Vent Mode Not entered Radiography Chest X-Ray - ED: 1 View and Read by ED Physician (Patient has a large hiatal hernia. The left cardiac border is obscured because of this. There is no obvious infiltrate. There is no pneumothorax. There is evidence of cardiomegaly. This was compared to x-ray obtained November 20, 2023.) Diagnostic Testing: Clinical Impression(s) from Imaging Studies Chest X-Ray 09/15/24 21:01 IMPRESSION: As above. Reading Location: [id number] Chest CTA 09/15/24 22:13 IMPRESSION: No pulmonary embolism. No pulmonary edema. Small left and trace right pleural effusions. Moderate to large hiatal hernia. Reading Location: [id number] CTA reveals a hiatal hernia. There is no obvious infiltrate. There is no PE per my review. There is small bilateral pleural effusions left greater than right awaiting formal read by radiologist. This was reviewed by me at 2250. EKG Initial EKG: Attestation: I personally reviewed and interpreted this EKG as follows: Interpretation: Atrial Flutter (Rate is 111. There is a variable block. QRS duration 82 ms. QT duration 36 6 ms. QTc is prolonged at greater than 480 ms. [place] is normal. There is some nonspecific changes. This is unchanged from prior EKG.) Differential Diagnosis Why less likely: CT was for Management Discussion w/another healthcare provider: Hospitalist (Since patient is requiring oxygen and is not on oxygen at home and had a pulse ox as low as 87% hospitalist was paged for admission. Uncertain why she is hypoxic and why she is tachypneic. Dr. Keys requested Lasix and she has bilateral pleural effusion.) Discharge Plan Dx/Rx/DC Orders Clinical Impression: Atrial flutter by electrocardiogram, Diarrhea, Leukocytosis, Chronic kidney insufficiency, Chronic anticoagulation, Tachycardia, Hypoxia, Acute hyperglycemia, Bilateral pleural effusion Disposition Disposition: Acute Care Hospital [facility]
--- NOTE | 2024-09-15 23:47 | HP.PCM.HOS_ITS ---
HPI - General General Date of Admission: 09/15/24 Date of Service: 09/15/24 Chief Complaint: Worsening weakness with poor p.o. intake and shortness of breath HPI Narrative BETHANY BURRELL, is a 89 F who presented to [facility] ED on 09/15/2024 with worsening weakness with poor p.o. intake and shortness of breath. Patient was initially seen in the ED on 09/12 for diarrhea. She appeared dehydrated and was given IV fluid resuscitation and her orthostatic vital signs were negative. She felt improved after fluids and was okay for discharge home. She returned to the ED on 09/13 with continued diarrhea and new onset nausea with vomiting. She was found to have low potassium of 2.7 and this was repleted with both IV and oral potassium. However, labs were otherwise benign and patient felt improved after some time in the ED, so she again was discharged home. She came back to the ED today with worsening weakness with poor p.o. intake and now shortness of breath. Known history of A-fib/flutter and rate was in the 100s to low 110s. CTA chest showed no PE, did show cardiomegaly with pulmonary edema and small bilateral pleural effusions. NT-proBNP significantly elevated at 28,000. She was hypoxic to 87% on room air at rest. Given CHF exacerbation with hypoxia, hospitalist was contacted for admission. I saw the patient at bedside in the ED, was present. Patient was mildly fatigued appearing but otherwise sitting back comfortably in bed, conversing normally, in no acute distress. She denies any shortness of breath at rest currently. Denied any chest pain or discomfort. Denied any palpitations. Has had minimal diarrhea over the past day or so now. Denies any other acute concerns currently. Will be admitted for further management. [facility] Medical History Atrial fibrillation Cat bite of hand Shingles FPC current use of amiodarone Dog bite COVID-19 Exposure to COVID-19 virus Other acute postprocedural pain Loss of hearing Wears glasses Thyroid disease Arthritis Bladder disease Hepatitis High cholesterol Dietary restriction History of hiatal hernia Gastric reflux Non-smoker History of pain when walking History of edema History of Holter monitoring History of echocardiogram History of stress test Cardiology follow-up encounter History of CHF (congestive heart failure) History of atrial fibrillation Encounter for pre-operative cardiovascular clearance Tear of medial meniscus of right knee Mechanical pain of right knee Effusion of knee joint right Patella-femoral syndrome Internal derangement of right knee Hiatal hernia Chronic diastolic (congestive) heart failure Essential (primary) hypertension Paroxysmal atrial fibrillation Obesity Hyperlipidemia GERD (gastroesophageal reflux disease) Anxiety and depression Acute on chronic diastolic (congestive) heart failure Incontinence Diarrhea Home Medications ?Medication ?Instructions ?Recorded ?Last Taken ?Type escitalopram oxalate 10 mg tablet 10 mg PO DAILY 02/02 Unknown History omeprazole 20 mg capsule,delayed 20 mg PO DAILY 12/26/20 History release apixaban 2.5 mg tablet (Eliquis) 2.5 mg PO BID #180 ta bs 06/10/18 12/23/20 Rx calcium 315 mg (as 1 tab PO DAILY 10/15/21 Unkn own History citrate)-vitamin D3 5 mcg (200 unit) tablet (Calcium Citrate + D) vitamin B complex 1 ea PO DAILY 10/15/21 Unkno wn History isosorbide mononitrate 60 mg 60 mg PO BID #180 TABLETS 11/04/23 Unknown Rx tablet,extended release 24 hr acetaminophen 500 mg tablet 500 mg PO Q6H PRN fever or pain 12/01/23 Unknown History ascorbic acid (vitamin C) 500 mg 500 mg PO QDAY Unknown History tablet furosemide 40 mg tablet 40 mg PO DAILY #90 tabs 11/09 05/31 Unknown Rx levothyroxine 25 mcg tablet 88 mcg PO QDAY 12/01/23 Un known History lisinopril 40 mg tablet 40 mg PO DAILY 12/01/23 Unkn own History lorazepam 0.5 mg tablet 0.5 mg PO DAILY Anxiety 11/09 05/31 Unknown History amlodipine 10 mg tablet 10 mg PO DAILY #90 TABLETS 0 04/06/24 Unknown Rx potassium chloride 20 mEq 20 meq PO QDAY 08/24/24 Unkn own History tablet,extended release (K-Tab) amiodarone 200 mg tablet 200 mg PO DAILY 09/15/24 Unk nown History pravastatin 20 mg tablet 40 mg PO QHS 09/15/24 Unknow n History Allergy/AdvReac Type Severity Reaction Status Date / Time Sulfa (Sulfonamide Allergy Severe BRAIN Verified 09/15/24 17:39 Antibiotics) SWELLING Family History Mother Myocardial infarction from [place] Diabetes Surgical History S/P arthroscopic partial medial meniscectomy (12/2020) History of cholecystectomy Social History household members: spouse and other details: nephew housing: house Smoking Status: Never smoker alcohol intake: never caffeine: No what type of physical activity do you participate in: none do you feel safe at home: Yes ROS Constitutional Constitutional: Reports fatigue and weakness; Denies chills or fever(s) Eyes Eyes: Denies change in vision Cardiovascular Cardiovascular: Reports dyspnea on exertion and edema; Denies chest pain, lightheadedness, orthopnea or palpitations Respiratory/Chest Respiratory/Chest: Reports shortness of breath with exertion; Denies shortness of breath at rest or wheezing Gastrointestinal Gastrointestinal: Denies abdominal pain Musculoskeletal Musculoskeletal: Denies arthralgias or myalgias Neurologic Neurologic: Denies dizziness, focal weakness or headache(s) Vital Signs Vital Signs Vital Signs: 09/15/24 17:35 09/15/24 17:46 09/15/24 17:52 Temperature 99.6 F H Temperature Source Oral Pulse Rate 127 H 111 H Respiratory Rate 17 37 H Respiratory Effort Normal Respiratory Pattern Normal Blood Pressure 118/70 Blood Pressure Mean 86 Pulse Ox 92 91 Oxygen Delivery Method Room Air Oxygen Flow Rate (L/min) 09/15/24 18:00 09/15/24 18:15 09/15/24 18:30 Temperature Temperature Source Pulse Rate 122 H 119 H 110 H Respiratory Rate 41 H 32 H 35 H Respiratory Effort Respiratory Pattern Blood Pressure 111/69 107/64 101/61 Blood Pressure Mean 82 74 73 Pulse Ox 91 88 91 Oxygen Delivery Method Oxygen Flow Rate (L/min) 09/15/24 18:31 09/15/24 18:34 09/15/24 18:39 Temperature 99.6 F H Temperature Source Oral Pulse Rate 106 H 92 Respiratory Rate 27 H 28 H Respiratory Effort Respiratory Pattern Blood Pressure 101/61 107/63 Blood Pressure Mean 74 77 Pulse Ox 88 94 92 Oxygen Delivery Method Room Air Nasal Cannula Nasal Cannula Oxygen Flow Rate (L/min) 2 2 09/15/24 18:45 09/15/24 19:00 09/15/24 19:15 Temperature Temperature Source Pulse Rate 100 112 H 103 H Respiratory Rate 29 H 33 H 28 H Respiratory Effort Respiratory Pattern Blood Pressure 107/63 119/60 111/69 Blood Pressure Mean 77 77 81 Pulse Ox 95 92 95 Oxygen Delivery Method Oxygen Flow Rate (L/min) 09/15/24 19:30 09/15/24 19:45 09/15/24 20:00 Temperature Temperature Source Pulse Rate 103 H 101 H 108 H Respiratory Rate 36 H 35 H 29 H Respiratory Effort Respiratory Pattern Blood Pressure 116/74 111/63 114/69 Blood Pressure Mean 85 78 84 Pulse Ox 92 94 92 Oxygen Delivery Method Room Air Oxygen Flow Rate (L/min) 09/15/24 20:00 09/15/24 20:32 09/15/24 20:45 Temperature 99.1 F Temperature Source Oral Pulse Rate 107 H 100 104 H Respiratory Rate 29 H 29 H 29 H Respiratory Effort Respiratory Pattern Blood Pressure 114/69 114/69 104/76 Blood Pressure Mean 84 82 81 Pulse Ox 92 92 90 Oxygen Delivery Method Room Air Oxygen Flow Rate (L/min) 09/15/24 21:00 09/15/24 21:00 09/15/24 21:00 Temperature 99.9 F H Temperature Source Oral Pulse Rate 112 H 102 H Respiratory Rate 38 H 25 H Respiratory Effort Respiratory Pattern Blood Pressure 108/78 108/78 108/78 Blood Pressure Mean 88 88 88 Pulse Ox 87 89 Oxygen Delivery Method Room Air Oxygen Flow Rate (L/min) 09/15/24 21:15 09/15/24 21:30 09/15/24 21:45 Temperature Temperature Source Pulse Rate 114 H 111 H 97 Respiratory Rate 31 H 24 H 27 H Respiratory Effort Respiratory Pattern Blood Pressure 124/78 H Blood Pressure Mean 91 Pulse Ox 92 92 92 Oxygen Delivery Method Oxygen Flow Rate (L/min) 09/15/24 22:00 09/15/24 22:00 09/15/24 22:00 Temperature 99.7 F H Temperature Source Oral Pulse Rate 107 H Respiratory Rate 29 H Respiratory Effort Respiratory Pattern Blood Pressure 116/91 H 116/91 H 123/65 H Blood Pressure Mean 99 99 78 Pulse Ox 97 Oxygen Delivery Method Room Air Oxygen Flow Rate (L/min) 09/15/24 22:00 09/15/24 22:00 09/15/24 22:15 Temperature Temperature Source Pulse Rate 99 106 H Respiratory Rate 19 H 20 H Respiratory Effort Respiratory Pattern Blood Pressure 123/65 H 123/65 H Blood Pressure Mean 78 78 Pulse Ox 91 Oxygen Delivery Method Oxygen Flow Rate (L/min) 09/15/24 22:30 09/15/24 22:45 09/15/24 23:00 Temperature Temperature Source Pulse Rate 115 H 100 100 Respiratory Rate 28 H 30 H 30 H Respiratory Effort Respiratory Pattern Blood Pressure 116/91 H 112/81 H Blood Pressure Mean 96 90 Pulse Ox 95 95 96 Oxygen Delivery Method Oxygen Flow Rate (L/min) Weight Weight: 63.14 kg Body Mass Index (BMI) 28.0 Physical Exam Const alert, oriented x3, no apparent distress and average body habitus Constitutional Narrative: Elderly female, mildly fatigued appearing but otherwise sitting back comfortably in bed, conversing normally, in no acute distress. General Appearance: cooperative and comfortable HEENT normocephalic, head/scalp atraumatic, hearing grossly normal bilaterally, nasal mucous membranes and turbinates normal and moist oral mucous membranes Eyes PERRL, EOMs intact bilaterally and conjunctivae normal Neck full ROM Chest inspection of chest normal Resp normal respiratory effort and no use of accessory muscles Resp Narrative: Breathing comfortably on 2 L nasal cannula at rest. Diminished breath sounds in bilateral bases with mild crackles noted in mid lung zones. No wheezing noted. Cardio no murmurs and peripheral pulses 2+ throughout Cardio Narrative: A-fib, rate controlled. GI normal to inspection, nondistended, normoactive bowel sounds, soft to palpation, non-tender and non-distended Back/Spine normal ROM Extremity Extremity Narrative: +1-2 lower extremity pitting edema noted. Skin no rashes or lesions noted Psych mental status grossly normal Results Lab / Micro Data 09/15/24 17:50 09/15/24 17:50 Labs: Laboratory Results - last 24 hr 09/15/24 17:50: WBC 15.9 H, RBC 4.30, Hgb 11.8 L, Hct 36.0 L, MCV 83.7, MCH 27.4, MCHC 32.8, RDW Std Deviation 46.8 H, RDW Coeff of Yeison 15.5 H, Plt Count 323, MPV 10.7, Immature Gran % (Auto) 0.400, Neut % (Auto) 83.4 H, Lymph % (Auto) 6.4 L, Bacon % (Auto) 9.7, Eos % (Auto) 0.0, Baso % (Auto) 0.1, Absolute Neuts (auto) 13.2 H, Absolute Lymphs (auto) 1.01, Nucleated RBC % 0, Differential Comment SCANNED, Platelet Estimate ADEQUATE, Sodium 131 L, Potassium 3.8, Chloride 98, Carbon Dioxide 19.9 L, Anion Gap 13, BUN 17, C reatinine 1.23 H, Estim Creat Clear Calc 25.73 L, Est GFR (MDRD) Non-Af 42 L, BUN/Creatinine Ratio 13.7, Glucose 154 H, Calcium 9.0, TSH 2.780 09/15/24 21:15: Lactic Acid 1.0 ABG Data ABG results: ABG 09/15/24 21:29 Specimen Type ART Sample Site R Radial pH 7.47 H Bicarbonate Actual 25.2 Total CO2 26 Base Excess 2 O2 Saturation 95 O2 % 1.0 ABG pCO2 34.5 L ABG pO2 68 L Paul Test Positive O2 Delivery Device Cannula Vent Mode Not entered Imaging Radiology Impression Chest X-Ray 09/15/24 21:01 IMPRESSION: As above. Reading Location: [id number] Chest CTA 09/15/24 22:13 IMPRESSION: No pulmonary embolism. No pulmonary edema. Small left and trace right pleural effusions. Moderate to large hiatal hernia. Reading Location: [id number] Assessment & Plan Assessment/Plan (1) CHF exacerbation: (2) Hypoxia: PLAN: Plan Patient is an 89-year-old female who presented to [facility] ED on 09/15/2024 with worsening weakness with poor p.o. intake and shortness of breath. 1. CHF exacerbation with hypoxia ? Admit under inpatient status to PCU. NT-proBNP greater than 28,000. Hypoxic to 87% on room air at rest. CTA chest showed pulmonary edema with small bilateral pleural effusions. Echocardiogram ordered. May be due to A- fib/flutter as below but has some concern for Takotsubo cardiomyopathy as well. Will treat with IV Lasix 40 mg twice daily for now, monitor daily BMP and urine output. Wean supplemental oxygen as able. 2. Acute on chronic debility ? PT/OT/case management consulted. Patient lives at home with , typically has good functional status at baseline. Has had to use her cane now for the past few days. Appreciate therapy recommendations. 3. Paroxysmal A-fib/flutter, hypertension, hyperlipidemia ? In A-fib/flutter with rate in the 100s in the ED. Borderline hypotensive to the 100s systolic. Continue home amiodarone, Eliquis, nitrate and statin. Treating with IV Lasix as above. Will hold home amlodipine and lisinopril for now. 4. Hypothyroidism ? Continue home Synthroid. 5. Mood disorder ? Continue home escitalopram and Ativan daily as needed. 6. GERD ? Continue home PPI. DVT prophylaxis: Not indicated, on Eliquis CODE STATUS: DNR CCA, DNI Expected disposition: TBD Total clinical time spent by myself addressing the patient's medical issues, reviewing all the data, and collaborating with patient's care team: 75 minutes. Charges/Coding Visit Charges Inpatient E&M: 48728 Init Hosp L3
[2024-09-16] VITALS (15 sets, daily range): BP systolic 89–124; BP diastolic 56–70; PULSE 81–103; RESP 16–35; TEMP 36.7–37.1; O2SAT 87–97; BMI 28.0
[2024-09-16] MEDS: Furosemide 20 MG/2 ML VIAL IV ×2 (00:11→04:06)
[2024-09-16 00:39] LABS: Pro- Brain NATRIURETIC PEPTIDE 28572 pg/mL (<=1800)
[2024-09-16] MEDS: 0.9% Saline Lock 10 ML Syringe IV (04:05)
[2024-09-16 07:15] LABS: Hematocrit 34.6 % (37-47); Hemoglobin 11.4 g/dL (12.0-15.0); Mean Corp Hgb Conc 32.9 g/dL (32-36); Mean Corpuscular Volume 84.4 fL (81-99); Mean Platelet Vol. 10.7 fl (6.2-12.0); Platelet Count 290 K/mm3 (150-450); RBC Distribution Width CV 15.7 % (11.6-14.6); RBC Distribution Width SD 48.2 fl (35.1-43.9); Red Blood Count 4.10 M/mm3 (4.2-5.4); White Blood Count 14.2 K/mm3 (4.4-11.0)
[2024-09-16 07:52] LABS: Anion Gap 12 (5-15); BUN 18 mg/dL (4-19); BUN/Creat Ratio 13.4 RATIO (10-20); Calcium,Total 8.9 mg/dL (7.6-11.0); Carbon Dioxide 22.7 mmol/L (21.0-32.0); Chloride 101 mmol/L (98-108); Estimated Creatinine Clearance 23.09 ml/min (50-250); Glucose 103 mg/dL (70-99); Potassium 3.9 mmol/L (3.3-5.1)
--- NOTE | 2024-09-16 08:16 | PCM.PN.HOSP ---
Reason for Visit Reason for Visit: Diagnoses Heart failure, unspecified (09/15/24) Hypoxemia (09/15/24) Subjective Subjective Feeling well. Breathing improved. Diarrhea improved. Objective Data Objective Data Vital Signs: Vital Signs Temp Pulse Resp BP Pulse Ox O2 Del Method O2 Flow Rate 36.9 C 96 19 H 101/70 95 Nasal Cannula 3 09/16/24 02:57 09/16/24 02:57 09/16/24 02:57 09/16/24 02:57 09/16/24 02:57 09/16/24 04:09 09/16/24 04:09 Oxygen Flow Rate (L/min) 3 Oxygen Delivery Method Nasal Cannula Weight: 63.1 kg Body Mass Index (BMI) 28.0 Lab / Micro Data 09/16/24 06:25 09/16/24 06:25 Labs: Laboratory Results - last 24 hr 09/15/24 17:50: WBC 15.9 H, RBC 4.30, Hgb 11.8 L, Hct 36.0 L, MCV 83.7, MCH 27.4, MCHC 32.8, RDW Std Deviation 46.8 H, RDW Coeff of Yeison 15.5 H, Plt Count 323, MPV 10.7, Immature Gran % (Auto) 0.400, Neut % (Auto) 83.4 H, Lymph % (Auto) 6.4 L, [place] % (Auto) 9.7, Eos % (Auto) 0.0, Baso % (Auto) 0.1, Absolute Neuts (auto) 13.2 H, Absolute Lymphs (auto) 1.01, Nucleated RBC % 0, Differential Comment SCANNED, Platelet Estimate ADEQUATE, Sodium 131 L, Potassium 3.8, Chloride 98, Carbon Dioxide 19.9 L, Anion Gap 13, BUN 17, Creatinine 1.23 H, Estim Creat Clear Calc 25.73 L, Est GFR (MDRD) Non-Af 42 L, BUN/Creatinine Ratio 13.7, Glucose 154 H, Calcium 9.0, [place] [address] H, TSH 2.780 09/15/24 21:15: Lactic Acid 1.0 09/16/24 06:25: WBC 14.2 H, RBC 4.10 L, Hgb 11.4 L, Hct 34.6 L, MCV 84.4, MCH 27.8, MCHC 32.9, RDW Std Deviation 48.2 H, RDW Coeff of Yeison 15.7 H, Plt Count 290, MPV 10.7, Sodium 135, Potassium 3.9, Chloride 101, Carbon Dioxide 22.7, Anion Gap 12, BUN 18, Creatinine 1.37 H, Estim Creat Clear Calc 23.09 L, Est GFR (MDRD) Non-Af 37 L, BUN/Creatinine Ratio 13.4, Glucose 103 H, Calcium 8.9 Micro: Microbiology 09/16/24 06:30 Stool Stool Occult Blood (CHRIS) - Final Occult Blood Positive 09/16/24 06:30 Stool Stool Lactoferrin - Final ABG Data ABG results: ABG 09/15/24 21:29 Specimen Type ART Sample Site R Radial pH 7.47 H Bicarbonate Actual 25.2 Total CO2 26 Base Excess 2 O2 Saturation 95 O2 % 1.0 ABG pCO2 34.5 L ABG pO2 68 L Paul Test Positive O2 Delivery Device Cannula Vent Mode Not entered Radiography Diagnostic Testing: Radiology Impression Chest X-Ray 09/15/24 21:01 IMPRESSION: As above. Reading Location: [place] [address] Chest CTA 09/15/24 22:13 IMPRESSION: No pulmonary embolism. No pulmonary edema. Small left and trace right pleural effusions. Moderate to large hiatal hernia. Reading Location: [place] [address] Physical Exam Const alert and no apparent distress Constitutional Narrative: Up in chair. On oxygen. No respiratory distress. No conversational dyspnea. HEENT head/scalp atraumatic and moist oral mucous membranes Neck Neck Narrative: Positive JVD Resp normal respiratory effort and no retractions GI soft to palpation, non-tender and non-distended Extremity General Extremity: edema bilateral lower extremity Details: mild Assessment & Plan Assessment/Plan (1) CHF exacerbation: PLAN: Unclear type. Patient had normal EF in 2018. CTA of the chest showed pulmonary vascular congestion as well as small bilateral pleural effusions. Follow-up echocardiogram Continue with IV furosemide 40 mg twice daily. Fluid restrict. Daily weights. PLAN: Plan Diarrhea: Enteric panel negative. Chronic conditions Paroxysmal atrial fibrillation: Continue with amiodarone, apixaban Hypothyroidism: Continue levothyroxine Mood disorder: Continue with escitalopram and lorazepam as needed. GERD: Continue PPI VTE prophylaxis not indicated as patient already on apixaban. Charges/Coding Visit Charges Inpatient E&M: 28962 Subs Hosp L2
[2024-09-16] MEDS: Potassium Chloride Oral Tablet 20 MEQ PO (09:17)
[2024-09-16] MEDS: APIXABAN 2.5 MG TABLET (WCH) PO ×2 (09:17→21:34)
[2024-09-16] MEDS: Calcium Carb/Vitamin D 1 TABLET Tablet PO (09:17)
--- NOTE | 2024-09-16 12:02 | CHAPLAIN ---
Type of Pastoral Visit _x__ Initial Visit ___ Follow-up Visit ___ On-call Visit ___ General Patient Visit ___ Spiritual Assessment ___ Family Conference ___ Bereavement ___ Rapid Response ___ Code Blue ___ Other (describe below) Pastoral Care Referral From _x__ Patient ___ Family ___ Nurse ___ Physician ___ Log Chain Feeder ___ University Archivist ___ Other (describe below) Sacrament/Intervention _x__ Active listening ___ Anointing ___ Mu-Ism ___ Bereavement ___ Communion _x__ Esther exploration ___ _x__ Life review _x__ Prayer ___ Reconciliation ___ Sacrament of Sick _x__ Supportive presence ___ Wedding ___ Other (describe below) Pastoral Comments patient is welcoming and talkative; pt gives lots of life review and speaks openly of her esther heritage and simple trust; pt is positive in attitude and speaks of accepting 'whatever the doctors think should happen'; pt has had two husbands and speaks of her loss of first and children that did not survive; pt is complimentary of the staff and of the visit with this research software engineer; pt welcomes prayer
--- NOTE | 2024-09-16 14:23 | CASEMGMT ---
MAXIMUS BUCKNER Assessment Face to Face with patient for initial transition planning/care coordination assessment. MAXIMUS BUCKNER introduced self and role at [facility], pt voices understanding. Pt is A&Ox4 and is resting comfortably in the chair and is calm. Care providers, pharmacy, and demographics verified. Admitting dx: CHF Exacerbation with Hypoxia LACE Strata: 3 PCP: Arslan Toscano Specialists: Denies. Pt states that her is currently in the process of getting a sleep study completed and that she is also interested in doing this. Pt states that she has all of the information she needs and denies concerns Preferred Pharmacy: [facility] Insurance: Contact At Once! A/B, [employer] Prescription Benefit: Yes LNOK: Yung (H) Living Arrangements: Pt lives with her and 2 nephews (Ages 51 & 34) in a split level home with 8 steps between floors and 4 steps to enter the home ADLs/IADLs: Pt states that she is indep and denies concerns. Pt did well with PT, see notes. 6-Click score is 19. Transportation: Self, DME: Access to a FWW and Cane. BP Machine. Pt was recently requiring additional oxygen and may qualify for home oxygen use. A verbal list of local in-network DME companies were provided to the pt at this time. Pt prefers [facility] HHC/SNF: denies hx of Pt?s goal: Home Plan: Home with family, follow for oxygen needs. At this time, the pt states that she feels safe returning home with her family once medically ready and denies the need for home care or OP Tx. Pt is aware that she can follow up with her PCP if she were to change her mind. Pt thanks this MAXIMUS BUCKNER and denies further questions, concerns, or needs now. Report given to DIABETES PHYSICIAN CM. Mikhail Rivas RN, CM
--- NOTE | 2024-09-16 23:59 | ECHOD_ITS ---
Reason For Study Reason For Study: CHF Procedure This was a 2D Doppler, Color Flow transthoracic echocardiogram. Exam performed portable in patient room. Left Ventricle Sigmoid septum. Left ventricular systolic function is normal. The LV ejection fraction is 60 %. Diastolic function is indeterminate. Right Ventricle Mildly dilated right ventricle. Mild to moderate global right ventricular systolic dysfunction. Atria The left atrium is moderately enlarged. Mitral Valve The mitral valve is structurally normal. No prolapse or stenosis seen. Trivial mitral valve insufficiency. Tricuspid Valve Normal tricuspid valve. Right ventricular systolic pressure estimated to be 29 mmHg. Aortic Valve Bicuspid aortic valve. Great Vessels Normal sized aortic root. Normal inferior vena cava. MMode/2D Measurements & Calculations LVIDd: 4.4 cm IVSd: 1.2 cm Ao root diam: 3.0 cm LVIDs: 3.1 cm LVPWd: 1.1 cm RVDd: 3.6 cm FS: 30.5 % LAV(MOD-bp): 74.0 ml SV(MOD-sp4): 18.8 ml LVAd ap4: 14.7 cm2 LAV(MOD-bp) Indexed: 46.8 ml/m2 LVLd ap4: 5.3 cm SI(MOD-sp4): 11.9 ml/m2 LAV(MOD-sp2): 55.1 ml EDV(MOD-sp4): 33.4 ml LAV(MOD-sp4): 98.3 ml EDV(sp4-el): 34.2 ml LVAs ap4: 8.5 cm2 LVLs ap4: 4.4 cm ESV(MOD-sp4): 14.6 ml ESV(sp4-el): 14.0 ml EF(MOD-sp4): 56.2 % EF(sp4-el): 58.9 % SV(sp4-el): 20.1 ml LA dimension(2D): 4.6 cm LA A4 area: 26.4 cm2 TAPSE: 1.4 cm RA A4 area: 22.1 cm2 Doppler Measurements & Calculations MV E max armand: 86.2 cm/sec Lat Peak E' Armand: 12.7 cm/sec Med Peak E' Armand: 9.4 cm/sec E/E' lat: 6.8 E/E' med: 9.2 Ao V2 max: 113.8 cm/sec LV V1 max: 94.4 cm/sec MR max armand: 376.0 cm/sec Ao max P.2 mmHg LV V1 max P.6 mmHg MR max P.5 mmHg Ao V2 mean: 83.5 cm/sec LV V1 mean P.0 mmHg MR mean armand: 328.8 cm/sec Ao mean P.0 mmHg LV V1 mean: 67.4 cm/sec MR mean P.6 mmHg Ao V2 VTI: 21.3 cm LV V1 VTI: 14.6 cm MR VTI: 130.1 cm AV (velocity ratio): 0.69 PA V2 max: 66.8 cm/sec PI dec slope: 92.2 cm/sec2 TR max armand: 239.0 cm/sec PA V2 mean: 43.1 cm/sec TR max P.8 mmHg ECHO/Echo Complete Interpretation Summary The LV ejection fraction is 60 %. Diastolic function is indeterminate. Left ventricular systolic function is normal. Mild to moderate global right ventricular systolic dysfunction. Ordering Physician: Jatinder Keys Referring Physician: Arslan Toscano Performed By: Zofia Cruz RVT, RDCS and Student
[2024-09-17] VITALS (8 sets, daily range): BP systolic 94–101; BP diastolic 59–69; PULSE 75–90; RESP 14–18; TEMP 36.4–36.6; O2SAT 90–100; BMI 28.3
[2024-09-17 07:18] LABS: Anion Gap 9 (5-15); BUN 21 mg/dL (4-19); BUN/Creat Ratio 16.7 RATIO (10-20); Calcium,Total 8.7 mg/dL (7.6-11.0); Carbon Dioxide 25.4 mmol/L (21.0-32.0); Chloride 104 mmol/L (98-108); Estimated Creatinine Clearance 25.63 ml/min (50-250); Glucose 85 mg/dL (70-99); Potassium 3.8 mmol/L (3.3-5.1)
--- NOTE | 2024-09-17 07:46 | PN.HOSP_ITS ---
Reason for Visit Reason for Visit: Diagnoses Heart failure, unspecified (09/15/24) Hypoxemia (09/15/24) Subjective Subjective Feeling good. Objective Data Objective Data Vital Signs: Vital Signs Temp Pulse Resp BP Pulse Ox O2 Del Method O2 Flow Rate 36.6 C 83 14 99/62 96 Nasal Cannula 2 09/17/24 03:00 09/17/24 03:00 09/17/24 03:00 09/17/24 03:00 09/17/24 03:00 09/17/24 03:15 09/17/24 03:15 Oxygen Flow Rate (L/min) 2 Oxygen Delivery Method Nasal Cannula Weight: 63.7 kg Body Mass Index (BMI) 28.3 Intake & Output: Intake and Output for Last 24 Hours 09/15/24 09/16/24 09/17/24 23:59 23:59 23:59 Output Total 200 / 200 Balance -200 / -200 Lab / Micro Data 09/16/24 06:25 09/17/24 05:44 Labs: Laboratory Results - last 24 hr 09/16/24 06:25: Sodium 135, Potassium 3.9, Chloride 101, Carbon Dioxide 22.7, Anion Gap 12, BUN 18, Creatinine 1.37 H, Estim Creat Clear Calc 23.09 L, Est GFR (MDRD) Non-Af 37 L, BUN/Creatinine Ratio 13.4, Glucose 103 H, Calcium 8.9 09/17/24 05:44: Sodium 138, Potassium 3.8, Chloride 104, Carbon Dioxide 25.4, Anion Gap 9, BUN 21 H, Creatinine 1.24 H, Estim Creat Clear Calc 25.63 L, Est GFR (MDRD) Non-Af 42 L, BUN/Creatinine Ratio 16.7, Glucose 85, Calcium 8.7 Micro: Microbiology 09/16/24 06:30 Stool Enteric Bacteriology - Final 09/16/24 06:30 Stool Stool Occult Blood (CHRIS) - Final Occult Blood Positive 09/16/24 06:30 Stool Stool Lactoferrin - Final Radiography Diagnostic Testing: Radiology Impression Echocardiogram 09/16/24 23:59 Interpretation Summary The LV ejection fraction is 60 %. Diastolic function is indeterminate. Left ventricular systolic function is normal. Mild to moderate global right ventricular systolic dysfunction. Ordering Physician: Jatinder Keys Referring Physician: Arslan Toscano Performed By: Anthony HU RDCS, Zofia and Student Physical Exam Const alert and no apparent distress HEENT head/scalp atraumatic and moist oral mucous membranes Resp normal respiratory effort, no retractions, no use of accessory muscles and clear to auscultation bilaterally Cardio regular rate, regular rhythm, S1 normal heart sound and S2 normal heart sound GI normal to inspection, nondistended, normoactive bowel sounds, soft to palpation, non-tender and non-distended Assessment & Plan Assessment/Plan (1) CHF exacerbation: PLAN: Acute HFpEF. EF 60% on echo from 09/16. CTA of the chest showed pulmonary vascular congestion as well as small bilateral pleural effusions. Continue with IV furosemide 40 mg twice daily. Fluid restrict. Daily weights. Will discharge with furosemide 40 MeQ BID (up from daily) PLAN: Plan Diarrhea: Resolved. Enteric panel negative. Chronic conditions * Paroxysmal atrial fibrillation: Continue with amiodarone, apixaban * Hypothyroidism: Continue levothyroxine * Mood disorder: Continue with escitalopram and lorazepam as needed. * GERD: Continue PPI VTE prophylaxis not indicated as patient already on apixaban. DC home. Check home oxygen evaluation.
[2024-09-17] MEDS: Potassium Chloride Oral Tablet 20 MEQ PO (09:50)
[2024-09-17] MEDS: Calcium Carb/Vitamin D 1 TABLET Tablet PO (09:50)
[2024-09-17] MEDS: APIXABAN 2.5 MG TABLET (WCH) PO (09:50)
--- NOTE | 2024-09-17 11:41 | DS.PCM_ITS ---
Providers Date of Admission: 09/15/24 Primary Care Physician: Dr. Arslan Toscano DO Reason For Visit: CHF EXACERBATION W/ HYPOXIA Diagnosis Discharge Diagnosis (1) CHF exacerbation: Status: Chronic Code(s): I50.9 - Heart failure, unspecified Plan: Acute HFpEF. EF 60% on echo from 09/16. CTA of the chest showed pulmonary vascular congestion as well as small bilateral pleural effusions. Continue with IV furosemide 40 mg twice daily. Fluid restrict. Daily weights. Will discharge with furosemide 40 MeQ BID (up from daily) Plan Diarrhea: Resolved. Enteric panel negative. Chronic conditions * Paroxysmal atrial fibrillation: Continue with amiodarone, apixaban * Hypothyroidism: Continue levothyroxine * Mood disorder: Continue with escitalopram and lorazepam as needed. * GERD: Continue PPI VTE prophylaxis not indicated as patient already on apixaban. DC home. Check home oxygen evaluation. Medications at Discharge Home Medications escitalopram oxalate 10 mg tablet 10 mg PO DAILY mental health 02/02/18 omeprazole 20 mg capsule,delayed release 20 mg PO DAILY reflux 02/02/18 apixaban 2.5 mg tablet (Eliquis) 2.5 mg PO BID blood thinner #180 tabs 06/10/18 calcium 315 mg (as citrate)-vitamin D3 5 mcg (200 unit) tablet (Calcium Citrate + D) 1 tab PO DAILY supplement 10/15/21 vitamin B complex 1 ea PO DAILY vitamin 10/15/21 acetaminophen 500 mg tablet 500 mg PO Q6H PRN fever or pain 12/01/23 ascorbic acid (vitamin C) 500 mg tablet 500 mg PO QDAY vitamin 12/01/23 furosemide 40 mg tablet 40 mg PO DAILY diuretic #90 tabs 12/01/23 levothyroxine 25 mcg tablet 88 mcg PO QDAY thyroid 12/01/23 lorazepam 0.5 mg tablet 0.5 mg PO DAILY Anxiety 12/01/23 potassium chloride 20 mEq tablet,extended release (K-Tab) 20 meq PO QDAY supplement 08/24/24 amiodarone 200 mg tablet 200 mg PO DAILY heart rate 09/15/24 pravastatin 20 mg tablet 40 mg PO QHS cholesterol 09/15/24 lisinopril 5 mg tablet 5 mg PO DAILY #30 tabs 09/17/24 Hospital Course Operations None Procedures 2-D Echocardiogram Summary of Care Provided Minutes Spent on Discharge: 32 Hospital Course: Patient presents with weakness, decreased oral intake and shortness of breath. Patient had a CAT scan that was showing pulm vascular congestion as well as small bilateral pleural effusions. Patient was started on IV furosemide. Patient is improved from that standpoint. Will check home oxygen evaluation prior to discharge to see what oxygen potential could be needed. Patient did have diarrhea when she presented but that she did have empiric panel that was negative. Diarrhea is since stopped. No additional stenting is necessary. Patient overall is doing well and be discharged home in stable condition. Weight / BMI Weight Weight: 63.7 kg Body Mass Index (BMI) 28.3 ABG / Lab / Microbiology Data 09/16/24 06:25 09/17/24 05:44 Laboratory: Laboratory Results - last 24 hr 09/17/24 05:44: Sodium 138, Potassium 3.8, Chloride 104, Carbon Dioxide 25.4, Anion Gap 9, BUN 21 H, Creatinine 1.24 H, Estim Creat Clear Calc 25.63 L, Est GFR (MDRD) Non-Af 42 L, BUN/Creatinine Ratio 16.7, Glucose 85, Calcium 8.7 Microbiology: Microbiology 09/16/24 06:30 Stool Enteric Bacteriology - Final 09/16/24 06:30 Stool Stool Occult Blood (CHRIS) - Final Occult Blood Positive 09/16/24 06:30 Stool Stool Lactoferrin - Final Radiography Diagnostic Testing: Radiology Impression Echocardiogram 09/16/24 23:59 Interpretation Summary The LV ejection fraction is 60 %. Diastolic function is indeterminate. Left ventricular systolic function is normal. Mild to moderate global right ventricular systolic dysfunction. Ordering Physician: Jatinder Keys Referring Physician: Arslan Toscano Performed By: Zofia Cruz RVT, RDCS and Student D/C Instructions Discharge Diet: - (Fluid restrict 1.5 liters (50 ounces, 6.5 cups) of fluid per day. ) DC O2, CPAP, BIPAP Needs Home O2 Discharge instructions: No Meaningful Use Info Meaningful Use Meaningful Use Diagnoses (Choose all that apply): CHF CHF TURNER/ARB ordered at discharge?: Yes Documented LVEF (%): 60 Discharge Plan Admission Admit Date/Time: 09/15/24 23:57 Primary Reason for Your Visit: Heart failure exacerbation Attending Provider: Wayne Garcia Primary Care Provider: Arslan Toscano Consulting Providers: Jatinder Keys Instructions Patient Instructions: Heart Failure Flare Up Signs, Heart Failure Dc, Heart Failure Care, Heart Failure and Physical Activity Discharge Orders/Prescriptions Prescriptions: New lisinopril 5 mg tablet 5 mg PO DAILY Qty: 30 0RF Continued omeprazole 20 mg capsule,delayed release(DR/EC) 20 mg PO DAILY escitalopram oxalate 10 mg tablet 10 mg PO DAILY calcium citrate-vitamin D3 [Calcium Citrate + D] 315 mg-5 mcg (200 unit) tablet 1 tab PO DAILY lorazepam 0.5 mg tablet 0.5 mg PO DAILY potassium chloride [K-Tab] 20 mEq tablet extended release 20 meq PO QDAY Patient Comments: 40meq x7 days 09/13/24 levothyroxine 25 mcg tablet 88 mcg PO QDAY ascorbic acid (vitamin C) 500 mg tablet 500 mg PO QDAY acetaminophen 500 mg tablet 500 mg PO Q6H PRN (Reason: fever or pain) furosemide 40 mg tablet 40 mg PO DAILY Qty: 90 3RF vitamin B complex Elixir 1 ea PO DAILY amiodarone 200 mg tablet 200 mg PO DAILY pravastatin 20 mg tablet 40 mg PO QHS Eliquis 2.5 mg tablet 2.5 mg PO BID Qty: 180 3RF Discontinued lisinopril 40 mg tablet 40 mg PO DAILY isosorbide mononitrate 60 mg tablet extended release 24 hr 60 mg PO BID Qty: 180 3RF amlodipine 10 mg tablet 10 mg PO DAILY Qty: 90 3RF Referrals / Follow Up: Arslan Toscano DO [Primary Care Provider] - Within 2 Weeks Disposition Disposition (needs filled in before D/C Order can be placed): Home, Self Care Charges/Coding Visit Charges Inpatient E&M: 29528 Disch Hosp >30min
--- NOTE | 2024-09-17 14:17 | CASEMGMT ---
Addendum entered by Carola Chavira 09/17/24 16:43: Home O2 testing has been completed. Pt does not qualify for home O2. Original Note: [facility] NOTE: Discharge order is in. [facility] to room. Pt sitting up in chair. She states her is on his way in and will take her home. She was made aware Rx has been sent to [facility] and states they can pick that up today. Discussed CCN and info provided. She is interested in referral. Order placed. Pt denies having other discharge needs or concerns. Moy COLEMAN RN CM
--- NOTE | 2024-09-20 13:27 | CCN.REFER ---
LM TO DISCUSS CCN REFERRAL. AWAITING CALL BACK
--- NOTE | 2024-09-21 08:56 | CCN.REFER ---
PATIENT/ AGREEABLE TO CCN PROGRAM. HOME VISIT SCHEDULED FOR 09/22 @ 11AM.
== END 2024-09-17 16:45 | disposition home or self-care (01) | DRG 291 ==
LOC: ED 09-16 00:18 → PCU 09-16 01:04
PROVIDERS: Admitting Provider Hospitalist; Emergency Provider Emergency Medicine; PCP Family Medicine
DX: I11.0 Hypertensive heart disease with heart failure (principal); I50.31 Acute diastolic (congestive) heart failure; E03.9 Hypothyroidism, unspecified; Z66 Do not resuscitate; F32.A Depression, unspecified; I48.0 Paroxysmal atrial fibrillation; K21.9 Gastro-esophageal reflux disease without esophagitis; R19.7 Diarrhea, unspecified; E78.00 Pure hypercholesterolemia, unspecified; F41.9 Anxiety disorder, unspecified; E87.6 Hypokalemia; Z79.01 Long term (current) use of anticoagulants; Z79.890 Hormone replacement therapy; Z79.899 Other long term (current) drug therapy; Z86.16 Personal history of COVID-19
CPT/HCPCS: 36415; 36600; 71045; 71275; 80048; 80053; 81001; 82274; 82803; 83605; 83630; 83690; 83880; 84443; 85025; 85027; 87506; 93005; 93306; 94668; 96360; 96365; 96366; 97162; 99252; 99285; Q9967; A4216; G0463; J1938

== ENCOUNTER → 2024-12-21 | Outpatient (CLI) | payer MEDICARE, OTHER, SELFPAY ==
--- NOTE | 2024-12-21 12:28 | RAD_ITS ---
PROCEDURE: KNEE 4 OR MORE VIEWS 12/21/2024 REASON FOR EXAM: LEFT KNEE PAIN TECHNIQUE: Procedure Code: RADKN Modality: DX Procedure: KNEE 4 OR MORE VIEWS Laterality: FINDINGS: No evidence of acute fracture or dislocation. The joint spaces are maintained. Small suprapatellar enthesophyte. No knee joint effusion. RAD/Knee 4 or More Views IMPRESSION: No acute osseous abnormalities. Small suprapatellar enthesophyte. Reading Location: [id number]
== END | disposition home or self-care (01) ==
LOC: RAD 12:25
PROVIDERS: PCP Family Medicine; Referring Provider Family Medicine; Visit Provider Family Medicine
DX: M25.562 Pain in left knee (principal)
CPT/HCPCS: 73564

== ENCOUNTER 2024-12-23 08:00 | Emergency (ER) | payer MEDICARE, OTHER, SELFPAY ==
[2024-12-23 08:02] VITALS: BP 198/112; PULSE 140; RESP 18; TEMP 36.7; O2SAT 99; BMI 27.3
--- NOTE | 2024-12-23 08:19 | EDS_ITS ---
HPI History of Present Illness Chief Complaint: Palpitations Informant: patient Onset/Context/Timing Onset: Today Context: Sudden Onset Timing: Continuous Quality: Moving Location: Chest Worsened by: Nothing Relieved by: Nothing Associated Symptoms Associated Symptoms: Dizziness, weakness Narrative Narrative: Patient presents with palpitations that began today. Patient states it began rather suddenly when she woke up this morning. Patient states she was able to go back to sleep and it was still there when she woke up again. Patient states it feels like her heart is moving in her chest. Patient states she feels dizzy and weak. Patient states nothing makes it better nothing makes it worse. Patient does admit to a mild cough. Patient denies any shortness of breath. Patient denies any fevers or chills. Patient states she has a history of atrial fibrillation. [facility] Medical History [facility] current use of amiodarone Chronic diastolic (congestive) heart failure Chronic anticoagulation Atrial flutter Chronic kidney insufficiency Over 65 years old Atrial fibrillation Cat bite of hand Shingles Dog bite COVID-19 Exposure to COVID-19 virus Other acute postprocedural pain Loss of hearing Wears glasses Thyroid disease Arthritis Bladder disease Hepatitis High cholesterol Dietary restriction History of hiatal hernia Gastric reflux Non-smoker History of pain when walking History of edema History of Holter monitoring History of echocardiogram History of stress test Cardiology follow-up encounter History of CHF (congestive heart failure) History of atrial fibrillation Encounter for pre-operative cardiovascular clearance Tear of medial meniscus of right knee Mechanical pain of right knee Effusion of knee joint right Patella-femoral syndrome Internal derangement of right knee Hiatal hernia Essential (primary) hypertension Paroxysmal atrial fibrillation Obesity Hyperlipidemia GERD (gastroesophageal reflux disease) Anxiety and depression Acute on chronic diastolic (congestive) heart failure Incontinence Diarrhea Home Medications ?Medication ?Instructions ?Recorded ?Last Taken ?Type escitalopram oxalate 10 mg tablet 10 mg PO DAILY [employer]looks ([email or web address]) 02/02/18 Unknown History omeprazole 20 mg capsule,delayed 20 mg PO DAILY reflux 02/02/18 12/26/20 History release apixaban 2.5 mg tablet (Eliquis) 2.5 mg PO BID blood t hillary #180 06/10/18 12/23/20 Rx tabs calcium 315 mg (as 1 tab PO DAILY supplement Unknown History citrate)-vitamin D3 5 mcg (200 unit) tablet (Calcium Citrate + D) vitamin B complex 1 ea PO DAILY vitamin Unknown History acetaminophen 500 mg tablet 500 mg PO Q6H PRN fever or pain 12/01/23 Unknown History ascorbic acid (vitamin C) 500 mg 500 mg PO QDAY vitami n 12/01/23 Unknown History tablet lorazepam 0.5 mg tablet 0.5 mg PO DAILY Anxiety 11/09 05/31 Unknown History potassium chloride 20 mEq 20 meq PO QDAY supplement Unknown History tablet,extended release (K-Tab) lisinopril 5 mg tablet 5 mg PO DAILY #30 tabs 09/17 Unknown Rx levothyroxine 88 mcg tablet 88 mcg PO QDAY 09/22/24 Un known History pravastatin 20 mg tablet 40 mg PO QHS cholesterol Unknown History furosemide 40 mg tablet 40 mg PO DAILY diuretic #90 tabs 11/10/24 Unknown Rx amiodarone 200 mg tablet 100 mg PO DAILY heart rate 1 Unknown History Allergy/AdvReac Type Severity Reaction Status Date / Time Sulfa (Sulfonamide Allergy Severe BRAIN Verified 12/23/24 08:01 Antibiotics) SWELLING Family History (Reviewed 12/21/24 @ 14:30 by Betito Mcdowell [employer]ING [employer], [employer]-C) Mother Myocardial infarction from DC Diabetes Surgical History S/P arthroscopic partial medial meniscectomy (12/2020) History of cholecystectomy Social History household members: spouse and other details: nephew housing: house Smoking Status: Never smoker alcohol intake: never caffeine: No what type of physical activity do you participate in: none do you feel safe at home: Yes ROS ROS ED Constitutional Constitutional ED: Denies chills or fever(s) Eyes Eyes: Denies blurry vision or change in vision ENT ENT ED: Reports rhinorrhea; Denies sore throat Cardiovascular Cardiovascular: Reports palpitations; Denies chest pain Respiratory/Chest Respiratory/Chest: Reports cough; Denies dyspnea Gastrointestinal Gastrointestinal: Denies nausea or vomiting Genitourinary Genitourinary ED: Denies dysuria or hematuria Musculoskeletal Musculoskeletal: Denies back pain or neck pain Integumentary Denies abscess or rash Neurologic Neurologic: Reports headache(s) and weakness Allergic/Immunologic Allergic/Immunologic ED: Denies mouth swelling or urticaria EXAM Physical Exam Const Vital Signs: 12/23/24 08:02 12/23/24 08:07 12/23/24 09:01 Temperature 98.1 F 98.7 F Temperature Source Temporal Oral Pulse Rate 140 H 74 Respiratory Rate 18 17 Respiratory Effort Normal Non-Labored Blood Pressure 198/112 H 165/108 H Blood Pressure Mean 140 127 Pulse Ox 99 94 Oxygen Delivery Method Room Air Room Air 12/23/24 10:00 12/23/24 11:00 Temperature Temperature Source Pulse Rate 78 66 Respiratory Rate 20 H 14 Respiratory Effort Blood Pressure 173/80 H 174/110 H Blood Pressure Mean 111 129 Pulse Ox 94 94 Oxygen Delivery Method Room Air Positive well nourished and well developed General Appearance ED: well developed and NAD HEENT Reports moist mucous membranes Neck supple and no JVD Resp normal respiratory effort and clear to auscultation bilaterally Cardio regular rate Rhythm: abnormal rhythm irregularly irregular GI non-tender and non-distended Palpation: soft Extremity normal to inspection General Extremety ED: Negative for edema or tenderness General Extremity: Negative for edema Neuro CN's II-XII intact bilaterally and no sensory deficits noted Sensorium / Orientation: alert Motor Exam: strength 5/5 throughout Psych mental status grossly normal MDM MDM MDM Narrative Medical decision making narrative: Differential diagnosis includes cardiac dysrhythmia, cardiac ischemia, pneumonia, bronchitis, electrolyte abnormality, urinary tract infection, and anxiety. EKG will be obtained to assess for cardiac dysrhythmia and cardiac ischemia. Chest x-ray will be obtained to assess for pneumonia or bronchitis. CBC will be obtained to assess for leukocytosis and anemia. Basic metabolic profile will be obtained to assess for electrolyte abnormality and renal function. High-sensitivity troponin will be obtained to assess for cardiac ischemia. 2-hour repeat high-sensitivity troponin will be obtained to assess for ongoing cardiac ischemia. Urinalysis will be obtained to assess for urinary tract infection and hematuria. History & Record Review Additional record(s) reviewed:: Prior inpatient record, Prior outpatient record, Prior ED visit and Prior labs Lab Data Attestation: I reviewed the patient's lab results. Lab results narrative: CBC was reviewed and was within normal limits. Basic metabolic profile was reviewed and was essentially within normal limits. Initial high-sensitivity troponin was reviewed and was slightly elevated at 17. 2-hour repeat high- sensitivity troponin was improved at 16. Urinalysis was reviewed. There is no evidence of urinary tract infection or hematuria. Labs: Laboratory Results - last 24 hr 12/23/24 12/23/24 12/23/24 08:40 08:53 10:43 WBC 7.5 RBC 4.82 Hgb 13.5 Hct 42.0 MCV 87.1 MCH 28.0 MCHC 32.1 RDW Std Deviation 53.1 H RDW Coeff of Yeison 16.6 H Plt Count 312 MPV 10.2 Immature Gran % (Auto) 0.300 Neut % (Auto) 61.4 Lymph % (Auto) 29.5 [place] % (Auto) 7.6 Eos % (Auto) 0.5 Baso % (Auto) 0.7 Absolute Neuts (auto) 4.6 Absolute Lymphs (auto) 2.20 Nucleated RBC % 0 Sodium 140 Potassium 3.6 Chloride 104 Carbon Dioxide 24.8 Anion Gap 11 BUN 17 Creatinine 1.05 Estim Creat Clear Calc 29.72 L Est GFR (MDRD) Non-Af 51 L BUN/Creatinine Ratio 16.6 Glucose 95 Calcium 8.9 Troponin T High Sens 17 H Troponin T Hi Sens 2 Hr 16 H Urine Color Yellow Urine Clarity Sl. Cloudy Urine pH 6.0 Ur Specific [place] 1.020 Urine Protein 500 H Urine Glucose (UA) Normal Urine Ketones Negative Urine Occult Blood 25 H Urine Nitrite Negative Urine Bilirubin Negative Urine Urobilinogen Normal Ur Leukocyte Esterase 25 H Urine RBC 0 SEEN Urine WBC 0-5 SEEN Ur Squamous Epith Cells 0-5 SEEN Urine Bacteria 1+ Urine Mucus 1+ Radiography Chest X-Ray - ED: 2 View, Read by ED Physician, Read by Radiologist and No Acute Disease Diagnostic Testing: Clinical Impression(s) from Imaging Studies Chest X-Ray 12/23/24 09:00 IMPRESSION: Cardiomegaly. Increased markings at the left lung base suggestive of scarring. Moderate-sized hiatal hernia. [facility] and lateral chest x-ray was obtained. There are 2 views. On my independent interpretation, lung longoria show scarring at the left lung base. There is cardiomegaly. There is a moderate hiatal hernia. Bony thorax is normal. There is no acute process noted. Radiologist also interpreted the x-ray and agrees. EKG Initial EKG: Attestation: I personally reviewed and interpreted this EKG as follows: Interpretation: Atrial Flutter (85) and Non-Specific ST Changes Comments: EKG was obtained. On my independent interpretation, shows atrial flutter with variable block with a rate of 85. QRS normal was normal at 80 ms. QTc interval was slightly prolonged at 492 ms. Adrian was normal at 62. There are nonspecific ST-T wave changes noted. Prior EKG tracings: available for review Prior: Unchanged (12/21/2024) Treatment and Re-Evaluation :: Patient was advised of her findings. Patient was able to ambulate here in the emergency department without difficulty. Patient's heart rate remained normal. Patient is already anticoagulated. Patient was instructed to continue her medications as prescribed. 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 Patient was instructed to return if worse in any way. Patient understood and was agreeable with the plan. All questions were answered. 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 Instructions: ED AFIB Prescriptions: No Action omeprazole 20 mg capsule,delayed release(DR/EC) 20 mg PO DAILY escitalopram oxalate 10 mg tablet 10 mg PO DAILY calcium citrate-vitamin D3 [Calcium Citrate + D] 315 mg-5 mcg (200 unit) tablet 1 tab PO DAILY lorazepam 0.5 mg tablet 0.5 mg PO DAILY potassium chloride [K-Tab] 20 mEq tablet extended release 20 meq PO QDAY Patient Comments: 40meq x7 days 09/13/24 ascorbic acid (vitamin C) 500 mg tablet 500 mg PO QDAY acetaminophen 500 mg tablet 500 mg PO Q6H PRN (Reason: fever or pain) levothyroxine 88 mcg tablet 88 mcg PO QDAY amiodarone 200 mg tablet 100 mg PO DAILY vitamin B complex Elixir 1 ea PO DAILY lisinopril 5 mg tablet 5 mg PO DAILY Qty: 30 0RF pravastatin 20 mg tablet 40 mg PO QHS Eliquis 2.5 mg tablet 2.5 mg PO BID Qty: 180 3RF furosemide 40 mg tablet 40 mg PO DAILY Qty: 90 3RF Primary Care Provider: Arslan Toscano Referrals: Valdez Soto MD [Med Staff - Active Staff, Cardiology] - 5-7 Days Arslan Toscano DO [Primary Care Provider, Medical] - 5-7 Days Print Language: Pashto Disposition Disposition: Home, Self Care
--- NOTE | 2024-12-23 08:35 | EKG12_ITS ---
Test Reason : SOB Blood Pressure : */* mmHG Vent. Rate : 85 BPM Atrial Rate : 267 BPM P-R Int : * ms QRS Dur : 80 ms QT Int : 414 ms P-R-T Axes : * 62 23 degrees QTcB Int : 492 ms Atrial flutter with variable A-V block Nonspecific ST and T wave abnormality Abnormal ECG Confirmed by BK RODGERS, CHAPIS ([id number]), manuscript editor BRYAN COTE ([id number]) on 12/24/2024 8:31:33 AM Referred By: DRE Confirmed By: CHAPIS BOURGEOIS MD
[2024-12-23 08:49] LABS: Hematocrit 42.0 % (37-47); Hemoglobin 13.5 g/dL (12.0-15.0); Immature Granulocytes Count 0.020 X10^3/uL (0.0-0.0); Mean Corp Hgb Conc 32.1 g/dL (32-36); Mean Corpuscular Volume 87.1 fL (81-99); Mean Platelet Vol. 10.2 fl (6.2-12.0); NRBC Flagged by Analyzer 0 % (0-5); Platelet Count 312 K/mm3 (150-450); RBC Distribution Width CV 16.6 % (11.6-14.6); RBC Distribution Width SD 53.1 fl (35.1-43.9); Red Blood Count 4.82 M/mm3 (4.2-5.4); White Blood Count 7.5 K/mm3 (4.4-11.0)
[2024-12-23 08:59] LABS: Red Blood Cells-Urine 0 SEEN /hpf (0-5)
[2024-12-23 09:00] LABS: Color, Urine Yellow (Yellow); Glucose, Dipstick Normal (Normal); Ketone-Dipstick Negative (Negative); Leukocyte Esterase-Dipstick 25 /ul (Negative); Nitrite-Dipstick Negative (Negative); Occult Blood-Urine 25 /ul (Negative); Protein-Dipstick 500 mg/dl (Negative); Specific Gravity, Urine 1.020 (1.002-1.030); Urine Bilirubin Dipstick Negative (Negative)
--- NOTE | 2024-12-23 09:00 | RAD_ITS ---
PROCEDURE: CHEST PA AND LATERAL 12/23/2024 REASON FOR EXAM: PALPITATIONS TECHNIQUE: Procedure Code: RADCXR Modality: DX Procedure: CHEST PA AND LATERAL COMPARISON: September 15, 2024. FINDINGS: Hardware: EKG electrodes are seen. Heart: Heart size is mildly enlarged. Mediastinum: The mediastinal contour is unremarkable. Lungs: Stable increased markings in the left lower lobe suggestive of scarring. Bones: Degenerative changes are identified within the thoracic spine. Moderate-sized hiatal hernia. RAD/Chest PA and Lateral IMPRESSION: Cardiomegaly. Increased markings at the left lung base suggestive of scarring. Moderate-sized hiatal hernia. Reading Location: [place] [id number]
[2024-12-23 09:01] VITALS: BP 165/108; PULSE 74; RESP 17; TEMP 37.1; O2SAT 94
[2024-12-23 09:11] LABS: Troponin T High Sensitivity 17 ng/L (<=14)
[2024-12-23 09:15] LABS: Mucous, Urine 1+ /hpf (<or=2+); Squamous Epithelial Cells - UA 0-5 SEEN /hpf (5-10)
[2024-12-23 10:00] VITALS: BP 173/80; PULSE 78; RESP 20; O2SAT 94
[2024-12-23 10:48] LABS: Anion Gap 11 (5-15); BUN 17 mg/dL (4-19); BUN/Creat Ratio 16.6 RATIO (10-20); Calcium,Total 8.9 mg/dL (7.6-11.0); Carbon Dioxide 24.8 mmol/L (21.0-32.0); Chloride 104 mmol/L (98-108); Estimated Creatinine Clearance 29.72 ml/min (50-250); Glucose 95 mg/dL (70-99); Potassium 3.6 mmol/L (3.3-5.1)
[2024-12-23 11:00] VITALS: BP 174/110; PULSE 66; RESP 14; O2SAT 94
[2024-12-23 11:12] LABS: Troponin T High Sens 2 HR 16 ng/L (<=14)
[2024-12-23 11:56] VITALS: BP 177/99; PULSE 66; RESP 14; TEMP 36.8; O2SAT 94
== END 2024-12-23 11:57 | disposition home or self-care (01) ==
PROVIDERS: Emergency Provider Emergency Medicine; PCP Family Medicine; Visit Provider Emergency Medicine
DX: I48.91 Unspecified atrial fibrillation (principal); I50.33 Acute on chronic diastolic (congestive) heart failure; I13.0 Hypertensive heart and chronic kidney disease with heart failure and stage 1 through stage 4 chronic kidney disease, or unspecified chronic kidney disease; E78.00 Pure hypercholesterolemia, unspecified; N18.9 Chronic kidney disease, unspecified; Z79.899 Other long term (current) drug therapy; Z79.01 Long term (current) use of anticoagulants; Z86.16 Personal history of COVID-19
CPT/HCPCS: 71046; 80048; 81001; 84484; 85025; 93005; 99283; A4216

== ENCOUNTER 2025-02-18 08:42 | Emergency (ER) | payer MEDICARE, OTHER, SELFPAY ==
[2025-02-18] VITALS (7 sets, daily range): BP systolic 149–202; BP diastolic 78–128; PULSE 57–77; RESP 16–23; TEMP 36.6–36.8; O2SAT 94–98; BMI 31.1
--- NOTE | 2025-02-18 08:55 | RAD_ITS ---
PROCEDURE: CHEST 1 VIEW (PORTABLE) 02/18/2025 REASON FOR EXAM: DYSPNEA TECHNIQUE: Frontal view of the chest. COMPARISON: December 23, 2024. FINDINGS: Hardware: EKG electrodes are seen. Heart: Cardiomegaly. Lungs: The lungs are clear. Bones: Degenerative changes are identified within the thoracic spine. Large hiatal hernia. RAD/Chest 1 View (Portable) IMPRESSION: Cardiomegaly. Lungs are clear. Hiatal hernia. Reading Location: [place] [id number]
--- NOTE | 2025-02-18 08:56 | EX.ED.DYSGE1 ---
HPI History of Present Illness Chief Complaint: Palpitations Informant: patient and EMS Narrative Narrative: Patient is an 89-year-old female with a history of A-fib presenting with dyspnea and lightheadedness. - Reports waking up this morning with dyspnea and lightheadedness and a headache. SBP 210 per EMS. Arrives in ED around 0845 and has not taken her morning medications yet. - Denies chest heaviness or discomfort. Denies palpitations. - Symptoms are resolved at this time. - Used supplemental oxygen at home, which provided relief. - Denies recent illness, fever, or changes in appetite. - Denies dysuria, hematuria, or recent diarrhea. - Reports chronic cough with post-nasal drip, no recent changes. - Denies hemoptysis. - Reports feeling thirsty, noting decreased fluid intake recently. - History of A-fib, currently on anticoagulation therapy. Previously not in A-fib consistently, but now reports being in A-fib all the time, to her knowledge. - Hospitalized 3-4 months ago for 3 days due to spinal nerve issue and diarrhea. No illnesses since. [facility] Medical History [facility] current use of amiodarone Chronic diastolic (congestive) heart failure Chronic anticoagulation Atrial flutter Chronic kidney insufficiency Over 65 years old Atrial fibrillation Cat bite of hand Shingles Dog bite COVID-19 Exposure to COVID-19 virus Other acute postprocedural pain Loss of hearing Wears glasses Thyroid disease Arthritis Bladder disease Hepatitis High cholesterol Dietary restriction History of hiatal hernia Gastric reflux Non-smoker History of pain when walking History of edema History of Holter monitoring History of echocardiogram History of stress test Cardiology follow-up encounter History of CHF (congestive heart failure) History of atrial fibrillation Encounter for pre-operative cardiovascular clearance Tear of medial meniscus of right knee Mechanical pain of right knee Effusion of knee joint right Patella-femoral syndrome Internal derangement of right knee Hiatal hernia Essential (primary) hypertension Paroxysmal atrial fibrillation Obesity Hyperlipidemia GERD (gastroesophageal reflux disease) Anxiety and depression Acute on chronic diastolic (congestive) heart failure Incontinence Diarrhea Home Medications ?Medication ?Instructions ?Recorded ?Last Taken ?Type escitalopram oxalate 10 mg tablet 10 mg PO DAILY mental health 02/02/18 Unknown History omeprazole 20 mg capsule,delayed 20 mg PO DAILY reflux 11/26/18 10/19/21 History release apixaban 2.5 mg tablet (Eliquis) 2.5 mg PO BID blood thinner #180 06/10/18 12/23/20 Rx tabs calcium 315 mg (as 1 tab PO DAILY supplement 10/15/21 Unknown History citrate)-vitamin D3 5 mcg (200 unit) tablet (Calcium Citrate + D) vitamin B complex 1 ea PO DAILY vitamin 10/15/21 Unknown History acetaminophen 500 mg tablet 500 mg PO Q6H PRN fever or pain 12/01/23 Unknown History ascorbic acid (vitamin C) 500 mg 500 mg PO QDAY vitamin 12/01/23 Unknown History tablet potassium chloride 20 mEq 20 meq PO QDAY supplement 08/24/24 Unknown History tablet,extended release (K-Tab) lisinopril 5 mg tablet 5 mg PO DAILY #30 tabs 09/17/24 Unknown Rx levothyroxine 88 mcg tablet 88 mcg PO QDAY 09/22/24 Unknown History furosemide 40 mg tablet 40 mg PO DAILY diuretic #90 tabs 11/10/24 Unknown Rx dextromethorphan polistirex 30 10 ml PO HS 12/29/24 Unknown History mg/5 mL oral susp ext.release 12hr (Delsym 12 hour) lorazepam 0.5 mg tablet 0.5 mg PO DAILY Anxiety 12/29/24 Unknown History metoprolol tartrate 25 mg tablet 25 mg PO BID #60 tabs 12/29/24 Unknown Rx pravastatin 20 mg tablet 20 mg PO QHS cholesterol #90 tabs 02/11/25 Unknown Rx Allergy/AdvReac Type Severity Reaction Status Date / Time Sulfa (Sulfonamide Allergy Severe BRAIN Verified 02/18/25 08:59 Antibiotics) SWELLING Family History Mother Myocardial infarction from [place] Diabetes Family History unable to obtain Surgical History S/P arthroscopic partial medial meniscectomy (12/2020) History of cholecystectomy Social History household members: spouse and other details: nephew housing: house Smoking Status: Never smoker alcohol intake: never caffeine: No what type of physical activity do you participate in: none do you feel safe at home: Yes ROS ROS ED Constitutional Constitutional ED: Denies chills or fever(s) Eyes Eyes: Denies change in vision or diplopia ENT ENT ED: Denies rhinorrhea or sore throat Cardiovascular Cardiovascular: Reports lightheadedness; Denies chest pain, leg edema, orthopnea, palpitations, paroxysmal nocturnal dyspnea, radiating jaw, neck or arm pain or syncope Respiratory/Chest Respiratory/Chest: Reports cough and dyspnea; Denies orthopnea, paroxysmal nocturnal dyspnea or sputum Gastrointestinal Gastrointestinal: Denies abdominal pain, diarrhea, nausea or vomiting Genitourinary Genitourinary ED: Denies dysuria or hematuria Musculoskeletal Musculoskeletal: Denies back pain or neck pain Integumentary Denies abscess or rash Neurologic Neurologic: Reports headache(s); Denies paresthesias or weakness Psychiatric Psychiatric: Denies suicidal thoughts EXAM Physical Exam Const Vital Signs: 02/18/25 08:51 02/18/25 08:55 02/18/25 08:57 Temperature 97.8 F Temperature Source Oral Pulse Rate 77 65 Pulse Rate [Lying] Pulse Rate [Sitting (for 1 minute prior to obtaining)] Pulse Rate [Standing (for 1 minute prior to obtaining)] Respiratory Rate 16 16 Respiratory Effort Blood Pressure 202/128 H 202/128 H Blood Pressure [Lying] Blood Pressure [Sitting (for 1 minute prior to obtaining)] Blood Pressure [Standing (for 1 minute prior to obtaining)] Blood Pressure Mean 152 152 Blood Pressure Mean [Lying] Blood Pressure Mean [Sitting (for 1 minute prior to obtaining)] Blood Pressure Mean [Standing (for 1 minute prior to obtaining)] Pulse Ox 98 96 Oxygen Delivery Method Room Air Room Air Nasal Cannula 02/18/25 08:57 02/18/25 09:19 02/18/25 10:50 Temperature Temperature Source Pulse Rate 65 Pulse Rate [Lying] 65 Pulse Rate [Sitting (for 1 minute prior to obtaining)] 76 Pulse Rate [Standing (for 1 minute prior to obtaining)] 75 Respiratory Rate 23 H Respiratory Effort Normal Blood Pressure 173/101 H Blood Pressure [Lying] 190/114 H Blood Pressure [Sitting (for 1 minute prior to obtaining)] 184/94 H Blood Pressure [Standing (for 1 minute prior to obtaining)] 168/97 H Blood Pressure Mean 125 Blood Pressure Mean [Lying] 139 Blood Pressure Mean [Sitting (for 1 minute prior to obtaining)] 124 Blood Pressure Mean [Standing (for 1 minute prior to obtaining)] 120 Pulse Ox 94 Oxygen Delivery Method Room Air 02/18/25 12:05 02/18/25 14:03 Temperature Temperature Source Pulse Rate 61 57 L Pulse Rate [Lying] Pulse Rate [Sitting (for 1 minute prior to obtaining)] Pulse Rate [Standing (for 1 minute prior to obtaining)] Respiratory Rate 20 H 20 H Respiratory Effort Blood Pressure 149/78 H Blood Pressure [Lying] Blood Pressure [Sitting (for 1 minute prior to obtaining)] Blood Pressure [Standing (for 1 minute prior to obtaining)] Blood Pressure Mean 101 Blood Pressure Mean [Lying] Blood Pressure Mean [Sitting (for 1 minute prior to obtaining)] Blood Pressure Mean [Standing (for 1 minute prior to obtaining)] Pulse Ox 95 97 Oxygen Delivery Method Room Air Room Air Positive well nourished and well developed General Appearance ED: well developed and NAD HEENT Reports moist mucous membranes normocephalic and atraumatic Eyes PERRL and EOMs intact bilaterally Neck full ROM and supple Resp normal respiratory effort and clear to auscultation bilaterally Cardio no murmurs Rate: Negative for tachycardic Rhythm: abnormal rhythm irregularly irregular GI non-tender and non-distended Auscultation: normoactive bowel sounds Palpation: soft Back/Spine no CVA tenderness General Back: other FROM Extremity normal to inspection General Extremety ED: Negative for edema, pulses abnormal or tenderness General Extremity: Negative for edema or pulses abnormal Neuro oriented x3, CN's II-XII intact bilaterally, no sensory deficits noted and gait normal Sensorium / Orientation: awake and alert Motor Exam: strength 5/5 throughout Skin no rashes or lesions noted and no wounds MDM MDM MDM Narrative Medical decision making narrative: Initially, the patient states she has a history of atrial fibrillation, although she did not feel palpitations or racing this morning. The EKG shows atrial flutter. I reviewed her prior cardiology visit, which indicates she used to have paroxysmal AFib, but it was determined to be permanent. Amiodarone was discontinued about two months ago, around the time she had atrial flutter. According to the records, they are now focusing on rate control, and she is on metoprolol at home, as well as lisinopril and furosemide for diastolic heart failure. She has not taken her morning medications yet. We gave her clonidine since her blood pressure is still very high here in the ED (202/128), although she is asymptomatic, to bring her pressure down. We will continue her workup with a chest X-ray, troponin measurements, and electrolytes and renal function. Orthostatics were performed; they are negative, and the patient was asymptomatic. Her labs are unremarkable, with no significant anemia, prerenal azotemia, or electrolyte imbalance. Her initial troponin is 18, which is just above the normal upper limit of 14. The chest X-ray (one view) is unremarkable, with no pulmonary edema or pneumonia. She does have cardiomegaly, which is stable. She was given clonidine, her morning lisinopril for blood pressure, and metoprolol tartrate 25 mg. We will observe her, monitor her blood pressure, and obtain a second troponin measurement. The second troponin came back lower than the initial. The patient is now rate-controlled but remains in atrial flutter, and she is asymptomatic. I discussed her case with cardiology (Dr. Calderon), who agrees to maintain her on metoprolol 25 mg BID. He feels it is acceptable for her to remain in flutter while asymptomatic, and they will follow up with her in the office. She has a scheduled appointment in March, and he recommends making an earlier follow-up appointment if possible. Discussing the plan at exit interview, states that patient was recently diagnosed with obstructive sleep apnea. As I discussed with them, it is possible that was related to her symptoms today rather than her cardiac history. Follow-up advised. Portions of this note were generated using voice recognition software ([employer]). I have reviewed the contents and every effort has been made to ensure accuracy; however, inadvertent errors in grammar, spelling, punctuation, or word choice may occur, that were not noted before signing the document and should not alter the intended clinical meaning. History & Record Review Additional record(s) reviewed:: Prior outpatient record (cardiology note 12/2024) Lab Data Attestation: I reviewed the patient's lab results. Labs: Laboratory Results - last 24 hr 02/18/25 02/18/25 02/18/25 09:05 11:08 13:06 WBC 8.0 RBC 4.95 Hgb 14.1 Hct 43.9 MCV 88.7 MCH 28.5 MCHC 32.1 RDW Std Deviation 48.6 H RDW Coeff of Yeison 14.9 H Plt Count 265 MPV 10.1 Immature Gran % (Auto) 0.400 Neut % (Auto) 62.8 Lymph % (Auto) 27.8 [place] % (Auto) 7.4 Eos % (Auto) 0.8 Baso % (Auto) 0.8 Absolute Neuts (auto) 5.0 Absolute Lymphs (auto) 2.22 Nucleated RBC % 0 Sodium 141 Potassium 3.6 Chloride 104 Carbon Dioxide 25.5 Anion Gap 11 BUN 14 Creatinine 1.02 Estim Creat Clear Calc 30.97 L Est GFR (MDRD) Non-Af 53 L BUN/Creatinine Ratio 13.8 Glucose 103 H Calcium 8.9 Troponin T High Sens 18 H Troponin T Hi Sens 2 Hr 15 H Troponin T Hi Sens 4Hr 15 H Radiography Diagnostic Testing: Clinical Impression(s) from Imaging Studies Chest X-Ray 02/18/25 08:55 IMPRESSION: Cardiomegaly. Lungs are clear. Hiatal hernia. Reading Location: [place] [address] Rhythm Strip Rhythm Strip: A-fib (vs aflutter) Rate: 70 Ectopy: None EKG Initial EKG: Attestation: I personally reviewed and interpreted this EKG as follows: Interpretation: No Acute Injury Pattern and Atrial Flutter (w/ variable AV conduction) Management Discussion w/another healthcare provider: Sales Property Manager (Cardiology Dr. Patrick) Discharge Plan Triage Chief Complaint: Palpitations ED Provider: Jacob Brady Dx/Rx/DC Orders Clinical Impression: Atrial flutter, Chronic diastolic (congestive) heart failure, Accelerated hypertension, Acute dyspnea, History of obstructive sleep apnea Instructions: Sleep Apnea Partner Notes, ED Atrial Flutter Prescriptions: No Action omeprazole 20 mg capsule,delayed release(DR/EC) 20 mg PO DAILY escitalopram oxalate 10 mg tablet 10 mg PO DAILY calcium citrate-vitamin D3 [Calcium Citrate + D] 315 mg-5 mcg (200 unit) tablet 1 tab PO DAILY lorazepam 0.5 mg tablet 0.5 mg PO DAILY Rx Instructions: One in AM daily, and one in PM PRN. potassium chloride [K-Tab] 20 mEq tablet extended release 20 meq PO QDAY Patient Comments: 40meq x7 days 09/13/24 ascorbic acid (vitamin C) 500 mg tablet 500 mg PO QDAY acetaminophen 500 mg tablet 500 mg PO Q6H PRN (Reason: fever or pain) levothyroxine 88 mcg tablet 88 mcg PO QDAY dextromethorphan polistirex [Delsym 12 hour] 30 mg/5 mL suspension,extended rel 12 hr 10 ml PO HS metoprolol tartrate 25 mg tablet 25 mg PO BID Qty: 60 11RF vitamin B complex Elixir 1 ea PO DAILY lisinopril 5 mg tablet 5 mg PO DAILY Qty: 30 0RF Eliquis 2.5 mg tablet 2.5 mg PO BID Qty: 180 3RF furosemide 40 mg tablet 40 mg PO DAILY Qty: 90 3RF pravastatin 20 mg tablet 20 mg PO QHS Qty: 90 3RF Primary Care Provider: Arslan Toscano Referrals: Dimple Patrick MD [Med Staff - Active Staff, Cardiology] - As soon as possible Activity Restrictions/Additional Instructions: Today you were already given your lisinopril and metoprolol for your morning doses. Print Language: Syriac Disposition Disposition: Home, Self Care
--- NOTE | 2025-02-18 09:00 | EKG12_ITS ---
Test Reason : PALP Blood Pressure : */* mmHG Vent. Rate : 68 BPM Atrial Rate : 300 BPM P-R Int : * ms QRS Dur : 76 ms QT Int : 414 ms P-R-T Axes : * 52 188 degrees QTcB Int : 440 ms Atrial flutter with variable A-V block ST & T wave abnormality, consider anterolateral ischemia Abnormal ECG Confirmed by MARGARITA RODGERS, TYRONE ([id number]), graphics editor BRYAN COTE ([id number]) on 02/21/2025 6:47:37 AM Referred By: BB Confirmed By: TYRONE AVILA MD
[2025-02-18 09:19] LABS: Hematocrit 43.9 % (37-47); Hemoglobin 14.1 g/dL (12.0-15.0); Immature Granulocytes Count 0.030 X10^3/uL (0.0-0.0); Mean Corp Hgb Conc 32.1 g/dL (32-36); Mean Corpuscular Volume 88.7 fL (81-99); Mean Platelet Vol. 10.1 fl (6.2-12.0); NRBC Flagged by Analyzer 0 % (0-5); Platelet Count 265 K/mm3 (150-450); RBC Distribution Width CV 14.9 % (11.6-14.6); RBC Distribution Width SD 48.6 fl (35.1-43.9); Red Blood Count 4.95 M/mm3 (4.2-5.4); White Blood Count 8.0 K/mm3 (4.4-11.0)
[2025-02-18 09:35] LABS: Anion Gap 11 (5-15); BUN 14 mg/dL (4-19); BUN/Creat Ratio 13.8 RATIO (10-20); Calcium,Total 8.9 mg/dL (7.6-11.0); Carbon Dioxide 25.5 mmol/L (21.0-32.0); Chloride 104 mmol/L (98-108); Estimated Creatinine Clearance 30.97 ml/min (50-250); Glucose 103 mg/dL (70-99); Potassium 3.6 mmol/L (3.3-5.1); Troponin T High Sensitivity 18 ng/L (<=14)
[2025-02-18 11:47] LABS: Troponin T High Sens 2 HR 15 ng/L (<=14)
[2025-02-18 13:56] LABS: Troponin T High Sens 4 HR 15 ng/L (<=14)
== END 2025-02-18 14:54 | disposition home or self-care (01) ==
PROVIDERS: Emergency Provider Emergency Medicine; PCP Family Medicine; Visit Provider Emergency Medicine
DX: I48.92 Unspecified atrial flutter (principal); I13.0 Hypertensive heart and chronic kidney disease with heart failure and stage 1 through stage 4 chronic kidney disease, or unspecified chronic kidney disease; I50.32 Chronic diastolic (congestive) heart failure; G47.33 Obstructive sleep apnea (adult) (pediatric); R06.00 Dyspnea, unspecified; Z79.899 Other long term (current) drug therapy; Z86.16 Personal history of COVID-19
CPT/HCPCS: 71045; 80048; 84484; 85025; 93005; 99285